=== PATIENT | male | born 1935 | race Caucasian/White ===

== ENCOUNTER 2016-11-03 06:09 | Day surgery (SDC) | payer OTHER ==
[~2016-11-03 06:09] MED LIST: ATOR20TA42; CIPR500T4 PO; ECOT81TA2
[2016-11-03 06:46] VITALS: BP 174/102; PULSE 71; RESP 20; TEMP 98.4; O2SAT 93
[2016-11-03] MEDS ORDERED: ASPI1TAB69 PO (06:53)
[2016-11-03] MEDS ORDERED: LIPI20TA PO (06:53)
[2016-11-03] MEDS ORDERED: SODIUM CHLORID 0.9% 500 ML INJ 500 ML IV SCH (07:00)
[2016-11-03] MEDS ORDERED: IOHEXOL 350 MG/ML 10 ML VIAL (for RAD DIAG) IV ONE (10:24)
[2016-11-03 12:40] VITALS: BP 171/99; PULSE 74; RESP 18; O2SAT 95
--- NOTE | 2016-11-03 12:41 | RADRPT ---
EXAM DATE/TIME: 11/03/2016 10:09 [facility] COMPARISON: No previous studies available for comparison. INDICATIONS : Enlarged abdominal aortic aneurysm. IV CONTRAST: 100 cc Omnipaque 350 (iohexol) IV RADIATION DOSE: 3.57 CTDIvol (mGy) MEDICAL HISTORY : Aneurysm, abdominal. SURGICAL HISTORY : None. ENCOUNTER: Initial ACUITY: 1 day PAIN SCALE: 0/10 LOCATION: Abdomen. TECHNIQUE: Volumetric scanning was performed using a multi-row detector CT scanner. The data was post processed with a variety of visualization algorithms including full volume maximum intensity projection, multi -planar sliding thin slab reformation, curved planar reformation, and surface rendering techniques. Using automated exposure control and adjustment of the mA and/or kV according to patient size, radiat ion dose was kept as low as reasonably achievable to obtain optimal diagnostic quality images. FINDINGS: Abdominal aorta: The distal thoracic aorta is aneurysmal measuring approximately 3.8 cm. The aorta remains aneurysmal across the diaphragmatic hiatus. It measures approximately 3.7 cm at this point. The celiac and SMA a re widely patent. There are single renal arteries bilaterally. The renal arteries are widely patent. The aorta is mildly aneurysmal at the level the renal arteries as well measuring approximately 3.4 cm in transverse diameter. The infrarenal aorta is quite aneurysmal with a maximum transverse dimension of 6.7 cm. The aneurysmal dilation extends down to but does not involve the iliac bifurcation. Pelvis: The common iliac arteries are dilated bilaterally. The right common iliac measures 1.7 cm in transver se diameter. The left common iliac measures approximately 1.2 cm in transverse diameter. The external iliac arteries are normal in caliber bilaterally. Both hypogastric arteries are patent. Right leg: The right common femoral, profunda femoral and superficial femoral are widely patent throughout their course. The popliteal is normal in caliber. There is two-vessel runoff into the foot via the posteri or tibial and peroneal. Left leg: The left common femoral and profunda femoral are widely patent. The superficial femoral is patent thr oughout its course. The popliteal is patent above and below the level of the knee. Distally, there is three-vessel runoff into the left foot. CT source data: The portions of lung bases visualized are clear. The solid organs of the abdomen are grossly intact. There is a 3.6 cm cyst arising from the right kidney and a 4.1 cm cyst arising from the left kidney. CONCLUSION: 1. Aneurysmal dilation of the distal thoracic aorta measuring approximately 3.8 cm. 2. The abdominal aorta is aneurysmal throughout its course. It measures 3.7 cm at the diaphragmatic h iatus, 3.4 cm at the level the renal arteries and distally measures 6.7 cm in its infrarenal segment. 3. Mild fusiform dilation of the common iliac arteries bilaterally. The right iliac measures 1.7 CM. The left iliac measures 1.2 CM. 4. Adequate in flow down to the pelvis bilaterally. 5. Right leg: Superficial femoral, profunda femoral popliteal are patent. There is advanced small ves nichelle disease below the level of the knee. There is two-vessel runoff into the right foot. The peroneal is diminutive in size. 6. Left leg: Superficial femoral, profunda femoral and popliteal are widely patent. All 3 trifurcatio n vessels are patent down into the left foot. Richard Boss MD on November 03, 2016 at 12:32 Board Certified Radiologist. This report was verified electronically.
== END 2016-11-03 12:45 | disposition home or self-care (01) ==
LOC: HRAD 06:09 → HRIP 06:18 → EDSTATUS 07:00 → HRAD 12:45
PROVIDERS: ATTEND Surgery Vascular Surgery
DX: I71.4 Abdominal aortic aneurysm, without rupture (principal); I73.9 Peripheral vascular disease, unspecified
CPT/HCPCS: 75635; 82565; 84520; 96365; 96366; J7040; Q9967

== ENCOUNTER 2016-12-15 16:10 | Inpatient (IN) | payer OTHER, MEDICARE ==
[~2016-12-15] VITALS: Ht 175.3 cm; Wt 96.1 kg
[~2016-12-15 16:10] MED LIST changes: +ASPI1TAB69 PO; -ATOR20TA42; -CIPR500T4 PO; -ECOT81TA2; +LIPI20TA PO
[2016-12-28] MEDS ORDERED: INSULIN HUMAN REGULAR 1,000 UNITS/10 ML VIAL SQ PRN (05:45)
[2016-12-28] MEDS ORDERED: METOPROLOL TARTRATE 25 MG TAB PO PRN (05:45)
[2016-12-28] MEDS ORDERED: POVIDONE IODINE 5% (ANTISEPSIS KIT) 4 APPLICATIONS EACH NARE PRN (05:45)
[2016-12-28] MEDS ORDERED: CHLORHEXIDINE GLUCONATE 2 % 1 PACK (2 CLOTHS) TOPICAL PRN (05:45)
[2016-12-28] MEDS ORDERED: LACTATED RINGER'S 1000 ML IV PRN (05:45)
[2016-12-28] MEDS ORDERED: SODIUM CHLORID 0.9% 500 ML IV PRN (05:45)
[2016-12-28 06:04] VITALS: BP 170/90; PULSE 75; RESP 18; TEMP 98.3; O2SAT 94
--- NOTE | 2016-12-28 07:27 | PD.VS.PN ---
Pre-operative Note Pre-operative diagnosis: Juxtarenal AAA Planned procedure: Retroperitoneal repair of AAA Interval History: Pt has been feeling well since clinic visit. No change in history. Labs: Hct 46 plt 343 cr 1.5 Blood: T&C 4U PRBC T&C 4U FFP Imaging: CTA reviewed - juxtarenal AAA Orders: NPO Ancef 2g IV OCTOR Post-operative destination: CVICU Operative site marked: Yes Consent: Informed consent has been obtained from Jose Fields Sr. I have explained the procedure in detail and discussed the risks, benefits, and potential complications. All questions have been answered to him and his son. Patient contact information: son is with him today Jose Russo MD Dec 28, 2016 07:27
[2016-12-28] MEDS ORDERED: BUPIVACAINE/EPINEPHRINE 0.5% PF 30 ML VIAL ONE (07:38)
[2016-12-28] MEDS ORDERED: HEPARIN SODIUM - IV 10,000 UNITS/10 ML VIAL ONE (07:38)
[2016-12-28] MEDS ORDERED: ceFAZolin 2 GM PREMIX 50 ML ONE (07:38)
[2016-12-28] MEDS ORDERED: GELFOAM SIZE 100 ONE (07:38)
[2016-12-28] MEDS ORDERED: THROMBIN (TOPICAL) 20,000 UNIT SPRAY KIT ONE (07:39)
[2016-12-28] MEDS ORDERED: THROMBIN (TOPICAL) 5,000 UNIT VIAL ONE (07:39)
[2016-12-28] MEDS ORDERED: HEPARIN SODIUM - SQ 10,000 UNITS/ML VIAL ONE (07:39)
[2016-12-28] MEDS ORDERED: PROTAMINE SULFATE 50 MG/5 ML VIAL ONE (07:39)
[2016-12-28] MEDS ORDERED: ePHEDrine/NS 25 MG/5 ML SYR IV ONE (07:58)
[2016-12-28] MEDS ORDERED: PROPOFOL 200 MG/20 ML AMP IV ONE (07:58)
[2016-12-28] MEDS ORDERED: NEOSTIGMINE 3 MG/3 ML SYR IV ONE ×2 (07:58→13:07)
[2016-12-28] MEDS ORDERED: PHENYLEPH/NS 1000 MCG/10 ML SYR IV ONE (07:59)
[2016-12-28] MEDS ORDERED: LACTATED RINGER'S 1000 ML INJ 1,000 ML IV ONE (08:00)
[2016-12-28] MEDS ORDERED: SODIUM BICARBONATE 8.4% INJ 50 MEQ/50 ML SYR IV ONE (08:00)
[2016-12-28] MEDS ORDERED: SODIUM CHLOR 0.9% 250 ML INJ 250 ML IV ONE (08:00)
[2016-12-28] MEDS ORDERED: SODIUM CHLORID 0.9% 500 ML INJ 500 ML IV ONE (08:00)
[2016-12-28] MEDS ORDERED: NORMOSOL R INJ 3,000 ML IV ONE (08:01)
[2016-12-28] MEDS ORDERED: MIDAZOLAM HCL 2 MG/2 ML VIAL ONE ×2 (08:37→13:33)
[2016-12-28] MEDS ORDERED: FAMOTIDINE 20 MG/2 ML VIAL ONE (08:37)
[2016-12-28] MEDS: D5-1/2 NS + KCL 20 MEQ INJ 1,000 ML IV SCH (12:32)
--- NOTE | 2016-12-28 12:32 | HHI.PR ---
cc: Kingsley Gamino MD Immediate Post Op Note Procedure Date: Dec 28, 2016 Pre Op Diagnosis: Juxtarenal AAA Post Op Diagnosis: Juxtarenal AAA Surgeon: Jose Russo Scroll Saw Operator(s): Jamar Bermudez Procedure: Retroperitoneal repair of juxtarenal AAA with 24mm Dacron (suprarenal X-clamp) Findings: successful repair + pedal signals at conclusion + L renal artery signal after proximal anastomosis Complications: none apparent Specimen(s) removed: none Estimated blood loss: 800 mL Anesthesia: General Drains: None Fluids: 3500mL x'oid; 2U FFP; 340 mL UOP IVF Patient to: Other (CVICU) Patient Condition: Fair Implant/Devices: SEE IMPLANT LOG (if applicable) Date/Time of Procedure: SEE SURGICAL CARE RECORD Jose Russo MD Dec 28, 2016 12:32
[2016-12-28] MEDS ORDERED: SUGAMMADEX SODIUM 200 MG/2 ML VIAL IV PUSH ONE ×2 (12:55)
[2016-12-28 13:00] VITALS: BP_SYST 154; BP_SYST 171; BP_DIAS 65; BP_DIAS 93; PULSE 84; RESP 15; TEMP 97.6; O2SAT 95; O2SAT 96
[2016-12-28] MEDS ORDERED: ONDANSETRON HCL 4 MG/2 ML VIAL IV PUSH ONE (13:07)
[2016-12-28] MEDS ORDERED: CLEVIDIPINE INJ 50 ML ONE (13:07)
[2016-12-28] MEDS ORDERED: MANNITOL 12.5 GM/50 ML VIAL IV ONE (13:08)
[2016-12-28] MEDS ORDERED: HEPARIN - 10,000 UNITS/ML IV ADDITIVE IV ONE (13:09)
[2016-12-28] MEDS ORDERED: NITROGLYCERIN 1000 MCG/5 ML VIAL IV ONE (13:10)
[2016-12-28] MEDS ORDERED: hydrALAZINE HCL 20 MG/ML VIAL ONE (13:10)
[2016-12-28] MEDS ORDERED: fentaNYL CITRATE 250 MCG/5 ML AMP ONE (13:33)
[2016-12-28] MEDS ORDERED: hydrALAZINE HCL 20 MG/ML VIAL IV PRN (13:45)
[2016-12-28] MEDS ORDERED: hydrALAZINE HCL 20 MG/ML VIAL IV ONE (13:45)
[2016-12-28 14:01] LABS: HEMATOCRIT 31.8 % (39.0-51.0); MEAN CELL VOLUME 90.9 FL (80.0-100.0); MEAN CORPUSCULAR HEMOGLOBIN 29.6 PG (27.0-34.0); MEAN CORPUSCULAR HGB CONC 32.6 % (32.0-36.0); PLATELET COUNT 169 TH/MM3 (150-450); REVIEW FLAG FINAL; WHITE BLOOD COUNT 12.4 TH/MM3 (4.0-11.0)
[2016-12-28] MEDS: HYDROmorphone HCL PF 1 MG/ML VIAL IV PRN ×2 (14:05→16:07)
[2016-12-28 14:09] LABS: PROTHROMBIN TIME - PATIENT 11.4 SEC (9.8-11.6)
[2016-12-28 14:24] LABS: POTASSIUM 4.4 MEQ/L (3.5-5.1)
--- NOTE | 2016-12-28 14:47 | RADRPT ---
EXAM DATE/TIME: 12/28/2016 14:23 [facility] COMPARISON: No previous studies available for comparison. INDICATIONS : Line placement. MEDICAL HISTORY : Aneurysm, abdominal. SURGICAL HISTORY : Abdominal aortic aneurysm repair. ENCOUNTER: Subsequent ACUITY: 2 days PAIN SCORE: 8/10 LOCATION: Bilateral chest FINDINGS: Left subclavian line is noted and the tip overlies the SVC. There is cardiomegaly and tortuous aorta noted. There is interstitial prominence seen in the left lung. A small left effusion is difficult to exclude. There is no pneumothorax. CONCLUSION: Left subclavian line placement as above. Danny Marie MD on December 28, 2016 at 14:45 Board Certified Radiologist. This report was verified electronically.
--- NOTE | 2016-12-28 15:17 | PD.VS.PN ---
Subjective POD #: 0 Procedure(s): Juxtarenal AAA repair Subjective/Hospital Course resting, doing well. no complaints Objective Neuro: MCCRARY, pain controlled Pulmonary: Chest clear on XRay Good sats on NC No distress Cardiac: reg rate FEN/GI: NPO; abd not distended; no nausea : + UOP - clear yellow ID Antibiotics(date/duration): none ID Cultures: none Heme: Hct 32, LA ok Vascular: palpable pulses RP incision ok Laboratory Laboratory Tests Test 12/28/16 12/28/16 12/28/16 12/28/16 05:55 08:25 10:00 13:40 Blood Type O POSITIVE O POSITIVE Antibody Screen NEGATIVE Crossmatch Leukocyte-Reduced Red Blood Cells Blood Bank Comment White Blood Count 12.4 Red Blood Count 3.50 Hemoglobin 10.4 Hematocrit 31.8 Mean Corpuscular Volume 90.9 Mean Corpuscular Hemoglobin 29.6 Mean Corpuscular Hemoglobin 32.6 Concent Red Cell Distribution Width 14.0 Platelet Count 169 Mean Platelet Volume 7.4 Prothrombin Time 11.4 Prothromb Time International 1.0 Ratio Sodium Level 142 Potassium Level 4.4 Chloride Level 106 Carbon Dioxide Level 26.0 Anion Gap 10 Blood Urea Nitrogen 30 Creatinine 1.41 Estimat Glomerular Filtration 48 Rate Random Glucose 133 Lactic Acid Level 1.2 Calcium Level 7.7 Imaging Last 48 hours Impressions Chest X-Ray 12/28/16 0000 Signed Impressions: Service Date/Time: Wednesday, December 28, 2016 14:23 - CONCLUSION: Left subclavian line placement as above. Danny Marie MD Assessment and Plan Plan looks good overall 1. NPO 2. May sit up in bed 3. Goal SBP 120-140 4. Follow UOP 5. Anticipate OOB TC tomorrow Jose Russo MD Dec 28, 2016 15:17
[2016-12-28 16:00] VITALS: BP 118/74; PULSE 78; RESP 16; TEMP 98; O2SAT 98
[2016-12-28] MEDS: METOPROLOL TARTRATE 5 MG/5 ML VIAL IV PUSH SCH ×2 (16:21→18:03)
[2016-12-28] MEDS: PANTOPRAZOLE SODIUM 40 MG VIAL IV PUSH SCH (16:21)
[2016-12-28 16:35] VITALS: PULSE 78
[2016-12-28 20:00] VITALS: BP 138/72; PULSE 80; RESP 16; TEMP 98.2; O2SAT 94
[2016-12-28 20:30] VITALS: O2SAT 95
--- NOTE | 2016-12-28 21:08 | PD.CONS ---
[facility] Service Critical Care Medicine Consult Requested By Dr. 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 He underwent the procedure without major intra-operative complication. EBL was reportedly 800mL. He tolerated a supramesenteric aortic cross clamp. post- uncrossclamping, he had adequate uop. He arrives to the CVICU extubated in stable condition. Review of Systems ROS Limitations: Clinical Condition ROS recently under anesthesia, still somnolent. Past Family Social History Allergies: Coded Allergies: Zetia (Verified Allergy, Mild, STRANGE FEELING IN ABDOMEN, 12/24/16) Past Medical History hyperlipidemia hypertension peripheral vascular disease Past Surgical History CEA eye surgery hernia repair Reported Medications atorvastatin Active Ordered Medications See MAR Family History reviewed and found to be noncontributory to his acute illness. Social History former smoker, quit 1 month ago. 7 glasses wine/week Physical Exam Vital Signs Vital Signs Date Time Temp Pulse Resp B/P Pulse Ox O2 Delivery O2 Flow Rate FiO2 12/28/16 16:35 78 12/28/16 16:00 98.0 78 16 118/74 98 12/28/16 14:35 16 12/28/16 13:00 96 Nasal Cannula 4.00 12/28/16 13:00 84 12/28/16 13:00 97.6 84 15 154/65 95 171/93 Manual Cuff/Auscultation 12/28/16 06:04 98.3 75 18 170/90 94 Physical Exam gen: elderly male, lying in bed, recently extubated, emerging from anesthesia heent: perrl. mucous membranes moist neck: no jvd. trachea midline chest: unlabored. equal chest rise. clear to auscultation cv: normal rate, regular rhythm. sbp in 130s on my exam. abd: incision with clean and dry dressing in place. appropriately tender to palpation. extr: bilateral distal LE pulses 2+ and equal. good cap refill. neuro: RASS -2, arousing from anesthesia. no gross focal deficits. Laboratory Laboratory Tests Test 12/28/16 12/28/16 12/28/16 12/28/16 05:55 08:25 10:00 13:40 Blood Type O POSITIVE O POSITIVE Antibody Screen NEGATIVE Crossmatch Leukocyte-Reduced Red Blood Cells Blood Bank Comment White Blood Count 12.4 Red Blood Count 3.50 Hemoglobin 10.4 Hematocrit 31.8 Mean Corpuscular Volume 90.9 Mean Corpuscular Hemoglobin 29.6 Mean Corpuscular Hemoglobin 32.6 Concent Red Cell Distribution Width 14.0 Platelet Count 169 Mean Platelet Volume 7.4 Prothrombin Time 11.4 Prothromb Time International 1.0 Ratio Sodium Level 142 Potassium Level 4.4 Chloride Level 106 Carbon Dioxide Level 26.0 Anion Gap 10 Blood Urea Nitrogen 30 Creatinine 1.41 Estimat Glomerular Filtration 48 Rate Random Glucose 133 Lactic Acid Level 1.2 Calcium Level 7.7 Result Diagram: 12/28/16 1340 12/28/16 1340 Imaging Last Impressions Chest X-Ray 12/28/16 0000 Signed Impressions: Service Date/Time: Wednesday, December 28, 2016 14:23 - CONCLUSION: Left subclavian line placement as above. Danny Marie MD Assessment and Plan Assessment and Plan Assessment: 81yM POD 0 s/p juxtarenal open retroperitoneal approach AAA repair with supramesenteric cross clamp. He is clinically on pathway. goal SBP after discussion with vascular surgery is 120 - 140 in the acute post-operative period. We will watch him carefully and keep tight control over his hemodynamics with frequent neurovascular checks. Plan by systems: Neuro: Acute post-operative pain -- dilaudid prn for pain -- frequent neurovascular checks Respiratory Postoperative atelectasis -- wean o2 by nc for goal spo2 > 90% -- aggressive pulm toilet CV: s/p juxtarenal AAA repair, retroperitoneal approach, supramesenteric crossclamp 12/28 hyperlipidemia hypertension -- continue statin -- ASA -- cardene for goal sbp 120 - 140 -- hydralazine and labetalol prn -- frequent neurovascular checks Renal: -- may likely have some mild YAMILEX secondary to suprarenal clamp. trend Cr and uop -- mercer FEN/GI: -- NPO. will likely have ileus post-op -- ICU electrolyte protocol -- daily BMP Heme/ID: Anemia secondary to acute blood loss -- does not meet transfusion triggers at this time. -- daily cbc -- periop abx per surgeon. Endocrine: Hyperglycemia of Critical Illness -- ssi, med, q6h Prophylaxis: -- scds, lovenox -- ppi Lines: -- left SC introducer sheath 12/28 -- radial art line 12/28 -- mercer Dispo: -- admit to the CVICU. Code Status Full Code Jhonatan Bautista MD Dec 28, 2016 21:08
[2016-12-28] MEDS ORDERED: POTASSIUM CHLOR 40 MEQ PREMIX 100 ML IV PRN ×2 (21:15)
[2016-12-28] MEDS ORDERED: MAGNESIUM SULFATE INJ 4 GM in SODIUM CHLORIDE 0.9% INJ 92 ML IV PRN (21:15)
[2016-12-28] MEDS ORDERED: SODIUM PHOSPHATE INJ 30 MMOL in SODIUM CHLOR 0.9% 250 ML INJ 240 ML IV PRN (21:15)
[2016-12-28] MEDS ORDERED: POTASSIUM PHOSPHATE INJ 30 MMOL in SODIUM CHLOR 0.9% 250 ML INJ 250 ML IV PRN (21:15)
[2016-12-28] MEDS ORDERED: POTASSIUM PHOSPHATE MONOBASIC 500 MG TAB PO PRN (21:15)
[2016-12-28] MEDS ORDERED: MAGNESIUM OXIDE 400 MG TAB PO PRN (21:15)
[2016-12-28] MEDS ORDERED: POTASSIUM PHOSPHATE MONOBASIC 500 MG TAB PO/TUBE PRN (21:15)
[2016-12-28] MEDS ORDERED: MAGNESIUM SULFATE INJ 2 GM in SODIUM CHLORIDE 0.9% INJ 96 ML IV PRN (21:15)
[2016-12-28] MEDS ORDERED: DEXTROSE 50% IN WATER 50 ML VIAL(D50) IV PUSH PRN (21:15)
[2016-12-28] MEDS ORDERED: POTASSIUM CHLOR 20 MEQ PREMIX 100 ML IV PRN ×2 (21:15)
[2016-12-28] MEDS: niCARdipine 25 MG/NS 250 ML Vial2Bag or IV room IV SCH ×6 (21:21→23:05)
[2016-12-28] MEDS ORDERED: GLUCAGON 1 MG/ML VIAL OTHER PRN (21:45)
[2016-12-28] MEDS: LABETALOL HCL 100 MG/20 ML VIAL IV PUSH PRN (22:09)
[2016-12-28] MEDS: hydrALAZINE HCL 20 MG/ML VIAL IV PUSH PRN (23:05)
[2016-12-29] VITALS (11 sets, daily range): BP systolic 120–145; BP diastolic 60–69; PULSE 68–78; RESP 15–18; TEMP 98.1–98.8; O2SAT 83–98
[2016-12-29] MEDS: hydrALAZINE HCL 20 MG/ML VIAL IV PUSH PRN ×2 (00:29→21:42)
[2016-12-29] MEDS: METOPROLOL TARTRATE 5 MG/5 ML VIAL IV PUSH SCH ×4 (00:51→17:35)
[2016-12-29] MEDS: INSULIN NovoLIN REGULAR SUPPLEMENTAL SCALE SQ SCH ×3 (00:51→12:00)
[2016-12-29] MEDS: niCARdipine 25 MG/NS 250 ML Vial2Bag or IV room IV SCH ×2 (02:50)
[2016-12-29] MEDS: LABETALOL HCL 100 MG/20 ML VIAL IV PUSH PRN (05:11)
[2016-12-29] MEDS: D5-1/2 NS + KCL 20 MEQ INJ 1,000 ML IV SCH ×2 (05:11→13:52)
[2016-12-29 05:13] LABS: HEMATOCRIT 32.4 % (39.0-51.0); MEAN CELL VOLUME 91.2 FL (80.0-100.0); MEAN CORPUSCULAR HEMOGLOBIN 30.9 PG (27.0-34.0); MEAN CORPUSCULAR HGB CONC 33.9 % (32.0-36.0); PLATELET COUNT 187 TH/MM3 (150-450); RED BLOOD COUNT 3.55 MIL/MM3 (4.50-5.90); RED CELL DISTRIBUTION WIDTH 14.1 % (11.6-17.2); REVIEW FLAG FINAL; WHITE BLOOD COUNT 8.5 TH/MM3 (4.0-11.0)
[2016-12-29 05:26] LABS: PROTHROMBIN TIME - PATIENT 11.2 SEC (9.8-11.6)
[2016-12-29 05:37] LABS: BICARBONATE 26.8 MEQ/L (21.0-32.0); POTASSIUM 3.9 MEQ/L (3.5-5.1)
[2016-12-29] MEDS: HYDROmorphone HCL PF 1 MG/ML VIAL IV PRN ×2 (05:45→17:34)
--- NOTE | 2016-12-29 05:54 | MP ---
cc: REINIER RUSSO MD DATE OF SURGERY 12/28/2016 PREOPERATIVE DIAGNOSIS Juxtarenal aortic aneurysm. POSTOPERATIVE DIAGNOSIS Juxtarenal aortic aneurysm. PROCEDURE Open retroperitoneal repair of a juxtarenal abdominal aortic aneurysm with suprarenal cross-clamp using a 24-mm Dacron tube graft. ATTENDING SURGEON Reinier Russo MD CO FOUNDER AND CTO SURGEON Dr. Jamar Bermudez [employer] FOUNDER AND CTO Elvie Miller ANESTHESIA General. INDICATIONS Mr. Fields is an 81-year-old gentleman with an abdominal aortic aneurysm. He was taken to the operating room for operative repair. DESCRIPTION OF PROCEDURE Informed consent was obtained from the patient. He was taken to the operating room and placed supine on the operating room table. An appropriate time-out was taken to identify the patient, the operative site and the procedure. Endotracheal anesthesia was induced and the patient was placed in the thoracoabdominal position with all pressure points carefully padded. He was prepped and draped. 2 grams of Ancef were administered. A retroperitoneal incision was made with a 10 blade, carried down through the subcutaneous tissue with electrocautery. We dissected down to the peritoneum which was swept medially. Retroperitoneal space was created and the Bookwalter retractor was set up. Dissection was then performed along the lateral aspect of the aorta. The renal vein was identified. The lumbar vein was tied with 2-0 silk suture. The marty of the diaphragm was taken down, exposing the perivisceral aorta and we dissected anteriorly and posteriorly enough to place a clamp. This was above the renal artery and the left renal artery was then encircled with vessel loop. We then dissected down towards the aortic bifurcation. Both common iliac arteries were dissected free. Throughout the entire dissection the ureter was kept clear and medially. The patient was systemically heparinized. Transplant profunda clamps were placed on the common iliac arteries and a Valery aortic clamp was placed on the suprarenal aorta and the pulse was then obliterated within the aorta. 25 grams of Mannitol was administered and the aortic sac was opened. The thrombus was removed. Lumbar stitch was used to repair the lumbar bleeding. A 24-mm graft was brought up on the field and, after fashioning proximal and distal filling rings, the proximal anastomosis was done with end-to-end fashion with running 3-0 Prolene suture. At the completion, it was flushed, noted to be hemostatic. Surgicel was placed around the anastomosis and there was a nice pulse in the left renal artery. The clamps were placed on the graft. The distal aspect of the terminal aorta was then fashioned and the distal anastomosis performed at the terminus of the aorta using running 3-0 Prolene suture. At the completion it was flushed and made hemostatic with several repair sutures. In conjunction and coordination with Anesthesia, the iliac clamps were removed. Once all the clamps were released, the blood pressure was stable. There were Doppler signals in the feet and the heparin was reversed with protamine. Two units of FFP were administered. The entire wound was irrigated. [place] Thrombin was applied. The retroperitoneum was noted to be hemostatic. A sponge count was correct and the retroperitoneum was closed with two layers of #1 looped PDS. The rib was reapproximated with #2 Vicryl and the skin was closed with 2-0 Polysorb and 4-0 Monocryl. Sponge, needle and instrument counts were correct at the end of the case. I was present and scrubbed and performed the entire procedure. Reinier Russo MD RJF/SSB /1:53 PM /5:22 AM
--- NOTE | 2016-12-29 07:17 | HHI.CCPN ---
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 He underwent the procedure without major intra-operative complication. EBL was reportedly 800mL. He tolerated a supramesenteric aortic cross clamp. post- uncrossclamping, he had adequate uop. He arrives to the CVICU extubated in stable condition. SUBJ 12/29: Remains on Cardene for blood pressure control, target systolic blood pressure less than 120. Remains nothing by mouth until cleared by vascular surgery Objective Vital Signs Date Time Temp Pulse Resp B/P Pulse Ox O2 Delivery O2 Flow Rate FiO2 12/29/16 04:00 98.1 75 18 135/68 98 12/29/16 04:00 Nasal Cannula 6.00 Intake and Output 12/28/16 12/28/16 12/29/16 08:00 16:00 00:00 Intake Total 662 ml Output Total 1035 ml Balance -373 ml Result Diagram: 12/29/16 0500 12/29/16 0500 Imaging Last Impressions Chest X-Ray 12/28/16 0000 Signed Impressions: Service Date/Time: Wednesday, December 28, 2016 14:23 - CONCLUSION: Left subclavian line placement as above. Danny Marie MD Objective Remarks gen: elderly male, lying in bed, not in any acute distress heent: perrl. mucous membranes moist neck: no jvd. trachea midline chest: unlabored. equal chest rise. clear to auscultation cv: normal rate, regular rhythm. sbp in 120-130s on Cardene infusion abd: incision with clean and dry dressing in place. appropriately tender to palpation. extr: bilateral distal LE pulses 2+ and equal. good cap refill. neuro: Alert awake oriented. no gross focal deficits. A/P Assessment and Plan Assessment: 81yM POD 0 s/p juxtarenal open retroperitoneal approach AAA repair with supramesenteric cross clamp. He is clinically on pathway. goal SBP after discussion with vascular surgery is 120 - 140 in the acute post-operative period. We will watch him carefully and keep tight control over his hemodynamics with frequent neurovascular checks. Plan by systems: Neuro: Acute post-operative pain -- Dilaudid prn for pain -- frequent neurovascular checks Respiratory Postoperative atelectasis -- wean o2 by nc for goal spo2 > 90% -- aggressive pulm toilet -- IS to bedside CV: s/p juxtarenal AAA repair, retroperitoneal approach, supramesenteric crossclamp 12/28 hyperlipidemia hypertension -- continue statin -- ASA -- cardene for goal sbp 120 - 140 -- hydralazine and labetalol prn -- frequent neurovascular checks -- Oral antihypertensives once by mouth intake is augmented by vascular surgery Renal: -- Likely have some mild YAMILEX secondary to suprarenal clamp. trend Cr and uop -- mercer FEN/GI: -- NPO. will likely have ileus post-op -- ICU electrolyte protocol -- daily BMP Heme/ID: Anemia secondary to acute blood loss -- does not meet transfusion triggers at this time. -- daily cbc -- periop abx per surgeon. Endocrine: Hyperglycemia of Critical Illness -- ssi, med, q6h Prophylaxis: -- scds, lovenox -- ppi Lines: -- left SC introducer sheath 12/28 -- radial art line 12/28 -- mercer Dispo: -- Continue CVICU. Jenny Carrillo MD Dec 29, 2016 07:17
--- NOTE | 2016-12-29 07:29 | PD.VS.PN ---
Subjective POD #: 1 Procedure(s): Juxtarenal AAA repair Subjective/Hospital Course Looks great, no nausea, vomiting pain controlled neuro intact does c/o being thirsty Objective Neuro: alert, oriented, MCCRARY with good strength Pulmonary: clear B Good sats Cardiac: reg rate FEN/GI: abd soft, appropriately tender around incision : 2.5L UOP Cr stable at 1.4 ID Antibiotics(date/duration): none ID Cultures: none Heme: Hct stable 32.4 plt 187 Vascular: 2+ pulses B LE Laboratory Laboratory Tests Test 12/28/16 12/28/16 12/28/16 12/29/16 08:25 10:00 13:40 05:00 Blood Type O POSITIVE Crossmatch Leukocyte-Reduced Red Blood Cells Blood Bank Comment White Blood Count 12.4 8.5 Red Blood Count 3.50 3.55 Hemoglobin 10.4 11.0 Hematocrit 31.8 32.4 Mean Corpuscular Volume 90.9 91.2 Mean Corpuscular Hemoglobin 29.6 30.9 Mean Corpuscular Hemoglobin 32.6 33.9 Concent Red Cell Distribution Width 14.0 14.1 Platelet Count 169 187 Mean Platelet Volume 7.4 7.2 Prothrombin Time 11.4 11.2 Prothromb Time International 1.0 1.0 Ratio Sodium Level 142 144 Potassium Level 4.4 3.9 Chloride Level 106 109 Carbon Dioxide Level 26.0 26.8 Anion Gap 10 8 Blood Urea Nitrogen 30 29 Creatinine 1.41 1.49 Estimat Glomerular Filtration 48 45 Rate Random Glucose 133 145 Lactic Acid Level 1.2 1.2 Calcium Level 7.7 7.7 Imaging Last 48 hours Impressions Chest X-Ray 12/28/16 0000 Signed Impressions: Service Date/Time: Wednesday, December 28, 2016 14:23 - CONCLUSION: Left subclavian line placement as above. Danny Marie MD Assessment and Plan Plan looks good overall 1. ok for water and if tolerates without nausea, will adv to clear liq midday 2. OOB TC with PT consult 3. Goal SBP 120-140 4. D/C Azul and HL IVF tomorrow (POD#2) 5. Recheck labs tmrw Jose Russo MD Dec 29, 2016 07:29
[2016-12-29] MEDS: HYDROmorphone HCL PF 1 MG/ML VIAL IV PUSH PRN ×2 (08:32→14:50)
[2016-12-29 08:44] LABS: MAGNESIUM 2.1 MG/DL (1.5-2.5)
[2016-12-29] MEDS: ENOXAPARIN SODIUM 30 MG/0.3 ML SYRINGE SQ SCH (13:51)
[2016-12-29] MEDS: PANTOPRAZOLE SODIUM 40 MG VIAL IV PUSH SCH (13:51)
[2016-12-30] VITALS (11 sets, daily range): BP systolic 98–162; BP diastolic 54–76; PULSE 67–96; RESP 18–23; TEMP 97.9–100.7; O2SAT 92–99
[2016-12-30] MEDS: METOPROLOL TARTRATE 5 MG/5 ML VIAL IV PUSH SCH ×2 (01:11→06:16)
[2016-12-30] MEDS: HYDROmorphone HCL PF 1 MG/ML VIAL IV PRN (04:40)
[2016-12-30 05:13] LABS: AUTOMATED NEUTROPHIL # 8.5 TH/MM3 (1.8-7.7); BASOPHIL % 0.2 % (0.0-2.0); EOSINOPHIL % 0.4 % (0.0-4.0); HEMATOCRIT 29.1 % (39.0-51.0); HEMO FLAGS DIFF FINAL; LYMPH % 8.1 % (9.0-44.0); LYMPHOCYTE # 0.8 TH/MM3 (1.0-4.8); MEAN CELL VOLUME 91.6 FL (80.0-100.0); MEAN CORPUSCULAR HEMOGLOBIN 31.3 PG (27.0-34.0); MEAN CORPUSCULAR HGB CONC 34.1 % (32.0-36.0); MONO % 8.7 % (0.0-8.0); NEUT % 82.6 % (16.0-70.0); PLATELET COUNT 192 TH/MM3 (150-450); RED BLOOD COUNT 3.18 MIL/MM3 (4.50-5.90); RED CELL DISTRIBUTION WIDTH 14.2 % (11.6-17.2); WHITE BLOOD COUNT 10.2 TH/MM3 (4.0-11.0)
[2016-12-30 05:35] LABS: ALT (GPT) 15 U/L (12-78); ANION GAP 6 MEQ/L (5-15); AST (GOT) 25 U/L (15-37); BICARBONATE 25.7 MEQ/L (21.0-32.0); BLOOD UREA NITROGEN 26 MG/DL (7-18); CHLORIDE 108 MEQ/L (98-107); GLOMERULAR FILTRATION RATE 44 ML/MIN (>89); SODIUM (NA) 140 MEQ/L (136-145)
[2016-12-30 05:36] LABS: ALKALINE PHOSPHATASE 77 U/L (45-117); TOTAL BILIRUBIN ADULT 0.4 MG/DL (0.2-1.0)
[2016-12-30] MEDS: INSULIN NovoLIN REGULAR SUPPLEMENTAL SCALE SQ SCH ×4 (06:00→18:00)
--- NOTE | 2016-12-30 06:06 | RADRPT ---
EXAM DATE/TIME: 12/30/2016 05:27 [facility] COMPARISON: CHEST SINGLE AP, December 28, 2016, 14:23. INDICATIONS : Shortness of breath, possible pulmonary disease. MEDICAL HISTORY : Aneurysm, abdominal. SURGICAL HISTORY : Abdominal aortic aneurysm repair. ENCOUNTER: Subsequent ACUITY: 4 - 6 days PAIN SCORE: 6/10 LOCATION: Bilateral chest FINDINGS: A single view of the chest demonstrates persistent left basilar density. Right lung clear. Diminished lung volumes. Left subclavian central line stable in position. Tortuous thoracic aorta. Osseous str uctures are intact. CONCLUSION: Persistent left basilar density. Casa Pickens MD on December 30, 2016 at 6:03 Board Certified Radiologist. This report was verified electronically.
[2016-12-30] MEDS: D5-1/2 NS + KCL 20 MEQ INJ 1,000 ML IV SCH (06:16)
--- NOTE | 2016-12-30 07:37 | HHI.CCPN ---
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 He underwent the procedure without major intra-operative complication. EBL was reportedly 800mL. He tolerated a supramesenteric aortic cross clamp. post- uncrossclamping, he had adequate uop. He arrives to the CVICU extubated in stable condition. SUBJ 12/29: Remains on Cardene for blood pressure control, target systolic blood pressure less than 120. Remains nothing by mouth until cleared by vascular surgery 12/30: Sitting up in stretcher chair. BP 120-140. Creat stable. UO adequate. Tolerating clear liquid diet Objective Vital Signs Date Time Temp Pulse Resp B/P Pulse Ox O2 Delivery O2 Flow Rate FiO2 12/30/16 04:00 98.4 77 20 137/69 95 12/30/16 04:00 Nasal Cannula 5.00 Intake and Output 12/29/16 12/29/16 12/30/16 08:00 16:00 00:00 Intake Total 1895 ml 2206 ml Output Total 1500 ml 725 ml Balance 395 ml 1481 ml Result Diagram: 12/30/16 0435 12/30/16 0435 Imaging Last Impressions Chest X-Ray 12/28/16 0000 Signed Impressions: Service Date/Time: Wednesday, December 28, 2016 14:23 - CONCLUSION: Left subclavian line placement as above. Danny Marie MD Objective Remarks gen: elderly male, lying in bed, not in any acute distress heent: perrl. mucous membranes moist neck: no jvd. trachea midline chest: unlabored. equal chest rise. clear to auscultation cv: normal rate, regular rhythm. sbp in 120-140s. Off Cardene infusion abd: incision with clean and dry dressing in place. appropriately tender to palpation. extr: bilateral distal LE pulses 2+ and equal. good cap refill. neuro: Alert awake oriented. no gross focal deficits. Urinary Catheter: Yes Assessment to: Continue A/P Assessment and Plan Assessment: 81yM s/p juxtarenal open retroperitoneal approach AAA repair with supramesenteric cross clamp. He is clinically on pathway. goal SBP after discussion with vascular surgery is 120 - 140 in the acute post-operative period. We will watch him carefully and keep tight control over his hemodynamics with frequent neurovascular checks. Plan by systems: Neuro: Acute post-operative pain -- Dilaudid prn for pain, start oxycodone PRN for pain -- frequent neurovascular checks Respiratory Postoperative atelectasis -- wean o2 by nc for goal spo2 > 90% -- aggressive pulm toilet -- IS to bedside CV: s/p juxtarenal AAA repair, retroperitoneal approach, supramesenteric crossclamp 12/28 hyperlipidemia hypertension -- continue statin -- Continue ASA -- Off Cardene. sbp at target 120 - 140 -- hydralazine and labetalol prn -- frequent neurovascular checks -- DC IV Lopressor. Start po Lopressor 25 mg po q8 and Norvasc 2.5 mg po daily Renal: -- YAMILEX secondary to suprarenal clamp. trend Cr and uop -- mercer. Change from D5 /12 NS to NS due to downtrending Na FEN/GI: -- Clear liquid diet, advance as tolerated. will likely have ileus post-op -- ICU electrolyte protocol -- daily BMP Heme/ID: Anemia secondary to acute blood loss -- does not meet transfusion triggers at this time. -- daily cbc -- periop abx per surgeon. Endocrine: Hyperglycemia of Critical Illness -- ssi, med, q6h Prophylaxis: -- scds, lovenox -- ppi Lines: -- left SC introducer sheath 12/28-DC -- radial art line 12/28-continue invasive BP monitoring -- mercer Dispo: -- OK to transfer from CV ICU from [facility] stand point. Defer to vascular surgery Jenny Carrillo MD Dec 30, 2016 07:37
[2016-12-30] MEDS ORDERED: PILL SPLITTER OTHER PRN (08:15)
[2016-12-30] MEDS: ASPIRIN 325 MG TAB PO SCH ×2 (08:16→09:00)
[2016-12-30] MEDS: METOPROLOL TARTRATE 25 MG TAB PO SCH ×3 (08:16→20:18)
[2016-12-30] MEDS: amLODIPine BESYLATE 5 MG TAB PO SCH (08:17)
[2016-12-30] MEDS: SODIUM CHLOR 0.9% 1000 ML INJ 1,000 ML IV SCH (08:18)
--- NOTE | 2016-12-30 09:17 | PD.VS.PN ---
Subjective Subjective/Hospital Course Minimal pain tolerated liquid diet without nausea. Objective Vitals/I&O Date Time Temp Pulse Resp B/P Pulse Ox O2 Delivery O2 Flow Rate FiO2 12/30/16 07:30 98 Nasal Cannula 4.00 12/30/16 07:00 67 12/30/16 07:00 97.9 67 20 151/76 99 12/30/16 07:00 99 Nasal Cannula 5.00 12/30/16 04:00 98.4 77 20 137/69 95 12/30/16 04:00 95 Nasal Cannula 5.00 12/30/16 04:00 86 12/30/16 00:00 86 12/30/16 00:00 96 Nasal Cannula 5.00 12/30/16 00:00 99.0 86 18 144/69 96 12/29/16 21:20 95 Nasal Cannula 5.00 12/29/16 20:00 98.8 78 16 145/60 83 12/29/16 20:00 83 Room Air 12/29/16 20:00 78 12/29/16 15:22 93 Room Air 12/29/16 15:20 98.2 70 15 132/69 95 12/29/16 15:20 20 12/29/16 15:00 73 12/29/16 12:00 93 Nasal Cannula 1.00 12/29/16 11:31 93 Nasal Cannula 2.00 12/29/16 11:29 98.4 70 15 132/69 95 12/29/16 11:00 68 12/30/16 12/30/16 12/30/16 07:00 15:00 23:00 Intake Total 1659 ml Output Total 735 ml Balance 924 ml Physical Exam left sided incision intact. Extremities warm. Laboratory Laboratory Tests Test 12/30/16 04:35 White Blood Count 10.2 Red Blood Count 3.18 Hemoglobin 9.9 Hematocrit 29.1 Mean Corpuscular Volume 91.6 Mean Corpuscular Hemoglobin 31.3 Mean Corpuscular Hemoglobin 34.1 Concent Red Cell Distribution Width 14.2 Platelet Count 192 Mean Platelet Volume 7.6 Neutrophils (%) (Auto) 82.6 Lymphocytes (%) (Auto) 8.1 Monocytes (%) (Auto) 8.7 Eosinophils (%) (Auto) 0.4 Basophils (%) (Auto) 0.2 Neutrophils # (Auto) 8.5 Lymphocytes # (Auto) 0.8 Monocytes # (Auto) 0.9 Eosinophils # (Auto) 0.0 Basophils # (Auto) 0.0 CBC Comment DIFF FINAL Differential Comment Sodium Level 140 Potassium Level 4.0 Chloride Level 108 Carbon Dioxide Level 25.7 Anion Gap 6 Blood Urea Nitrogen 26 Creatinine 1.54 Estimat Glomerular Filtration 44 Rate Random Glucose 122 Calcium Level 8.0 Total Bilirubin 0.4 Aspartate Amino Transf 25 (AST/SGOT) Alanine Aminotransferase 15 (ALT/SGPT) Alkaline Phosphatase 77 Total Protein 5.6 Albumin 2.4 Imaging Last 48 hours Impressions Chest X-Ray 12/30/16 0600 Signed Impressions: Service Date/Time: December 05:27 - CONCLUSION: Persistent left basilar density. Casa Pickens MD Assessment and Plan Plan Patient progressing nicely. LUIS Azul and HLIVFs Advance diet Transfer to [facility]. Jamar Bermudez DO, Jamar Viramontes DO Dec 30, 2016 09:17
[2016-12-30] MEDS: PANTOPRAZOLE SODIUM 40 MG VIAL IV PUSH SCH (13:00)
[2016-12-30] MEDS: ENOXAPARIN SODIUM 30 MG/0.3 ML SYRINGE SQ SCH (13:28)
[2016-12-30] MEDS: ATORVASTATIN 40 MG TAB PO SCH ×2 (20:17→20:25)
[2016-12-30] MEDS: oxyCODONE/ACETAMINOPHEN 7.5 MG/325 MG TAB PO PRN ×2 (20:17→20:25)
[2016-12-31] VITALS (25 sets, daily range): BP systolic 129–161; BP diastolic 69–80; PULSE 62–86; RESP 18–24; TEMP 97.7–99.1; O2SAT 92–97
[2016-12-31] MEDS: SODIUM CHLOR 0.9% 1000 ML INJ 1,000 ML IV SCH ×2 (03:30→22:12)
[2016-12-31] MEDS: METOPROLOL TARTRATE 25 MG TAB PO SCH ×3 (04:54→22:12)
[2016-12-31] MEDS: oxyCODONE/ACETAMINOPHEN 7.5 MG/325 MG TAB PO PRN (04:55)
[2016-12-31] MEDS: INSULIN NovoLIN REGULAR SUPPLEMENTAL SCALE SQ SCH ×4 (06:00→18:37)
[2016-12-31 06:21] LABS: AUTOMATED NEUTROPHIL # 8.2 TH/MM3 (1.8-7.7); BASOPHIL % 0.3 % (0.0-2.0); EOSINOPHIL # 0.1 TH/MM3 (0-0.4); EOSINOPHIL % 1.1 % (0.0-4.0); HEMATOCRIT 25.5 % (39.0-51.0); HEMO FLAGS DIFF FINAL; LYMPH % 7.8 % (9.0-44.0); LYMPHOCYTE # 0.8 TH/MM3 (1.0-4.8); MEAN CELL VOLUME 91.2 FL (80.0-100.0); MEAN CORPUSCULAR HEMOGLOBIN 31.8 PG (27.0-34.0); MEAN CORPUSCULAR HGB CONC 34.9 % (32.0-36.0); MONO % 9.1 % (0.0-8.0); NEUT % 81.7 % (16.0-70.0); PLATELET COUNT 196 TH/MM3 (150-450); RED BLOOD COUNT 2.79 MIL/MM3 (4.50-5.90); RED CELL DISTRIBUTION WIDTH 14.4 % (11.6-17.2)
[2016-12-31 06:55] LABS: ALKALINE PHOSPHATASE 69 U/L (45-117); ALT (GPT) 17 U/L (12-78); ANION GAP 8 MEQ/L (5-15); AST (GOT) 30 U/L (15-37); BICARBONATE 25.5 MEQ/L (21.0-32.0); BLOOD UREA NITROGEN 31 MG/DL (7-18); CHLORIDE 106 MEQ/L (98-107); GLOMERULAR FILTRATION RATE 40 ML/MIN (>89); POTASSIUM 3.8 MEQ/L (3.5-5.1); SODIUM (NA) 139 MEQ/L (136-145); TOTAL BILIRUBIN ADULT 0.5 MG/DL (0.2-1.0)
[2016-12-31] MEDS: ASPIRIN 325 MG TAB PO SCH (08:46)
[2016-12-31] MEDS: amLODIPine BESYLATE 5 MG TAB PO SCH (08:46)
[2016-12-31] MEDS: ENOXAPARIN SODIUM 30 MG/0.3 ML SYRINGE SQ SCH (12:47)
[2016-12-31] MEDS: PANTOPRAZOLE SODIUM 40 MG VIAL IV PUSH SCH (12:48)
--- NOTE | 2016-12-31 15:26 | PD.VS.PN ---
Subjective Subjective/Hospital Course Minimal pain tolerated PO and had a BM. Objective Vitals/I&O Date Time Temp Pulse Resp B/P Pulse Ox O2 Delivery O2 Flow Rate FiO2 12/31/16 14:00 70 12/31/16 13:00 74 12/31/16 12:06 77 12/31/16 11:15 93 Room Air 12/31/16 11:15 98.0 72 18 140/72 93 12/31/16 11:15 69 12/31/16 10:10 72 12/31/16 09:00 76 12/31/16 08:00 66 12/31/16 07:15 65 12/31/16 07:15 98.8 62 18 129/69 93 12/31/16 07:15 93 Room Air 12/31/16 06:00 66 12/31/16 05:00 82 12/31/16 04:00 76 12/31/16 03:00 93 Room Air 12/31/16 03:00 99.1 86 20 161/79 93 12/31/16 03:00 81 12/31/16 02:00 68 12/31/16 01:00 68 12/31/16 00:00 69 12/30/16 23:00 100.0 76 23 135/56 92 12/30/16 23:00 73 12/30/16 23:00 92 Room Air 12/30/16 22:00 71 12/30/16 21:00 84 12/30/16 20:00 96 12/30/16 19:00 92 Room Air 12/30/16 19:00 100.7 90 22 162/73 92 Arterial Line 12/30/16 19:00 79 12/30/16 15:30 79 12/30/16 15:30 93 Room Air 12/30/16 15:30 98.6 79 18 150/69 93 12/31/16 12/31/16 12/31/16 07:00 15:00 23:00 Intake Total 480 ml Output Total 600 ml Balance -120 ml Physical Exam Left sided incision intact. extremities warm. Laboratory Laboratory Tests Test 12/31/16 05:43 White Blood Count 10.0 Red Blood Count 2.79 Hemoglobin 8.9 Hematocrit 25.5 Mean Corpuscular Volume 91.2 Mean Corpuscular Hemoglobin 31.8 Mean Corpuscular Hemoglobin 34.9 Concent Red Cell Distribution Width 14.4 Platelet Count 196 Mean Platelet Volume 7.4 Neutrophils (%) (Auto) 81.7 Lymphocytes (%) (Auto) 7.8 Monocytes (%) (Auto) 9.1 Eosinophils (%) (Auto) 1.1 Basophils (%) (Auto) 0.3 Neutrophils # (Auto) 8.2 Lymphocytes # (Auto) 0.8 Monocytes # (Auto) 0.9 Eosinophils # (Auto) 0.1 Basophils # (Auto) 0.0 CBC Comment DIFF FINAL Differential Comment Sodium Level 139 Potassium Level 3.8 Chloride Level 106 Carbon Dioxide Level 25.5 Anion Gap 8 Blood Urea Nitrogen 31 Creatinine 1.67 Estimat Glomerular Filtration 40 Rate Random Glucose 89 Calcium Level 8.3 Total Bilirubin 0.5 Aspartate Amino Transf 30 (AST/SGOT) Alanine Aminotransferase 17 (ALT/SGPT) Alkaline Phosphatase 69 Total Protein 5.6 Albumin 2.3 Imaging Last 48 hours Impressions Chest X-Ray 12/30/16 0600 Signed Impressions: Service Date/Time: December 05:27 - CONCLUSION: Persistent left basilar density. Casa Pickens MD Assessment and Plan Plan Patient progressing nicely. Tolerating diet and having BM. Working on ambulation. Creatinine slightly increased. Will order am labs. Moving towards discharge. Jamar Bermudez DO, Jamar Viramontes DO Dec 31, 2016 15:26
[2016-12-31] MEDS: ATORVASTATIN 40 MG TAB PO SCH (22:12)
[2017-01-01] VITALS (24 sets, daily range): BP systolic 110–149; BP diastolic 59–79; PULSE 63–82; RESP 16–20; TEMP 98–99.2; O2SAT 91–95
[2017-01-01] MEDS: oxyCODONE/ACETAMINOPHEN 7.5 MG/325 MG TAB PO PRN ×4 (00:25→20:42)
[2017-01-01] MEDS: INSULIN NovoLIN REGULAR SUPPLEMENTAL SCALE SQ SCH ×5 (06:00→23:58)
[2017-01-01] MEDS: METOPROLOL TARTRATE 25 MG TAB PO SCH ×3 (06:19→20:42)
[2017-01-01 06:52] LABS: HEMATOCRIT 27.9 % (39.0-51.0); MEAN CELL VOLUME 91.2 FL (80.0-100.0); MEAN CORPUSCULAR HEMOGLOBIN 30.4 PG (27.0-34.0); MEAN CORPUSCULAR HGB CONC 33.3 % (32.0-36.0); PLATELET COUNT 250 TH/MM3 (150-450); RED BLOOD COUNT 3.06 MIL/MM3 (4.50-5.90); RED CELL DISTRIBUTION WIDTH 14.1 % (11.6-17.2); REVIEW FLAG FINAL; WHITE BLOOD COUNT 8.6 TH/MM3 (4.0-11.0)
[2017-01-01 07:21] LABS: BICARBONATE 25.3 MEQ/L (21.0-32.0); POTASSIUM 3.7 MEQ/L (3.5-5.1)
--- NOTE | 2017-01-01 09:20 | PD.VS.PN ---
Subjective POD #: 4 Procedure(s): Juxtarenal AAA repair Subjective/Hospital Course doing well, back and incisional pain Ambulating Jovanny diet feels like needs to have BM Objective Vitals/I&O Date Time Temp Pulse Resp B/P Pulse Ox O2 Delivery O2 Flow Rate FiO2 01/01/17 06:00 68 01/01/17 05:00 63 01/01/17 04:00 64 01/01/17 03:00 95 Room Air 01/01/17 03:00 64 01/01/17 03:00 98.1 65 20 130/70 95 01/01/17 02:00 63 01/01/17 01:00 67 01/01/17 00:00 68 12/31/16 23:00 92 Room Air 12/31/16 23:00 67 12/31/16 23:00 98.2 72 22 141/75 92 12/31/16 22:00 70 12/31/16 21:00 76 12/31/16 20:32 21 12/31/16 20:00 72 12/31/16 19:00 92 Room Air 12/31/16 19:00 98.6 78 24 156/80 92 12/31/16 19:00 72 12/31/16 18:15 71 12/31/16 17:06 66 12/31/16 16:00 70 12/31/16 15:56 97.7 70 18 152/77 97 12/31/16 15:56 97 Room Air 12/31/16 15:00 69 12/31/16 14:00 70 12/31/16 13:00 74 12/31/16 12:06 77 12/31/16 11:15 93 Room Air 12/31/16 11:15 98.0 72 18 140/72 93 12/31/16 11:15 69 12/31/16 10:10 72 01/01/17 01/01/17 01/01/17 07:00 15:00 23:00 Intake Total 570 ml Output Total 800 ml Balance -230 ml Exam: incision c/d/i No distress Pulses: feet perfused Laboratory Laboratory Tests Test 01/01/17 05:00 White Blood Count 8.6 Red Blood Count 3.06 Hemoglobin 9.3 Hematocrit 27.9 Mean Corpuscular Volume 91.2 Mean Corpuscular Hemoglobin 30.4 Mean Corpuscular Hemoglobin 33.3 Concent Red Cell Distribution Width 14.1 Platelet Count 250 Mean Platelet Volume 7.3 Sodium Level 141 Potassium Level 3.7 Chloride Level 107 Carbon Dioxide Level 25.3 Anion Gap 9 Blood Urea Nitrogen 33 Creatinine 1.61 Estimat Glomerular Filtration 41 Rate Random Glucose 83 Calcium Level 8.6 Assessment and Plan Plan OOB and ambulate ad lani bowel regimen labs ok Reg diet Discharge Planning Katherine/Jose Simons MD Jan 01, 2017 09:19
[2017-01-01] MEDS: DOCUSATE SODIUM 100 MG CAP PO SCH ×2 (10:03→20:42)
[2017-01-01] MEDS: amLODIPine BESYLATE 5 MG TAB PO SCH (10:04)
[2017-01-01] MEDS: ASPIRIN 325 MG TAB PO SCH (10:04)
[2017-01-01] MEDS: ENOXAPARIN SODIUM 30 MG/0.3 ML SYRINGE SQ SCH (12:56)
[2017-01-01] MEDS: PANTOPRAZOLE SODIUM 40 MG VIAL IV PUSH SCH (12:57)
[2017-01-01] MEDS: BISACODYL 10 MG SUPP RECTAL PRN (14:13)
[2017-01-01] MEDS: SODIUM CHLOR 0.9% 1000 ML INJ 1,000 ML IV SCH (19:30)
[2017-01-01] MEDS: ATORVASTATIN 40 MG TAB PO SCH (20:42)
[2017-01-02] VITALS (27 sets, daily range): BP systolic 148–155; BP diastolic 74–88; PULSE 61–75; RESP 16–18; TEMP 98.2–98.8; O2SAT 92–96
[2017-01-02] MEDS: oxyCODONE/ACETAMINOPHEN 7.5 MG/325 MG TAB PO PRN ×4 (04:26→22:41)
[2017-01-02] MEDS: METOPROLOL TARTRATE 25 MG TAB PO SCH ×3 (05:47→20:37)
[2017-01-02] MEDS: INSULIN NovoLIN REGULAR SUPPLEMENTAL SCALE SQ SCH ×3 (05:47→15:52)
[2017-01-02] MEDS: amLODIPine BESYLATE 5 MG TAB PO SCH (08:24)
[2017-01-02] MEDS: DOCUSATE SODIUM 100 MG CAP PO SCH ×2 (08:24→20:38)
[2017-01-02] MEDS: ASPIRIN 325 MG TAB PO SCH (08:24)
--- NOTE | 2017-01-02 10:55 | PD.VS.PN ---
Subjective POD #: 5 Procedure(s): Juxtarenal AAA repair Subjective/Hospital Course doing well, back and incisional pain still no BM despite suppository yesterday + flatus Ambulating and marco diet Objective Vitals/I&O Date Time Temp Pulse Resp B/P Pulse Ox O2 Delivery O2 Flow Rate FiO2 01/02/17 08:00 98.2 69 18 154/77 96 01/02/17 08:00 70 01/02/17 08:00 Room Air 01/02/17 06:36 75 01/02/17 05:12 69 01/02/17 04:36 98.2 73 154/74 94 01/02/17 03:44 Room Air 01/02/17 03:00 68 01/02/17 02:00 68 01/02/17 01:00 68 01/02/17 00:42 Room Air 01/02/17 00:41 98.8 61 148/80 94 01/02/17 00:00 64 01/01/17 23:00 65 01/01/17 22:00 64 01/01/17 21:00 70 01/01/17 20:00 66 01/01/17 19:00 68 01/01/17 19:00 Room Air 21 01/01/17 19:00 99.2 69 110/59 91 01/01/17 18:00 68 01/01/17 17:00 82 01/01/17 16:00 69 01/01/17 15:00 93 Room Air 01/01/17 15:00 98.0 70 16 145/74 93 01/01/17 14:00 71 01/01/17 13:00 68 01/01/17 12:00 70 01/01/17 11:30 95 Room Air 01/01/17 11:30 98.3 72 16 149/79 95 01/01/17 11:00 20 01/02/17 01/02/17 01/02/17 07:00 15:00 23:00 Intake Total 800 ml Output Total 4 ml Balance 796 ml Exam: incision ok abdomen soft, NT Assessment and Plan Plan OOB and ambulate ad lani KUB and if non-obstructive, will try enema Discharge Planning Jose Simons MD Jan 02, 2017 10:55
[2017-01-02] MEDS ORDERED: MINERAL OIL ENEMA 118 ML BTL RECTAL PRN (11:00)
[2017-01-02] MEDS: ENOXAPARIN SODIUM 30 MG/0.3 ML SYRINGE SQ SCH (11:13)
--- NOTE | 2017-01-02 11:42 | RADRPT ---
EXAM DATE/TIME: 01/02/2017 10:55 [place] COMPARISON: No previous studies available for comparison. INDICATIONS : Distention MEDICAL HISTORY : Aneurysm, abdominal. SURGICAL HISTORY : Abdominal aortic aneurysm repair. ENCOUNTER: Initial ACUITY: 4 - 6 days PAIN SCORE: 2/10 LOCATION: Abdomen FINDINGS: The bowel gas is nonspecific. There are no signs of obstruction or free air for technique. No defini te calcified stones are identified for technique. Moderate stool is present throughout the colon. CONCLUSION: Unremarkable study except for stool. Vonda Santoro MD on January 02, 2017 at 11:40 Board Certified Radiologist. This report was verified electronically.
[2017-01-02] MEDS: SODIUM CHLOR 0.9% 1000 ML INJ 1,000 ML IV SCH (12:18)
[2017-01-02] MEDS: PANTOPRAZOLE SODIUM 40 MG VIAL IV PUSH SCH (14:42)
[2017-01-02] MEDS: BISACODYL 10 MG SUPP RECTAL PRN (14:43)
[2017-01-02] MEDS: ATORVASTATIN 40 MG TAB PO SCH (20:37)
[2017-01-03] VITALS (16 sets, daily range): BP systolic 131–187; BP diastolic 76–95; PULSE 69–84; RESP 18; TEMP 98–98.3; O2SAT 93–97
[2017-01-03] MEDS: METOPROLOL TARTRATE 25 MG TAB PO SCH ×2 (05:55→15:04)
[2017-01-03] MEDS: INSULIN NovoLIN REGULAR SUPPLEMENTAL SCALE SQ SCH ×3 (05:55→11:25)
[2017-01-03] MEDS: amLODIPine BESYLATE 5 MG TAB PO SCH (08:20)
[2017-01-03] MEDS: DOCUSATE SODIUM 100 MG CAP PO SCH (08:20)
[2017-01-03] MEDS: ASPIRIN 325 MG TAB PO SCH (08:20)
[2017-01-03] MEDS: oxyCODONE/ACETAMINOPHEN 7.5 MG/325 MG TAB PO PRN (08:20)
[2017-01-03] MEDS ORDERED: MINERAL OIL ENEMA 118 ML BTL RECTAL ONE (09:15)
[2017-01-03] MEDS: SODIUM CHLOR 0.9% 1000 ML INJ 1,000 ML IV SCH (09:15)
--- NOTE | 2017-01-03 10:11 | PD.VS.DC ---
Discharge Summary Admission Date: Dec 28, 2016 at 05:17 Discharge Date: Jan 03, 2017 Admission Diagnosis: (1) AAA (abdominal aortic aneurysm) Discharge Diagnosis: (1) AAA (abdominal aortic aneurysm) Status: Acute Brief History from admission Juxtarenal AAA Hx of juxtarenal AAA Pt admitted for Retroperitoneal repair of juxtarenal AAA Procedure(s): Juxtarenal AAA repair Significant Findings GENERAL: A&OX3, NAD, GCS15 SKIN: Warm and dry. Incision to left side of abdomen intact with surgical glue no R/D/S NECK: Supple, No JVD CARDIOVASCULAR: +S1,S2 RRR RESPIRATORY: Breath sounds equal and clear bilaterally. No accessory muscle use. GASTROINTESTINAL: Abdomen soft, non-tender, Slightly distended. MUSCULOSKELETAL: No cyanosis, or edema. Laboratory Tests Test 01/01/17 05:00 Red Blood Count 3.06 MIL/MM3 (4.50-5.90) Hemoglobin 9.3 GM/DL (13.0-17.0) Hematocrit 27.9 % (39.0-51.0) Blood Urea Nitrogen 33 MG/DL (7-18) Creatinine 1.61 MG/DL (0.60-1.30) Estimat Glomerular Filtration 41 ML/MIN (>89) Rate Hospital Course: Hx of juxtarenal AAA Pt admitted for Retroperitoneal repair of juxtarenal AAA successful repair + pedal signals at conclusion Allergies Coded Allergies Type Severity Reaction Last Updated Verified Zetia Allergy Mild STRANGE FEELING IN ABDOMEN 12/24/16 Yes Recent Impressions Abdomen X-Ray 01/02/17 0000 Signed Impressions: Service Date/Time: Monday, January 02, 2017 10:55 - CONCLUSION: Unremarkable study except for stool. K. Hernandez Santoro MD //// 06:00 18:00 06:00 18:00 06:00 18:00 Intake Total 570 ml 800 ml 800 ml 960 ml 480 ml Output Total 800 ml 500 ml 4 ml 900 ml Balance -230 ml 300 ml 796 ml 60 ml 480 ml Intake Oral 570 ml 800 ml 800 ml 960 ml 480 ml Output Urine Total 800 ml 500 ml 4 ml 900 ml # Voids 2 4 # Bowel Movements 0 0 0 Laboratory Tests Test 01/01/17 05:00 White Blood Count 8.6 TH/MM3 Red Blood Count 3.06 MIL/MM3 Hemoglobin 9.3 GM/DL Hematocrit 27.9 % Mean Corpuscular Volume 91.2 FL Mean Corpuscular Hemoglobin 30.4 PG Mean Corpuscular Hemoglobin 33.3 % Concent Red Cell Distribution Width 14.1 % Platelet Count 250 TH/MM3 Mean Platelet Volume 7.3 FL Sodium Level 141 MEQ/L Potassium Level 3.7 MEQ/L Chloride Level 107 MEQ/L Carbon Dioxide Level 25.3 MEQ/L Anion Gap 9 MEQ/L Blood Urea Nitrogen 33 MG/DL Creatinine 1.61 MG/DL Estimat Glomerular Filtration 41 ML/MIN Rate Random Glucose 83 MG/DL Calcium Level 8.6 MG/DL Procedure Category Date Status Time (Hub Use Only)Inp Phy CONS 12/31/16 Transmitted Cons/Ref Basic Metabolic Panel LAB 01/01/17 Complete (Bmp) 15:26 Cbc No Diff, Includes LAB 01/01/17 Complete Plts 15:26 Docusate Sodium MED 01/01/17 In Process (Colace) 09:00 Bisacodyl Supp MED 01/01/17 In Process (Dulcolax Supp) 09:30 Vascular Access Team RAINER 01/01/17 In Process Consult 14:32 Vascular Poc IMGUS 01/01/17 Taken Ultrasound Abdomen, Kub Only RADDIAG 01/02/17 Resulted Mineral Oil Enema MED 01/02/17 In Process (Fleet Mineral Oil Jessa 11:00 Mineral Oil Enema MED 01/03/17 Complete (Fleet Mineral Oil Jessa 09:15 Attending Discharge DISCHARGE 01/03/17 Transmitted Order 09:38 Vital Signs Date Time Temp Pulse Resp B/P Pulse Ox O2 Delivery O2 Flow Rate FiO2 01/03/17 09:14 18 01/03/17 09:01 75 01/03/17 08:49 73 01/03/17 08:49 98.3 71 18 156/89 95 01/03/17 08:49 95 Room Air 01/03/17 06:00 77 01/03/17 05:00 77 01/03/17 04:00 98.0 74 18 187/95 95 01/03/17 04:00 84 01/03/17 03:41 95 Room Air 01/03/17 03:18 95 Room Air 01/03/17 03:00 84 01/03/17 02:00 71 01/03/17 01:00 71 01/03/17 00:00 98.2 73 18 134/76 93 01/03/17 00:00 72 01/02/17 23:22 95 Room Air 01/02/17 23:00 68 01/02/17 22:00 67 01/02/17 21:00 71 01/02/17 20:12 92 21 01/02/17 20:00 98.2 69 18 149/88 95 01/02/17 20:00 72 01/02/17 20:00 95 Room Air 01/02/17 19:00 69 01/02/17 18:00 72 01/02/17 17:00 66 01/02/17 16:00 Room Air 01/02/17 16:00 98.2 66 16 155/79 96 01/02/17 16:00 70 01/02/17 15:00 68 01/02/17 14:00 72 01/02/17 13:00 68 01/02/17 12:25 94 21 01/02/17 12:00 Room Air 01/02/17 12:00 66 01/02/17 12:00 98.4 67 16 154/84 93 01/02/17 11:00 72 01/02/17 10:00 70 01/02/17 09:00 64 01/02/17 08:00 98.2 69 18 154/77 96 01/02/17 08:00 70 01/02/17 08:00 Room Air 01/02/17 07:00 62 01/02/17 06:36 75 01/02/17 05:12 69 01/02/17 04:36 98.2 73 154/74 94 01/02/17 03:44 Room Air 01/02/17 03:00 68 01/02/17 02:00 68 01/02/17 01:00 68 01/02/17 00:42 Room Air 01/02/17 00:41 98.8 61 148/80 94 01/02/17 00:00 64 01/01/17 23:00 65 01/01/17 22:00 64 01/01/17 21:00 70 01/01/17 20:00 66 01/01/17 19:00 68 01/01/17 19:00 Room Air 21 01/01/17 19:00 99.2 69 110/59 91 01/01/17 18:00 68 01/01/17 17:00 82 01/01/17 16:00 69 01/01/17 15:00 93 Room Air 01/01/17 15:00 98.0 70 16 145/74 93 01/01/17 14:00 71 01/01/17 13:00 68 01/01/17 12:00 70 01/01/17 11:30 95 Room Air 01/01/17 11:30 98.3 72 16 149/79 95 01/01/17 10:00 64 01/01/17 09:00 98.3 66 16 135/60 95 01/01/17 09:00 66 01/01/17 09:00 95 Room Air 01/01/17 08:00 68 01/01/17 07:00 70 01/01/17 06:00 68 01/01/17 05:00 63 01/01/17 04:00 64 01/01/17 03:00 95 Room Air 01/01/17 03:00 64 01/01/17 03:00 98.1 65 20 130/70 95 01/01/17 02:00 63 01/01/17 01:00 67 01/01/17 00:00 68 12/31/16 23:00 92 Room Air 12/31/16 23:00 67 12/31/16 23:00 98.2 72 22 141/75 92 12/31/16 22:00 70 12/31/16 21:00 76 12/31/16 20:32 21 12/31/16 20:00 72 12/31/16 19:00 92 Room Air 12/31/16 19:00 98.6 78 24 156/80 92 12/31/16 19:00 72 12/31/16 18:15 71 12/31/16 17:06 66 12/31/16 16:00 70 12/31/16 15:56 97.7 70 18 152/77 97 12/31/16 15:56 97 Room Air 12/31/16 15:00 69 12/31/16 14:00 70 12/31/16 13:00 74 12/31/16 12:06 77 12/31/16 11:15 93 Room Air 12/31/16 11:15 98.0 72 18 140/72 93 12/31/16 11:15 69 12/31/16 10:10 72 Discharge Condition: Good Discharge Disposition: Disch w/ Home Health Serv Discharge Instructions: Pt will follow up in our OPC on 01/21/17 at 1500 Call the office to report any new concerns May shower Avoid baths keep incision clean and OPA Do not apply any ointments or creams to incision site Raquel CABRERA [facility] [phone] Any questions or concerns: Call [facility] V[facility] Surgery at [facility] [phone] Raquel Navarro Jan 03, 2017 10:11
--- NOTE | 2017-01-03 11:34 | HHI.FF ---
Face to Face Verification Diagnosis: (1) AAA (abdominal aortic aneurysm) Physical Therapy Order: Evaluate and Treat, Improve ambulation, Strength and gait training I have seen patient Jose FieldsSr on 01/03/17. My clinical findings support the need for the requested home health care services because: Mr Fields is post operative Juxtarenal AAA repair that has presented with post operative weakness. Ltd mobility - disease progression I certify that my clinical findings support that this patient is homebound because: Patient is ready for D/C and will benefit from PT at home to aid in his recovery Post-op weakness Raquel Navarro [facility] Jan 03, 2017 11:34
[2017-01-03] MEDS: ENOXAPARIN SODIUM 30 MG/0.3 ML SYRINGE SQ SCH (12:08)
[2017-01-03] MEDS: PANTOPRAZOLE SODIUM 40 MG VIAL IV PUSH SCH (12:08)
== END 2017-01-03 15:54 | disposition home health service (06) | DRG 269 ==
LOC: HSDI 12-28 05:17 → HCVR 12-28 12:55 → HCIN 12-30 11:15
PROVIDERS: ADMIT Surgery; ATTEND Surgery
PROC: 04C00ZZ Extirpation of Matter from Abdominal Aorta, Open Approach (ICD-10-PCS; 2016-12-28)
PROC: 04R00JZ Replacement of Abdominal Aorta with Synthetic Substitute, Open Approach (ICD-10-PCS; principal; 2016-12-28 08:45)
DX: I71.4 Abdominal aortic aneurysm, without rupture (principal); N17.9 Acute kidney failure, unspecified; J98.11 Atelectasis; D62 Acute posthemorrhagic anemia; I73.9 Peripheral vascular disease, unspecified; I10 Essential (primary) hypertension; E78.5 Hyperlipidemia, unspecified; R73.9 Hyperglycemia, unspecified; Z87.891 Personal history of nicotine dependence; H40.9 Unspecified glaucoma; Z79.82 Long term (current) use of aspirin
CPT/HCPCS: 36430; 71010; 74000; 76937; 80048; 80053; 82948; 83605; 83735; 85025; 85027; 85610; 86850; 86900; 86901; 86920; 86927; 94150; 94640; 94667; 94668; C1757; C1768; C9113; C9248; J0360; J0690; J1170; J1644; J1650; J2150; J2250; J2370; J2405; J2710; J2720; J3010; J3480; J7030; J7040; J7050; J7120; P9017

== ENCOUNTER → 2016-12-22 | Outpatient (CLI) | payer OTHER ==
--- NOTE | 2016-12-23 13:30 | EKG ---
Date Performed: 12/22/2016 Time Performed: 13:34:34 PTAGE: 81 years EKG: Sinus rhythm MARKED LEFT AXIS DEVIATION INCOMPLETE RIGHT BUNDLE BRANCH BLOCK NONSPECIFIC T-WAVE ABNORMALITY ABNOR MAL ECG PREVIOUS TRACING : 03/27/2007 10.07 Compared to prior tracing no significant change DOCTOR: Jagjit Varma Interpretating Date/Time 12/23/2016 13:28:48
== END ==
LOC: HCAV 13:19
PROVIDERS: ATTEND Surgery
DX: I71.4 Abdominal aortic aneurysm, without rupture (principal)
CPT/HCPCS: 93005

== ENCOUNTER 2017-03-20 20:31 | Inpatient (IN) | payer OTHER, MEDICARE ==
[~2017-03-20] VITALS: Ht 175.3 cm; Wt 88.1 kg
[2017-03-20] VITALS (12 sets, daily range): BP systolic 118–202; BP diastolic 69–115; PULSE 66–100; RESP 18–20; TEMP 98.7; O2SAT 69–97
[2017-03-20] MEDS ORDERED: ASPIRIN 81 MG CHEW TAB PO ONE (21:15)
[2017-03-20] MEDS ORDERED: SODIUM CHLORIDE 0.9% FLUSH 10 ML FLUSH IVF PRN (21:15)
[2017-03-20] MEDS: NITROGLYCERIN 0.4 MG SL 25 TABS/BTL SL SCH ×2 (21:34→21:37)
[2017-03-20 21:49] LABS: AUTOMATED NEUTROPHIL # 5.6 TH/MM3 (1.8-7.7); BASOPHIL # 0.1 TH/MM3 (0-0.2); BASOPHIL % 0.6 % (0.0-2.0); EOSINOPHIL # 0.5 TH/MM3 (0-0.4); EOSINOPHIL % 5.6 % (0.0-4.0); HEMATOCRIT 31.4 % (39.0-51.0); HEMO FLAGS DIFF FINAL; LYMPH % 17.4 % (9.0-44.0); LYMPHOCYTE # 1.5 TH/MM3 (1.0-4.8); MEAN CELL VOLUME 87.6 FL (80.0-100.0); MEAN CORPUSCULAR HEMOGLOBIN 29.5 PG (27.0-34.0); MEAN CORPUSCULAR HGB CONC 33.6 % (32.0-36.0); MONO % 8.8 % (0.0-8.0); NEUT % 67.6 % (16.0-70.0); PLATELET COUNT 367 TH/MM3 (150-450); RED BLOOD COUNT 3.59 MIL/MM3 (4.50-5.90); RED CELL DISTRIBUTION WIDTH 14.9 % (11.6-17.2); WHITE BLOOD COUNT 8.5 TH/MM3 (4.0-11.0)
--- NOTE | 2017-03-20 21:49 | PD ---
HPI Chief Complaint: General Weakness Time Seen by Provider: 21:15 Travel History International Travel<30 days: No Contact w/Intl Traveler<30days: No Traveled to known affect area: No History of Present Illness HPI 81-year-old male presents to the emergency department for complaint of myalgias and arthralgias and not feeling well 3 days. 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 Patient states he's had chronic left lower quadrant abdominal discomfort since surgery and during rehabilitation that has not changed. Patient states this is not any discomfort. Patient denies fever or chills. The patient has had no cough or shortness of breath. No pleuritic chest pain. Patient complains of an "ache" type sensation in the epigastrium. Patient denies any nausea or vomiting. Patient has had no referred neck jaw back or shoulder pain. Patient denies any lower history pain at rest with elevation or ambulation. Patient is not noticed any weakness to the lower extremities. Patient denies any known coronary vessel disease or cardiac disease. Patient is a nonsmoker. [facility] Past Medical History Narrative Medical Carotid endarterectomy AAA repair dyslipidemia craniotomy no tobacco use: Nursing notes reviewed AAA: Yes (DECEMBER 2016) Blood Disorders: No Cancer: No Cardiovascular Problems: Yes (abdominal aneurysm DECEMBER 2016) High Cholesterol: Yes Diabetes: No Diminished Hearing: No Endocrine: No Genitourinary: No Hepatitis: No Hiatal Hernia: No Immune Disorder: No Medical other: Yes (inguinal hernia) Musculoskeletal: No Neurologic: No Psychiatric: No Reproductive: No Respiratory: No Thyroid Disease: No Tetanus Vaccination: > 5 Years Influenza Vaccination: No Past Surgical History Abdominal Surgery: Yes (HERNIA) AICD: No Arteriovenous Shunt: No Cardiac Surgery: Yes (carotid endartarectomy unk which side) Ear Surgery: No Endocrine Surgery: No Eye Surgery: Yes (holes surgically placed into eyes to relieve pressure) Genitourinary Surgery: No Gynecologic Surgery: No Insulin Pump: No Joint Replacement: No Neurologic Surgery: Yes (CRANIAL SURGERY TWICE x 2 due to infection from injury ) Oral Surgery: Yes (dentures) Pacemaker: No Thoracic Surgery: No Other Surgery: Yes (cranial surgery x 2 due to infection from injury ) Social History Alcohol Use: Yes (SOCIALLY) Tobacco Use: No (QUIT JANUARY 2017) Substance Use: No Allergies-Medications (Allergen,Severity, Reaction): Coded Allergies: Zetia (Verified Allergy, Mild, STRANGE FEELING IN ABDOMEN, 12/24/16) Reported Meds & Prescriptions Reported Meds & Active Scripts Active Reported Lipitor (Atorvastatin Calcium) 20 Mg Tab 20 Mg PO DAILY Aspirin 81 Mg Tabdr 81 Mg PO DAILY Review of Systems Except as stated in HPI: all other systems reviewed are Neg General / Constitutional: No: Fever, Chills Eyes: No: Visual changes HENT: No: Headaches, Neck Pain Cardiovascular: No: Chest Pain or Discomfort, Diaphoresis, Claudication Respiratory: No: Shortness of Breath Gastrointestinal: Positive: Abdominal Pain (chronic LLQ "discomfort" s/p AAA repair), No: Nausea, Vomiting Musculoskeletal: Positive: Myalgias, Arthralgias, No: Weakness, Cramping, Edema, Pain Skin: No Rash Neurologic: Positive: Weakness, No: Dizziness, Syncope, Focal Abnormalities, Coordination Problem Psychiatric: No: Anxiety Hematologic/Lymphatic: No: Easy Bruising Physical Exam Narrative GENERAL: Well-developed well-nourished male in no acute distress no respiratory distress with triage hypertensive BP: 167/115 SKIN: Warm and dry. HEAD: Normocephalic. EYES: No scleral icterus. No injection or drainage. NECK: Supple, trachea midline. No JVD or lymphadenopathy. CARDIOVASCULAR: Regular rate and rhythm without murmurs, gallops, or rubs. RESPIRATORY: Breath sounds equal bilaterally. No accessory muscle use. GASTROINTESTINAL: Abdomen soft, nondistended. Well-healed left abdominal wall post operative site without induration erythema or tenderness also no drainage mild left lower quadrant tenderness to palpation nonpulsatile otherwise abdomen is soft nontender nondistended. MUSCULOSKELETAL: No cyanosis, or edema. Bilateral radial pulses 2+ to palpation ; left lower extremity posterior tibialis and dorsalis pedis pulses 2+ to palpation, right lower extremity posterior tibialis 2+ to palpation dorsalis pedis pulse is trace to palpation; bilateral posterior tibialis arterial and dorsalis pedis arterial pulses are present with Doppler. Bilateral lower extremities no pallor no coolness with brisk capillary refill bilaterally to all digits. BACK: Nontender without obvious deformity. No CVA tenderness. Data Data Last Documented VS Vital Signs Date Time Temp Pulse Resp B/P Pulse Ox O2 Delivery O2 Flow Rate FiO2 03/20/17 23:56 66 20 118/69 94 03/20/17 23:35 Nasal Cannula 2 03/20/17 20:38 98.7 Orders Electrocardiogram (03/20/17 21:15) Basic Metabolic Panel (Bmp) (03/20/17 21:15) Ckmb (Isoenzyme) Profile (03/20/17 21:15) Complete Blood Count With Diff (03/20/17 21:15) Magnesium (Mg) (03/20/17 21:15) Prothrombin Time / Inr (Pt) (03/20/17 21:15) Act Partial Throm Time (Ptt) (03/20/17 21:15) Troponin I (03/20/17 21:15) Chest, Single Ap (03/20/17 21:15) Ecg Monitoring (03/20/17 21:15) Bilateral Bp Monitoring (03/20/17 21:15) Iv Access Insert/Monitor (03/20/17 21:15) Oximetry (03/20/17 21:15) Oxygen Administration (03/20/17 21:15) Aspirin Chew (Aspirin Chew) (03/20/17 21:15) Sodium Chloride 0.9% Flush (Ns Flush) (03/20/17 21:15) Nitroglycerin Sl (Nitrostat Sl) (03/20/17 21:15) Cta Thor Abd Aorta W Iv C W3d (03/20/17 21:15) Nitroglycerin 2% Oint (Nitroglycerin 2% (03/20/17 22:00) Sodium Chlor 0.9% 1000 Ml Inj (Ns 1000 M (03/20/17 22:15) CKMB (03/20/17 21:25) CKMB% (03/20/17 21:25) Labetalol Inj (Trandate Inj) (03/20/17 22:30) Labetalol Inj (Trandate Inj) (03/20/17 22:30) Nitroprusside Inj (Nipride Inj) (03/20/17 22:30) Iodixanol 320 Inj (Rad Ct) (Visipaque 32 (03/20/17 23:21) Labs Laboratory Tests Test 03/20/17 21:25 White Blood Count 8.5 TH/MM3 Red Blood Count 3.59 MIL/MM3 Hemoglobin 10.6 GM/DL Hematocrit 31.4 % Mean Corpuscular Volume 87.6 FL Mean Corpuscular Hemoglobin 29.5 PG Mean Corpuscular Hemoglobin 33.6 % Concent Red Cell Distribution Width 14.9 % Platelet Count 367 TH/MM3 Mean Platelet Volume 7.4 FL Neutrophils (%) (Auto) 67.6 % Lymphocytes (%) (Auto) 17.4 % Monocytes (%) (Auto) 8.8 % Eosinophils (%) (Auto) 5.6 % Basophils (%) (Auto) 0.6 % Neutrophils # (Auto) 5.6 TH/MM3 Lymphocytes # (Auto) 1.5 TH/MM3 Monocytes # (Auto) 0.8 TH/MM3 Eosinophils # (Auto) 0.5 TH/MM3 Basophils # (Auto) 0.1 TH/MM3 CBC Comment DIFF FINAL Differential Comment Prothrombin Time 11.4 SEC Prothromb Time International 1.0 RATIO Ratio Activated Partial 28.9 SEC Thromboplast Time Sodium Level 142 MEQ/L Potassium Level 4.2 MEQ/L Chloride Level 104 MEQ/L Carbon Dioxide Level 28.5 MEQ/L Anion Gap 10 MEQ/L Blood Urea Nitrogen 43 MG/DL Creatinine 2.60 MG/DL Estimat Glomerular Filtration 24 ML/MIN Rate Random Glucose 102 MG/DL Calcium Level 9.3 MG/DL Magnesium Level 2.3 MG/DL Total Creatine Kinase 103 U/L Creatine Kinase MB 2.3 NG/ML Troponin I 0.29 NG/ML [facility] Medical Decision Making Medical Screen Exam Complete: Yes Emergency Medical Condition: Yes Medical Record Reviewed: Yes Interpretation(s) EKG normal sinus rhythm rate [address] elevation; T wave abnormality anterolaterally with possible ischemia Differential Diagnosis acs/ PA, aortic dissection, aneurysm leak Narrative Course Patient placed on monitor technician bilateral blood pressures obtained patient administered sublingual nitroglycerin for complaint of epigastric "ache" and aspirin 162 mg chewed. After SL NTG 0.4 mg x 1 ---BP: 156/89 ache 0/10 @ 22:26 pain free 0/10, BP noted again to be elevating --labetalol ordered along with infusion and the nipride infusion ordered to keep S BP <120 mmHg > 100 mmHg \\Troponin I elevated 0.29 with ischemic EKG changes noted anterolaterally Patient with marked renal insufficiency worsened since 12/2016; BUN/Cr 43/2.6 gfr 24; this is increased since 12/2016 33/1.61, gfr 41; patient is aware of compromised renal function and risk of renal failure as well as risk of dissection --agrees to proceed with imaging. Sepsis Criteria SIRS Criteria (2 or more): Heart rate over 90 Diagnosis Primary Impression: Chest pain Qualified Code: R07.2 - Precordial pain Additional Impressions: ACS (acute coronary syndrome) HTN (hypertension) Qualified Code: I10 - Essential hypertension Acute on chronic renal insufficiency Oralia Vigil MD Mar 20, 2017 21:48
--- NOTE | 2017-03-20 21:50 | RADRPT ---
EXAM DATE/TIME: 03/20/2017 21:31 [facility] COMPARISON: CHEST SINGLE AP, December 30, 2016, 5:27. INDICATIONS : Chest pain. MEDICAL HISTORY : Aneurysm, abdominal. SURGICAL HISTORY : Abdominal aortic aneurysm repair. ENCOUNTER: Initial ACUITY: 1 day PAIN SCORE: 2/10 LOCATION: Bilateral chest FINDINGS: The heart size is normal. There is some widening the superior mediastinum and aortic arch. This appea yessi is unchanged. There is diffuse increased interstitial markings seen throughout. There is furthe r increased density at the right base. CONCLUSION: 1. One in the superior mediastinum and aorta. This appearance was present previously. 2. Diffuse increased interstitial markings likely related to pulmonary edema. Is some further annular consolidation at the right base. Gerardo Rivas MD on March 20, 2017 at 21:46 Board Certified Radiologist. This report was verified electronically.
[2017-03-20 21:59] LABS: CHLORIDE 104 MEQ/L (98-107); POTASSIUM 4.2 MEQ/L (3.5-5.1); SODIUM (NA) 142 MEQ/L (136-145)
[2017-03-20] MEDS ORDERED: NITROGLYCERIN 2% OINT 1 GM PACKET TOPICAL ONE (22:00)
[2017-03-20 22:03] LABS: ANION GAP 10 MEQ/L (5-15); BICARBONATE 28.5 MEQ/L (21.0-32.0); BLOOD UREA NITROGEN 43 MG/DL (7-18); MAGNESIUM 2.3 MG/DL (1.5-2.5)
[2017-03-20 22:05] LABS: APTT (PATIENT) 28.9 SEC (24.3-30.1); PROTHROMBIN TIME - PATIENT 11.4 SEC (9.8-11.6)
[2017-03-20 22:06] LABS: GLOMERULAR FILTRATION RATE 24 ML/MIN (>89)
[2017-03-20 22:09] LABS: CREATINE KINASE 103 U/L (39-308)
[2017-03-20] MEDS ORDERED: SODIUM CHLOR 0.9% 1000 ML INJ 1,000 ML IV SCH (22:15)
[2017-03-20 22:22] LABS: CKMB 2.3 NG/ML (0.5-3.6)
[2017-03-20] MEDS ORDERED: NITROPRUSSIDE INJ 50 MG in DEXTROSE 5% IN WATER INJ 248 ML IV SCH ×2 (22:30)
[2017-03-20] MEDS ORDERED: LABETALOL INJ 500 MG in SODIUM CHLORIDE 0.9% INJ 150 ML IV SCH (22:30)
[2017-03-20] MEDS ORDERED: LABETALOL HCL 100 MG/20 ML VIAL IV PUSH ONE (22:30)
[2017-03-20] MEDS ORDERED: IODIXANOL 320 MG/ML 10 ML VIAL (for Rad CT) IV ONE (23:21)
--- NOTE | 2017-03-20 23:31 | RADRPT ---
EXAM DATE/TIME: 03/20/2017 22:27 [facility] COMPARISON: No previous studies available for comparison. INDICATIONS : Evaluate for aneurysm. Hypertension. Weakness. IV CONTRAST: 50 cc Visipaque (iodixanol) IV RADIATION DOSE: 21.21 CTDIvol (mGy) MEDICAL HISTORY : Aneurysm, abdominal. SURGICAL HISTORY : Renal aneurysm repair. ENCOUNTER: Initial ACUITY: 2 days PAIN SCALE: 3/10 LOCATION: Bilateral upper quadrant TECHNIQUE: Volumetric scanning was performed using a multi-row detector CT scanner. The data was post processed with a variety of visualization algorithms including full volume maximum intensity projection, multi -planar sliding thin slab reformation, curved planar reformation, and surface rendering techniques. Using automated exposure control and adjustment of the mA and/or kV according to patient size, radiat ion dose was kept as low as reasonably achievable to obtain optimal diagnostic quality images. DICOM format image data is available electronically for review and comparison. FINDINGS: LUNGS: There is no consolidation or pneumothorax. No concerning pulmonary nodule is visualized. Small bilat eral pleural effusions. Mild emphysema and bibasilar atelectasis. MEDIASTINUM: No abnormally enlarged lymph nodes by CT criteria. No axillary or hilar abnormalities are identified. ABDOMEN: The liver and spleen are free of focal defects. The gallbladder and pancreas demonstrate no abnormali ty. Slight nodularity left adrenal gland. The kidneys demonstrate no evidence of solid renal mass or hydronephrosis. Bilateral renal cysts. No free fluid or abdominal masses are identified. No para-aort ic adenopathy is seen. PELVIS: Small fluid collection in the left retroperitoneum adjacent to the iliac vasculature measuring 4.7 x 2.3 cm, likely seroma. No evidence of pelvic mass. No abnormally enlarged inguinal or retroperitoneal lymph nodes are present. The bladder is unremarkable. THORACIC AORTA: The thoracic aortic root is normal with normal branching of the great vessels. There is no evidence of aneurysm or dissection of the ascending aorta. Descending thoracic aorta measures 4.6 x 4.5 cm. Atherosclerotic changes throughout the aorta. ABDOMINAL AORTA: There is evidence of repair of previously identified abdominal aortic aneurysm. Aneurysmal sac measur es 4.7 x 4.4 cm. Renal arteries are patent. The proximal celiac and superior mesenteric arteries are patent and normal in diameter. There is slight posterior bulging with almost the appearance of a sacc ular aneurysm. Atherosclerotic changes throughout the abdominal aorta. PELVIC VESSELS: Common iliac artery on the right measures 2 cm and slightly aneurysmal. The internal iliac and ship engineer al iliac vessels are patent without aneurysm or stenosis. CONCLUSION: 1. Small bilateral pleural effusions and bibasilar atelectasis. 2. Evidence of previous abdominal aortic aneurysm repair with residual aneurysmal sac measuring 4.7 c m. 3. 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 4. Slight posterior bulging of the upper abdominal aorta in the region of the hiatus with almost the appearance of a small saccular aneurysm. 5. Small fluid collection adjacent to the iliac vasculature on the left likely seroma from previous s urgery. 6. Slight nodularity left adrenal gland, unchanged and likely benign. 7. Bilateral renal cysts. Casa Pickens MD on March 20, 2017 at 23:21 Board Certified Radiologist. This report was verified electronically.
[2017-03-21] VITALS (30 sets, daily range): BP systolic 98–148; BP diastolic 52–88; PULSE 62–82; RESP 15–20; TEMP 97.8–98.7; O2SAT 93–98
[2017-03-21] MEDS ORDERED: SODIUM CHLORIDE 0.9% FLUSH 10 ML FLUSH IVF PRN (00:15)
[2017-03-21] MEDS ORDERED: MAGNESIUM HYDROXIDE SUSP 30 ML CUP PO PRN (00:15)
[2017-03-21] MEDS ORDERED: ONDANSETRON HCL 4 MG/2 ML VIAL IVP PRN (00:15)
[2017-03-21] MEDS ORDERED: NITROGLYCERIN 2% OINT 1 GM PACKET TOPICAL PRN (00:15)
[2017-03-21] MEDS ORDERED: SODIUM CHLORIDE 0.9% FLUSH 10 ML FLUSH IV FLUSH PRN (00:15)
[2017-03-21] MEDS ORDERED: BISACODYL 10 MG SUPP RECTAL PRN (00:15)
[2017-03-21] MEDS ORDERED: MORPHINE SULFATE 4 MG/ML INJ IV PRN (00:15)
[2017-03-21] MEDS ORDERED: ACETAMINOPHEN 325 MG TAB PO PRN (00:15)
[2017-03-21] MEDS ORDERED: LACTULOSE SYRUP 20 GM/30 ML CUP PO PRN (00:15)
[2017-03-21] MEDS ORDERED: SENNOSIDES 8.6 MG TAB PO PRN (00:15)
[2017-03-21] MEDS ORDERED: ACETAMINOPHEN/HYDROcodone 325 MG/5 MG TAB PO PRN (00:15)
[2017-03-21] MEDS ORDERED: HEPARIN SODIUM - IV 10,000 UNITS/10 ML VIAL IV ONE (00:15)
[2017-03-21] MEDS: HEPARIN-D5W INJ 250 ML IV SCH ×2 (00:35→18:45)
[2017-03-21] MEDS ORDERED: HEPARIN SODIUM - IV 10,000 UNITS/10 ML VIAL IV PRN ×2 (06:15)
[2017-03-21 07:42] LABS: APTT (PATIENT) 41.8 SEC (24.3-30.1)
[2017-03-21] MEDS: SODIUM CHLOR 0.9% 1000 ML INJ 1,000 ML IV SCH ×3 (07:50→18:43)
[2017-03-21] MEDS: METOPROLOL TARTRATE 25 MG TAB PO SCH ×2 (08:58→21:19)
[2017-03-21] MEDS: ATORVASTATIN 20 MG TAB PO SCH (08:58)
[2017-03-21] MEDS: ASPIRIN EC 81 MG TABEC PO SCH (08:58)
[2017-03-21] MEDS: SODIUM CHLORIDE 0.9% FLUSH 10 ML FLUSH IV FLUSH SCH ×2 (08:59→21:20)
[2017-03-21] MEDS ORDERED: SODIUM CHLORIDE 0.9% FLUSH 10 ML FLUSH IV FLUSH SCH (09:00)
[2017-03-21] MEDS ORDERED: DOCUSATE SODIUM 50 MG/SENNA 8.6 MG TAB PO SCH (09:00)
[2017-03-21 11:24] LABS: AUTOMATED NEUTROPHIL # 4.6 TH/MM3 (1.8-7.7); BASOPHIL # 0.1 TH/MM3 (0-0.2); BASOPHIL % 0.8 % (0.0-2.0); EOSINOPHIL # 0.4 TH/MM3 (0-0.4); EOSINOPHIL % 5.8 % (0.0-4.0); HEMATOCRIT 28.3 % (39.0-51.0); HEMO FLAGS DIFF FINAL; LYMPHOCYTE # 1.3 TH/MM3 (1.0-4.8); MEAN CELL VOLUME 87.5 FL (80.0-100.0); MEAN CORPUSCULAR HEMOGLOBIN 28.2 PG (27.0-34.0); MEAN CORPUSCULAR HGB CONC 32.3 % (32.0-36.0); MONO % 8.5 % (0.0-8.0); NEUT % 65.9 % (16.0-70.0); PLATELET COUNT 286 TH/MM3 (150-450); RED BLOOD COUNT 3.23 MIL/MM3 (4.50-5.90)
[2017-03-21 11:46] LABS: ANION GAP 8 MEQ/L (5-15); AST (GOT) 23 U/L (15-37); BICARBONATE 27.5 MEQ/L (21.0-32.0); BLOOD UREA NITROGEN 44 MG/DL (7-18); CHLORIDE 105 MEQ/L (98-107); GLOMERULAR FILTRATION RATE 24 ML/MIN (>89); POTASSIUM 3.4 MEQ/L (3.5-5.1); SODIUM (NA) 140 MEQ/L (136-145)
[2017-03-21 11:51] LABS: ALKALINE PHOSPHATASE 88 U/L (45-117); ALT (GPT) 27 U/L (12-78); LDL CHOLESTEROL 70 MG/DL (0-99); TOTAL BILIRUBIN ADULT 0.4 MG/DL (0.2-1.0)
--- NOTE | 2017-03-21 12:40 | MB ---
cc: REYNA ROLLE DATE OF CONSULTATION: 03/21/2017 DATE OF : 1935 REASON FOR CONSULTATION Elevated troponins. HISTORY OF PRESENT ILLNESS 81-year-old male with past medical history significant for hyperlipidemia, hypertension, abdominal aortic aneurysm repair in December 2016 through an open peritoneal incision, who presented to the hospital with complaints of myalgias and arthralgias for the last three days. The patient reports vague complaints of abdominal pain, arthralgias and myalgias. He denies any fevers, chills, nausea, vomiting, diarrhea, chest pain, shortness of breath, pedal edema or PND. In the emergency department his blood pressure was significantly elevated with a diastolic blood pressure over 100. His cardiac troponins were cycled and found to be minimally elevated in the range of 0.2, and also he was found to have acute kidney injury with a creatinine of 2.6 significantly increased. His baseline creatinine is 1.4. Cardiology has been consulted to comment on the elevated troponins. REVIEW OF SYSTEMS The review of systems is negative except for what is mentioned in the HPI. PAST MEDICAL HISTORY 1. Hyperlipidemia. 2. Hypertension. 3. Status post abdominal aortic aneurysm repair. PAST SURGICAL HISTORY 1. Hernia repair. 2. Abdominal aortic aneurysm repair. 3. Carotid endarterectomy. SOCIAL HISTORY He denies illicit drug use and tobacco abuse. He does drinks alcohol socially. ALLERGIES ZETIA. MEDICATIONS Home medications: 1. Lipitor 20 mg p.o. daily. 2. Aspirin 81 mg p.o. daily. FAMILY HISTORY Noncontributory. PHYSICAL EXAMINATION VITAL SIGNS: Temperature 97.8, respiratory rate 20, heart rate 66, blood pressure 115/63. On admission blood pressure was 202/107. O2 sat is 94% on room air. GENERAL: He is awake, alert, oriented x3, in no acute distress. NECK: No JVD. No carotid bruits. HEART: Regular rate and rhythm. No murmurs, rubs or gallops. LUNGS: Clear to auscultation bilaterally. ABDOMEN: Positive bowel sounds. Soft, nontender, nondistended. EXTREMITIES: No cyanosis or edema. Pulses throughout. DATA Hemoglobin 9.1, hematocrit 28, platelet count 286. INR 1. Sodium 140, potassium 3.4, BUN 44, creatinine 2.5. Troponin 0.29, 0.25. Chest x-ray: Some pulmonary edema. EKG: Sinus rhythm with T-wave inversions in the anterolateral leads, LVH by voltage. ASSESSMENT 81-year-old male with the above history and findings admitted with vague symptoms of arthralgias and myalgias, found to have hypertensive emergency in end organ damage in kidneys and heart. He remains afebrile and hemodynamically stable. Blood pressure under better control with p.o. medications. He denies any cardiovascular complaints such as chest pain, shortness of breath, palpitations, syncope, leg edema, dyspnea on exertion. The mild troponin elevation is likely due to acute kidney injury and severe hypertension. At this point I will continue optimization of his blood pressure medications. He does have significant risk factors for coronary artery disease including age, hypertension, hyperlipidemia and abdominal aortic aneurysm and will need a cardiac evaluation at some point. RECOMMENDATIONS 1. Continue aggressive medical management for coronary artery disease. 2. Avoid nephrotoxic drugs including CARLOS inhibitors or ARBs. 3. 2-D echocardiogram. 4. Outpatient follow-up with cardiology Thank you for the opportunity to participate in the care of this patient. Further management to be determined. MD ANNETTE Lewis/BT /11:54 AM /12:30 PM MTDMelvin
[2017-03-21 14:01] LABS: APTT (PATIENT) 38.3 SEC (24.3-30.1)
--- NOTE | 2017-03-21 14:11 | HHI.HP ---
HPI Service [facility] Primary Care Physician Tavia Garcia M.D. Admission Diagnosis Chest pain/ACS; HTN; YAMILEX; h/o AAA repair Diagnoses: (1) Chest pain (2) ACS (acute coronary syndrome) (3) Acute on chronic renal insufficiency (4) HTN (hypertension) Chief Complaint: Myalgia, arthralgia, chest pain Travel History International Travel<30 Days: No Contact w/Intl Traveler <30 Da: No Traveled to Known Affected Are: No History of Present Illness 81 year-old male with a history of hyperlipidemia, recent AAA repair came to the ED yesterday for evaluation of 3 day history of myalgia, arthralgia , vague discomfort for chest pain and elevated BP with SBP greater than 200s. Patient was found to have elevated cardiac enzyme for which cardiology was consulted. He recently underwent on December 2016 open retroperitoneal repair of AAA. Patient has been complaining of nonproductive cough however denies any febrile episode. Abnormal labs includes BUN/creatinine 44/2.56 .During my exam , patient reported improvement of abdominal and chest discomfort. He denies any GI bleed Review of Systems Except as stated in HPI: all other systems reviewed are Neg Past Family Social History Past Medical History hyperlipidemia hypertension peripheral vascular disease Past Surgical History abdominal aortic aneurysm repair CEA eye surgery CRANIAL SURGERY TWICE x 2 due to infection from injury Reported Medications atorvastatin Allergies: Coded Allergies: Zetia (Verified Allergy, Mild, STRANGE FEELING IN ABDOMEN, 12/24/16) Family History reviewed and found to be noncontributory to his acute illness. Social History former smoker. 7 glasses wine/week Physical Exam Vital Signs Vital Signs Date Time Temp Pulse Resp B/P Pulse Ox O2 Delivery O2 Flow Rate FiO2 03/21/17 13:00 64 03/21/17 12:00 62 03/21/17 11:00 68 03/21/17 11:00 98.2 64 17 115/63 94 03/21/17 10:00 64 03/21/17 09:00 76 03/21/17 08:00 64 03/21/17 07:42 93 03/21/17 07:00 68 03/21/17 07:00 98.7 67 16 126/64 93 03/21/17 06:00 67 03/21/17 05:39 97.8 66 16 133/74 98 03/21/17 05:00 66 03/21/17 03:01 66 20 114/58 95 Nasal Cannula 2 03/21/17 02:24 64 20 112/53 94 Nasal Cannula 2 03/21/17 01:48 66 20 106/64 95 Nasal Cannula 2 03/21/17 00:48 82 20 115/67 94 03/21/17 00:18 65 20 98/52 94 03/21/17 00:03 66 20 119/68 03/20/17 23:56 66 20 118/69 94 03/20/17 23:35 67 20 122/70 94 Nasal Cannula 2 03/20/17 23:18 95 20 136/76 94 Nasal Cannula 2 03/20/17 23:06 70 20 153/88 96 Nasal Cannula 2 03/20/17 23:03 74 20 153/88 97 03/20/17 21:49 88 20 169/101 94 Room Air 2 03/20/17 21:45 88 20 94 Nasal Cannula 2 03/20/17 21:42 89 20 159/83 94 Nasal Cannula 2 148/85 03/20/17 21:39 90 20 159/93 94 Nasal Cannula 2 03/20/17 21:39 94 Nasal Cannula 2 03/20/17 21:34 90 20 176/101 97 03/20/17 21:11 94 20 194/114 95 Nasal Cannula 2 03/20/17 21:04 94 18 202/107 93 Room Air 03/20/17 20:38 98.7 100 20 167/115 95 Physical Exam GENERAL: This is a well-nourished, well-developed patient, in no apparent distress. SKIN: No rashes, ecchymoses or lesions. Cool and dry. HEAD: Atraumatic. Normocephalic. No temporal or scalp tenderness. EYES: Pupils equal round and reactive. Extraocular motions intact. No scleral icterus. No injection or drainage. ENT: Nose without bleeding, purulent drainage or septal hematoma. Throat without erythema, tonsillar hypertrophy or exudate. Uvula midline. Airway patent. NECK: Trachea midline. No JVD or lymphadenopathy. Supple, nontender, no meningeal signs. CARDIOVASCULAR: Regular rate and rhythm without murmurs, gallops, or rubs. RESPIRATORY: Clear to auscultation. Breath sounds equal bilaterally. No wheezes , rales, or rhonchi. GASTROINTESTINAL: Abdomen soft, non-tender, nondistended. No hepato-splenomegaly , or palpable masses. No guarding. MUSCULOSKELETAL: Extremities without clubbing, cyanosis, or edema. No joint tenderness, effusion, or edema noted. No calf tenderness. Negative Homans sign bilaterally. NEUROLOGICAL: Awake and alert. Cranial nerves II through XII intact. Motor and sensory grossly within normal limits. Five out of 5 muscle strength in all muscle groups. Normal speech. Laboratory Laboratory Tests Test 03/20/17 03/21/17 03/21/17 03/21/17 21:25 02:45 07:06 10:57 White Blood Count 8.5 7.0 Red Blood Count 3.59 3.23 Hemoglobin 10.6 9.1 Hematocrit 31.4 28.3 Mean Corpuscular Volume 87.6 87.5 Mean Corpuscular Hemoglobin 29.5 28.2 Mean Corpuscular Hemoglobin 33.6 32.3 Concent Red Cell Distribution Width 14.9 15.0 Platelet Count 367 286 Mean Platelet Volume 7.4 7.7 Neutrophils (%) (Auto) 67.6 65.9 Lymphocytes (%) (Auto) 17.4 19.0 Monocytes (%) (Auto) 8.8 8.5 Eosinophils (%) (Auto) 5.6 5.8 Basophils (%) (Auto) 0.6 0.8 Neutrophils # (Auto) 5.6 4.6 Lymphocytes # (Auto) 1.5 1.3 Monocytes # (Auto) 0.8 0.6 Eosinophils # (Auto) 0.5 0.4 Basophils # (Auto) 0.1 0.1 CBC Comment DIFF FINAL DIFF FINAL Differential Comment Prothrombin Time 11.4 Prothromb Time International 1.0 Ratio Activated Partial 28.9 41.8 Thromboplast Time Sodium Level 142 140 Potassium Level 4.2 3.4 Chloride Level 104 105 Carbon Dioxide Level 28.5 27.5 Anion Gap 10 8 Blood Urea Nitrogen 43 44 Creatinine 2.60 2.56 Estimat Glomerular Filtration 24 24 Rate Random Glucose 102 139 Calcium Level 9.3 8.5 Magnesium Level 2.3 Total Creatine Kinase 103 Creatine Kinase MB 2.3 Troponin I 0.29 0.25 0.17 Total Bilirubin 0.4 Aspartate Amino Transf 23 (AST/SGOT) Alanine Aminotransferase 27 (ALT/SGPT) Alkaline Phosphatase 88 Total Protein 6.0 Albumin 2.6 Triglycerides Level 97 Cholesterol Level 133 LDL Cholesterol 70 HDL Cholesterol 44.0 Cholesterol/HDL Ratio 3.02 Test 03/21/17 13:34 Activated Partial 38.3 Thromboplast Time Result Diagram: 03/21/17 1057 03/21/17 1057 Imaging Last Impressions Chest X-Ray 03/20/172114 Signed Impressions: Service Date/Time: Monday, March 20, 2017 21:31 - CONCLUSION: 1. One in the superior mediastinum and aorta. This appearance was present previously. 2. Diffuse increased interstitial markings likely related to pulmonary edema. Is some further annular consolidation at the right base. Gerardo Rivas MD Aorta CTA 03/20/172114 Signed Impressions: Service Date/Time: Monday, March 20, 2017 22:27 - CONCLUSION: 1. Small bilateral pleural effusions and bibasilar atelectasis. 2. Evidence of previous abdominal aortic aneurysm repair with residual aneurysmal sac measuring 4.7 cm. 3. 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 4. Slight posterior bulging of the upper abdominal aorta in the region of the hiatus with almost the appearance of a small saccular aneurysm. 5. Small fluid collection adjacent to the iliac vasculature on the left likely seroma from previous surgery. 6. Slight nodularity left adrenal gland, unchanged and likely benign. 7. Bilateral renal cysts. Casa Pickens MD Assessment and Plan Problem List: (1) Chest pain ICD Code: R07.9 Status: Acute (2) ACS (acute coronary syndrome) ICD Code: I24.9 Status: Acute (3) Acute on chronic renal insufficiency ICD Code: N28.9 Status: Acute (4) HTN (hypertension) ICD Code: I10 Status: Acute Assessment and Plan 81-year-old man with Atypical chest pain -Chest x-ray noted and reviewed by me with finding of One in the superior mediastinum and aorta. This appearance was present previously. Diffuse increased interstitial markings likely related to pulmonary edema. Is some further annular consolidation at the right base. -Aorta CTA noted and reviewed by me -ACS ruled out per protocol -Appreciate input from cardiology was consulted and continue with current medical management including heparin drip, aspirin, statin, Nitro paste -Plan for outpatient stress stress test -2-D echo pending Acute on chronic kidney disease stage III Continue with IV fluid hydration Avoid all nephrotoxic drugs and monitor BUN and creatinine Impaired fasting glucose No known history of diabetes type 2, hemoglobin A1c pending Hyperlipidemia Resume statin Hypertension Currently normotensive on Lopressor 25 mg twice a day Code Status Full code Discussed Condition With Patient, michelle Physician Certification 2 Midnight Certification Type: Admission for Inpatient Services Order for Inpatient Services The services are ordered in accordance with Medicare regulations or non- Medicare payer requirements, as applicable. In the case of services not specified as inpatient-only, they are appropriately provided as inpatient services in accordance with the 2-midnight benchmark. Estimated LOS (days): 2 days is the estimated time the patient will need to remain in the hospital, assuming treatment plan goals are met and no additional complications. Post-Hospital Plan: Not yet determined Problem Qualifiers (1) Chest pain: Qualified Code: R07.2 - Precordial pain (2) HTN (hypertension): Qualified Code: I10 - Essential hypertension Casa Doshi MD Mar 21, 2017 14:11
[2017-03-21] MEDS ORDERED: DOCUSATE SODIUM 50 MG/SENNA 8.6 MG TAB PO PRN (14:15)
--- NOTE | 2017-03-21 14:55 | EKG ---
Date Performed: 03/20/2017 Time Performed: 21:07:27 PTAGE: 81 years EKG: Sinus rhythm POSSIBLE LEFT ATRIAL ENLARGEMENT BORDERLINE LEFT AXIS DEVIATION ST DEVIATION AND MODERATE T-WAVE ABN ORMALITY, CONSIDER ANTEROLATERAL ISCHEMIA Since previous tracing, no significant change noted ABNORMA L ECG PREVIOUS TRACING : 12/22/2016 13.34 DOCTOR: Reji Mejia Interpretating Date/Time 03/21/2017 14:54:34
[2017-03-21 17:34] LABS: HEMOGLOBIN A1a 1.2 %; HEMOGLOBIN A1b 1.8 %; HEMOGLOBIN Ao 83.1 %; HEMOGLOBIN LA1C 2.6 %; HEMOGLOBIN P3 6.2 %
[2017-03-21 22:45] LABS: APTT (PATIENT) 33.7 SEC (24.3-30.1)
[2017-03-22] VITALS (22 sets, daily range): BP systolic 128–177; BP diastolic 70–110; PULSE 67–108; RESP 18–26; TEMP 97.4–98.6; O2SAT 92–95
[2017-03-22] MEDS: SODIUM CHLOR 0.9% 1000 ML INJ 1,000 ML IV SCH ×3 (02:46→17:12)
[2017-03-22 04:46] LABS: APTT (PATIENT) 69.7 SEC (24.3-30.1)
[2017-03-22] MEDS: ATORVASTATIN 20 MG TAB PO SCH (08:29)
[2017-03-22] MEDS: METOPROLOL TARTRATE 25 MG TAB PO SCH ×2 (08:29→20:47)
[2017-03-22] MEDS: ASPIRIN EC 81 MG TABEC PO SCH (08:29)
[2017-03-22] MEDS: SODIUM CHLORIDE 0.9% FLUSH 10 ML FLUSH IV FLUSH SCH ×2 (08:29→20:48)
[2017-03-22 13:42] LABS: APTT (PATIENT) 48.4 SEC (24.3-30.1)
--- NOTE | 2017-03-22 14:17 | HHI.PR ---
Subjective Remarks Follow-up chest pain/acute renal failure 03/22/17-patient seen and examined with, denies any chest pain however complains of abdominal pain but has no nausea or vomiting. Normal bowel movement. Objective Vitals Vital Signs Date Time Temp Pulse Resp B/P Pulse Ox O2 Delivery O2 Flow Rate FiO2 03/22/17 14:06 82 03/22/17 13:47 76 03/22/17 12:04 74 03/22/17 11:05 97.7 74 18 128/81 95 03/22/17 11:05 69 03/22/17 10:44 67 03/22/17 09:28 93 Nasal Cannula 3.00 03/22/17 09:16 72 03/22/17 08:00 97.8 83 18 157/97 92 03/22/17 08:00 71 03/22/17 06:00 82 03/22/17 05:00 82 03/22/17 04:00 82 03/22/17 04:00 98.4 78 20 135/70 95 03/22/17 00:00 84 03/21/17 23:16 98.6 70 20 148/88 93 03/21/17 23:00 72 03/21/17 22:00 78 03/21/17 21:00 74 03/21/17 20:00 98.4 75 20 133/78 96 03/21/17 20:00 77 03/21/17 19:00 68 03/21/17 18:00 64 03/21/17 17:44 95 21 03/21/17 17:00 68 03/21/17 16:00 68 03/21/17 15:05 98.2 66 15 112/60 95 03/21/17 15:00 65 I/O 03/21/17 03/21/17 03/21/17 03/22/17 03/22/17 03/22/17 07:00 15:00 23:00 07:00 15:00 23:00 Intake Total 300 ml 1220 ml 420 ml Output Total 280 ml Balance 300 ml 1220 ml 140 ml Intake Oral 720 ml 420 ml IV Total 300 ml 500 ml Output Urine Total 280 ml # Voids 3 # Bowel Movements 0 Result Diagram: 03/21/17 1057 03/22/17 6464 Imaging Last Impressions Chest X-Ray 03/20/172114 Signed Impressions: Service Date/Time: Monday, March 20, 2017 21:31 - CONCLUSION: 1. One in the superior mediastinum and aorta. This appearance was present previously. 2. Diffuse increased interstitial markings likely related to pulmonary edema. Is some further annular consolidation at the right base. Gerardo Rivas MD Aorta CTA 03/20/172114 Signed Impressions: Service Date/Time: Monday, March 20, 2017 22:27 - CONCLUSION: 1. Small bilateral pleural effusions and bibasilar atelectasis. 2. Evidence of previous abdominal aortic aneurysm repair with residual aneurysmal sac measuring 4.7 cm. 3. 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 4. Slight posterior bulging of the upper abdominal aorta in the region of the hiatus with almost the appearance of a small saccular aneurysm. 5. Small fluid collection adjacent to the iliac vasculature on the left likely seroma from previous surgery. 6. Slight nodularity left adrenal gland, unchanged and likely benign. 7. Bilateral renal cysts. Casa Pickens MD Objective Remarks GENERAL: NAD SKIN: Warm and dry. HEAD: Normocephalic. EYES: No scleral icterus. No injection or drainage. NECK: Supple, trachea midline. No JVD or lymphadenopathy. CARDIOVASCULAR: Regular rate and rhythm without murmurs, gallops, or rubs. RESPIRATORY: Breath sounds equal bilaterally. No accessory muscle use. GASTROINTESTINAL: Abdomen soft, non-tender, nondistended. MUSCULOSKELETAL: No cyanosis, or edema. BACK: Nontender without obvious deformity. No CVA tenderness. A/P Problem List: (1) Chest pain ICD Code: R07.9 Status: Acute (2) ACS (acute coronary syndrome) ICD Code: I24.9 Status: Acute (3) Acute on chronic renal insufficiency ICD Code: N28.9 Status: Acute (4) HTN (hypertension) ICD Code: I10 Status: Acute Assessment and Plan 81-year-old man with Atypical chest pain -Chest x-ray noted and reviewed by me with finding of One in the superior mediastinum and aorta. This appearance was present previously. Diffuse increased interstitial markings likely related to pulmonary edema. Is some further annular consolidation at the right base. -Aorta CTA noted -ACS ruled out per protocol -Appreciate input from cardiology was consulted and continue with current medical management including heparin drip, aspirin, statin, Nitro paste -Plan for outpatient stress stress test -2-D echo pending Acute on chronic kidney disease stage III Renal indices trending down Continue with IV fluid hydration Avoid all nephrotoxic drugs and monitor BUN and creatinine Impaired fasting glucose No known history of diabetes type 2, hemoglobin A1c pending Hyperlipidemia Continue statin Hypertension Currently normotensive on Lopressor 25 mg twice a day Problem Qualifiers (1) Chest pain: Qualified Code: R07.2 - Precordial pain (2) HTN (hypertension): Qualified Code: I10 - Essential hypertension Casa Doshi MD Mar 22, 2017 14:17
[2017-03-22] MEDS: HEPARIN-D5W INJ 250 ML IV SCH (15:13)
--- NOTE | 2017-03-22 15:41 | ECHRPT ---
Indication: CAD CONCLUSIONS Mildly dilated left ventricle. The left ventricular systolic function is severely reduced with an estimated ejection fraction in th e range of 25-30%. There is assymetric septal hypertrophy. There is diffuse global hypokinesis with distinct regional wall motion abnormalities. Mild mitral valve regurgitation. Trace aortic valve regurgitation. There is mild tricuspid valve regurgitation. BP: 133 / 74 HR: 66 Rhythm: MEASUREMENTS (Male / Female) Normal Values Technical Quality:Good 2D ECHO LV Diastolic Diameter PLAX 5.9 cm 4.2 - 5.9 / 3.9 - 5.3 cm LV Systolic Diameter PLAX 5.4 cm IVS Diastolic Thickness 1.5 cm 0.6 - 1.0 / 0.6 - 0.9 cm LVPW Diastolic Thickness 1.1 cm 0.6 - 1.0 / 0.6 - 0.9 cm LV Relative Wall Thickness 0.4 RV Internal Dim ED PLAX 2.5 cm M-MODE Aortic Root Diameter MM 3.2 cm LA Systolic Diameter MM 4.3 cm LA Ao Ratio MM 1.3 AV Cusp Separation MM 1.7 cm DOPPLER TR Peak Velocity 359.0 cm/s TR Peak Gradient 51.6 mmHg FINDINGS LEFT VENTRICLE Mildly dilated left ventricle. There is assymetric septal hypertrophy. The left ventricular systolic function is severely reduced with an estimated ejection fraction in th e range of 25-30%. There is diffuse global hypokinesis with distinct regional wall motion abnormalities. RIGHT VENTRICLE Normal right ventricular size and probably normal systolic function. LEFT ATRIUM The left atrial size is mildly dilated. RIGHT ATRIUM The right atrial size is normal. ATRIAL SEPTUM Normal atrial septal thickness without atrial level shunting by limited color doppler interrogation. AORTA The aortic root and proximal ascending aorta are normal in size on limited imaging. MITRAL VALVE Structurally normal mitral valve. Mild mitral valve regurgitation. No mitral valve stenosis. AORTIC VALVE Trileaflet aortic valve. Trace aortic valve regurgitation. Aortic valve sclerosis is present. TRICUSPID VALVE Structurally normal tricuspid valve. There is mild tricuspid valve regurgitation. There is estimated moderate pulmonary hypertension present (range 50-60 mmHg). PULMONARY VALVE The pulmonary valve is not well visualized. VESSELS The inferior vena cava is normal in size. PERICARDIUM No pericardial effusion. Michele Holder DO (Electronically Signed) Final Date:22 March 2017 15:41
[2017-03-22] MEDS: cloNIDine HCL 0.1 MG TAB PO PRN ×2 (18:06→23:19)
[2017-03-22] MEDS ORDERED: FUROSEMIDE 40 MG/4 ML VIAL IV PUSH ONE (20:30)
--- NOTE | 2017-03-22 22:06 | RADRPT ---
EXAM DATE/TIME: 03/22/2017 20:35 [facility] COMPARISON: CHEST SINGLE AP, March 20, 2017, 21:31. INDICATIONS : Short of breath. MEDICAL HISTORY : Aneurysm, abdominal. SURGICAL HISTORY : Abdominal aortic aneurysm repair. ENCOUNTER: Subsequent ACUITY: 2 days PAIN SCORE: 1/10 LOCATION: Bilateral chest FINDINGS: The heart size is within normal limits. There is widening of the aortic arch. There is diffuse mixed interstitial and alveolar consolidation. The alveolar consolidation is seen at the bases. The silhoue tte of the hemidiaphragms. There is blunting of the costophrenic angles. CONCLUSION: Suspected edema with possible small effusions. Gerardo Rivas MD on March 22, 2017 at 22:01 Board Certified Radiologist. This report was verified electronically.
[2017-03-22] MEDS: TEMAZEPAM 15 MG CAP PO PRN (23:19)
[2017-03-23] VITALS (32 sets, daily range): BP systolic 101–173; BP diastolic 56–110; PULSE 66–82; RESP 18–28; TEMP 87.5–98.6; O2SAT 93–99
[2017-03-23] MEDS: FUROSEMIDE 40 MG/4 ML VIAL IV PUSH ONE ×2 (02:27→02:30)
[2017-03-23] MEDS ORDERED: RESP: ALBUTEROL 2.5 MG/IPRATROPIUM 0.5 MG NEB (PRN) NEB (02:45)
[2017-03-23 06:49] LABS: APTT (PATIENT) 28.1 SEC (24.3-30.1)
--- NOTE | 2017-03-23 07:14 | HHI.PR ---
Addendum to Inpatient Note Addendum Reason: Additional Documentation Additional Information I was called last night at around 8:30 PM by the patient's nurse initially because patient was dyspneic. The nurse was requesting for breathing treatments. Chart reviewed. Patient with echocardiogram revealing EF of 25%. Was on medical management for non-ST elevation WA. Receiving IV fluids at 1 25 cc per hour. Per chart, patient has no history of COPD. Therefore at that time I have discontinued all the IV fluids. Give Lasix 40 mg IV 1 dose. Chest x-ray stat was obtained. On follow-up, patient's chest x-ray does reveal pulmonary edema with small pleural effusions. Nurse reported that patient is much better initially and was resting. However he only diuresed about 100-200 cc per nursing staff. Patient also have acute on chronic renal insufficiency. Patient's nurse in the meantime also has given patient clonidine 0.1 mg, with temazepam 15 mg. Bladder scan that was ordered revealed only 40 cc of urine per nursing staff. However within a few minutes of my follow-up, I then received a second phone call from nurse stating that patient is in acute respiratory distress. Apparently, patient was confused as he woke up from sleep and walks to the nursing station asking where he was and what he was doing. During this conversation and walk, patient became acutely dyspneic and they had to put him back to the bed. At that time, I had ordered for stat BiPAP. nurse also reported the patient was coughing up blood clots at that time. Patient is on heparin drip for non-ST elevation WA. Came to see patient at the bedside. Patient is awake, alert, oriented. However using respiratory accessory muscles. Tachycardic with heart rate around 110. Blood pressure was around 180/110. Abdomen is soft but distended and nontender. No calf asymmetry noted. Patient is not able to complete sentences when asked. Charge nurse at the bedside was trying to put Azul catheter. After Azul catheter was placed, only about 200 cc of urine resultant. Clear color. Impression: Acute respiratory distress/hypoxic respiratory failuresecondary to fluid overload. Acute on chronic kidney disease Hypertensive urgency Plan: Put patient on BiPAP. 12 over 5, FiO2 35%. Nebulizers when necessary. Patient reports to me that he has been smoking cigarettes for more than 40 years. He quit only about 2 or 3 weeks ago. Azul catheter. Input/output. Hold off on the second dose of Lasix 40 mg IV as patient has renal insufficiency and is not really responding to Lasix yet. We'll control blood pressure if it remains to be elevated despite this acute distress pain under control. Chest x-raypersonally reviewed. Pulmonary venous congestion consistent with acute pulmonary edema/fluid overload. On recheck, after about 30 minutes on BiPAP, patient is much more comfortable and able to complete sentences. He has not diuresed more than what it was previously. We'll still hold off on Lasix for now. Will closely monitor patient in [facility]. Critical care time 30 minutes Paulino Francois MD Mar 23, 2017 07:14
[2017-03-23 07:18] LABS: BICARBONATE 23.9 MEQ/L (21.0-32.0); POTASSIUM 3.9 MEQ/L (3.5-5.1)
[2017-03-23] MEDS: METOPROLOL TARTRATE 25 MG TAB PO SCH (09:18)
[2017-03-23] MEDS: ATORVASTATIN 20 MG TAB PO SCH (09:18)
[2017-03-23] MEDS: cloNIDine HCL 0.1 MG TAB PO PRN (09:18)
[2017-03-23] MEDS: ASPIRIN EC 81 MG TABEC PO SCH (09:18)
--- NOTE | 2017-03-23 11:55 | PD.CARD.PN ---
Subjective Subjective Remarks overnight events noted Uncontrolled HTN Flash Pulmonary Edema Objective Medications Current Medications Medications (Trade) Dose Ordered Sig/Thuy Route Start Time Stop Time Status Last Admin (NS Flush) 2 ml UNSCH PRN IV FLUSH 03/21/17 00:15 03/21/17 14:40 (NS Flush) 2 ml BID IV FLUSH 03/21/17 09:00 03/22/17 20:48 (Zofran Inj) 4 mg Q6H PRN IVP 03/21/17 00:15 (Tylenol) 650 mg Q6H PRN PO 03/21/17 00:15 ([place] 5-325 Mg) 1 tab Q4H PRN PO 03/21/17 00:15 (Morphine Inj) 2 mg Q3H PRN IV 03/21/17 00:15 (Dulcolax Supp) 10 mg DAILY PRN RECTAL 03/21/17 00:15 (Ecotrin Ec) 81 mg DAILY PO 03/21/17 09:00 03/23/17 09:18 (Lopressor) 25 mg Q12HR PO 03/21/17 09:00 03/23/17 09:18 (Lipitor) 20 mg DAILY PO 03/21/17 09:00 03/23/17 09:18 (Nitroglycerin 2% Oint) 0.5 inch Q6H PRN TOPICAL 03/21/17 00:15 (Jo Ann-Colace) 1 tab BID PRN PO 03/21/17 14:15 (Restoril) 15 mg HS PRN PO 03/22/17 21:00 03/22/17 23:19 (Catapres) 0.1 mg Q6H PRN PO 03/22/17 18:00 03/23/17 09:18 Vital Signs / I&O Vital Signs Date Time Temp Pulse Resp B/P Pulse Ox O2 Delivery O2 Flow Rate FiO2 03/23/17 09:10 97 Nasal Cannula 3.00 03/23/17 08:26 72 03/23/17 08:06 87.5 74 28 173/110 94 03/23/17 06:00 70 03/23/17 05:18 97 35 03/23/17 05:18 97 BiPAP 35 03/23/17 05:00 74 03/23/17 04:00 74 03/23/17 03:00 97.8 75 26 167/100 99 03/23/17 03:00 76 03/23/17 02:40 97 35 03/23/17 02:00 82 03/23/17 01:00 70 03/23/17 00:00 76 03/22/17 23:00 97.4 84 26 173/97 95 03/22/17 23:00 83 03/22/17 22:00 94 03/22/17 21:00 98 03/22/17 20:00 108 03/22/17 19:00 97 03/22/17 19:00 98.5 90 20 177/104 92 03/22/17 18:00 90 03/22/17 17:06 84 03/22/17 17:05 95 Nasal Cannula 3.00 03/22/17 16:42 88 03/22/17 15:00 98.6 82 18 175/110 95 03/22/17 15:00 86 03/22/17 14:06 82 03/22/17 13:47 76 03/22/17 12:04 74 I/O 03/22/17 03/22/17 03/22/17 03/23/17 03/23/17 03/23/17 07:00 15:00 23:00 07:00 15:00 23:00 Intake Total 420 ml 1730 ml 690 ml Output Total 280 ml 400 ml 410 ml 275 ml Balance 140 ml 1330 ml 280 ml -275 ml Intake Oral 420 ml 360 ml 480 ml IV Total 1370 ml 210 ml Output Urine Total 280 ml 400 ml 410 ml 275 ml Bladder Scan Volume Amount 45 ml # Bowel Movements 1 Laboratory Laboratory Tests Test 03/22/17 03/23/17 12:25 05:05 Activated Partial 48.4 SEC 28.1 SEC Thromboplast Time Sodium Level 140 MEQ/L Potassium Level 3.9 MEQ/L Chloride Level 106 MEQ/L Carbon Dioxide Level 23.9 MEQ/L Anion Gap 10 MEQ/L Blood Urea Nitrogen 39 MG/DL Creatinine 2.46 MG/DL Estimat Glomerular Filtration 25 ML/MIN Rate Random Glucose 99 MG/DL Calcium Level 8.3 MG/DL Imaging Last Impressions Chest X-Ray 03/22/17 0000 Signed Impressions: Service Date/Time: Wednesday, March 22, 2017 20:35 - CONCLUSION: Suspected edema with possible small effusions. Gerardo Rivas MD Aorta CTA 03/20/172114 Signed Impressions: Service Date/Time: Monday, March 20, 2017 22:27 - CONCLUSION: 1. Small bilateral pleural effusions and bibasilar atelectasis. 2. Evidence of previous abdominal aortic aneurysm repair with residual aneurysmal sac measuring 4.7 cm. 3. 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 4. Slight posterior bulging of the upper abdominal aorta in the region of the hiatus with almost the appearance of a small saccular aneurysm. 5. Small fluid collection adjacent to the iliac vasculature on the left likely seroma from previous surgery. 6. Slight nodularity left adrenal gland, unchanged and likely benign. 7. Bilateral renal cysts. Casa Pickens MD Assessment and Plan Problem List: (1) Acute systolic heart failure Assessment and Plan: 81 y/o M with cardiac risk factors HTN, HLD, AAA and Age. Overnight acute episode of systolic HF. EF severely reduced with estimated EF 30 %. YAMILEX still not at baseline. Unfortunately given YAMILEX he is not a candidate for LHC/PCI at this time. Recommendations: 1. Switch Lopressor to Coreg 6.25mg PO BID 2. Start isosorbide dinitrate/hydralazine 3. Aspirin 81mg PO daily 4. Plavix 75mg PO daily 5. Cont Statin 6. Avoid nephrotoxic drugs 7. Cont IV diuresis (2) AAA (abdominal aortic aneurysm) (3) Chest pain (4) HTN (hypertension) (5) ACS (acute coronary syndrome) (6) Acute on chronic renal insufficiency Problem Qualifiers (1) Chest pain: Qualified Code: R07.2 - Precordial pain (2) HTN (hypertension): Qualified Code: I10 - Essential hypertension Pavel Ritter MD Mar 23, 2017 11:55
--- NOTE | 2017-03-23 12:56 | HHI.PR ---
Subjective Remarks Follow-up chest pain/acute renal failure 03/22/17-patient seen and examined with, denies any chest pain however complains of abdominal pain but has no nausea or vomiting. Normal bowel movement. 03/23/17-patient seen and examined, overnight he went into acute respiratory failure and treated for flash pulmonary edema with Lasix. BP up. Currently reports significant improvement of shortness of breath Objective Vitals Vital Signs Date Time Temp Pulse Resp B/P Pulse Ox O2 Delivery O2 Flow Rate FiO2 03/23/17 09:10 97 Nasal Cannula 3.00 03/23/17 08:26 72 03/23/17 08:06 87.5 74 28 173/110 94 03/23/17 06:00 70 03/23/17 05:18 97 35 03/23/17 05:18 97 BiPAP 35 03/23/17 05:00 74 03/23/17 04:00 74 03/23/17 03:00 97.8 75 26 167/100 99 03/23/17 03:00 76 03/23/17 02:40 97 35 03/23/17 02:00 82 03/23/17 01:00 70 03/23/17 00:00 76 03/22/17 23:00 97.4 84 26 173/97 95 03/22/17 23:00 83 03/22/17 22:00 94 03/22/17 21:00 98 03/22/17 20:00 108 03/22/17 19:00 97 03/22/17 19:00 98.5 90 20 177/104 92 03/22/17 18:00 90 03/22/17 17:06 84 03/22/17 17:05 95 Nasal Cannula 3.00 03/22/17 16:42 88 03/22/17 15:00 98.6 82 18 175/110 95 03/22/17 15:00 86 03/22/17 14:06 82 03/22/17 13:47 76 I/O 03/22/17 03/22/17 03/22/17 03/23/17 03/23/17 03/23/17 07:00 15:00 23:00 07:00 15:00 23:00 Intake Total 420 ml 1730 ml 690 ml Output Total 280 ml 400 ml 410 ml 275 ml Balance 140 ml 1330 ml 280 ml -275 ml Intake Oral 420 ml 360 ml 480 ml IV Total 1370 ml 210 ml Output Urine Total 280 ml 400 ml 410 ml 275 ml Bladder Scan Volume Amount 45 ml # Bowel Movements 1 Result Diagram: 03/21/17 1057 03/23/17 0505 Imaging Last Impressions Chest X-Ray 03/22/17 0000 Signed Impressions: Service Date/Time: Wednesday, March 22, 2017 20:35 - CONCLUSION: Suspected edema with possible small effusions. Gerardo Rivas MD Aorta CTA 03/20/175 Signed Impressions: Service Date/Time: Monday, March 20, 2017 22:27 - CONCLUSION: 1. Small bilateral pleural effusions and bibasilar atelectasis. 2. Evidence of previous abdominal aortic aneurysm repair with residual aneurysmal sac measuring 4.7 cm. 3. 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 4. Slight posterior bulging of the upper abdominal aorta in the region of the hiatus with almost the appearance of a small saccular aneurysm. 5. Small fluid collection adjacent to the iliac vasculature on the left likely seroma from previous surgery. 6. Slight nodularity left adrenal gland, unchanged and likely benign. 7. Bilateral renal cysts. Casa Pickens MD Objective Remarks GENERAL: NAD SKIN: Warm and dry. HEAD: Normocephalic. EYES: No scleral icterus. No injection or drainage. NECK: Supple, trachea midline. No JVD or lymphadenopathy. CARDIOVASCULAR: Regular rate and rhythm without murmurs, gallops, or rubs. RESPIRATORY: Breath sounds equal bilaterally. No accessory muscle use. GASTROINTESTINAL: Abdomen soft, non-tender, nondistended. MUSCULOSKELETAL: No cyanosis, or edema. BACK: Nontender without obvious deformity. No CVA tenderness. A/P Problem List: (1) Chest pain ICD Code: R07.9 Status: Acute (2) ACS (acute coronary syndrome) ICD Code: I24.9 Status: Acute (3) Acute on chronic renal insufficiency ICD Code: N28.9 Status: Acute (4) HTN (hypertension) ICD Code: I10 Status: Acute (5) Flash pulmonary edema ICD Code: J81.0 Status: Acute (6) Benign labile hypertension ICD Code: I10 Status: Acute Assessment and Plan 81-year-old man with Flash Pulmonary edema Acute on chronic systolic CHF Resolved status post treatment with Lasix IV 1 Continue IV diuresis Currently on isosorbide dinitrate/hydralazine Atypical chest pain -Aorta CTA noted -Appreciate input from cardiology was consulted and continue with current medical management including aspirin, Plavix statin, Nitro -Patient is not currently a candidate for LHC/PCI due to worsening renal function -2-D echo with EF 25-30%, however CARLOS inhibitor is contraindicated secondary to acute on chronic renal failure Acute on chronic kidney disease stage III Renal indices trending down IV fluids discontinued secondary to flash pulmonary edema Avoid all nephrotoxic drugs and monitor BUN and creatinine Impaired fasting glucose No known history of diabetes type 2, hemoglobin A1c 6.1 Hyperlipidemia Continue statin Benign labile hypertension Switch Lopressor to Coreg 6.25mg PO BID Problem Qualifiers (1) Chest pain: Qualified Code: R07.2 - Precordial pain (2) HTN (hypertension): Qualified Code: I10 - Essential hypertension Casa Doshi MD Mar 23, 2017 12:56
[2017-03-23] MEDS: hydrALAZINE HCL 25 MG TAB PO SCH ×2 (13:56→21:27)
[2017-03-23] MEDS: ISOSORBIDE DINITRATE 20 MG TAB PO SCH ×2 (13:57→21:26)
[2017-03-23] MEDS: CARVEDILOL 6.25 MG TAB PO SCH ×2 (13:57→21:26)
[2017-03-23] MEDS: CLOPIDOGREL 75 MG TAB PO SCH (13:57)
[2017-03-23] MEDS: SODIUM CHLORIDE 0.9% FLUSH 10 ML FLUSH IV FLUSH SCH ×2 (21:00→21:32)
[2017-03-24] VITALS (19 sets, daily range): BP systolic 118–135; BP diastolic 70–82; PULSE 62–82; RESP 14–20; TEMP 97.8–98.5; O2SAT 92–96
[2017-03-24] MEDS: TEMAZEPAM 15 MG CAP PO PRN (00:30)
[2017-03-24] MEDS: ISOSORBIDE DINITRATE 20 MG TAB PO SCH (05:18)
[2017-03-24] MEDS: hydrALAZINE HCL 25 MG TAB PO SCH (05:18)
[2017-03-24 06:20] LABS: APTT (PATIENT) 30.3 SEC (24.3-30.1)
[2017-03-24] MEDS: CLOPIDOGREL 75 MG TAB PO SCH (08:55)
[2017-03-24] MEDS: ASPIRIN EC 81 MG TABEC PO SCH (08:55)
[2017-03-24] MEDS: CARVEDILOL 6.25 MG TAB PO SCH (08:55)
[2017-03-24] MEDS: SODIUM CHLORIDE 0.9% FLUSH 10 ML FLUSH IV FLUSH SCH (08:56)
[2017-03-24] MEDS: ATORVASTATIN 20 MG TAB PO SCH (08:56)
[2017-03-24] MEDS ORDERED: FUROSEMIDE 20 MG/2 ML VIAL IV PUSH SCH (09:00)
[2017-03-24] MEDS ORDERED: INFLUENZA VIRUS VACCINE (QUADRIVALENT) 0.5 ML SYR IM ONE (10:00)
[2017-03-24] MEDS ORDERED: PNEUMOCOCCAL POLYVALENT INJ 25 MCG/0.5 ML SYR IM ONE (10:00)
--- NOTE | 2017-03-24 14:05 | HHI.PR ---
Subjective Remarks Follow-up chest pain/acute renal failure 03/22/17-patient seen and examined with, denies any chest pain however complains of abdominal pain but has no nausea or vomiting. Normal bowel movement. 03/23/17-patient seen and examined, overnight he went into acute respiratory failure and treated for flash pulmonary edema with Lasix. BP up. Currently reports significant improvement of shortness of breath 03/24/17-patient seen and examined, reports significant improvement or shortness of breath and denies any chest pain. Objective Vitals Vital Signs Date Time Temp Pulse Resp B/P Pulse Ox O2 Delivery O2 Flow Rate FiO2 03/24/17 13:00 68 03/24/17 12:00 98.1 68 14 118/71 96 03/24/17 11:06 68 03/24/17 10:30 92 03/24/17 10:00 70 03/24/17 09:00 72 03/24/17 08:04 66 03/24/17 08:00 62 03/24/17 07:53 97.8 69 14 120/70 94 03/24/17 07:00 70 03/24/17 03:30 98.5 70 20 135/82 93 03/24/17 03:00 63 03/24/17 02:00 72 03/24/17 01:00 68 03/24/17 00:00 74 03/23/17 23:33 98.4 74 20 141/56 95 03/23/17 23:00 69 03/23/17 22:00 74 03/23/17 21:00 72 03/23/17 20:48 93 21 03/23/17 20:00 78 03/23/17 19:15 98.4 77 20 131/82 95 03/23/17 19:00 72 03/23/17 18:00 78 03/23/17 17:00 68 03/23/17 15:29 70 03/23/17 15:29 97.6 70 18 101/57 94 03/23/17 15:00 66 I/O 03/23/17 03/23/17 03/23/17 03/24/17 03/24/17 03/24/17 07:00 15:00 23:00 07:00 15:00 23:00 Intake Total 690 ml 930 ml 240 ml Output Total 410 ml 275 ml 525 ml 800 ml Balance 280 ml -275 ml 405 ml -560 ml Intake Oral 480 ml 930 ml 240 ml IV Total 210 ml 0 ml Output Urine Total 410 ml 275 ml 525 ml 800 ml # Bowel Movements 0 Result Diagram: 03/21/17 1057 03/23/17 0505 Imaging Last Impressions Chest X-Ray 03/22/17 0000 Signed Impressions: Service Date/Time: Wednesday, March 22, 2017 20:35 - CONCLUSION: Suspected edema with possible small effusions. Gerardo Rivas MD Aorta CTA 03/20/17 2115 Signed Impressions: Service Date/Time: Monday, March 20, 2017 22:27 - CONCLUSION: 1. Small bilateral pleural effusions and bibasilar atelectasis. 2. Evidence of previous abdominal aortic aneurysm repair with residual aneurysmal sac measuring 4.7 cm. 3. 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 4. Slight posterior bulging of the upper abdominal aorta in the region of the hiatus with almost the appearance of a small saccular aneurysm. 5. Small fluid collection adjacent to the iliac vasculature on the left likely seroma from previous surgery. 6. Slight nodularity left adrenal gland, unchanged and likely benign. 7. Bilateral renal cysts. Casa Pickens MD Objective Remarks GENERAL: NAD SKIN: Warm and dry. HEAD: Normocephalic. EYES: No scleral icterus. No injection or drainage. NECK: Supple, trachea midline. No JVD or lymphadenopathy. CARDIOVASCULAR: Regular rate and rhythm without murmurs, gallops, or rubs. RESPIRATORY: Breath sounds equal bilaterally. No accessory muscle use. GASTROINTESTINAL: Abdomen soft, non-tender, nondistended. MUSCULOSKELETAL: No cyanosis, or edema. BACK: Nontender without obvious deformity. No CVA tenderness. Procedures None A/P Problem List: (1) Chest pain ICD Code: R07.9 Status: Resolved (2) ACS (acute coronary syndrome) ICD Code: I24.9 Status: Acute (3) Acute on chronic renal insufficiency ICD Code: N28.9 Status: Acute (4) HTN (hypertension) ICD Code: I10 Status: Acute (5) Flash pulmonary edema ICD Code: J81.0 Status: Resolved (6) Benign labile hypertension ICD Code: I10 Status: Acute (7) Acute systolic heart failure ICD Code: I50.21 Status: Acute Assessment and Plan 81-year-old man with Flash Pulmonary edema Acute on chronic systolic CHF Resolved Continue IV diuresis however will switch to by mouth Lasix on discharge Currently on isosorbide dinitrate/hydralazine Atypical chest pain -Aorta CTA noted -Appreciate input from cardiology was consulted and continue with current medical management including aspirin, Plavix statin, Nitro -Patient is not currently a candidate for LHC/PCI due to worsening renal function -2-D echo with EF 25-30%, however CARLOS inhibitor is contraindicated secondary to acute on chronic renal failure Acute on chronic kidney disease stage III Renal indices trending up IV fluids discontinued secondary to flash pulmonary edema Avoid all nephrotoxic drugs and monitor BUN and creatinine Impaired fasting glucose No known history of diabetes type 2, hemoglobin A1c 6.1 Hyperlipidemia Continue statin Benign labile hypertension Coreg 6.25mg PO BID Problem Qualifiers (1) Chest pain: Qualified Code: R07.2 - Precordial pain (2) HTN (hypertension): Qualified Code: I10 - Essential hypertension Casa Doshi MD Mar 24, 2017 14:05
[2017-03-24] MEDS ORDERED: ISOS20TA2 PO (14:10)
[2017-03-24] MEDS ORDERED: FURO20TA PO (14:10)
[2017-03-24] MEDS ORDERED: PLAV75TA29 PO (14:10)
[2017-03-24] MEDS ORDERED: CARV6.25 PO (14:10)
[2017-03-24] MEDS ORDERED: POTA-243 PO (14:10)
--- NOTE | 2017-03-24 14:11 | HHI.DS ---
Discharge Summary Admission Date Mar 21, 2017 at 00:11 Discharge Date: Mar 24, 2017 Admitting Diagnosis Chest pain/ACS; HTN; YAMILEX; h/o AAA repair (1) Chest pain ICD Code: R07.9 (2) ACS (acute coronary syndrome) ICD Code: I24.9 (3) Acute on chronic renal insufficiency ICD Code: N28.9 (4) HTN (hypertension) ICD Code: I10 (5) Flash pulmonary edema ICD Code: J81.0 (6) Benign labile hypertension ICD Code: I10 (7) Acute systolic heart failure ICD Code: I50.21 Procedures None Brief History - From Admission 81 year-old male with a history of hyperlipidemia, recent AAA repair came to the ED yesterday for evaluation of 3 day history of myalgia, arthralgia , vague discomfort for chest pain and elevated BP with SBP greater than 200s. Patient was found to have elevated cardiac enzyme for which cardiology was consulted. He recently underwent on December 2016 open retroperitoneal repair of AAA. Patient has been complaining of nonproductive cough however denies any febrile episode. Abnormal labs includes BUN/creatinine 44/2.56 .During my exam , patient reported improvement of abdominal and chest discomfort. He denies any GI bleed CBC/BMP: 03/21/17 1057 03/23/17 0505 Significant Findings Laboratory Tests Test 03/21/17 03/22/17 03/22/17 03/23/17 21:30 03:44 12:25 05:05 Activated Partial 33.7 SEC 69.7 SEC 48.4 SEC Thromboplast Time (24.3-30.1) (24.3-30.1) (24.3-30.1) Blood Urea Nitrogen 40 MG/DL (-18) 39 MG/DL (-18) Creatinine 2.43 MG/DL 2.46 MG/DL (0.60-1.30) (0.60-1.30) Estimat Glomerular Filtration 26 ML/MIN (>89) 25 ML/MIN (>89) Rate Calcium Level 8.3 MG/DL (8.5-10.1) Test 03/24/17 06:02 Activated Partial 30.3 SEC Thromboplast Time (24.3-30.1) PE at Discharge GENERAL: NAD SKIN: Warm and dry. HEAD: Normocephalic. EYES: No scleral icterus. No injection or drainage. NECK: Supple, trachea midline. No JVD or lymphadenopathy. CARDIOVASCULAR: Regular rate and rhythm without murmurs, gallops, or rubs. RESPIRATORY: Breath sounds equal bilaterally. No accessory muscle use. GASTROINTESTINAL: Abdomen soft, non-tender, nondistended. MUSCULOSKELETAL: No cyanosis, or edema. BACK: Nontender without obvious deformity. No CVA tenderness. Hospital Course Flash Pulmonary edema Acute on chronic systolic CHF Resolved Continue IV diuresis however will switch to by mouth Lasix on discharge Currently on isosorbide dinitrate/hydralazine Atypical chest pain -Aorta CTA noted -Appreciate input from cardiology was consulted and continue with current medical management including aspirin, Plavix statin, Nitro -Patient is not currently a candidate for LHC/PCI due to worsening renal function -2-D echo with EF 25-30%, however CARLOS inhibitor is contraindicated secondary to acute on chronic renal failure Acute on chronic kidney disease stage III Renal indices trending up IV fluids discontinued secondary to flash pulmonary edema Avoid all nephrotoxic drugs and monitor BUN and creatinine Impaired fasting glucose No known history of diabetes type 2, hemoglobin A1c 6.1 Hyperlipidemia Continue statin Benign labile hypertension Coreg 6.25mg PO BID Pt Condition on Discharge: Stable Discharge Disposition: Discharge Home Discharge Time: > 30 minutes Discharge Instructions DIET: Follow Instructions for: Heart Healthy Diet Activities you can perform: Regular-No Restrictions Follow up Referrals: Cardiology PCP Follow-up - 1 Week New Medications: Carvedilol (Coreg) 6.25 Mg Tab 6.25 MG PO Q12HR Blood Pressure Management #60 Ref 3 TAB Clopidogrel (Plavix) 75 Mg Tab 75 MG PO DAILY Prevent Blood Clot #30 Ref 3 TAB Furosemide (Furosemide) 20 Mg Tab 20 MG PO DAILY Prevent Heart Failure #30 Ref 3 TAB Isosorbide Dinitrate (Isosorbide Dinitrate) 20 Mg Tab 20 MG PO Q8HR Prevent Heart Failure #90 Ref 3 TAB Potassium Chloride ER (Klor-Con 10) 10 Meq Tab 10 MEQ PO DAILY Electrolyte Replacement #30 Ref 3 TAB Continued Medications: Aspirin (Aspirin) 81 Mg Tabdr 81 MG PO DAILY TAB Atorvastatin (Lipitor) 20 Mg Tab 20 MG PO DAILY Cholesterol Management #30 Ref 0 TAB Casa Doshi MD Mar 24, 2017 14:11
[2017-03-25] MEDS ORDERED: FUROSEMIDE 20 MG TAB PO SCH (09:00)
[2017-03-25] MEDS ORDERED: POTASSIUM CHLORIDE 10 MEQ CONTROLLED RELEASE TAB PO SCH (09:00)
== END 2017-03-24 17:44 | disposition home or self-care (01) | DRG 280 ==
LOC: PHED 20:31 → PHEDA 03-21 00:11 → HCIN 03-21 03:21
PROVIDERS: ADMIT Hospitalist; ATTEND Hospitalist
PROC: 5A09457 Assistance with Respiratory Ventilation, 24-96 Consecutive Hours, Continuous Positive Airway Pressure (ICD-10-PCS; principal; 2017-03-21)
DX: R07.9 Chest pain, unspecified (principal); I50.23 Acute on chronic systolic (congestive) heart failure; I21.4 Non-ST elevation (NSTEMI) myocardial infarction; J96.01 Acute respiratory failure with hypoxia; N17.9 Acute kidney failure, unspecified; I13.0 Hypertensive heart and chronic kidney disease with heart failure and stage 1 through stage 4 chronic kidney disease, or unspecified chronic kidney disease; J98.11 Atelectasis; N18.3 Chronic kidney disease, stage 3 (moderate); I73.9 Peripheral vascular disease, unspecified; E78.5 Hyperlipidemia, unspecified; I16.0 Hypertensive urgency; N28.1 Cyst of kidney, acquired; Z79.82 Long term (current) use of aspirin; Z79.899 Other long term (current) drug therapy; Z86.79 Personal history of other diseases of the circulatory system; Z87.891 Personal history of nicotine dependence
CPT/HCPCS: 71010; 71275; 74174; 80048; 80053; 80061; 82550; 82552; 83036; 83735; 84484; 85025; 85610; 85730; 93005; 93306; 94002; 94664; 96365; 96375; J1644; J1940; J7030; Q9967

== ENCOUNTER 2017-06-27 12:16 | Inpatient (IN) | payer OTHER, MEDICARE ==
[~2017-06-27] VITALS: Ht 175.3 cm; Wt 83.9 kg
[2017-06-27] VITALS (8 sets, daily range): BP systolic 106–168; BP diastolic 58–88; PULSE 61–94; RESP 16–19; TEMP 97.7–98.5; O2SAT 97–99
[~2017-06-27 12:16] MED LIST changes: +CARV6.25 PO; +FURO20TA PO; +ISOS20TA2 PO; +PLAV75TA29 PO; +POTA-243 PO
[2017-06-27] MEDS ORDERED: AMLO10 PO (13:06)
[2017-06-27] MEDS ORDERED: ASPI81TA19 PO (13:06)
[2017-06-27] MEDS ORDERED: LISI10TA3 PO (13:06)
--- NOTE | 2017-06-27 13:12 | PD ---
HPI Chief Complaint: GI Complaint Time Seen by Provider: 12:51 Travel History International Travel<30 days: No Contact w/Intl Traveler<30days: No Traveled to known affect area: No History of Present Illness HPI Patient is an 82-year-old male with a history of chronic kidney disease, AAA repair, CHF presents emergency department for evaluation of diarrhea for the past month. Patient states that he was on antibiotics some time ago for presumed upper respiratory infection and has been having diarrhea on and off ever since. He states that intermittently he's been having some abdominal cramping. No chest pain or shortness of breath no palpitations no decreased urine output. 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 Dr. Russo had fixed the patient's AAA which was just infrarenal in December of this year. He is describing and diarrhea is runny, abdominal pain is cramping intermittent and mild. PFSH Past Medical History Hx Anticoagulant Therapy: Yes AAA: Yes (DECEMBER 2016) Blood Disorders: No Cancer: No Cardiovascular Problems: Yes (CHF, CHOL) High Cholesterol: Yes Congestive Heart Failure: Yes Cerebrovascular Accident: Yes (AAA) Diabetes: No Diminished Hearing: No Endocrine: No Genitourinary: No Hepatitis: No Hiatal Hernia: No Hypertension: Yes (THIS VISIT 202/107 IN [place] ED) Immune Disorder: No Medical other: Yes (inguinal hernia) Musculoskeletal: No Neurologic: No Psychiatric: No Reproductive: No Respiratory: No Thyroid Disease: No Tetanus Vaccination: > 5 Years Influenza Vaccination: No Past Surgical History Abdominal Surgery: Yes (HERNIA) AICD: No Arteriovenous Shunt: No Cardiac Surgery: Yes (carotid endartarectomy unk which side) Ear Surgery: No Endocrine Surgery: No Eye Surgery: Yes (holes surgically placed into eyes to relieve pressure) Genitourinary Surgery: No Gynecologic Surgery: No Insulin Pump: No Joint Replacement: No Neurologic Surgery: Yes (CRANIAL SURGERY TWICE x 2 due to infection from injury ) Oral Surgery: Yes (dentures) Pacemaker: No Thoracic Surgery: No Other Surgery: Yes (cranial surgery x 2 due to infection from injury ) Social History Alcohol Use: Yes (SOCIALLY) Tobacco Use: No (/2 PPD) Substance Use: No Allergies-Medications (Allergen,Severity, Reaction): Coded Allergies: ezetimibe (Unverified Allergy, Mild, STRANGE FEELING IN ABDOMEN, 06/27/17) Reported Meds & Prescriptions Reported Meds & Active Scripts Active Plavix (Clopidogrel Bisulfate) 75 Mg Tab 75 Mg PO DAILY Coreg (Carvedilol) 6.25 Mg Tab 6.25 Mg PO Q12HR Reported Lisinopril 10 Mg Tab 10 Mg PO DAILY Aspir-Low (Aspirin) 81 Mg Tabdr 1 Tab PO HS Norvasc (Amlodipine Besylate) 10 Mg Tab 10 Mg PO DAILY Lipitor (Atorvastatin Calcium) 20 Mg Tab 20 Mg PO DAILY Review of Systems Except as stated in HPI: all other systems reviewed are Neg Physical Exam Narrative GENERAL: Well-developed well-nourished, no obvious distress. SKIN: Focused skin assessment warm/dry. HEAD: Atraumatic. Normocephalic. EYES: Pupils equal and round. No scleral icterus. No injection or drainage. ENT: No nasal bleeding or discharge. Mucous membranes pink and moist. NECK: Trachea midline. No JVD. CARDIOVASCULAR: Regular rate and rhythm. No murmur appreciated. RESPIRATORY: No accessory muscle use. Clear to auscultation. Breath sounds equal bilaterally. GASTROINTESTINAL: Abdomen soft, non-tender, nondistended. Hepatic and splenic margins not palpable. Well-healed left-sided abdominal scar. MUSCULOSKELETAL: No obvious deformities. No clubbing. No cyanosis. No edema. NEUROLOGICAL: Awake and alert. No obvious cranial nerve deficits. Motor grossly within normal limits. Normal speech. PSYCHIATRIC: Appropriate mood and affect; insight and judgment normal. Data Data Last Documented VS Vital Signs Date Time Temp Pulse Resp B/P (MAP) Pulse Ox O2 Delivery O2 Flow Rate FiO2 06/27/17 15:16 99 21 06/27/17 13:07 16 06/27/17 12:28 97.7 71 106/58 (74) Orders Orders Complete Blood Count With Diff (06/27/17 13:05) Comprehensive Metabolic Panel (06/27/17 13:05) Lipase (06/27/17 13:05) Prothrombin Time / Inr (Pt) (06/27/17 13:05) Act Partial Throm Time (Ptt) (06/27/17 13:05) Urinalysis - C+S If Indicated (06/27/17 13:05) Iv Access Insert/Monitor (06/27/17 13:05) Ecg Monitoring (06/27/17 13:05) Oximetry (06/27/17 13:05) Sodium Chloride 0.9% Flush (Ns Flush) (06/27/17 13:15) C Diff Toxin Pcr (06/27/17 13:05) Sodium Chlorid 0.9% 500 Ml Inj (Ns 500 M (06/27/17 14:15) Electrocardiogram (06/27/17 ) Ct Abd/Pel W/O Iv Contrast (06/27/17 ) Albuterol Neb (Albuterol Neb) (06/27/17 15:00) Insulin Human Regular Inj (Novolin R Inj (06/27/17 15:00) Dextrose 50% In Jay (Vial) Inj (D50w (Vi (06/27/17 15:00) Dext 5%-Nacl 0.45%... W/Sodium Bicarbona (06/27/17 16:00) Admit Order (Ed Use Only) (06/27/17 ) Vancomycin For Oral Use Only (Vancomycin (06/27/17 15:45) Consult Nephrology (06/27/17 ) Us Kidney/Renal/Bladder (06/27/17 ) Labs Laboratory Tests Test 06/27/17 13:26 06/27/17 14:00 White Blood Count 7.5 TH/MM3 Red Blood Count 3.46 MIL/MM3 Hemoglobin 10.0 GM/DL Hematocrit 30.9 % Mean Corpuscular Volume 89.2 FL Mean Corpuscular Hemoglobin 29.0 PG Mean Corpuscular Hemoglobin Concent 32.5 % Red Cell Distribution Width 14.9 % Platelet Count 238 TH/MM3 Mean Platelet Volume 7.4 FL Neutrophils (%) (Auto) 69.2 % Lymphocytes (%) (Auto) 13.4 % Monocytes (%) (Auto) 9.0 % Eosinophils (%) (Auto) 7.4 % Basophils (%) (Auto) 1.0 % Neutrophils # (Auto) 5.1 TH/MM3 Lymphocytes # (Auto) 1.0 TH/MM3 Monocytes # (Auto) 0.7 TH/MM3 Eosinophils # (Auto) 0.6 TH/MM3 Basophils # (Auto) 0.1 TH/MM3 CBC Comment DIFF FINAL Differential Comment Prothrombin Time 11.0 SEC Prothromb Time International Ratio 1.0 RATIO Activated Partial Thromboplast Time 28.0 SEC Blood Urea Nitrogen 95 MG/DL Creatinine 6.70 MG/DL Random Glucose 88 MG/DL Total Protein 7.0 GM/DL Albumin 3.5 GM/DL Calcium Level 8.4 MG/DL Alkaline Phosphatase 108 U/L Aspartate Amino Transf (AST/SGOT) 16 U/L Alanine Aminotransferase (ALT/SGPT) 22 U/L Total Bilirubin 0.3 MG/DL Sodium Level 136 MEQ/L Potassium Level 6.3 MEQ/L Chloride Level 109 MEQ/L Carbon Dioxide Level 17.4 MEQ/L Anion Gap 10 MEQ/L Estimat Glomerular Filtration Rate 8 ML/MIN Lipase 391 U/L Urine Color YELLOW Urine Turbidity CLEAR Urine pH 5.5 Urine Specific [place] 1.014 Urine Protein 30 mg/dL Urine Glucose (UA) NEG mg/dL Urine Ketones NEG mg/dL Urine Occult Blood SMALL Urine Nitrite NEG Urine Bilirubin NEG Urine Leukocyte Esterase NEG Urine RBC 0-3 /hpf Urine Squamous Epithelial Cells 0-5 /hpf Microscopic Urinalysis Comment CULT NOT INDICATED MDM Medical Decision Making Medical Screen Exam Complete: Yes Emergency Medical Condition: Yes Interpretation(s) Patient's EKG shows sinus rhythm borderline left axis deviation, early R-wave transition. No PT waves or changes consistent with hyperkalemia. There are inverted T waves in V4 through V6 without ST segment elevation. This is an abnormal EKG but is inconsistent with hyperkalemia and inconsistent with acute STEMI. Differential Diagnosis C. difficile, dehydration, acute kidney injury, electrolyte abnormality. Narrative Course Patient roomed in emergency department, he was able to provide a very watery stool sample with foul smell to it. Suspicion of C. difficile is high. Suspicion of dehydration fairly high as well and given diarrhea consideration for hypokalemia. However the patient's labs show a significant acute kidney injury with creatinine up to 6 from 2. There is also hyperkalemia in excess of 6. No changes on EKG from hyperkalemia. Given his watery diarrhea Kayexalate was not given. The patient was given gingerly bolus of normal saline 500 cc. I have added an albuterol treatment as well as a half an amp of D50 and 5 units of IV insulin for hyperkalemia. Patient was discussed with Dr. Harrington who recommends D5 half-normal saline with 75 mEq of bicarbonate per liter given at 75-100 cc/h as tolerated by patient. He also requested the patient be transferred to the main hospital should dialysis be indicated he will need some IV access obtained and possible surgical consultation. The patient was given vancomycin by mouth for likely C. difficile infection. I have discussed all the above with him and he verbalized understanding and agreement with the treatment plan. Patient discussed with Dr. Cordon for admission and she is agreeable. For ongoing assessment have ordered a noncontrast CT scan of the abdomen as well as an ultrasound of his kidneys. Last 24 hours Impressions Abdomen/Pelvis CT 06/27/17 0000 Signed Impressions: Service Date/Time: Tuesday, June 27, 2017 16:05 - CONCLUSION: 1. Diverticulosis without diverticulitis. 2. Abdominal aortic aneurysm repair, residual diameter is 2.6 cm. 3. Fluid collection in the left retroperitoneum inferiorly is unchanged likely seroma. 4. Bilateral renal cysts. 5. 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 Casa Pickens MD At 1630 Dr. Harrington has evaluated patient at bedside and believes patient can stay in [facility] for now and then transferred if surgical consult for dialysis access needed in future. Critical Care Narrative Aggregate critical care time was 35 minutes. Time to perform other separately billable procedures was not included in the critical care time. My time did not include minutes spent treating any other patients simultaneously or on activities that did not directly contribute to the patient's treatment. The services I provided to this patient were to treat and/or prevent clinically significant deterioration that could result in: , disability, organ failure. I provided critical care services requiring my management, as noted below: Chart data review, documentation time, medication orders and management, vital sign assessments/reviewing monitor data, ordering and reviewing lab tests, ordering and interpreting/reviewing x-rays and diagnostic studies, care of the patient and discussion of the patient with the admitting physicians. Diagnosis Primary Impression: Hyperkalemia Additional Impressions: Diarrhea YAMILEX (acute kidney injury) Admitting Information Admitting Physician Requests: Admit Condition: Jose Monk MD Jun 27, 2017 13:12
[2017-06-27] MEDS ORDERED: SODIUM CHLORIDE 0.9% FLUSH 10 ML FLUSH IV FLUSH PRN ×2 (13:15→16:00)
[2017-06-27 13:36] LABS: AUTOMATED NEUTROPHIL # 5.1 TH/MM3 (1.8-7.7); BASOPHIL # 0.1 TH/MM3 (0-0.2); EOSINOPHIL # 0.6 TH/MM3 (0-0.4); EOSINOPHIL % 7.4 % (0.0-4.0); HEMATOCRIT 30.9 % (39.0-51.0); HEMO FLAGS DIFF FINAL; LYMPH % 13.4 % (9.0-44.0); MEAN CELL VOLUME 89.2 FL (80.0-100.0); MEAN CORPUSCULAR HGB CONC 32.5 % (32.0-36.0); NEUT % 69.2 % (16.0-70.0); PLATELET COUNT 238 TH/MM3 (150-450); RED BLOOD COUNT 3.46 MIL/MM3 (4.50-5.90); RED CELL DISTRIBUTION WIDTH 14.9 % (11.6-17.2); WHITE BLOOD COUNT 7.5 TH/MM3 (4.0-11.0)
[2017-06-27 13:45] LABS: CHLORIDE 109 MEQ/L (98-107); POTASSIUM 6.3 MEQ/L (3.5-5.1); SODIUM (NA) 136 MEQ/L (136-145)
[2017-06-27 13:49] LABS: ANION GAP 10 MEQ/L (5-15); BICARBONATE 17.4 MEQ/L (21.0-32.0); BLOOD UREA NITROGEN 95 MG/DL (7-18)
[2017-06-27 13:52] LABS: ALT (GPT) 22 U/L (12-78); AST (GOT) 16 U/L (15-37); GLOMERULAR FILTRATION RATE 8 ML/MIN (>89)
[2017-06-27 13:53] LABS: TOTAL BILIRUBIN ADULT 0.3 MG/DL (0.2-1.0)
[2017-06-27 13:54] LABS: ALKALINE PHOSPHATASE 108 U/L (45-117)
[2017-06-27] MEDS ORDERED: SODIUM CHLORID 0.9% 500 ML INJ 500 ML IV ONE (14:15)
[2017-06-27 14:34] LABS: BLOOD, URINE SMALL (NEG); GLUCOSE,URINE NEG (NEG); KETONE, URINE NEG (NEG); NITRITE,URINE NEG (NEG); PH, URINE 5.5 (5.0-8.5)
[2017-06-27 14:51] LABS: URINE COLOR YELLOW (YELLW/STRAW)
[2017-06-27 14:52] LABS: COMMENT (UR) CULT NOT INDICATED; CULTURE IF INDICATED CULT NOT INDICATED; RBC, URINE 0-3 /hpf (0-3); SQUAMOUS EPITHELIAL CELL URINE 0-5 /hpf (0-5)
[2017-06-27] MEDS ORDERED: INSULIN HUMAN REGULAR 1,000 UNITS/10 ML VIAL IV PUSH ONE (15:00)
[2017-06-27] MEDS ORDERED: DEXTROSE 50% IN WATER 50 ML VIAL(D50) IV PUSH ONE (15:00)
[2017-06-27] MEDS ORDERED: RESP: ALBUTEROL 2.5 MG/3 ML NEB (SCH) NEB ONE (15:00)
[2017-06-27] MEDS ORDERED: VANCOMYCIN 500 MG VIAL (FOR ORAL USE ONLY) PO SCH (15:45)
[2017-06-27] MEDS: SODIUM BICARBONATE 8.4% INJ 75 MEQ in DEXT 5%-NACL 0.45% 1000 ML INJ 1,000 ML IV SCH (16:26)
--- NOTE | 2017-06-27 16:41 | RADRPT ---
EXAM DATE/TIME: 06/27/2017 16:05 [facility] COMPARISON: No previous studies available for comparison. INDICATIONS : Diarrhea. ORAL CONTRAST: No oral contrast ingested. RADIATION DOSE: 15.38 CTDIvol (mGy) MEDICAL HISTORY : Aneurysm, abdominal. Congestive heart failure. SURGICAL HISTORY : Abdominal aortic aneurysm repair. Carotid endarectomy. Hernia repair. ENCOUNTER: Initial ACUITY: 4 - 6 days PAIN SCALE: 0/10 LOCATION: abdomen TECHNIQUE: Volumetric scanning of the abdomen and pelvis was performed. Using automated exposure control and ad justment of the mA and/or kV according to patient size, radiation dose was kept as low as reasonably achievable to obtain optimal diagnostic quality images. DICOM format image data is available electro nically for review and comparison. FINDINGS: LOWER LUNGS: The visualized lower lungs are clear. LIVER: Homogeneous density without lesion. There is no dilation of the biliary tree. No calcified gallston es. SPLEEN: Normal size without lesion. PANCREAS: Within normal limits. KIDNEYS: Normal in size and shape. There is no mass, stone, or hydronephrosis. Bilateral renal cysts. Minimal fluid in the lower left retroperitoneum, unchanged. ADRENAL GLANDS: Within normal limits. VASCULAR: Previous abdominal aortic aneurysm repair. Diameter is 3.6 cm. Saccular aneurysm in the region of the hiatus is again seen and unchanged. BOWEL/MESENTERY: Scattered diverticulosis. There is no free intraperitoneal air or fluid. ABDOMINAL WALL: Within normal limits. RETROPERITONEUM: There is no lymphadenopathy. BLADDER: No wall thickening or mass. REPRODUCTIVE: Within normal limits. INGUINAL: There is no lymphadenopathy or hernia. MUSCULOSKELETAL: Within normal limits for patient age. CONCLUSION: 1. Diverticulosis without diverticulitis. 2. Abdominal aortic aneurysm repair, residual diameter is 2.6 cm. 3. Fluid collection in the left retroperitoneum inferiorly is unchanged likely seroma. 4. Bilateral renal cysts. 5. 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 Casa Pickens MD on June 27, 2017 at 16:27 Board Certified Radiologist. This report was verified electronically.
[2017-06-27] MEDS ORDERED: DIATRIZOATE MEGLUM/DIATRIZOATE SOD 9 ML CUP ONE (16:43)
--- NOTE | 2017-06-27 16:56 | PD.CONS ---
[facility] Service Nephrology Consult Requested By Reason for Consult Acute on chronic kidney disease Primary Care Physician Tavia Garcia M.D. History of Present Illness Mr. Fields is an 82 year old male with history of stage IV CKD, his GFR was around 25 in March, is here with complaints of diarrhea. He has had profuse diarrhea for 3 days. His oral intake has been poor. He had one episode of vomiting. He is noted to be hyperkalemia elevated creatinine and BUN. He also appears to have metabolic acidosis. In December his creatinine was around 1.6 with GFR of 44. He had open AAA repair in December. In March he had left CEA. Review of Systems Constitutional: COMPLAINS OF: Fatigue, Weight loss, Change in appetite, DENIES : Fever, Weight gain Ears, nose, mouth, throat: DENIES: Hearing loss Respiratory: DENIES: Apneas, Cough, Snoring Cardiovascular: DENIES: Chest pain, Palpitations, Syncope, Lower Extremity Edema Gastrointestinal: COMPLAINS OF: Abdominal pain, Diarrhea, Nausea, Vomiting, DENIES: Black stools, Bloody stools Integumentary: DENIES: Abnormal pigmentation Neurologic: DENIES: Headache Past Family Social History Allergies: Coded Allergies: ezetimibe (Unverified Allergy, Mild, STRANGE FEELING IN ABDOMEN, 06/27/17) Past Medical History Hypertension Hyperlipidemia AAA Tobacco abuse. CKD Past Surgical History AAA repair Left CEA repair Reported Medications Plavix (Clopidogrel Bisulfate) 75 Mg Tab 75 Mg PO DAILY Coreg (Carvedilol) 6.25 Mg Tab 6.25 Mg PO Q12HR Reported Lisinopril 10 Mg Tab 10 Mg PO DAILY Aspir-Low (Aspirin) 81 Mg Tabdr 1 Tab PO HS Norvasc (Amlodipine Besylate) 10 Mg Tab 10 Mg PO DAILY Lipitor (Atorvastatin Calcium) 20 Mg Tab 20 Mg PO DAILY Active Ordered Medications Current Medications Medications (Trade) Dose Ordered Sig/Thuy Route Start Time Stop Time Status Last Admin Sodium Bicarbonate 75 meq/Dextrose/ Sodium Chloride 1,075 ml @ 100 mls/hr [id number] IV 06/27/17 16:00 06/27/17 16:26 (VANCOMYCIN for oral use only) 500 mg ONCE PO 06/27/17 15:45 (NS Flush) 2 ml UNSCH PRN IV FLUSH 06/27/17 16:00 (NS Flush) 2 ml BID IV FLUSH 06/27/17 21:00 Family History reviewed, non contributory Social History Lives with a roommate. Smokes 1/2PPD No ETOH Physical Exam Vital Signs Vital Signs Date Time Temp Pulse Resp B/P (MAP) Pulse Ox O2 Delivery O2 Flow Rate FiO2 06/27/17 15:16 99 21 06/27/17 13:31 98 06/27/17 13:07 16 06/27/17 12:28 97.7 71 16 106/58 (74) 98 Physical Exam GENERAL: awake, alert. SKIN: Warm and dry. HEAD: Normocephalic. EYES: No scleral icterus. No injection or drainage. NECK: Supple, trachea midline. No JVD or lymphadenopathy. CARDIOVASCULAR: Regular rate and rhythm without murmurs, gallops, or rubs. RESPIRATORY: Breath sounds equal bilaterally. No accessory muscle use. GASTROINTESTINAL: Abdomen soft, non-tender, nondistended. MUSCULOSKELETAL: No cyanosis, or edema. BACK: Nontender without obvious deformity. No CVA tenderness. Laboratory Laboratory Tests Test 06/27/17 13:26 06/27/17 14:00 White Blood Count 7.5 Red Blood Count 3.46 Hemoglobin 10.0 Hematocrit 30.9 Mean Corpuscular Volume 89.2 Mean Corpuscular Hemoglobin 29.0 Mean Corpuscular Hemoglobin Concent 32.5 Red Cell Distribution Width 14.9 Platelet Count 238 Mean Platelet Volume 7.4 Neutrophils (%) (Auto) 69.2 Lymphocytes (%) (Auto) 13.4 Monocytes (%) (Auto) 9.0 Eosinophils (%) (Auto) 7.4 Basophils (%) (Auto) 1.0 Neutrophils # (Auto) 5.1 Lymphocytes # (Auto) 1.0 Monocytes # (Auto) 0.7 Eosinophils # (Auto) 0.6 Basophils # (Auto) 0.1 CBC Comment DIFF FINAL Differential Comment Prothrombin Time 11.0 Prothromb Time International Ratio 1.0 Activated Partial Thromboplast Time 28.0 Blood Urea Nitrogen 95 Creatinine 6.70 Random Glucose 88 Total Protein 7.0 Albumin 3.5 Calcium Level 8.4 Alkaline Phosphatase 108 Aspartate Amino Transf (AST/SGOT) 16 Alanine Aminotransferase (ALT/SGPT) 22 Total Bilirubin 0.3 Sodium Level 136 Potassium Level 6.3 Chloride Level 109 Carbon Dioxide Level 17.4 Anion Gap 10 Estimat Glomerular Filtration Rate 8 Lipase 391 Urine Color YELLOW Urine Turbidity CLEAR Urine pH 5.5 Urine Specific [place] 1.014 Urine Protein 30 Urine Glucose (UA) NEG Urine Ketones NEG Urine Occult Blood SMALL Urine Nitrite NEG Urine Bilirubin NEG Urine Leukocyte Esterase NEG Urine RBC 0-3 Urine Squamous Epithelial Cells 0-5 Microscopic Urinalysis Comment CULT NOT INDICATED Result Diagram: 06/27/17 1326 06/27/17 1326 Assessment and Plan Problem List: (1) YAMILEX (acute kidney injury) ICD Codes: N17.9 - Acute kidney failure, unspecified Status: Acute Plan: patient has acute on CKD. 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 His renal function appears to have worsened after AAA repair in December. In March he had GFR around 25. May have had cholesterol embolization. YAMILEX this time could be secondary to intravascular volume depletion due to diarrhea. Continue IVF containing bicarbonate. Avoid nephrotoxic agents. If renal function does not improve, he will require dialysis. These issues were discussed with the patient. (2) Hyperkalemia ICD Codes: E87.5 - Hyperkalemia Plan: Due to renal failure, acidosis. Patient was also on Lisinopril. In addition, he was eating half a banana daily. Continue IVF containing dextrose and bicarbonate. Avoid potassium containing IVF. Monitor. He has been treated with insulin and dextrose. May need dialysis if no improvement. (3) Metabolic acidosis ICD Codes: E87.2 - Acidosis Plan: normal gap acidosis, likely due to diarrhea. Monitor. (4) Diarrhea ICD Codes: R19.7 - Diarrhea, unspecified Status: Acute Plan: Rule out C.diff. Patient was on Z pack recently. (5) HTN (hypertension) ICD Codes: I10 - Essential (primary) hypertension Status: Acute Plan: Suspend Lisinopril for the time being. Assessment and Plan Thanks for the consult. Bobby Harrington MD Jun 27, 2017 16:56
[2017-06-27 17:08] LABS: C. DIFF EPI 027 PRESUMPTIVE NEGATIVE (NEGATIVE)
--- NOTE | 2017-06-27 17:33 | RADRPT ---
EXAM DATE/TIME: 06/27/2017 16:41 [facility] COMPARISON: No previous studies available for comparison. INDICATIONS : Increased lab values. MEDICAL HISTORY : Stroke. Aneurysm, abdominal. Hypercholesterolemia. CHF. Hypertension. SURGICAL HISTORY : Inguinal hernia repair. Cranium surgery. ENCOUNTER: Initial ACUITY: 1 day PAIN SCORE: 0/10 LOCATION: Bilateral flank MEASUREMENTS: RIGHT KIDNEY: 9.8 x 5.0 x 4.7 cm LEFT KIDNEY: 10.5 x 4.7 x 5.6 cm FINDINGS: RIGHT KIDNEY: 2.8 cm and 1.3 cm renal cyst without hydronephrosis in a small echogenic kidney. LEFT KIDNEY: 3.9 cm and 1.5 cm renal cyst. Without hydronephrosis. Small echogenic kidney. BLADDER: Within normal limits given the degree of distension. CONCLUSION: Bilateral renal cysts or hydronephrosis. Small echogenic kidneys. Jaron Boss MD FACR on June 27, 2017 at 17:28 Board Certified Radiologist. This report was verified electronically.
--- NOTE | 2017-06-27 17:49 | HHI.HP ---
[facility] Tavia Garcia M.D. Admission Diagnosis Hyperkalemia, Acute kidney injury, Diarrhea. Diagnoses: Chief Complaint: diarrhea Travel History International Travel<30 Days: No Contact w/Intl Traveler <30 Da: No Traveled to Known Affected Are: No History of Present Illness Patient is an 82-year-old gentleman with a month of intermittent diarrhea. Stools have been admittedly formed and watery, over the last weekend still has been completely watery and the patient has felt fatigued and weak. He was instructed by his primary care doctor to come to the hospital. Patient did come in with watery diarrhea. C. difficile was done in the emergency room which was negative. Patient does not have leukocytosis or fever but isn't hypotensive and seems to have developed acute kidney injury on chronic kidney disease. Patient was on azithromycin recently and this was given for a respiratory infection. The symptoms seemingly have resolved. He was in the hospital in March for AAA repair and did develop flash pulmonary edema with new diagnosis of congestive heart failure and his EF was about 30%. Patient was started on lisinopril and continued his Coreg and blood pressure medications and saw a scratcher tender in follow-up. This time the patient is hypotensive, acidotic with acute on chronic kidney failure and hyperkalemia. Patient has been admitted to the critical care unit for signs and symptoms of metabolic acidosis from acute kidney injury and possible sepsis Review of Systems Constitutional: DENIES: Diaphoretic episodes, Fatigue, Fever, Weight gain, Weight loss, Chills, Dizziness, Change in appetite, Night Sweats Endocrine: DENIES: Heat/cold intolerance, Polydipsia, Polyuria, Polyphagia Eyes: DENIES: Blurred vision, Diplopia, Eye inflammation, Eye pain, Vision loss , Photosensitivity, Double Vision Ears, nose, mouth, throat: DENIES: Tinnitus, Hearing loss, Vertigo, Nasal discharge, Oral lesions, Throat pain, Hoarseness, Ear Pain, Running Nose, Epistaxis, Sinus Pain, Toothache, Odynophagia Cardiovascular: DENIES: Chest pain, Palpitations, Syncope, Dyspnea on Exertion , PND, Lower Extremity Edema, Orthopnea, Claudication Gastrointestinal: COMPLAINS OF: Diarrhea, DENIES: Abdominal pain, Black stools , Bloody stools, Constipation, Nausea, Vomiting, Difficulty Swallowing, Anorexia Genitourinary: DENIES: Sexual dysfunction, Urinary frequency, Urinary incontinence, Urgency, Hematuria, Dysuria, Nocturia, Penile Discharge, Testicular Pain, Testicular Swelling Musculoskeletal: DENIES: Joint pain, Muscle aches, Stiffness, Joint Swelling, Back pain, Neck pain Integumentary: DENIES: Abnormal pigmentation, Nail changes, Pruritus, Rash Hematologic/lymphatic: DENIES: Bruising, Lymphadenopathy Immunologic/allergic: DENIES: Eczema, Urticaria Neurologic: DENIES: Abnormal gait, Headache, Localized weakness, Paresthesias, Seizures, Speech Problems, Tremor, Poor Balance Psychiatric: DENIES: Anxiety, Confusion, Mood changes, Depression, Hallucinations, Agitation, Suicidal Ideation, Homicidal Ideation, Delusions Except as stated in HPI: all other systems reviewed are Neg Past Family Social History Past Medical History Congestive heart failure Abdominal aortic aneurysm status post repair Hyperlipidemia Hypertension Past Surgical History Carotid endarterectomy AAA repair Reported Medications Reviewed in the EMR, recently azithromycin Allergies: Coded Allergies: ezetimibe (Unverified Allergy, Mild, STRANGE FEELING IN ABDOMEN, 06/27/17) Active Ordered Medications Reviewed in the EMR Social History Smokes daily, history of alcohol dependence however is sober Physical Exam Vital Signs Vital Signs Date Time Temp Pulse Resp B/P (MAP) Pulse Ox O2 Delivery O2 Flow Rate FiO2 06/27/17 15:16 99 21 06/27/17 13:31 98 06/27/17 13:07 16 06/27/17 12:28 97.7 71 16 106/58 (74) 98 Physical Exam GENERAL: This is a well-nourished, well-developed patient, in no apparent distress. SKIN: No rashes, ecchymoses or lesions. Cool and dry. HEAD: Atraumatic. Normocephalic. No temporal or scalp tenderness. EYES: Pupils equal round and reactive. Extraocular motions intact. No scleral icterus. No injection or drainage. ENT: Nose without bleeding, purulent drainage or septal hematoma. Throat without erythema, tonsillar hypertrophy or exudate. Uvula midline. Airway patent. NECK: Trachea midline. No JVD or lymphadenopathy. Supple, nontender, no meningeal signs. CARDIOVASCULAR: Regular rate and rhythm without murmurs, gallops, or rubs. RESPIRATORY: Clear to auscultation. Breath sounds equal bilaterally. No wheezes , rales, or rhonchi. GASTROINTESTINAL: Abdomen soft, non-tender, nondistended. No hepato-splenomegaly , or palpable masses. No guarding. MUSCULOSKELETAL: Extremities without clubbing, cyanosis, or edema. No joint tenderness, effusion, or edema noted. No calf tenderness. Negative Homans sign bilaterally. NEUROLOGICAL: Awake and alert. Cranial nerves II through XII intact. Motor and sensory grossly within normal limits. Five out of 5 muscle strength in all muscle groups. Normal speech. Laboratory Laboratory Tests Test 06/27/17 13:26 06/27/17 14:00 White Blood Count 7.5 Red Blood Count 3.46 Hemoglobin 10.0 Hematocrit 30.9 Mean Corpuscular Volume 89.2 Mean Corpuscular Hemoglobin 29.0 Mean Corpuscular Hemoglobin Concent 32.5 Red Cell Distribution Width 14.9 Platelet Count 238 Mean Platelet Volume 7.4 Neutrophils (%) (Auto) 69.2 Lymphocytes (%) (Auto) 13.4 Monocytes (%) (Auto) 9.0 Eosinophils (%) (Auto) 7.4 Basophils (%) (Auto) 1.0 Neutrophils # (Auto) 5.1 Lymphocytes # (Auto) 1.0 Monocytes # (Auto) 0.7 Eosinophils # (Auto) 0.6 Basophils # (Auto) 0.1 CBC Comment DIFF FINAL Differential Comment Prothrombin Time 11.0 Prothromb Time International Ratio 1.0 Activated Partial Thromboplast Time 28.0 Blood Urea Nitrogen 95 Creatinine 6.70 Random Glucose 88 Total Protein 7.0 Albumin 3.5 Calcium Level 8.4 Alkaline Phosphatase 108 Aspartate Amino Transf (AST/SGOT) 16 Alanine Aminotransferase (ALT/SGPT) 22 Total Bilirubin 0.3 Sodium Level 136 Potassium Level 6.3 Chloride Level 109 Carbon Dioxide Level 17.4 Anion Gap 10 Estimat Glomerular Filtration Rate 8 Lipase 391 Urine Color YELLOW Urine Turbidity CLEAR Urine pH 5.5 Urine Specific [place] 1.014 Urine Protein 30 Urine Glucose (UA) NEG Urine Ketones NEG Urine Occult Blood SMALL Urine Nitrite NEG Urine Bilirubin NEG Urine Leukocyte Esterase NEG Urine RBC 0-3 Urine Squamous Epithelial Cells 0-5 Microscopic Urinalysis Comment CULT NOT INDICATED Stool C. difficile Toxin (PCR) NEGATIVE Stl C. difficile Toxin Epiderm 027 PRESUMPTIVE NEGATIVE Result Diagram: 06/27/17 1326 06/27/17 1326 Imaging Last Impressions Abdomen/Pelvis CT 06/27/17 0000 Signed Impressions: Service Date/Time: Tuesday, June 27, 2017 16:05 - CONCLUSION: 1. Diverticulosis without diverticulitis. 2. Abdominal aortic aneurysm repair, residual diameter is 2.6 cm. 3. Fluid collection in the left retroperitoneum inferiorly is unchanged likely seroma. 4. Bilateral renal cysts. 5. 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 MD Rick Stokes VTE Risk Assessment Caprinhany VTE Risk Assessment: Mod/High Risk (score >= 2) Caprini Risk Assessment Model Point Value = 1 Point Value = 2 Point Value = 3 Point Value = 5 Age 41-60 Minor surgery BMI > 25 kg/m2 Swollen legs Varicose veins or History of unexplained or recurrent spontaneous Oral contraceptives or hormone replacement Sepsis (< 1 month) Serious lung disease, including pneumonia (< 1 month) Abnormal pulmonary function Acute myocardial infarction Congestive heart failure (< 1 month) History of inflammatory bowel disease Medical patient at bed rest Age 61-74 Arthroscopic surgery Major open surgery (> 45 min) Laparoscopic surgery (> 45 min) Malignancy Confined to bed (> 72 hours) Immobilizing plaster cast Central venous access Age >= 75 History of VTE Family history of VTE Factor V Leiden Prothrombin [id number] Lupus anticoagulant Anticardiolipin antibodies Elevated serum homocysteine Heparin-induced thrombocytopenia Other congenital or acquired thrombophilia Stroke (< 1 month) Elective arthroplasty Hip, pelvis, or leg fracture Acute spinal cord injury (< 1 month) Prophylaxis Regimen Total Risk Factor Score Risk Level Prophylaxis Regimen 0-1 Low Early ambulation 2 Moderate Order ONE of the following: *Sequential Compression Device (SCD) *Heparin 5000 units SQ BID 3-4 Higher Order ONE of the following medications: *Heparin 5000 units SQ TID *Enoxaparin/Lovenox 40 mg SQ daily (WT < 150 kg, CrCl > 30 mL/min) *Enoxaparin/Lovenox 30 mg SQ daily (WT < 150 kg, CrCl > 10-29 mL/min) *Enoxaparin/Lovenox 30 mg SQ BID (WT < 150 kg, CrCl > 30 mL/min) AND/OR *Sequential Compression Device (SCD) 5 or more Highest Order ONE of the following medications: *Heparin 5000 units SQ TID (Preferred with Epidurals) *Enoxaparin/Lovenox 40 mg SQ daily (WT < 150 kg, CrCl > 30 mL/min) *Enoxaparin/Lovenox 30 mg SQ daily (WT < 150 kg, CrCl > 10-29 mL/min) *Enoxaparin/Lovenox 30 mg SQ BID (WT < 150 kg, CrCl > 30 mL/min) AND *Sequential Compression Device (SCD) Assessment and Plan Problem List: (1) CHF (congestive heart failure) ICD Code: I50.9 - Heart failure, unspecified Plan: Echocardiogram completed 03/2017 shows EF of 25-30% with global hypokinesis Patient on lisinopril and Coreg We'll hold lisinopril due to acute kidney injury We'll follow with IV hydration Was not a candidate for left heart catheter due to renal dysfunction (2) Metabolic acidosis ICD Code: E87.2 - Acidosis Plan: Likely secondary to sepsis, acute kidney injury and dehydration Continue with treatment of the above and follow labs Bicarbonate drip (3) HTN (hypertension) ICD Code: I10 - Essential (primary) hypertension Status: Acute Plan: Hypotensive, continue to hold blood pressure medications for now and follow on IV hydration (4) Diarrhea ICD Code: R19.7 - Diarrhea, unspecified Status: Acute Plan: C. difficile negative, ct bowels unremarkable DDx: post antibiotic, medication induced, other infections causes, work up in progress (5) YAMILEX (acute kidney injury) ICD Code: N17.9 - Acute kidney failure, unspecified Status: Acute Plan: ptn did not know he had renal disease prior to today Continue to avoid nephrotoxic injury with medications Continue to correct hypotension and acidosis Assessment and Plan requests I call his son, Jose I did and he is aware of his father's condition Code Status DNR Discussed Condition With Patient, ER MD Physician Certification 2 Midnight Certification Type: Admission for Inpatient Services Order for Inpatient Services The services are ordered in accordance with Medicare regulations or non- Medicare payer requirements, as applicable. In the case of services not specified as inpatient-only, they are appropriately provided as inpatient services in accordance with the 2-midnight benchmark. Estimated LOS (days): 4 4 days is the estimated time the patient will need to remain in the hospital, assuming treatment plan goals are met and no additional complications. Post-Hospital Plan: Rosario Ocampo MD Jun 27, 2017 17:49
[2017-06-27] MEDS: SODIUM CHLORIDE 0.9% FLUSH 10 ML FLUSH IV FLUSH SCH (21:00)
[2017-06-27] MEDS: HEPARIN SODIUM - SQ 10,000 UNITS/ML VIAL SQ SCH (21:22)
[2017-06-27 21:43] LABS: POTASSIUM 5.7 MEQ/L (3.5-5.1)
[2017-06-27 21:44] LABS: BICARBONATE 17.9 MEQ/L (21.0-32.0)
[2017-06-27] MEDS ORDERED: CHLORHEXIDINE GLUCONATE 2 % 1 PACK (2 CLOTHS)(extra cloths) TOPICAL PRN (22:45)
[2017-06-28] VITALS (22 sets, daily range): BP systolic 141–179; BP diastolic 58–90; PULSE 61–78; RESP 8–28; TEMP 97.9–98.4; O2SAT 93–98
[2017-06-28] MEDS: SODIUM BICARBONATE 8.4% INJ 75 MEQ in DEXT 5%-NACL 0.45% 1000 ML INJ 1,000 ML IV SCH ×2 (02:13→15:34)
[2017-06-28] MEDS: CHLORHEXIDINE GLUCONATE 2 % 1 PACK (2 CLOTHS)(taper/protocol) TOPICAL SCH (04:00)
--- NOTE | 2017-06-28 08:29 | HHI.NPPN ---
Subjective Complaints: Diarrhea Renal Failure: Chronic, Acute Interval History He is awake, no distress noted. RN reports blood pressure has been elevated throughout the night. Renal function is improving slowly. Urine output not recorded but he is making urine. (Roxi Romano) Review of Systems Gastrointestinal Gastrointestinal: Nausea & Vomiting, Diarrhea (Roxi Romano) Objective Data Data Vital Signs Date Time Temp Pulse Resp B/P (MAP) Pulse Ox O2 Delivery O2 Flow Rate FiO2 06/28/17 07:00 97.9 67 21 165/80 (108) 97 06/28/17 06:00 78 06/28/17 04:00 64 06/28/17 04:00 98.1 68 20 154/70 (98) 97 06/28/17 02:00 69 06/28/17 02:00 96 Nasal Cannula 2.00 06/28/17 02:00 64 18 159/59 (92) 96 06/28/17 00:00 72 06/28/17 00:00 98.0 76 20 146/58 (87) 98 06/27/17 23:00 68 16 168/83 (111) 97 06/27/17 22:00 64 06/27/17 21:00 18 152/64 (93) 98 06/27/17 20:30 94 06/27/17 20:30 98.1 67 19 135/88 (104) 98 06/27/17 18:24 98.5 61 16 123/65 (84) 98 Room Air 06/27/17 17:00 16 06/27/17 15:16 99 21 06/27/17 13:31 98 06/27/17 13:07 16 06/27/17 12:28 97.7 71 16 106/58 (74) 98 (Roxi Romano) -: 06/27/17 1326 06/27/17 2017 Microbiology 06/27/17 Aerobic Blood Culture, Received Pending 06/27/17 Anaerobic Blood Culture, Received Pending 06/27/17 Aerobic Blood Culture, Received Pending 06/27/17 Anaerobic Blood Culture, Received Pending 06/27/17 Stool Pus (RICHARD) - Final, Resulted NO WBC'S SEEN 06/27/17 Giardia Antigen (RICHARD), Resulted Pending 06/27/17 , Received Pending Imaging Last Impressions Renal Ultrasound 06/27/17 0000 Signed Impressions: Service Date/Time: Tuesday, June 27, 2017 16:41 - CONCLUSION: Bilateral renal cysts or hydronephrosis. Small echogenic kidneys. Jaron Boss MD FACR Abdomen/Pelvis CT 06/27/17 0000 Signed Impressions: Service Date/Time: Tuesday, June 27, 2017 16:05 - CONCLUSION: 1. Diverticulosis without diverticulitis. 2. Abdominal aortic aneurysm repair, residual diameter is 2.6 cm. 3. Fluid collection in the left retroperitoneum inferiorly is unchanged likely seroma. 4. Bilateral renal cysts. 5. 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 Casa Pickens MD Drip Comment bicarb in D51/2 NS (Roxi Romano B. TUMBLING AND ROLLING SUPERVISOR) Physical Exam General Appearance: Well Developed, Well Nourished, Comfortable (Roxi Romano B. TUMBLING AND ROLLING SUPERVISOR) Throat Throat Exam: Oral Mucosa Pyote & Moist (Roxi Romano B. TUMBLING AND ROLLING SUPERVISOR) Pulmonary Resp Exam: Clear Bilaterally, Breath Sounds Equal (Juan AntonioRoxi B. TUMBLING AND ROLLING SUPERVISOR) Cardiology CV Exam: Regular, Normal Sinus Rhythm, Good Perfusion (Roxi Romano B. TUMBLING AND ROLLING SUPERVISOR) Gastrointestinal/Abdomen GI Exam: Soft, Non-Tender, Bowel Sounds Present, Positive Bowel Movement (Roxi Romano B. TUMBLING AND ROLLING SUPERVISOR) Musculoskeletal MS Exam: Joints Intact, Normal Tone (Roxi Romano B. TUMBLING AND ROLLING SUPERVISOR) Integumentary Skin Exam: Clear, Warm, Dry, Intact (Roxi Romano B. TUMBLING AND ROLLING SUPERVISOR) Extremeties Extremities Exam: No Edema, Pedal Pulses Palpable (Juan AntonioRoxi B. TUMBLING AND ROLLING SUPERVISOR) Neurologic Neuro Exam: Alert, Awake, Oriented, Speech Clear, Moving All Extremities (Kieran Romanoon B. 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 Baseline GFR around 25. YAMILEX likely secondary to intravascular volume depletion from diarrhea. May have had cholesterol embolization. Complement levels have been ordered. Imaging negative for obstruction. Renal function is improving. Continue IVF containing bicarbonate. On F5 09/20 NS @ 100 ml/hr He is making urine but exact amount unknown, I have asked the nurse to begin charting I/O Avoid nephrotoxic agents. Repeat labs in AM. (2) Hyperkalemia ICD Codes: E87.5 - Hyperkalemia Plan: Due to renal failure and acidosis. Hold Lisinopril. Continue IVF containing dextrose and bicarbonate. Avoid potassium containing IVF. Start low K diet when diet is restarted Potassium has improved today. No indication for dialysis at this time. (3) Metabolic acidosis ICD Codes: E87.2 - Acidosis Plan: Non anion gap acidosis, likely due to diarrhea. Improving, Follow metabolic panel continue bicarb drip and monitor effect. (4) Diarrhea ICD Codes: R19.7 - Diarrhea, unspecified Status: Acute Plan: C diff negative stool studies have been ordered (5) HTN (hypertension) ICD Codes: I10 - Essential (primary) hypertension Status: Acute Plan: Restart Norvasc, hold lisinopril. (Roxi Romano) Plan Renal function has improved slightly. Hyperkalemia has improved. Decrease IVF. No immediate need for dialysis. (Bobby Harrington MD) Roxi Romano Jun 28, 2017 08:29 Bobby Harrington MD Jun 28, 2017 16:58
[2017-06-28 08:31] LABS: AUTOMATED NEUTROPHIL # 3.5 TH/MM3 (1.8-7.7); BASOPHIL # 0.1 TH/MM3 (0-0.2); BASOPHIL % 0.9 % (0.0-2.0); EOSINOPHIL # 0.5 TH/MM3 (0-0.4); EOSINOPHIL % 9.4 % (0.0-4.0); HEMATOCRIT 28.5 % (39.0-51.0); HEMO FLAGS DIFF FINAL; LYMPH % 16.7 % (9.0-44.0); MEAN CELL VOLUME 90.2 FL (80.0-100.0); MEAN CORPUSCULAR HGB CONC 34.4 % (32.0-36.0); MONO % 10.6 % (0.0-8.0); NEUT % 62.4 % (16.0-70.0); PLATELET COUNT 208 TH/MM3 (150-450); RED BLOOD COUNT 3.16 MIL/MM3 (4.50-5.90); RED CELL DISTRIBUTION WIDTH 15.2 % (11.6-17.2); WHITE BLOOD COUNT 5.7 TH/MM3 (4.0-11.0)
[2017-06-28 09:00] LABS: ALKALINE PHOSPHATASE 103 U/L (45-117); ALT (GPT) 17 U/L (12-78); ANION GAP 9 MEQ/L (5-15); AST (GOT) 14 U/L (15-37); BICARBONATE 20.2 MEQ/L (21.0-32.0); BLOOD UREA NITROGEN 88 MG/DL (7-18); CHLORIDE 110 MEQ/L (98-107); GLOMERULAR FILTRATION RATE 8 ML/MIN (>89); SODIUM (NA) 139 MEQ/L (136-145); TOTAL BILIRUBIN ADULT 0.2 MG/DL (0.2-1.0)
[2017-06-28] MEDS: SODIUM CHLORIDE 0.9% FLUSH 10 ML FLUSH IV FLUSH SCH ×2 (09:11→20:30)
[2017-06-28] MEDS: HEPARIN SODIUM - SQ 10,000 UNITS/ML VIAL SQ SCH ×2 (09:11→20:30)
--- NOTE | 2017-06-28 10:01 | EKG ---
Date Performed: 06/27/2017 Time Performed: 14:17:54 PTAGE: 82 years EKG: Sinus rhythm WITH FIRST DEGREE AV BLOCK BORDERLINE LEFT AXIS DEVIATION ST DEVIATION AND MODERATE T-WAVE ABNORMALI TY, CONSIDER ANTEROLATERAL ISCHEMIA ABNORMAL ECG PREVIOUS TRACING : 03/20/2017 21.07 Compared to prior tracing no significant change DOCTOR: Hernán Rodrigues Interpretating Date/Time 06/28/2017 09:58:55
[2017-06-28] MEDS: CARVEDILOL 6.25 MG TAB PO SCH ×2 (11:03→20:30)
--- NOTE | 2017-06-28 11:08 | HHI.PR ---
Subjective Remarks Patient seen and evaluated today in follow-up for acute kidney injury with chronic kidney disease. Potassium and renal function slightly improved. Patient not oliguric. Intake and output put to continue to be measured by nursing team. Diarrhea has improved also however patient not eating. Patient without chest discomfort and without shortness of breath. Care plan discussed with patient and with FORGING PRESS SETTER UP Objective Vitals Vital Signs Date Time Temp Pulse Resp B/P (MAP) Pulse Ox O2 Delivery O2 Flow Rate FiO2 06/28/17 09:00 72 18 178/87 (117) 98 06/28/17 08:00 98.4 72 22 174/90 (118) 97 06/28/17 07:50 96 21 06/28/17 07:00 97.9 67 21 165/80 (108) 97 06/28/17 06:00 78 06/28/17 04:00 64 06/28/17 04:00 98.1 68 20 154/70 (98) 97 06/28/17 02:00 69 06/28/17 02:00 96 Nasal Cannula 2.00 06/28/17 02:00 64 18 159/59 (92) 96 06/28/17 00:00 72 06/28/17 00:00 98.0 76 20 146/58 (87) 98 06/27/17 23:00 68 16 168/83 (111) 97 06/27/17 22:00 64 06/27/17 21:00 18 152/64 (93) 98 06/27/17 20:30 94 06/27/17 20:30 98.1 67 19 135/88 (104) 98 06/27/17 18:24 98.5 61 16 123/65 (84) 98 Room Air 06/27/17 17:00 16 06/27/17 15:16 99 21 06/27/17 13:31 98 06/27/17 13:07 16 06/27/17 12:28 97.7 71 16 106/58 (74) 98 I/O 06/27/17 06/27/17 06/27/17 06/28/17 06/28/17 06/28/17 07:00 15:00 23:00 07:00 15:00 23:00 Intake Total 500 ml 1000 ml Output Total 300 ml Balance 500 ml 1000 ml -300 ml Intake Oral 0 ml IV Total 500 ml 1000 ml Output Urine Total 300 ml # Voids 3 # Bowel Movements 2 0 Result Diagram: 06/28/1781906/28/17819 Imaging Last Impressions Renal Ultrasound 06/27/17 0000 Signed Impressions: Service Date/Time: Tuesday, June 27, 2017 16:41 - CONCLUSION: Bilateral renal cysts, Small echogenic kidneys. Jaron Boss MD FACR Abdomen/Pelvis CT 06/27/17 0000 Signed Impressions: Service Date/Time: Tuesday, June 27, 2017 16:05 - CONCLUSION: 1. Diverticulosis without diverticulitis. 2. Abdominal aortic aneurysm repair, residual diameter is 2.6 cm. 3. Fluid collection in the left retroperitoneum inferiorly is unchanged likely seroma. 4. Bilateral renal cysts. 5. 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 Casa Pickens MD Objective Remarks GENERAL: This is a well-nourished, well-developed patient, in no apparent distress. CARDIOVASCULAR: Regular rate and rhythm without murmurs, gallops, or rubs. RESPIRATORY: Clear to auscultation. Breath sounds equal bilaterally. No wheezes , rales, or rhonchi. GASTROINTESTINAL: Abdomen soft, non-tender, nondistended. Normal active bowel sounds MUSCULOSKELETAL: Extremities without clubbing, cyanosis, or edema. NEURO: Alert & Oriented x4 to person, place, time, situation. Moves all ext x4 A/P Problem List: (1) CHF (congestive heart failure) ICD Code: I50.9 - Heart failure, unspecified Plan: Echocardiogram completed 03/2017 shows EF of 25-30% with global hypokinesis Continue Coreg and gentle hydration We'll follow with IV hydration Was not a candidate for left heart catheter due to renal dysfunction. No lisinopril due to renal failure (2) Metabolic acidosis ICD Code: E87.2 - Acidosis Plan: Likely secondary to acute kidney injury and dehydration Continue with treatment of the above and follow labs Bicarbonate drip Improving (3) HTN (hypertension) ICD Code: I10 - Essential (primary) hypertension Status: Acute Plan: Blood pressures improved, resume Coreg, Norvasc started per renal (4) Diarrhea ICD Code: R19.7 - Diarrhea, unspecified Status: Acute Plan: likely non-infectious work up in progress Resolving, will follow with advancing his diet May need GI follow-up if no improvement (5) YAMILEX (acute kidney injury) ICD Code: N17.9 - Acute kidney failure, unspecified Status: Acute Plan: Continue current management to correct hypotension and acidosis Continue to avoid nephrotoxic injury with medications Assessment and Plan Advance diet to renal Continue telemetry Heparin DVT prophylaxis Rosario Cordon MD Jun 28, 2017 11:08
--- NOTE | 2017-06-28 13:22 | EKG ---
Date Performed: 06/28/2017 Time Performed: 10:37:30 PTAGE: 82 years EKG: Sinus rhythm BORDERLINE LEFT AXIS DEVIATION ST DEVIATION AND MODERATE T-WAVE ABNORMALITY, CONSIDER ANTEROLATERAL ISCHEMIA ABNORMAL ECG PREVIOUS TRACING : 06/27/2017 14.17 Compared to prior tracing no significant change DOCTOR: Hernán Rodrigues Interpretating Date/Time 06/28/2017 13:21:44
[2017-06-28] MEDS ORDERED: hydrALAZINE HCL 20 MG/ML VIAL IV PUSH PRN (14:30)
[2017-06-28] MEDS ORDERED: ACETAMINOPHEN 325 MG TAB PO PRN (18:30)
[2017-06-28] MEDS ORDERED: CALCIUM CARBONATE 500 MG CHEWABLE TAB CHEW PRN (18:30)
[2017-06-28] MEDS ORDERED: DOCUSATE SODIUM 100 MG CAP PO PRN (18:30)
[2017-06-28] MEDS ORDERED: MAGNESIUM HYDROXIDE SUSP 30 ML CUP PO PRN (18:30)
[2017-06-28] MEDS ORDERED: ONDANSETRON HCL 4 MG/2 ML VIAL IV PUSH PRN (18:30)
[2017-06-29] VITALS (21 sets, daily range): BP systolic 138–170; BP diastolic 57–89; PULSE 56–80; RESP 10–24; TEMP 98.2–98.6; O2SAT 94–100
[2017-06-29] MEDS: CHLORHEXIDINE GLUCONATE 2 % 1 PACK (2 CLOTHS)(taper/protocol) TOPICAL SCH (04:00)
[2017-06-29 04:50] LABS: AUTOMATED NEUTROPHIL # 3.9 TH/MM3 (1.8-7.7); BASOPHIL % 0.7 % (0.0-2.0); EOSINOPHIL # 0.6 TH/MM3 (0-0.4); EOSINOPHIL % 8.8 % (0.0-4.0); HEMATOCRIT 27.8 % (39.0-51.0); HEMO FLAGS DIFF FINAL; LYMPH % 22.7 % (9.0-44.0); LYMPHOCYTE # 1.5 TH/MM3 (1.0-4.8); MEAN CELL VOLUME 90.4 FL (80.0-100.0); MEAN CORPUSCULAR HEMOGLOBIN 30.3 PG (27.0-34.0); MEAN CORPUSCULAR HGB CONC 33.5 % (32.0-36.0); MONO % 9.6 % (0.0-8.0); NEUT % 58.2 % (16.0-70.0); PLATELET COUNT 213 TH/MM3 (150-450); RED BLOOD COUNT 3.08 MIL/MM3 (4.50-5.90); RED CELL DISTRIBUTION WIDTH 15.1 % (11.6-17.2); WHITE BLOOD COUNT 6.6 TH/MM3 (4.0-11.0)
[2017-06-29 04:57] LABS: POTASSIUM 4.7 MEQ/L (3.5-5.1)
[2017-06-29 05:02] LABS: BICARBONATE 21.1 MEQ/L (21.0-32.0)
[2017-06-29] MEDS: SODIUM BICARBONATE 8.4% INJ 75 MEQ in DEXT 5%-NACL 0.45% 1000 ML INJ 1,000 ML IV SCH (06:06)
--- NOTE | 2017-06-29 08:20 | HHI.NPPN ---
Subjective Complaints: Diarrhea Renal Failure: Chronic, Acute Interval History He looks better, is more alert. Renal function slow to improve. (Roxi Romano) Review of Systems Gastrointestinal Gastrointestinal: Nausea & Vomiting, Diarrhea (Roxi Romano) Objective Data Data Vital Signs Date Time Temp Pulse Resp B/P (MAP) Pulse Ox O2 Delivery O2 Flow Rate FiO2 06/29/17 04:00 56 10 147/69 (95) 94 06/29/17 04:00 98.6 06/29/17 03:00 62 19 150/76 (100) 98 06/29/17 02:00 60 10 148/66 (93) 95 06/29/17 01:00 58 15 138/57 (84) 96 06/29/17 00:00 98.4 06/29/17 00:00 62 21 147/67 (93) 95 06/28/17 22:38 62 06/28/17 22:00 66 17 143/71 (95) 96 06/28/17 21:00 66 12 156/66 (96) 97 06/28/17 20:00 98.4 06/28/17 20:00 72 22 144/69 (94) 97 06/28/17 19:00 66 18 147/75 (99) 98 06/28/17 18:00 71 06/28/17 18:00 71 28 147/75 (99) 97 06/28/17 17:00 98.0 64 18 150/60 (90) 97 06/28/17 16:00 64 06/28/17 16:00 64 18 142/60 (87) 97 06/28/17 15:00 61 17 141/64 (89) 96 06/28/17 14:00 63 06/28/17 14:00 68 8 147/73 (97) 93 06/28/17 13:00 98.4 64 18 160/65 (96) 98 06/28/17 12:00 72 06/28/17 12:00 72 16 160/65 (96) 94 06/28/17 11:00 68 20 177/79 (111) 97 06/28/17 10:00 64 06/28/17 10:00 179/83 (115) 06/28/17 09:00 72 18 178/87 (117) 98 (Roxi Romano) -: 06/29/17 0425 06/29/17 0425 Imaging Last Impressions Renal Ultrasound 06/27/17 0000 Signed Impressions: Service Date/Time: Tuesday, June 27, 2017 16:41 - CONCLUSION: Bilateral renal cysts or hydronephrosis. Small echogenic kidneys. Jaron Boss MD FACR Abdomen/Pelvis CT 06/27/17 0000 Signed Impressions: Service Date/Time: Tuesday, June 27, 2017 16:05 - CONCLUSION: 1. Diverticulosis without diverticulitis. 2. Abdominal aortic aneurysm repair, residual diameter is 2.6 cm. 3. Fluid collection in the left retroperitoneum inferiorly is unchanged likely seroma. 4. Bilateral renal cysts. 5. 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 Casa Pickens MD Drip Comment bicarb in D51/2 NS (Roxi Romano) Physical Exam General Appearance: Well Developed, Well Nourished, No Acute Distress, Comfortable (Roxi Romano) Throat Throat Exam: Oral Mucosa Goff & Moist (Roxi Romano) Pulmonary Resp Exam: Clear Bilaterally, Breath Sounds Equal (Roxi Romano) Cardiology CV Exam: Regular, Normal Sinus Rhythm, Good Perfusion (Roxi Romano) Gastrointestinal/Abdomen GI Exam: Soft, Non-Tender, Bowel Sounds Present, Positive Bowel Movement (Roxi Romano) Musculoskeletal MS Exam: Joints Intact, Normal Tone (Roxi Romano) Integumentary Skin Exam: Clear, Warm, Dry, Intact (Roxi Romano) Extremeties Extremities Exam: No Edema, Pedal Pulses Palpable (Roxi Romano) Neurologic Neuro Exam: Alert, Awake, Oriented, Speech Clear, Moving All Extremities (Roxi Romano) Psychiatric Psych Exam: Appropriate Responses (Roxi Romano) Assessment/Plan Discussed Condition With: Patient Assessment Summary: YAMILEX/Acute Renal Failure, Hypertension Electrolyte Assessment: Hyperkalemia, Metabolic Acidosis Problem List: (1) YAMILEX (acute kidney injury) ICD Codes: N17.9 - Acute kidney failure, unspecified Status: Acute Plan: 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 Baseline GFR around 25. YAMILEX likely secondary to intravascular volume depletion from diarrhea. Cholesterol embolization less likely as C3 is normal. . Renal function is improving slowly, he is non oliguric. May have suffered ATN. Continue IVF containing bicarbonate. Rate was reduced. Encouraged oral intake. Taper off IVF. Avoid nephrotoxic agents. I have asked the nurse to perform a post void bladder scan today to assess for retention. Repeat labs in AM. He does require dialysis at this time. Monitor for changes. (2) Hyperkalemia ICD Codes: E87.5 - Hyperkalemia Plan: Due to renal failure and acidosis. Hold Lisinopril. Continue IVF. On low K diet. (3) Metabolic acidosis ICD Codes: E87.2 - Acidosis Plan: Non anion gap acidosis, likely due to diarrhea. Improving, Follow metabolic panel Taper off bicarb drip today. (4) Diarrhea ICD Codes: R19.7 - Diarrhea, unspecified Status: Acute Plan: C diff negative stool studies have been ordered (5) HTN (hypertension) ICD Codes: I10 - Essential (primary) hypertension Status: Acute Plan: On coreg and Norvasc, hold lisinopril. 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 Baseline GFR around 25. YAMILEX likely secondary to intravascular volume depletion from diarrhea. Cholesterol embolization less likely as C3 is normal. . Renal function is improving slowly, he is non oliguric. May have suffered ATN. Continue IVF containing bicarbonate. Rate was reduced. Encouraged oral intake. Taper off IVF. Avoid nephrotoxic agents. I have asked the nurse to perform a post void bladder scan today to assess for retention. Repeat labs in AM. He does require dialysis at this time. Monitor for changes. (2) Hyperkalemia ICD Codes: E87.5 - Hyperkalemia Plan: Due to renal failure and acidosis. Hold Lisinopril. Continue IVF. On low K diet. (3) Metabolic acidosis ICD Codes: E87.2 - Acidosis Plan: Non anion gap acidosis, likely due to diarrhea. Improving, Follow metabolic panel Taper off bicarb drip today. (4) Diarrhea ICD Codes: R19.7 - Diarrhea, unspecified Status: Acute Plan: C diff negative stool studies have been ordered (5) HTN (hypertension) ICD Codes: I10 - Essential (primary) hypertension Status: Acute Plan: On coreg and Norvasc, hold lisinopril. Plan patient was seen and examined. Slow improvement in renal function. No immediate need for dialysis. (Bobby Harrington MD) Roxi Romano [facility] Jun 29, 2017 08:20 Bobby Harrington MD Jun 29, 2017 17:42
[2017-06-29] MEDS: SODIUM CHLORIDE 0.9% FLUSH 10 ML FLUSH IV FLUSH SCH ×2 (09:00→20:26)
[2017-06-29] MEDS: CARVEDILOL 6.25 MG TAB PO SCH ×2 (09:26→20:25)
[2017-06-29] MEDS: HEPARIN SODIUM - SQ 10,000 UNITS/ML VIAL SQ SCH ×2 (09:27→20:26)
[2017-06-29 17:40] LABS: FECAL FAT % FAT 10 % fat (< 20); FECES PHOSPHORUS 12 mg/dL (See Comment); OSMOTIC GAP -24 mOsm/kg (See Comment)
--- NOTE | 2017-06-29 18:03 | HHI.PR ---
Subjective Remarks Nursing denies any acute setbacks since last night, did perform bladder scan which showed about 90 mL's after the patient urinated spontaneously. Patient himself denies any new complaints. Denies any nausea vomiting or any difficulty urinating. Objective Vital Signs Date Time Temp Pulse Resp B/P (MAP) Pulse Ox O2 Delivery O2 Flow Rate FiO2 06/29/17 17:00 62 18 160/72 (101) 94 06/29/17 16:00 98.4 66 11 152/65 (94) 99 06/29/17 16:00 64 06/29/17 15:00 62 21 157/70 (99) 100 06/29/17 14:00 62 20 150/67 (94) 95 06/29/17 14:00 60 06/29/17 12:00 64 20 148/75 (99) 98 06/29/17 12:00 62 06/29/17 11:00 72 18 157/74 (101) 97 06/29/17 10:00 61 17 157/74 (101) 98 06/29/17 10:00 62 06/29/17 08:00 74 21 170/82 (111) 96 06/29/17 08:00 74 06/29/17 04:00 56 10 147/69 (95) 94 06/29/17 04:00 98.6 06/29/17 03:00 62 19 150/76 (100) 98 06/29/17 02:00 60 10 148/66 (93) 95 06/29/17 01:00 58 15 138/57 (84) 96 06/29/17 00:00 98.4 06/29/17 00:00 62 21 147/67 (93) 95 06/28/17 22:38 62 06/28/17 22:00 66 17 143/71 (95) 96 06/28/17 21:00 66 12 156/66 (96) 97 06/28/17 20:00 98.4 06/28/17 20:00 72 22 144/69 (94) 97 06/28/17 19:00 66 18 147/75 (99) 98 I/O 06/28/17 06/28/17 06/28/17 06/29/17 06/29/17 06/29/17 06:59 14:59 22:59 06:59 14:59 22:59 Intake Total 1000 ml 1696 ml 724 ml Output Total 300 ml 0 ml 600 ml 425 ml 250 ml Balance 1000 ml -300 ml 1696 ml 124 ml -425 ml -250 ml Intake Oral 0 ml 360 ml IV Total 1000 ml 1336 ml 724 ml Output Urine Total 300 ml 0 ml 600 ml 425 ml 250 ml # Voids 3 # Bowel Movements 2 0 0 1 0 Result Diagram: 06/29/1742406/29/17424 Objective Remarks NAD unlabored breathing, Abdomen is soft, nontender, nondistended A/P Assessment and Plan Problem List: (1) CHF (congestive heart failure) ICD Code: I50.9 - Heart failure, unspecified Plan: Echocardiogram completed 03/2017 shows EF of 25-30% with global hypokinesis Continue Coreg and gentle hydration We'll follow with IV hydration Was not a candidate for left heart catheter due to renal dysfunction. No lisinopril due to renal failure (2) Metabolic acidosis ICD Code: E87.2 - Acidosis Plan: Likely secondary to acute kidney injury and dehydration Continue with treatment of the above and follow labs Bicarbonate drip Improving (3) HTN (hypertension) ICD Code: I10 - Essential (primary) hypertension Status: Acute Plan: Blood pressures improved, resume Coreg, Norvasc started per renal (4) Diarrhea Resolved (5) YAMILEX (acute kidney injury) ICD Code: N17.9 - Acute kidney failure, unspecified Status: Acute Plan: Continue current management to correct hypotension and acidosis Continue to avoid nephrotoxic injury with medications Assessment and Plan Advance diet to renal Continue telemetry Barrington Lopes MD Jun 29, 2017 18:03
[2017-06-30] VITALS (19 sets, daily range): BP systolic 117–179; BP diastolic 55–93; PULSE 58–94; RESP 12–24; TEMP 97–98.1; O2SAT 96–97
[2017-06-30] MEDS: CHLORHEXIDINE GLUCONATE 2 % 1 PACK (2 CLOTHS)(taper/protocol) TOPICAL SCH (04:30)
[2017-06-30] MEDS: SODIUM BICARBONATE 8.4% INJ 75 MEQ in DEXT 5%-NACL 0.45% 1000 ML INJ 1,000 ML IV SCH (04:55)
--- NOTE | 2017-06-30 08:20 | HHI.NPPN ---
Subjective Complaints: Diarrhea Renal Failure: Chronic, Acute Interval History No further diarrhea. He feels better. Urine output is improving, creatinine slightly lower. (Roxi Romano) Review of Systems Gastrointestinal Gastrointestinal: Nausea & Vomiting (Roxi Romaon) Objective Data Data Vital Signs Date Time Temp Pulse Resp B/P (MAP) Pulse Ox O2 Delivery O2 Flow Rate FiO2 06/30/17 06:40 147/63 (91) 06/30/17 06:01 62 20 179/87 (117) 06/30/17 06:00 63 06/30/17 05:01 66 20 163/75 (104) 06/30/17 04:01 98.1 60 20 156/73 (100) 06/30/17 04:00 60 06/30/17 03:01 62 13 150/57 (88) 06/30/17 02:01 60 12 150/66 (94) 06/30/17 02:00 60 06/30/17 01:01 70 18 164/64 (97) 06/30/17 00:01 98.0 62 16 153/64 (93) 06/30/17 00:00 62 06/29/17 23:01 62 18 147/63 (91) 97 06/29/17 22:01 68 24 158/80 (106) 97 06/29/17 22:00 72 06/29/17 21:01 64 17 160/73 (102) 98 06/29/17 20:03 68 22 156/68 (97) 95 06/29/17 20:00 68 06/29/17 19:01 98.2 70 22 157/89 (111) 99 06/29/17 18:00 80 06/29/17 18:00 80 24 142/76 (98) 97 06/29/17 17:00 62 18 160/72 (101) 94 06/29/17 16:00 98.4 66 11 152/65 (94) 99 06/29/17 16:00 64 06/29/17 15:00 62 21 157/70 (99) 100 06/29/17 14:00 62 20 150/67 (94) 95 06/29/17 14:00 60 06/29/17 12:00 64 20 148/75 (99) 98 06/29/17 12:00 62 06/29/17 11:00 72 18 157/74 (101) 97 06/29/17 10:00 61 17 157/74 (101) 98 06/29/17 10:00 62 (Roxi Romano) -: 06/29/175 06/29/17424 Drip Comment bicarb in D51/2 NS (Roxi Romano) Physical Exam General Appearance: Well Developed, Well Nourished, No Acute Distress, Comfortable (Roxi Romano) Throat Throat Exam: Oral Mucosa Dish & Moist (Roxi Romano) Pulmonary Resp Exam: Clear Bilaterally, Breath Sounds Equal (Roxi Romano) Cardiology CV Exam: Regular, Normal Sinus Rhythm, Good Perfusion (Roxi Romano) Gastrointestinal/Abdomen GI Exam: Soft, Non-Tender, Bowel Sounds Present, Positive Bowel Movement (Roxi Romano) Musculoskeletal MS Exam: Joints Intact, Normal Tone (Roxi Romano) Integumentary Skin Exam: Clear, Warm, Dry, Intact (Roxi Romano) Extremeties Extremities Exam: No Edema, Pedal Pulses Palpable (Roxi Romano) Neurologic Neuro Exam: Alert, Awake, Oriented, Speech Clear, Moving All Extremities (Roxi Romano) Psychiatric Psych Exam: Appropriate Responses (Roxi Romano) Assessment/Plan Discussed Condition With: Patient Assessment Summary: YAMILEX/Acute Renal Failure, Hypertension Electrolyte Assessment: Hyperkalemia, Metabolic Acidosis Problem List: (1) YAMILEX (acute kidney injury) ICD Codes: N17.9 - Acute kidney failure, unspecified Status: Acute Plan: 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 Baseline GFR around 25. YAMILEX likely secondary to intravascular volume depletion from diarrhea. . Renal function slow to improve, although urine output is increasing. May have suffered ATN. Tolerating oral fluids. Stop IVF. Encouraged oral intake. Avoid nephrotoxic agents. Bladder scan with 100 ml post void. (2) Hyperkalemia ICD Codes: E87.5 - Hyperkalemia Plan: Due to renal failure and acidosis. Hold Lisinopril. Continue IVF. On low K diet. (3) Metabolic acidosis ICD Codes: E87.2 - Acidosis Plan: Non anion gap acidosis, likely due to diarrhea. Improving, Follow metabolic panel (4) Diarrhea ICD Codes: R19.7 - Diarrhea, unspecified Status: Acute Plan: C diff negative stool studies have been ordered (5) HTN (hypertension) ICD Codes: I10 - Essential (primary) hypertension Status: Acute Plan: On coreg and Norvasc, hold lisinopril. Was on diuretic at home for CHF, EF 25-30% from March; hold for now Plan He can be transferred out of ICU. (Roxi Romano) Plan renal function has improved gradually. May have suffered ATN. May need dialysis down the road. Outpatient followup. (Bobby Harrington MD) Roxi Romano Jun 30, 2017 08:20 Bobby Harrington MD Jun 30, 2017 16:31
[2017-06-30] MEDS: SODIUM CHLORIDE 0.9% FLUSH 10 ML FLUSH IV FLUSH SCH ×2 (09:00→20:34)
[2017-06-30] MEDS: CARVEDILOL 6.25 MG TAB PO SCH ×2 (09:00→20:34)
[2017-06-30] MEDS: HEPARIN SODIUM - SQ 10,000 UNITS/ML VIAL SQ SCH ×2 (09:00→20:34)
[2017-06-30 09:12] LABS: POTASSIUM 4.4 MEQ/L (3.5-5.1)
[2017-06-30] MEDS ORDERED: ONDANSETRON ODT 4 MG TAB PO ONE (15:30)
--- NOTE | 2017-06-30 16:52 | HHI.PR ---
Subjective Remarks Discussed case with nephrology, stable for discharge from their standpoint, to avoid Tank inhibitors and diuretics for now. Patient himself says he had an episode of vomiting this morning. He does not feel good about going home today. Patient is very concerned that he has not had a bowel movement for the past few days even though he came in with substantial diarrhea as his admission diagnosis. Denies abd pain. Objective Vital Signs Date Time Temp Pulse Resp B/P (MAP) Pulse Ox O2 Delivery O2 Flow Rate FiO2 06/30/17 16:00 97.1 66 16 122/71 (88) 96 06/30/17 12:00 97.6 64 16 117/74 (88) 97 06/30/17 10:00 58 17 123/55 (77) 06/30/17 10:00 69 06/30/17 09:14 72 24 150/77 (101) 06/30/17 08:00 67 06/30/17 08:00 98.0 67 20 144/68 (93) 97 06/30/17 07:00 68 21 06/30/17 06:40 147/63 (91) 06/30/17 06:01 62 20 179/87 (117) 06/30/17 06:00 63 06/30/17 05:01 66 20 163/75 (104) 06/30/17 04:01 98.1 60 20 156/73 (100) 06/30/17 04:00 60 06/30/17 03:01 62 13 150/57 (88) 06/30/17 02:01 60 12 150/66 (94) 06/30/17 02:00 60 06/30/17 01:01 70 18 164/64 (97) 06/30/17 00:01 98.0 62 16 153/64 (93) 06/30/17 00:00 62 06/29/17 23:01 62 18 147/63 (91) 97 06/29/17 22:01 68 24 158/80 (106) 97 06/29/17 22:00 72 06/29/17 21:01 64 17 160/73 (102) 98 06/29/17 20:03 68 22 156/68 (97) 95 06/29/17 20:00 68 06/29/17 19:01 98.2 70 22 157/89 (111) 99 06/29/17 18:00 80 06/29/17 18:00 80 24 142/76 (98) 97 06/29/17 17:00 62 18 160/72 (101) 94 I/O 06/29/17 06/29/17 06/29/17 06/30/17 06/30/17 06/30/17 07:00 15:00 23:00 07:00 15:00 23:00 Intake Total 724 ml 1435 ml 240 ml Output Total 600 ml 425 ml 250 ml 1100 ml 250 ml Balance 124 ml -425 ml -250 ml 335 ml -10 ml Intake Oral 360 ml 240 ml IV Total 724 ml 1075 ml Output Urine Total 600 ml 425 ml 250 ml 1100 ml 250 ml # Voids 2 # Bowel Movements 1 0 0 0 Result Diagram: 06/29/17 0425 06/30/17 0900 Objective Remarks NAD, sitting up in chair unlabored breathing, Abdomen is soft, nontender, nondistended A/P Assessment and Plan Nausea - suspect uremia as the cause since other GI symptoms (abdominal pain, diarrhea, fever) are no longer present. NO chest pain. Ordering zofran (1) CHF (congestive heart failure) ICD Code: I50.9 - Heart failure, unspecified Plan: Echocardiogram completed 03/2017 shows EF of 25-30% with global hypokinesis Continue Coreg Was not a candidate for left heart catheter due to renal dysfunction. No lisinopril due to renal failure (2) Metabolic acidosis ICD Code: E87.2 - Acidosis Plan: Likely secondary to CKD, stable (3) HTN (hypertension) ICD Code: I10 - Essential (primary) hypertension Coreg, Norvasc started per renal (5) YAMILEX (acute kidney injury) ICD Code: N17.9 - Acute kidney failure, unspecified Status: Acute Plan: Continue current management to correct hypotension and acidosis Continue to avoid nephrotoxic injury with medications Barrington Lopes MD Jun 30, 2017 16:52
[2017-06-30] MEDS ORDERED: ONDANSETRON ODT 4 MG TAB PO PRN (19:50)
[2017-07-01] VITALS: BP 131/75; PULSE 62; RESP 16; TEMP 97.7; O2SAT 94
[2017-07-01] MEDS: CHLORHEXIDINE GLUCONATE 2 % 1 PACK (2 CLOTHS)(taper/protocol) TOPICAL SCH (03:42)
[2017-07-01 04:00] VITALS: BP 153/74; PULSE 63; RESP 16; TEMP 97.2; O2SAT 96
[2017-07-01 09:00] VITALS: BP 155/76; PULSE 61; RESP 16; TEMP 97.6; O2SAT 98
[2017-07-01] MEDS: CARVEDILOL 6.25 MG TAB PO SCH (09:01)
[2017-07-01] MEDS: SODIUM CHLORIDE 0.9% FLUSH 10 ML FLUSH IV FLUSH SCH (09:02)
[2017-07-01] MEDS: HEPARIN SODIUM - SQ 10,000 UNITS/ML VIAL SQ SCH (09:02)
--- NOTE | 2017-07-01 09:26 | HHI.DCPOC ---
Discharge Care Plan Diagnosis: (1) Diarrhea (2) Metabolic acidosis (3) Acute on chronic renal insufficiency Goals to Promote Your Health * To prevent worsening of your condition and complications * To maintain your health at the optimal level Directions to Meet Your Goals Take your medications as prescribed Follow your dietary instruction Follow activity as directed Keep your appointments as scheduled Take your immunizations and boosters as scheduled If your symptoms worsen call your PCP, if no PCP go to Urgent Care Center or Emergency Room Smoking is Dangerous to Your Health. Avoid second hand smoke Call the 24-hour hour crisis hotline for domestic abuse at Barrington Lopes MD Jul 01, 2017 09:26
--- NOTE | 2017-07-01 09:31 | HHI.DS ---
Discharge Summary Admission Date Jun 27, 2017 at 15:38 Discharge Date: Jul 01, 2017 Admitting Diagnosis Hyperkalemia, Acute kidney injury, Diarrhea. (1) CHF (congestive heart failure) ICD Code: I50.9 - Heart failure, unspecified (2) Metabolic acidosis ICD Code: E87.2 - Acidosis (3) HTN (hypertension) ICD Code: I10 - Essential (primary) hypertension Status: Acute (4) Diarrhea ICD Code: R19.7 - Diarrhea, unspecified Status: Acute (5) YAMILEX (acute kidney injury) ICD Code: N17.9 - Acute kidney failure, unspecified Status: Acute Procedures none Brief History - From Admission Patient is an 82-year-old gentleman with a month of intermittent diarrhea. Stools have been admittedly formed and watery, over the last weekend still has been completely watery and the patient has felt fatigued and weak. He was instructed by his primary care doctor to come to the hospital. Patient did come in with watery diarrhea. C. difficile was done in the emergency room which was negative. Patient does not have leukocytosis or fever but isn't hypotensive and seems to have developed acute kidney injury on chronic kidney disease. Patient was on azithromycin recently and this was given for a respiratory infection. The symptoms seemingly have resolved. He was in the hospital in March for AAA repair and did develop flash pulmonary edema with new diagnosis of congestive heart failure and his EF was about 30%. Patient was started on lisinopril and continued his Coreg and blood pressure medications and saw a junior project manager in follow-up. This time the patient is hypotensive, acidotic with acute on chronic kidney failure and hyperkalemia. Patient has been admitted to the critical care unit for signs and symptoms of metabolic acidosis from acute kidney injury and possible sepsis CBC/BMP: 06/29/17 0425 06/30/17 0900 Significant Findings Laboratory Tests Test 06/29/17 04:25 06/30/17 09:00 Red Blood Count 3.08 MIL/MM3 (4.50-5.90) Hemoglobin 9.3 GM/DL (13.0-17.0) Hematocrit 27.8 % (39.0-51.0) Monocytes (%) (Auto) 9.6 % (0.0-8.0) Eosinophils (%) (Auto) 8.8 % (0.0-4.0) Eosinophils # (Auto) 0.6 TH/MM3 (0-0.4) Blood Urea Nitrogen 82 MG/DL (7-18) 76 MG/DL (7-18) Creatinine 6.20 MG/DL (0.60-1.30) 6.10 MG/DL (0.60-1.30) Albumin 3.2 GM/DL (3.4-5.0) Calcium Level 7.9 MG/DL (8.5-10.1) 8.1 MG/DL (8.5-10.1) Phosphorus Level 5.1 MG/DL (2.5-4.9) Estimat Glomerular Filtration Rate 9 ML/MIN (>89) 9 ML/MIN (>89) Imaging Last Impressions Renal Ultrasound 06/27/17 0000 Signed Impressions: Service Date/Time: Tuesday, June 27, 2017 16:41 - CONCLUSION: Bilateral renal cysts or hydronephrosis. Small echogenic kidneys. Jaron Boss MD FACR Abdomen/Pelvis CT 06/27/17 0000 Signed Impressions: Service Date/Time: Tuesday, June 27, 2017 16:05 - CONCLUSION: 1. Diverticulosis without diverticulitis. 2. Abdominal aortic aneurysm repair, residual diameter is 2.6 cm. 3. Fluid collection in the left retroperitoneum inferiorly is unchanged likely seroma. 4. Bilateral renal cysts. 5. 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 Casa Pickens MD PE at Discharge ambulating down [facility], unlabored breathing Hospital Course Patient was admitted and started on IV fluids. Nephrology was consult to follow the patient, adjusted antihypertensive medications by discontinuing CARLOS inhibitor's and diuretics. Patient's diarrhea had significantly improved without further intervention. C. difficile was negative and stool workup for additional organisms was negative, blood cultures were also negative.Patient was tolerating by mouth intake well, remained afebrile throughout his entire hospitalization. Was cleared for discharge from nephrology standpoint - his diuretics and carlos inhibitors were stopped per nephrology. Patient has met maximum benefit from hospitalization and was clinically stable for discharge. Patient was advised to take Imodium as needed and that if his diarrhea recurred he could go to his primary care doctor for further workup with a possible GI referral. Pt Condition on Discharge: Stable Discharge Disposition: Discharge Home Discharge Time: <= 30 minutes Discharge Instructions DIET: Follow Instructions for: Renal Failure Diet Activities you can perform: Weight Bearing as Jovanny Follow up Referrals: Nephrology - 3 Weeks PCP Follow-up - 10 Days New Orders: BASIC METABOLIC PROF - 2 Weeks Continued Medications: Amlodipine (Norvasc) 10 Mg Tab 10 MG PO DAILY for Blood Pressure Management, #30 TAB 0 Refills Atorvastatin (Lipitor) 20 Mg Tab 20 MG PO DAILY for Cholesterol Management, #30 TAB 0 Refills Carvedilol (Coreg) 6.25 Mg Tab 6.25 MG PO Q12HR for Blood Pressure Management, #60 TAB 3 Refills Clopidogrel (Plavix) 75 Mg Tab 75 MG PO DAILY for Prevent Blood Clot, #30 TAB 3 Refills Discontinued Medications: Aspirin DR (Aspir-Low) 81 Mg Tabdr 1 TAB PO HS Lisinopril (Lisinopril) 10 Mg Tab 10 MG PO DAILY for HS, #30 TAB 0 Refills Barrington Lopes MD Jul 01, 2017 09:31
[2017-07-01] MEDS ORDERED: MIRA3350 PO (09:32)
[2017-07-01] MEDS ORDERED: LOPE-1 PO (10:17)
--- NOTE | 2017-07-05 15:45 | PQ ---
Physician Query Response Document PATIENT: REINIER DALTON : 1935 ADMIT DATE: 06/27/2017 3:38 PM DISCH DATE: 07/01/2017 11:07 AM RESPONDING PROVIDER #: [email or web address] QUERY TEXT: CHF Acuity and Type Congestive Heart Failure is documented in the Medical Record. Please document the type and acuity (in cludes probable or suspected) Such as: Type: -- Systolic -- Diastolic -- Combined -- Other, please specify Acuity: -- Acute -- Chronic -- Acute on chronic -- Other, please specify Also please document the underlying cause of the CHF (includes probable or suspected) If you have any additional questions/comments and/or concerns, please do not hesitate to reach out to the CDI/Coding Hotline, Ext. [phone]. The patient's Clinical Indicators include: Progress Note 06/28/17 - Plan: Echocardiogram completed 03/2017 shows EF of 25-30% with global hypok inesis Continue Coreg and gentle hydration. We'll follow with IV hydration Was not a candidate for left heart catheter due to renal dysfunction. No lisinopril due to renal failure Progress Note 06/30/17 Dr. Harrington: Plan: On coreg and Norvasc, hold lisinopril. Was on diuretic at home for CHF, EF 25-30% from March; hold for now. Query created by: Juliet Mead on 07/04/2017 3:16 PM RESPONSE TEXT: Chronic systolic CHF from possible ischemic cardiomyopathy QUERY TEXT: Rule Out Sepsis Clarification Possible Sepsis is documented in the Medical Record. Please clarify whether: -- Patient has sepsis - Please document confirmed, suspected or probable causative organism - Please document confirmed, suspected or probable localized infection - Please clarify if sepsis is related to a device - Please clarify if sepsis was present on admission -- Sepsis was ruled out (include corresponding diagnosis for patient?s clinical picture and treatment ) -- Patient had sepsis which is resolved -- Other, please specify If you have any additional questions/comments and/or concerns, please do not hesitate to reach out to the CDI/Coding Hotline, Ext. [phone]. The patient's Clinical Indicators include: H H Discharge Summary: Patient has been admitted to the critical care unit for signs and symptoms of met abolic acidosis from acute kidney injury and possible sepsis One blood culture positive for Staph Epidermidis. C. diff testing negative. Query created by: Juliet Mead on 07/04/2017 3:10 PM RESPONSE TEXT: Sepsis was initially suspected given the pt's metabolic acidosis and refractory diarrhea, however sep sis was eventually ruled out since pt remained afebrile and blood cultures results did not demonstrat e any true infection. Electronically signed by: Barrington Lopes 07/05/2017 3:40 PM
== END 2017-07-01 11:07 | disposition home or self-care (01) | DRG 292 ==
LOC: PHED 12:16 → PHEDA 15:38 → PHICU 20:43 → PH3B 06-30 12:06
PROVIDERS: ADMIT Hospitalist; ATTEND Hospitalist
DX: I13.0 Hypertensive heart and chronic kidney disease with heart failure and stage 1 through stage 4 chronic kidney disease, or unspecified chronic kidney disease (principal); I50.22 Chronic systolic (congestive) heart failure; E87.2 Acidosis; E86.0 Dehydration; I95.9 Hypotension, unspecified; E87.5 Hyperkalemia; N17.9 Acute kidney failure, unspecified; N18.4 Chronic kidney disease, stage 4 (severe); E78.5 Hyperlipidemia, unspecified; R19.7 Diarrhea, unspecified; Z79.02 Long term (current) use of antithrombotics/antiplatelets; Z79.82 Long term (current) use of aspirin; F17.210 Nicotine dependence, cigarettes, uncomplicated; Z66 Do not resuscitate
CPT/HCPCS: 74176; 76775; 80048; 80053; 80069; 81001; 82438; 82550; 82710; 83605; 83690; 83735; 84302; 84443; 84999; 85025; 85610; 85730; 86160; 86403; 87040; 87077; 87186; 87205; 87329; 87493; 87506; 87641; 93005; 94664; J0360; J1644; J1815; J7040; J7613; Q9963

== ENCOUNTER 2017-07-25 15:05 | Inpatient (IN) | payer OTHER, MEDICARE ==
[~2017-07-25] VITALS: Ht 175.3 cm; Wt 80.1 kg
[2017-07-25] VITALS (9 sets, daily range): BP systolic 157–168; BP diastolic 75–87; PULSE 71–77; RESP 18–29; TEMP 97.8–97.9; O2SAT 85–99
[~2017-07-25 15:05] MED LIST changes: +AMLO10 PO; -ASPI1TAB69 PO; -FURO20TA PO; -ISOS20TA2 PO; +LOPE-1 PO; +MIRA3350 PO; -POTA-243 PO
[2017-07-25] MEDS ORDERED: SODIUM CHLORIDE 0.9% FLUSH 10 ML FLUSH IVF PRN (15:30)
[2017-07-25 15:37] LABS: BLOOD GAS BASE EXCESS -8.7 mmol/L (-2-2); BLOOD GAS CARBOXYHEMOGLOBIN 3.3 % (0-4); BLOOD GAS HCO3 17 mmol/L (22-26); BLOOD GAS METHEMOGLOBIN 0.7 % (0-2); BLOOD GAS O2 HGB SATURATION 92 % (90-100); BLOOD GAS OXYGEN CONTENT 12.1 Vol % (12.0-20.0); BLOOD GAS PCO2 40 mmHg (38-42); BLOOD GAS PO2 91 mmHG (61-120); BLOOD GAS TOTAL HGB 9.3 G/DL (12.0-16.0); TEMP CORR TO 98.6
[2017-07-25 15:38] LABS: CRITICAL VALUE YES; DRAW SITE RT RADIAL; FIO2 40 %; NUMBER OF ARTERIAL PUNCTURES 1; OXYGEN DEVICE BiPAP; STAT YES; ULNAR PULSE PRESENT; VENT SETTINGS IPAP10EPAP5
--- NOTE | 2017-07-25 15:39 | RADRPT ---
EXAM DATE/TIME: 07/25/2017 15:23 [place] COMPARISON: CHEST SINGLE AP, March 22, 2017, 20:35. INDICATIONS : Short of breath MEDICAL HISTORY : Aneurysm, abdominal. Congestive heart failure SURGICAL HISTORY : Abdominal aortic aneurysm repair. Carotid endarectomy. Hernia repair ENCOUNTER: Initial ACUITY: 1 day PAIN SCORE: 0/10 LOCATION: chest FINDINGS: There are increasing consolidative in the right base. Minimal blunting of the left base is evident. Mild interstitial edema is present. The heart is enlarged. CONCLUSION: Increasing consolidative changes right base. Moderate congestive failure. Jaron Boss MD FACR on July 25, 2017 at 15:36 Board Certified Radiologist. This report was verified electronically.
[2017-07-25 16:30] LABS: AUTOMATED NEUTROPHIL # 4.4 TH/MM3 (1.8-7.7); BASOPHIL % 0.7 % (0.0-2.0); EOSINOPHIL # 0.1 TH/MM3 (0-0.4); EOSINOPHIL % 2.3 % (0.0-4.0); HEMO FLAGS DIFF FINAL; LYMPH % 10.9 % (9.0-44.0); LYMPHOCYTE # 0.6 TH/MM3 (1.0-4.8); MEAN CELL VOLUME 91.9 FL (80.0-100.0); MEAN CORPUSCULAR HEMOGLOBIN 30.2 PG (27.0-34.0); MEAN CORPUSCULAR HGB CONC 32.9 % (32.0-36.0); MONO % 7.5 % (0.0-8.0); NEUT % 78.6 % (16.0-70.0); PLATELET COUNT 216 TH/MM3 (150-450); RED BLOOD COUNT 4.68 MIL/MM3 (4.50-5.90); RED CELL DISTRIBUTION WIDTH 16.5 % (11.6-17.2); WHITE BLOOD COUNT 5.6 TH/MM3 (4.0-11.0)
[2017-07-25 16:37] LABS: PROTHROMBIN TIME - PATIENT 11.2 SEC (9.8-11.6)
[2017-07-25] MEDS ORDERED: LISI10TA3 PO (16:37)
[2017-07-25 16:44] LABS: BICARBONATE 19.3 MEQ/L (21.0-32.0); MAGNESIUM 2.2 MG/DL (1.5-2.5); POTASSIUM 4.7 MEQ/L (3.5-5.1)
--- NOTE | 2017-07-25 16:49 | PD ---
HPI Chief Complaint: Respiratory Symptoms Time Seen by Provider: 15:18 Travel History International Travel<30 days: No Contact w/Intl Traveler<30days: No Traveled to known affect area: No History of Present Illness HPI 82-year-old male came to the emergency room brought from his home with history of shortness of breath that started this morning. Patient was having significant difficulty breathing and EMS was called. They arrived they noticed that patient was tripoding. They decided to put a CPAP and gave him 80 mg of Lasix IV. Patient told me that he has end-stage kidney disease and his kidney doctor is trying to get him ready to get a peritoneal dialysis set up. However patient is not started with any dialysis yet. He told me that the BiPAP was helping him once he was switched to BiPAP in the emergency department. HEENT saturation was 98% on pressures of 10 over 5. He was on 40% FiO2. Patient denies of any chest pain. He was recently in the hospital for diarrhea and acute renal failure. No history of fever or chills. [facility] Past Medical History Narrative Medical List of his past medical, surgical, social and family history is reviewed from the nursing note. Hx Anticoagulant Therapy: Yes AAA: Yes (DECEMBER 2016) Blood Disorders: No Cancer: No Cardiovascular Problems: Yes (CHF ) High Cholesterol: Yes Congestive Heart Failure: Yes Cerebrovascular Accident: Yes (AAA) Diabetes: No Diminished Hearing: No Endocrine: No Genitourinary: No Hepatitis: No Hiatal Hernia: No Hypertension: Yes (THIS VISIT 202 IN [facility]) Immune Disorder: No Medical other: Yes (inguinal hernia) Musculoskeletal: No Neurologic: No Psychiatric: No Reproductive: No Respiratory: No Thyroid Disease: No Past Surgical History Abdominal Surgery: Yes (HERNIA) AICD: No Arteriovenous Shunt: No Cardiac Surgery: Yes (carotid endartarectomy unk which side) Ear Surgery: No Endocrine Surgery: No Eye Surgery: Yes (holes surgically placed into eyes to relieve pressure) Genitourinary Surgery: No Gynecologic Surgery: No Insulin Pump: No Joint Replacement: No Neurologic Surgery: Yes (CRANIAL SURGERY TWICE x 2 due to infection from injury ) Oral Surgery: Yes (dentures) Pacemaker: No Thoracic Surgery: No Other Surgery: Yes (cranial surgery x 2 due to infection from injury ) Social History Alcohol Use: Yes (SOCIALLY) Tobacco Use: No (1/2 PPD) Substance Use: No Allergies-Medications (Allergen,Severity, Reaction): Coded Allergies: ezetimibe (Unverified Allergy, Mild, STRANGE FEELING IN ABDOMEN, 06/27/17) Comments List of his allergies reviewed from the nursing note. Reported Meds & Prescriptions Reported Meds & Active Scripts Active Imodium A-D (Loperamide HCl) 2 Mg Capsule 2 Mg PO Q6H PRN Miralax Powder (Polyethylene Glycol 3350 Powder) 17 Gm Powd 17 Gm PO DAILY Mix and dissolve one measuring cap-ful (17 grams) in water or juice. Plavix (Clopidogrel Bisulfate) 75 Mg Tab 75 Mg PO DAILY Coreg (Carvedilol) 6.25 Mg Tab 6.25 Mg PO Q12HR Reported Lisinopril 10 Mg Tab 10 Mg PO DAILY Norvasc (Amlodipine Besylate) 10 Mg Tab 10 Mg PO DAILY Lipitor (Atorvastatin Calcium) 20 Mg Tab 20 Mg PO DAILY Narrative Medication List of his home medications reviewed from the nursing note. Review of Systems Except as stated in HPI: all other systems reviewed are Neg Respiratory: Positive: Shortness of Breath Physical Exam Narrative GENERAL: Awake, alert, elderly, moderate distress SKIN: Focused skin assessment warm/dry. HEAD: Atraumatic. Normocephalic. EYES: Pupils equal and round. No scleral icterus. No injection or drainage. ENT: No nasal bleeding or discharge. Mucous membranes pink and moist. NECK: Trachea midline. No JVD. CARDIOVASCULAR: Regular rate and rhythm. No murmur appreciated. RESPIRATORY: Respiratory distress with bibasilar crackles GASTROINTESTINAL: Abdomen soft, non-tender, nondistended. Hepatic and splenic margins not palpable. MUSCULOSKELETAL: No obvious deformities. No clubbing. No cyanosis. No edema. NEUROLOGICAL: Awake and alert. No obvious cranial nerve deficits. Motor grossly within normal limits. Normal speech. PSYCHIATRIC: Appropriate mood and affect; insight and judgment normal. Data Data Last Documented VS Orders Orders Complete Blood Count With Diff (07/25/17 15:20) Basic Metabolic Panel (Bmp) (07/25/17 15:20) B-Type Natriuretic Peptide (07/25/17 15:20) Prothrombin Time / Inr (Pt) (07/25/17 15:20) Magnesium (Mg) (07/25/17 15:20) Troponin I (07/25/17 15:20) Arterial Blood Gas (Abg) (07/25/17 15:20) Urinalysis - C+S If Indicated (07/25/17 15:20) Iv Access Insert/Monitor (07/25/17:20) Electrocardiogram (07/25/17:20) Ecg Monitoring (07/25/17 15:20) Oximetry (07/25/17:20) Oxygen Administration (07/25/17:) Chest, Single Ap (07/25/17:) Sodium Chloride 0.9% Flush (Ns Flush) (07/25/17 15:30) Resp Bipap / Cpap Non Invas Vt (07/25/17:) Blood Culture (07/25/17 16:31) Lactic Acid (07/25/17:) Blood Flow Rate (07/25/17:) Dialysate Flow Rate (07/25/17:) Dialyzer (07/25/17:) Concentrate (07/25/17:) Acid Concentrate (07/25/17:) Length Of Dialysis (07/25/17:) Frequency Of Dialysis (07/25/17:) Dialysis Obtain (07/25/17:) Hepatitis Profile (07/25/17:) Needle Size (07/25/17:) Dialysis Schedule (07/25/17:) Resp Oxygen Arben C Titrat 1-4 L (07/25/17 ) Dialysis Weight (07/25/17:) ^ Obtain As Needed (07/25/17:) Sodium Chlor 0.9% 1000 Ml Inj (Ns 1000 M (07/25/17 17:) Heparin Inj (Heparin Inj) (07/25/17 17:15) Sodium Chlor 0.9% 1000 Ml Inj (Ns 1000 M (07/25/17 17:) Sodium Chlor 0.9% 1000 Ml Inj (Ns 1000 M (07/25/17 17:) Mannitol Inj (Mannitol Inj) (07/25/17 17:15) Albumin 25% Inj (Albumin 25% Inj) (07/25/17 17:15) Sodium Chloride 0.9% Flush (Ns Flush) (07/25/17 17:15) Heparin Inj (Heparin Inj) (07/25/17 17:15) Gentamicin (Dialysis) Inj (Gentamicin (D (07/25/17 17:15) Ondansetron Inj (Zofran Inj) (07/25/17 17:15) Acetaminophen (Tylenol) (07/25/17 17:15) Diphenhydramine (Benadryl) (07/25/17 17:15) Nitroglycerin Sl (Nitrostat Sl) (07/25/17 17:15) Clonidine (Catapres) (07/25/17 17:15) Gelatin 12 Mm/7 Mm Top (Gelfoam 12 Mm/7 (07/25/17 17:15) Admit Order (Ed Use Only) (07/25/17 17:02) Temp Dialysis Cath [facility] [place] (07/25/17 ) Labs Laboratory Tests Test 07/25/17 15:30 07/25/17 15:35 07/25/17 16:41 Blood Gas Puncture Site RT RADIAL Blood Gas Patient Temperature 98.6 Blood Gas HCO3 17 mmol/L Blood Gas Base Excess -8.7 mmol/L Blood Gas Oxygen Saturation 92 % Arterial Blood pH 7.25 Arterial Blood Partial Pressure CO2 40 mmHg Arterial Blood Partial Pressure O2 91 mmHG Arterial Blood Oxygen Content 12.1 Vol % Arterial Blood Carboxyhemoglobin 3.3 % Arterial Blood Methemoglobin 0.7 % Blood Gas Hemoglobin 9.3 G/DL Oxygen Delivery Device BiPAP Blood Gas Ventilator Setting [id number] Blood Gas Inspired Oxygen 40 % White Blood Count 5.6 TH/MM3 Red Blood Count 4.68 MIL/MM3 Hemoglobin 14.1 GM/DL Hematocrit 43.0 % Mean Corpuscular Volume 91.9 FL Mean Corpuscular Hemoglobin 30.2 PG Mean Corpuscular Hemoglobin Concent 32.9 % Red Cell Distribution Width 16.5 % Platelet Count 216 TH/MM3 Mean Platelet Volume 7.9 FL Neutrophils (%) (Auto) 78.6 % Lymphocytes (%) (Auto) 10.9 % Monocytes (%) (Auto) 7.5 % Eosinophils (%) (Auto) 2.3 % Basophils (%) (Auto) 0.7 % Neutrophils # (Auto) 4.4 TH/MM3 Lymphocytes # (Auto) 0.6 TH/MM3 Monocytes # (Auto) 0.4 TH/MM3 Eosinophils # (Auto) 0.1 TH/MM3 Basophils # (Auto) 0.0 TH/MM3 CBC Comment DIFF FINAL Differential Comment Prothrombin Time 11.2 SEC Prothromb Time International Ratio 1.0 RATIO Blood Urea Nitrogen 96 MG/DL Creatinine 9.29 MG/DL Random Glucose 122 MG/DL Calcium Level 8.0 MG/DL Magnesium Level 2.2 MG/DL Sodium Level 138 MEQ/L Potassium Level 4.7 MEQ/L Chloride Level 106 MEQ/L Carbon Dioxide Level 19.3 MEQ/L Anion Gap 13 MEQ/L Estimat Glomerular Filtration Rate 5 ML/MIN Troponin I 0.09 NG/ML B-Type Natriuretic Peptide 3960 PG/ML Lactic Acid Level 0.7 mmol/L MDM Medical Decision Making Medical Screen Exam Complete: Yes Emergency Medical Condition: Yes Medical Record Reviewed: Yes Interpretation(s) Twelve-lead EKG was reviewed by me. Normal sinus rhythm, left axis deviation, LVH, lateral T wave inversions. Heart rate of 71 bpm. Differential Diagnosis Congestive heart failure, pneumonia, pleural effusion Narrative Course 5:24 PM blood test results are back. Patient has metabolic acidosis along with congestive heart failure which are indications for emergent dialysis. Patient was continued on the BiPAP and I spoke with Dr. Harrington who came down to see the patient and wants the patient to be dialyzed as soon as possible. Patient does not have an access. I discussed with Dr. Cole who is on for interventional radiology and he is making arrangements to put a Vas-Cath in as soon as possible. I also discussed with the filler wiper Dr. Clark who will admit the patient to the ICU. Critical Care Narrative Aggregate critical care time was 60 minutes. Time to perform other separately billable procedures was not included in the critical care time. My time did not include minutes spent treating any other patients simultaneously or on activities that did not directly contribute to the patient's treatment. The services I provided to this patient were to treat and/or prevent clinically significant deterioration that could result in: Respiratory distress, pulmonary edema, end-stage renal disease, emergent hemodialysis I provided critical care services requiring my management, as noted below: Chart data review, documentation time, medication orders and management, vital sign assessments/reviewing monitor data, ordering and reviewing lab tests, ordering and interpreting/reviewing x-rays and diagnostic studies, care of the patient and discussion of the patient with the admitting physicians. Procedures EKG Prior to Arrival: No Physician Communication Physician Communication Dr. Harrington, Dr. Cole, Dr. Clark Diagnosis Primary Impression: Respiratory distress Additional Impressions: Pulmonary edema Qualified Codes: J81.0 - Acute pulmonary edema End stage renal disease Metabolic acidosis Admitting Information Admitting Physician Requests: Admit Helena Donovan MD Jul 25, 2017 16:49
[2017-07-25] MEDS ORDERED: SODIUM CHLOR 0.9% 1000 ML INJ 1,000 ML IV PRN (17:01)
[2017-07-25] MEDS ORDERED: SODIUM CHLOR 0.9% 1000 ML INJ 1,000 ML OTHER PRN (17:01)
--- NOTE | 2017-07-25 17:05 | PD.CONS ---
HPI Service Nephrology Consult Requested By Reason for Consult Shortness of breath, CKD needs dialysis Primary Care Physician Tavia Garcia M.D. History of Present Illness This is an 82 y/o male who came in for shortness of breath. We initially met this patient last month when he was admitted for hyperkalemia and renal failure. He had no diagnosis of CKD in the past. His creatinine only improved to 6.1 at discharge. We then saw him outpatient last week, his creatinine was 8, GFR of 6. The next day he saw Dr. Gamino and plans for PD catheter placement were made. During PD training today, he was short of breath, made it home and had to call 911 as he was in respiratory distress. In the ER he is on BiPap with metabolic acidosis, pH 7.2. We were consulted for renal management. He has a hx of AAA repair and HTN. No anemia or leukocytosis on labs , in addition his potassium is normal. He is to be [place] [facility] (Roxi Romano) Review of Systems Constitutional: COMPLAINS OF: Fatigue, Change in appetite, DENIES: Weight gain Respiratory: COMPLAINS OF: Shortness of breath, DENIES: Cough, Sputum production Cardiovascular: COMPLAINS OF: Dyspnea on Exertion, DENIES: Chest pain, Lower Extremity Edema Gastrointestinal: COMPLAINS OF: Nausea, DENIES: Vomiting (Roxi Romano) Past Family Social History Allergies: Coded Allergies: ezetimibe (Unverified Allergy, Mild, STRANGE FEELING IN ABDOMEN, 06/27/17) Past Medical History CKD 5, baseline creatinine around 6, GFR 6 Hypertension Hyperlipidemia AAA Tobacco abuse. Past Surgical History CEA AAA repair Reported Medications Imodium A-D (Loperamide HCl) 2 Mg Capsule 2 Mg PO Q6H PRN Miralax Powder (Polyethylene Glycol 3350 Powder) 17 Gm Powd 17 Gm PO DAILY Mix and dissolve one measuring cap-ful (17 grams) in water or juice. Plavix (Clopidogrel Bisulfate) 75 Mg Tab 75 Mg PO DAILY Coreg (Carvedilol) 6.25 Mg Tab 6.25 Mg PO Q12HR Norvasc (Amlodipine Besylate) 10 Mg Tab 10 Mg PO DAILY Lipitor (Atorvastatin Calcium) 20 Mg Tab 20 Mg PO DAILY Active Ordered Medications Current Medications Medications (Trade) Dose Ordered Sig/Thuy Route Start Time Stop Time Status Last Admin (NS Flush) 2 ml UNSCH PRN IVF 07/25/17 15:30 Family History No hx of renal disorders Social History Lives with roommate Smokes daily + ETOH full code (Roxi Romano) Physical Exam Vital Signs Vital Signs Date Time Temp Pulse Resp B/P (MAP) Pulse Ox O2 Delivery O2 Flow Rate FiO2 07/25/17 16:01 29 99 BiPAP 07/25/17 16:01 99 Room Air 07/25/17 15:56 68 29 99 BiPAP 07/25/17 15:25 97.8 73 29 157/87 (110) 98 Physical Exam Elderly male on Bipap, lungs with scattered rales and rhonchi throughout S1/S2, RRR. rate 70s Abdomen soft No extremity edema Pulses strong DP, PT Laboratory Laboratory Tests Test 07/25/17 15:30 07/25/17 15:35 Blood Gas Puncture Site RT RADIAL Blood Gas Patient Temperature 98.6 Blood Gas HCO3 17 Blood Gas Base Excess -8.7 Blood Gas Oxygen Saturation 92 Arterial Blood pH 7.25 Arterial Blood Partial Pressure CO2 40 Arterial Blood Partial Pressure O2 91 Arterial Blood Oxygen Content 12.1 Arterial Blood Carboxyhemoglobin 3.3 Arterial Blood Methemoglobin 0.7 Blood Gas Hemoglobin 9.3 Oxygen Delivery Device BiPAP Blood Gas Ventilator Setting [id number] Blood Gas Inspired Oxygen 40 White Blood Count 5.6 Red Blood Count 4.68 Hemoglobin 14.1 Hematocrit 43.0 Mean Corpuscular Volume 91.9 Mean Corpuscular Hemoglobin 30.2 Mean Corpuscular Hemoglobin Concent 32.9 Red Cell Distribution Width 16.5 Platelet Count 216 Mean Platelet Volume 7.9 Neutrophils (%) (Auto) 78.6 Lymphocytes (%) (Auto) 10.9 Monocytes (%) (Auto) 7.5 Eosinophils (%) (Auto) 2.3 Basophils (%) (Auto) 0.7 Neutrophils # (Auto) 4.4 Lymphocytes # (Auto) 0.6 Monocytes # (Auto) 0.4 Eosinophils # (Auto) 0.1 Basophils # (Auto) 0.0 CBC Comment DIFF FINAL Differential Comment Prothrombin Time 11.2 Prothromb Time International Ratio 1.0 Blood Urea Nitrogen 96 Creatinine 9.29 Random Glucose 122 Calcium Level 8.0 Magnesium Level 2.2 Sodium Level 138 Potassium Level 4.7 Chloride Level 106 Carbon Dioxide Level 19.3 Anion Gap 13 Estimat Glomerular Filtration Rate 5 Troponin I 0.09 (Roxi Romano) Result Diagram: 07/25/17 1535 07/25/17 1535 Imaging Last 72 hours Impressions Chest X-Ray 07/25/17 1520 Signed Impressions: Service Date/Time: Tuesday, July 25, 2017 15:23 - CONCLUSION: Increasing consolidative changes right base. Moderate congestive failure. Jaron Boss MD FACR (Roxi Romano) Assessment and Plan Problem List: (1) ESRD (end stage renal disease) ICD Codes: N18.6 - End stage renal disease Plan: He is symptomatic, GFR is 5. Needs renal replacement therapy Vascath to be placed in IR HD today and tomorrow, orders have been placed He still makes urine Avoid IVF, renally dose medications when appropriate Repeat labs in AM (2) Shortness of breath ICD Codes: R06.02 - Shortness of breath Plan: Due to fluid overload BiPap currently, ween as tolerated Needs fluid removal with dialysis Given Lasix in ER (3) Metabolic acidosis ICD Codes: E87.2 - Acidosis Plan: Due to renal failure Should improve with dialysis (4) Hypertension ICD Codes: I10 - Essential (primary) hypertension Plan: Monitor blood pressure Resume home medications, titrate as needed (Roxi Romano) Assessment and Plan patient was seen and examined in the ER on 07/25/17. Patient with ESRD, fluid overload, respiratory distress. Needs to start dialysis. Emergency dialysis arranged. (Bobby Harrington MD) Problem Qualifiers (1) Hypertension: Qualified Codes: I10 - Essential (primary) hypertension Roxi Romano Jul 25, 2017 17:05 Bobby Harrington MD Jul 26, 2017 09:49
[2017-07-25] MEDS ORDERED: MANNITOL 12.5 GM/50 ML VIAL IV PRN (17:15)
[2017-07-25] MEDS ORDERED: ACETAMINOPHEN 325 MG TAB PO PRN ×2 (17:15→17:30)
[2017-07-25] MEDS ORDERED: GELATIN 12 MM/7 MM FOAM TOP PRN (17:15)
[2017-07-25] MEDS ORDERED: NITROGLYCERIN 0.4 MG SL 25 TABS/BTL SL PRN (17:15)
[2017-07-25] MEDS ORDERED: ONDANSETRON HCL 4 MG/2 ML VIAL IV PUSH PRN ×2 (17:15→17:30)
[2017-07-25] MEDS ORDERED: SODIUM CHLORIDE 0.9% FLUSH 10 ML FLUSH IV FLUSH PRN ×3 (17:15→19:00)
[2017-07-25] MEDS ORDERED: ALBUMIN 25% INJ 100 ML IV PRN (17:15)
[2017-07-25] MEDS ORDERED: HEPARIN SODIUM - IV 10,000 UNITS/10 ML VIAL IV FLUSH PRN (17:15)
[2017-07-25] MEDS ORDERED: cloNIDine HCL 0.1 MG TAB PO PRN (17:15)
[2017-07-25] MEDS ORDERED: MISCELLANEOUS NURSING INFORMATION XX SCH (17:30)
[2017-07-25] MEDS ORDERED: RESP: ALBUTEROL 2.5 MG/3 ML NEB (PRN) INH (17:30)
[2017-07-25] MEDS ORDERED: CHLORHEXIDINE GLUCONATE 2 % 1 PACK (2 CLOTHS) TOP PRN (17:30)
[2017-07-25] MEDS ORDERED: MORPHINE SULFATE 4 MG/ML INJ IV PUSH PRN (17:30)
[2017-07-25] MEDS ORDERED: BISACODYL 10 MG SUPP RECTAL PRN (17:30)
[2017-07-25] MEDS ORDERED: MAGNESIUM HYDROXIDE SUSP 30 ML CUP PO PRN (17:30)
[2017-07-25] MEDS ORDERED: ACETAMINOPHEN/HYDROcodone 325 MG/5 MG TAB PO PRN (17:30)
[2017-07-25] MEDS ORDERED: LACTULOSE SYRUP 20 GM/30 ML CUP PO PRN (17:30)
[2017-07-25] MEDS ORDERED: SENNOSIDES 8.6 MG TAB PO PRN (17:30)
--- NOTE | 2017-07-25 17:34 | HHI.HP ---
[facility] Service Critical Care Medicine Primary Care Physician Tavia Garcia M.D. Admission Diagnosis respiratory distress, pleural effusion, pulmonary edema, ESRD Diagnosis: (1) Acute renal failure superimposed on stage 5 chronic kidney disease, not on chronic dialysis Diagnosis: Principal (2) Metabolic acidosis Diagnosis: Principal (3) Pulmonary edema Diagnosis: Principal (4) Respiratory distress Diagnosis: Principal (5) Hypertension Diagnosis: Principal (6) Chronic systolic heart failure Diagnosis: Principal Chief Complaint: Shortness of breath Travel History International Travel<30 Days: No Contact w/Intl Traveler <30 Da: No Traveled to Known Affected Are: No History of Present Illness This is a 82-year-old male. Date of admission 07/25/2017. Past medical history includes chronic kidney disease stage IV [address] Harrington, hypertension, dyslipidemia, recent thoracic aortic aneurysm repair juxtarenal December [address] Russo and chronic systolic heart failure ejection fraction 25%. Patient was admitted in June with a creatinine of 6. This is thought to be possibly ATN versus dehydration from diarrhea C. difficile negative. Patient was recently seen outpatient with possible set up of outpatient perineal dialysis. Today, patient started complaining of acute shortness of breath that started this morning. EMS was called and patient was using accessory muscles. They decided to put a CPAP and gave him 80 mg of furosemide IV. Saturation much improved on BiPAP and patient feeling much more comfort with. Was 98% on pressures of 10 over 5. He was on 40% FiO2. Patient denies of any chest pain. No history of fever or chills. Review of Systems Constitutional: COMPLAINS OF: Fatigue, Weight gain, DENIES: Fever, Weight loss Endocrine: DENIES: Polydipsia, Polyuria Eyes: DENIES: Blurred vision, Double Vision Ears, nose, mouth, throat: DENIES: Tinnitus, Ear Pain Respiratory: COMPLAINS OF: Sputum production, Shortness of breath, DENIES: Apneas, Cough, Hemoptysis Cardiovascular: COMPLAINS OF: Lower Extremity Edema, DENIES: Chest pain, Orthopnea, Claudication Gastrointestinal: DENIES: Abdominal pain Genitourinary: DENIES: Urinary incontinence, Urgency Musculoskeletal: COMPLAINS OF: Joint pain Integumentary: DENIES: Abnormal pigmentation Hematologic/lymphatic: DENIES: Bruising Immunologic/allergic: DENIES: Eczema Neurologic: DENIES: Abnormal gait Psychiatric: COMPLAINS OF: Anxiety, DENIES: Confusion, Depression Past Family Social History Allergies: Coded Allergies: ezetimibe (Unverified Allergy, Mild, STRANGE FEELING IN ABDOMEN, 06/27/17) Past Medical History Chronic systolic heart failure ejection fraction 25-30% 04/04 Moderate pulmonary hypertension PAD Chronic kidney disease stage V Hypertension Dyslipidemia Prior tobaccoism Past Surgical History Inguinal hernia repair Left carotid endarterectomy Open thoracic AAA repair 2017 Cranial surgery 2 for infection? Reported Medications Imodium A-D (Loperamide HCl) 2 Mg Capsule 2 Mg PO Q6H PRN Miralax Powder (Polyethylene Glycol 3350 Powder) 17 Gm Powd 17 Gm PO DAILY Mix and dissolve one measuring cap-ful (17 grams) in water or juice. Plavix (Clopidogrel Bisulfate) 75 Mg Tab 75 Mg PO DAILY Coreg (Carvedilol) 6.25 Mg Tab 6.25 Mg PO Q12HR Reported Lisinopril 10 Mg Tab 10 Mg PO DAILY Norvasc (Amlodipine Besylate) 10 Mg Tab 10 Mg PO DAILY Lipitor (Atorvastatin Calcium) 20 Mg Tab 20 Mg PO DAILY Active Ordered Medications Reviewed in EMR Family History Hypertension. No history of renal diseases. Social History Daily wine/social Alcohol documented prior him however the patient denies currently.. Former one half per day tobacco documented. No illicit drug use. Physical Exam Vital Signs Vital Signs Date Time Temp Pulse Resp B/P (MAP) Pulse Ox O2 Delivery O2 Flow Rate FiO2 07/25/17 16:01 29 99 BiPAP 07/25/17 16:01 99 Room Air 07/25/17 15:56 68 29 99 BiPAP 07/25/17 15:25 97.8 73 29 157/87 (110) 98 Physical Exam GENERAL: This is an 82 year old male, resting in bed in no acute distress on BiPAP SKIN: Toes bilaterally. Dorsalis pedis and posterior tibial is palpable bilaterally. HEAD: Strip cranial surgery 2. EYES: Pupils equal and round about 3 mm bilaterally and reactive. No scleral icterus. No injection or drainage. ENT: No nasal bleeding or discharge. Mucous membranes pink and moist. NECK: Trachea midline. No JVD. CARDIOVASCULAR: Regular rate and rhythm. S1, S2. No S4. Less than S3. RESPIRATORY: No accessory muscle use on my examination. Symmetrical excursion bilaterally. Few crackles appreciated in the bases. GASTROINTESTINAL: Abdomen soft, non-tender, nondistended. Hypoactive bowel sounds are appreciated MUSCULOSKELETAL: Extremities 1+ peripheral lower extremity below the knee edema. No obvious deformities. NEUROLOGICAL: Awake and alert. No obvious cranial nerve deficits. Motor grossly within normal limits. Five out of 5 muscle strength in the arms and legs. Normal speech. PSYCHIATRIC: Appropriate mood and affect; insight and judgment normal. Laboratory Laboratory Tests Test 07/25/17 15:30 07/25/17 15:35 Blood Gas Puncture Site RT RADIAL Blood Gas Patient Temperature 98.6 Blood Gas HCO3 17 Blood Gas Base Excess -8.7 Blood Gas Oxygen Saturation 92 Arterial Blood pH 7.25 Arterial Blood Partial Pressure CO2 40 Arterial Blood Partial Pressure O2 91 Arterial Blood Oxygen Content 12.1 Arterial Blood Carboxyhemoglobin 3.3 Arterial Blood Methemoglobin 0.7 Blood Gas Hemoglobin 9.3 Oxygen Delivery Device BiPAP Blood Gas Ventilator Setting [id number] Blood Gas Inspired Oxygen 40 White Blood Count 5.6 Red Blood Count 4.68 Hemoglobin 14.1 Hematocrit 43.0 Mean Corpuscular Volume 91.9 Mean Corpuscular Hemoglobin 30.2 Mean Corpuscular Hemoglobin Concent 32.9 Red Cell Distribution Width 16.5 Platelet Count 216 Mean Platelet Volume 7.9 Neutrophils (%) (Auto) 78.6 Lymphocytes (%) (Auto) 10.9 Monocytes (%) (Auto) 7.5 Eosinophils (%) (Auto) 2.3 Basophils (%) (Auto) 0.7 Neutrophils # (Auto) 4.4 Lymphocytes # (Auto) 0.6 Monocytes # (Auto) 0.4 Eosinophils # (Auto) 0.1 Basophils # (Auto) 0.0 CBC Comment DIFF FINAL Differential Comment Prothrombin Time 11.2 Prothromb Time International Ratio 1.0 Blood Urea Nitrogen 96 Creatinine 9.29 Random Glucose 122 Calcium Level 8.0 Magnesium Level 2.2 Sodium Level 138 Potassium Level 4.7 Chloride Level 106 Carbon Dioxide Level 19.3 Anion Gap 13 Estimat Glomerular Filtration Rate 5 Troponin I 0.09 B-Type Natriuretic Peptide 3960 Result Diagram: 07/25/17 1535 07/25/17 1535 Imaging Last Impressions Chest X-Ray 07/25/17 1520 Signed Impressions: Service Date/Time: Tuesday, July 25, 2017 15:23 - CONCLUSION: Increasing consolidative changes right base. Moderate congestive failure. Jaron Boss MD FACR Caprini VTE Risk Assessment Caprini VTE Risk Assessment: Mod/High Risk (score >= 2) Caprini Risk Assessment Model Point Value = 1 Point Value = 2 Point Value = 3 Point Value = 5 Age 41-60 Minor surgery BMI > 25 kg/m2 Swollen legs Varicose veins or History of unexplained or recurrent spontaneous Oral contraceptives or hormone replacement Sepsis (< 1 month) Serious lung disease, including pneumonia (< 1 month) Abnormal pulmonary function Acute myocardial infarction Congestive heart failure (< 1 month) History of inflammatory bowel disease Medical patient at bed rest Age 61-74 Arthroscopic surgery Major open surgery (> 45 min) Laparoscopic surgery (> 45 min) Malignancy Confined to bed (> 72 hours) Immobilizing plaster cast Central venous access Age >= 75 History of VTE Family history of VTE Factor V Leiden Prothrombin [id number] Lupus anticoagulant Anticardiolipin antibodies Elevated serum homocysteine Heparin-induced thrombocytopenia Other congenital or acquired thrombophilia Stroke (< 1 month) Elective arthroplasty Hip, pelvis, or leg fracture Acute spinal cord injury (< 1 month) Prophylaxis Regimen Total Risk Factor Score Risk Level Prophylaxis Regimen 0-1 Low Early ambulation 2 Moderate Order ONE of the following: *Sequential Compression Device (SCD) *Heparin 5000 units SQ BID 3-4 Higher Order ONE of the following medications: *Heparin 5000 units SQ TID *Enoxaparin/Lovenox 40 mg SQ daily (WT < 150 kg, CrCl > 30 mL/min) *Enoxaparin/Lovenox 30 mg SQ daily (WT < 150 kg, CrCl > 10-29 mL/min) *Enoxaparin/Lovenox 30 mg SQ BID (WT < 150 kg, CrCl > 30 mL/min) AND/OR *Sequential Compression Device (SCD) 5 or more Highest Order ONE of the following medications: *Heparin 5000 units SQ TID (Preferred with Epidurals) *Enoxaparin/Lovenox 40 mg SQ daily (WT < 150 kg, CrCl > 30 mL/min) *Enoxaparin/Lovenox 30 mg SQ daily (WT < 150 kg, CrCl > 10-29 mL/min) *Enoxaparin/Lovenox 30 mg SQ BID (WT < 150 kg, CrCl > 30 mL/min) AND *Sequential Compression Device (SCD) Assessment and Plan Assessment and Plan Neuro/Psych: EtOH use Acetaminophen for fever Hydrocodone/acetaminophen and morphine sulfate for pain CV: Chronic systolic heart failure Hypertension Dyslipidemia PAD History of open thoracic AAA repaired juxtarenal 01/03 History of left CEA Moderate pulmonary hypertension Resume carvedilol 6.25 mg twice a day, amlodipine 10 mg daily for hypertension. Hold lisinopril in light of acute kidney injury Currently on atorvastatin 20 mg daily for dyslipidemia. Continue. On clopidogrel 75 mg daily. Continue Echocardiogram revealed EF 25%. Diffuse global hypokinesis. Mild MR/TR. PAP 55-60 mmHg Resp: Acute hypoxic respiratory failure NIV 06/23 at 40%. Albuterol/ipratropium aerosols every 6 hours and albuterol aerosols every 2 hours. Dyspnea FiO2 as tolerated Follow chest x-ray in a.m. GI: Patient is currently nothing by mouth Pantoprazole for GI prophylaxis Docusate sodium/senna twice a day for bowel regimen. Add polyethylene glycol 17 g daily/home medication : Azul catheter if indicated for accurate I's and O's in a critically ill patient Endo: Sliding-scale insulin if indicated to maintain euglycemia Renal: Acute on chronic kidney disease stage V Dr. Harrington /nephrology consulted Originally planned for outpatient peritoneal dialysis. IR to place he was Emergently received hemodialysis. Avoid nephrotoxic drugs Heme: CBC within normal limits In a.m. repeat ID: Monitor for infection MSK: No acute issues PT evaluate and treat FEN: Replace electrolytes as clinically indicated Check phosphorus and magnesium Access - Utilize peripheral IV. Central line if indicated Prophylaxis - GI - pantoprazole - DVT - SCD/heparin subcutaneous Critical Care: The total critical care time was 35 minutes. Time to perform other separately billable procedures was not included in the critical care time. Code Status Full code Discussed Condition With Dr. Donovan/ED physician. Patient. Care plan discussed and all questions answered. Problem Qualifiers (1) Acute renal failure superimposed on stage 5 chronic kidney disease, not on chronic dialysis: Qualified Codes: N17.9 - Acute kidney failure, unspecified; N18.5 - Chronic kidney disease, stage 5 (2) Pulmonary edema: Qualified Codes: J81.0 - Acute pulmonary edema (3) Hypertension: Qualified Codes: I10 - Essential (primary) hypertension Asael Clark MD Jul 25, 2017 17:34
[2017-07-25] MEDS ORDERED: LABETALOL HCL 100 MG/20 ML VIAL IV PUSH PRN (17:45)
[2017-07-25 18:21] LABS: BACTERIA, URINE RARE /hpf; BLOOD, URINE SMALL (NEG); GLUCOSE,URINE NEG (NEG); KETONE, URINE NEG (NEG); MUCUS URINE FEW /lpf (OCC); NITRITE,URINE NEG (NEG); URINE COLOR LIGHT-YELLOW (YELLW/STRAW)
[2017-07-25 18:22] LABS: COMMENT (UR) CULT NOT INDICATED; CULTURE IF INDICATED CULT NOT INDICATED
--- NOTE | 2017-07-25 18:46 | PD.RAD ---
Post Procedure Progress Note Pre Procedure Diagnosis: (1) Acute renal failure superimposed on stage 5 chronic kidney disease, not on chronic dialysis (2) CHF (congestive heart failure) Post Procedure Diagnosis: (1) CHF (congestive heart failure) (2) Acute renal failure superimposed on stage 5 chronic kidney disease, not on chronic dialysis Procedure Date: Jul 25, 2017 Supervising Radiologist: Zak Cole Proceduralist/Assist: Renuka Quintanilla, RT(R)(CV), Hernandez Hewitt RT(R) Anesthesia: Local Plan of Activity Patient to Unit: Other (Dialysis) Patient Condition: Fair See PACS Report for procedural detail/treatment Central Venous Access Device Procedure 1 Right Internal Jugular Hemodialysis Catheter Non-Tunneled Placement single lumen Gabonese: 14 PICC Line Length (cm): 15 Zak Cole MD Jul 25, 2017 18:46
[2017-07-25] MEDS ORDERED: HEPARIN SODIUM - IV 2,000 UNITS/2 ML VIAL IV FLUSH PRN (19:00)
[2017-07-25] MEDS: RESP: ALBUTEROL 2.5 MG/IPRATROPIUM 0.5 MG NEB (SCH) INH (20:16)
[2017-07-25] MEDS ORDERED: CARVEDILOL 6.25 MG TAB PO SCH (21:00)
[2017-07-25] MEDS: GENTAMICIN SULFATE (DIALYSIS USE ONLY) 20 MG/2 ML VIAL OTHER PRN (21:54)
[2017-07-26] VITALS (15 sets, daily range): BP systolic 138–186; BP diastolic 67–89; PULSE 56–84; RESP 18–29; TEMP 97–98.5; O2SAT 91–97
[2017-07-26] MEDS: CHLORHEXIDINE GLUCONATE 2 % 1 PACK (2 CLOTHS) TOP SCH (04:00)
[2017-07-26] MEDS: RESP: ALBUTEROL 2.5 MG/IPRATROPIUM 0.5 MG NEB (SCH) INH ×3 (04:15→20:45)
[2017-07-26 04:47] LABS: APTT (PATIENT) 25.7 SEC (24.3-30.1); PROTHROMBIN TIME - PATIENT 11.5 SEC (9.8-11.6)
[2017-07-26 04:59] LABS: ALKALINE PHOSPHATASE 87 U/L (45-117); ALT (GPT) 22 U/L (12-78); ANION GAP 13 MEQ/L (5-15); AST (GOT) 24 U/L (15-37); BICARBONATE 22.8 MEQ/L (21.0-32.0); BLOOD UREA NITROGEN 66 MG/DL (7-18); CHLORIDE 102 MEQ/L (98-107); GLOMERULAR FILTRATION RATE 8 ML/MIN (>89); POTASSIUM 3.4 MEQ/L (3.5-5.1); SODIUM (NA) 138 MEQ/L (136-145); TOTAL BILIRUBIN ADULT 0.5 MG/DL (0.2-1.0)
[2017-07-26] MEDS: POLYETHYLENE GLYCOL 17 GM PKG PO SCH ×2 (09:00→11:38)
[2017-07-26] MEDS: DOCUSATE SODIUM 50 MG/SENNA 8.6 MG TAB PO SCH ×3 (09:00→21:35)
--- NOTE | 2017-07-26 09:16 | RADRPT ---
EXAM DATE/TIME: 07/25/2017 18:42 [place] COMPARISON: No previous studies available for comparison. INDICATIONS : Patient with history of chronic renal failure.Needs a vas cath before surgery for PD cath. MEDICAL HISTORY : CDK 2. HTN 3. AAA 4. Hyperlipidemia 5. former smoker SURGICAL HISTORY : 1. Hernis repair 3. Carotid endarectomy 4. cranial surgery x2 due to infection ENCOUNTER: Initial ACUITY: 1 day PAIN SCORE: 0/10 FLUORO TIME: 0.3 minutes IMAGE SERIES: 1 ACCESS: Right internal jugular vein DEVICE(S): 1.) 14 Irish dual lumen 15 cm Schon catheter PROCEDURE : 1. Ultrasound guided venipuncture. 2. Fluoroscopic guidance. 3. Central line placement. The risks, benefits and alternatives to the procedure were explained and verbal and written consent w as obtained. The site was prepped in sterile fashion. Full sterile technique was used, including ca p, mask, sterile gloves and gown and a large sterile sheet. Hand hygiene and 2% chlorhexidine prep w as utilized per protocol for cutaneous antisepsis with appropriate dry time for site. Sterile gel an d sterile probe cover were utilized for ultrasound guidance. The skin and subcutaneous tissues were infiltrated with local anesthetic solution. A suitable site a berkley the vein was selected with ultrasound and fluoroscopic guidance. A small incision was made. Th e vein was accessed under direct ultrasound visualization using the micropuncture technique. The zachary ropuncture set was exchanged for a 0.035 wire. The tract was dilated. The catheter was advanced int o position under direct fluoroscopic visualization. The catheter was fixed in place with suture and a sterile dressing was applied. The patient tolerated the procedure well and there were no complications. CONCLUSION: Uncomplicated line placement as above. Zak Cole MD on July 26, 2017 at 9:14 Board Certified Radiologist. This report was verified electronically.
--- NOTE | 2017-07-26 09:49 | HHI.NPPN ---
Subjective Renal Failure: Chronic, Acute, Stage V Interval History He developed cramping with hemodialysis last evening. Seen during dialysis today. His breathing has improved, reporting hunger. (Roxi Romano) Review of Systems General Constitutional: Fatigue (Roxi Romano) Respiratory Lungs: SOB (Roxi Romano) Gastrointestinal Gastrointestinal: Nausea & Vomiting (Roxi Romano) Objective Data Data Vital Signs Date Time Temp Pulse Resp B/P (MAP) Pulse Ox O2 Delivery O2 Flow Rate FiO2 07/26/17 06:00 84 07/26/17 04:16 93 35 07/26/17 04:00 77 07/26/17 04:00 97.8 56 18 186/75 (112) 94 07/26/17 02:00 74 07/26/17 00:00 97.8 74 20 177/89 (118) 95 07/26/17 00:00 74 07/25/17 23:51 92 40 07/25/17 21:40 95 Nasal Cannula 3.00 07/25/17 21:40 95 3.00 07/25/17 21:00 93 35 07/25/17 21:00 77 07/25/17 20:49 07/25/17 20:47 97.9 75 20 161/75 (103) 85 07/25/17 19:30 18 96 BiPAP 40 07/25/17 19:25 71 18 168/79 (108) 96 BiPAP 40 07/25/17 19:25 98 35 07/25/17 18:30 99 80 07/25/17 16:01 29 99 BiPAP 07/25/17 16:01 99 Room Air 07/25/17 15:56 68 29 99 BiPAP 07/25/17 15:25 97.8 73 29 157/87 (110) 98 07/25/17 15:15 97 40 (Roxi Romano) -: 07/25/17 1535 07/26/17 0414 Microbiology 07/25/17 Aerobic Blood Culture, Received Pending 07/25/17 Anaerobic Blood Culture, Received Pending 07/25/17 Aerobic Blood Culture, Received Pending 07/25/17 Anaerobic Blood Culture, Received Pending Imaging Last 72 hours Impressions Chest X-Ray 07/25/17 1520 Signed Impressions: Service Date/Time: Tuesday, July 25, 2017 15:23 - CONCLUSION: Increasing consolidative changes right base. Moderate congestive failure. Jaron Boss MD FACR Catheter Placement X-Ray 07/25/17 0000 Signed Impressions: Service Date/Time: Tuesday, July 25, 2017 18:42 - CONCLUSION: Uncomplicated line placement as above. Zak Cole MD Tubes & Lines: Vas-Cath (Juan Antonio,Roxi B. [employer]) Physical Exam General Appearance: Well Developed, Well Nourished, Comfortable (Juan Antonio,Roxi B. [employer]) Eyes Eye Exam: Pupils Equal (Juan Antonio,Roxi B. [employer]) Throat Throat Exam: Oral Mucosa [place] & Moist (Juan Antonio,Roxi B. [employer]) Pulmonary Resp Exam: No Distress, Crackles, Decreased Bases (Juan Antonio,Roxi B. [employer]) Cardiology CV Exam: Regular, Normal Sinus Rhythm, Good Perfusion (Juan Antonio,Roxi B. [employer]) Gastrointestinal/Abdomen GI Exam: Soft, Non-Tender, Bowel Sounds Present (Juan Antonio,Roxi B. [employer]) Musculoskeletal MS Exam: Joints Intact, Normal Tone (Juan Antonio,Roxi B. [employer]) Integumentary Skin Exam: Clear, Warm, Dry, Intact (Juan Antonio,Roxi B. [employer]) Extremeties Extremities Exam: No Edema, Pedal Pulses Palpable (Juan Antonio,Roxi B. [employer]) Neurologic Neuro Exam: Alert, Awake, Oriented, Speech Clear, Moving All Extremities (Juan Antonio,Roxi B. [employer]) Psychiatric Psych Exam: Appropriate Responses (Juan Antonio,Roxi B. [employer]) Assessment/Plan Discussed Condition With: Patient Assessment Summary: Hypertension, End Stage Renal Disease Electrolyte Assessment: Hypokalemia Problem List: (1) ESRD (end stage renal disease) ICD Codes: N18.6 - End stage renal disease Plan: Admitted with uremic symptoms including respiratory distress, nausea/ vomiting, anemia. Vascath placed, HD initiated yesterday (1L UF) Seen during dialysis today on a 4K, 350 BFR, goal 2L Continue HD TTS until transition to PD is complete Consult Dr. Gamino for catheter placement this admission Mild hypokalemia, should improve with dialysis Avoid IVF, renally dose medications when appropriate Start renal diet He still makes urine Repeat labs in AM (2) Shortness of breath ICD Codes: R06.02 - Shortness of breath Plan: Improved with dialysis Off BiPap (3) Metabolic acidosis ICD Codes: E87.2 - Acidosis Plan: Due to renal failure Improved with dialysis (4) Hypertension ICD Codes: I10 - Essential (primary) hypertension Plan: Monitor blood pressure He is on norvasc and coreg (Roxi Romano) Plan patient was seen and examined. Agree with above assessment and plan. Continue dialysis support. He has reached ESRD. Etiology is either renovascular disease or cholesterol embolization. (Bobby Harrington MD) Problem Qualifiers (1) Hypertension: Qualified Codes: I10 - Essential (primary) hypertension Roxi Romano Jul 26, 2017 09:49 Bobby Harrington MD Jul 26, 2017 09:55
[2017-07-26] MEDS: HEPARIN SODIUM - IV 10,000 UNITS/10 ML VIAL PRN (11:00)
[2017-07-26] MEDS: GENTAMICIN SULFATE (DIALYSIS USE ONLY) 20 MG/2 ML VIAL OTHER PRN (11:00)
[2017-07-26] MEDS: SODIUM CHLOR 0.9% 1000 ML INJ 1,000 ML OTHER PRN (11:00)
--- NOTE | 2017-07-26 11:32 | HHI.CCPN ---
Subjective Remarks/Hospital Course This is a 82-year-old male. Date of admission 07/25/2017. Past medical history includes chronic kidney disease stage IV [address] Harrington, hypertension, dyslipidemia, recent thoracic aortic aneurysm repair juxtarenal December [address] Russo and chronic systolic heart failure ejection fraction 25%. Patient was admitted in June with a creatinine of 6. This is thought to be possibly ATN versus dehydration from diarrhea C. difficile negative. Patient was recently seen outpatient with possible set up of outpatient perineal dialysis. Today, patient started complaining of acute shortness of breath that started this morning. EMS was called and patient was using accessory muscles. They decided to put a CPAP and gave him 80 mg of furosemide IV. Saturation much improved on BiPAP and patient feeling much more comfort with. Was 98% on pressures of 10 over 5. He was on 40% FiO2. Patient denies of any chest pain. No history of fever or chills. Subjective 07/26: Off BiPAP currently on 4 L nasal cannula. Currently undergoing hemodialysis. Denies shortness of breath. Much more comfortable. Requesting diet. Objective Vital Signs Date Time Temp Pulse Resp B/P (MAP) Pulse Ox O2 Delivery O2 Flow Rate FiO2 07/26/17 09:30 95 Nasal Cannula 5.00 07/26/17 08:00 97.6 74 29 180/86 (117) 07/26/17 04:16 35 Intake and Output 07/26/17 07/26/17 07/27/17 08:00 16:00 00:00 Intake Total 100 ml Output Total 200 ml Balance -100 ml Result Diagram: 07/25/17 1535 07/26/17 0414 Other Results Microbiology Date/Time Source Procedure Growth Status 07/25/17 16:41 Blood Peripheral Aerobic Blood Culture - Preliminary NO GROWTH IN 1 DAY Resulted 07/25/17 16:41 Blood Peripheral Anaerobic Blood Culture - Preliminary NO GROWTH IN 1 DAY Resulted Imaging Last Impressions Chest X-Ray 07/25/17 1520 Signed Impressions: Service Date/Time: Tuesday, July 25, 2017 15:23 - CONCLUSION: Increasing consolidative changes right base. Moderate congestive failure. Jaron Boss MD FACR Catheter Placement X-Ray 07/25/17 0000 Signed Impressions: Service Date/Time: Tuesday, July 25, 2017 18:42 - CONCLUSION: Uncomplicated line placement as above. Zak Cole MD Objective Remarks GENERAL: This is an 82 year old male, resting in bed in no acute distress on nasal cannula SKIN: Toes bilaterally. Dorsalis pedis and posterior tibial is palpable bilaterally. HEAD: Strip cranial surgery 2. EYES: Pupils equal and round about 3 mm bilaterally and reactive. No scleral icterus. No injection or drainage. ENT: No nasal bleeding or discharge. Mucous membranes pink and moist. NECK: Trachea midline. No JVD. CARDIOVASCULAR: Regular rate and rhythm. S1, S2. No S4. Less than S3. RESPIRATORY: No accessory muscle use on my examination. Symmetrical excursion bilaterally. Essentially clear in the bases today GASTROINTESTINAL: Abdomen soft, non-tender, nondistended. Hypoactive bowel sounds are appreciated MUSCULOSKELETAL: Extremities trace peripheral lower extremity below the knee edema. No obvious deformities. NEUROLOGICAL: Awake and alert. No obvious cranial nerve deficits. Motor grossly within normal limits. Five out of 5 muscle strength in the arms and legs. Normal speech. PSYCHIATRIC: Appropriate mood and affect; insight and judgment normal. A/P Assessment and Plan Neuro/Psych: EtOH use Acetaminophen for fever Hydrocodone/acetaminophen and morphine sulfate for pain CV: Chronic systolic heart failure Hypertension Dyslipidemia PAD History of open thoracic AAA repaired juxtarenal 01/03 History of left CEA Moderate pulmonary hypertension Resume carvedilol 6.25 mg twice a day, amlodipine 10 mg daily for hypertension. Hold lisinopril in light of acute kidney injury Currently on atorvastatin 20 mg daily for dyslipidemia. Continue. On clopidogrel 75 mg daily. Continue Echocardiogram 04/04 revealed EF 25%. Diffuse global hypokinesis. Mild MR/TR. PAP 55-60 mmHg Will increase carvedilol to 12.5 twice a day light of elevated blood pressures. Resp: Acute hypoxic respiratory failure NIV 06/23 at 40%. Albuterol/ipratropium aerosols every 6 hours and albuterol aerosols every 2 hours. Dyspnea FiO2 as tolerated Follow chest x-ray in a.m. GI: Patient is currently nothing by mouth. Advance to renal diet. Pantoprazole for GI prophylaxis Docusate sodium/senna twice a day for bowel regimen. Add polyethylene glycol 17 g daily/home medication : Azul catheter if indicated for accurate I's and O's in a critically ill patient Endo: Sliding-scale insulin if indicated to maintain euglycemia Renal: Acute on chronic kidney disease stage V Dr. Harrington /nephrology consulted Originally planned for outpatient peritoneal dialysis. IR placed right IJ hemodialysis catheter 07/25. Avoid nephrotoxic drugs Heme: CBC within normal limits In a.m. repeat ID: Monitor for infection blood cultures on 07/25 no growth today. MSK: No acute issues PT evaluate and treat FEN: Replace electrolytes as clinically indicated Check phosphorus and magnesium Access - Utilize peripheral IV. Central line if indicated Prophylaxis - GI - pantoprazole - DVT - SCD/heparin subcutaneous Level II follow up. Patient is stable from a critical care medicine standpoint. Assign care to hospitalist in a.m. 07/27. Asael Clark MD Jul 26, 2017 11:32
[2017-07-26] MEDS: HEPARIN SODIUM - SQ 10,000 UNITS/ML VIAL SQ SCH ×2 (11:36→17:48)
[2017-07-26] MEDS: SODIUM CHLORIDE 0.9% FLUSH 10 ML FLUSH IV FLUSH SCH (11:36)
[2017-07-26] MEDS: PANTOPRAZOLE SOD 40 MG DELAYED RELEASE TAB PO SCH (11:37)
[2017-07-26] MEDS: CLOPIDOGREL 75 MG TAB PO SCH (11:37)
[2017-07-26] MEDS: ATORVASTATIN 20 MG TAB PO SCH (11:38)
--- NOTE | 2017-07-26 19:01 | EKG ---
Date Performed: 07/25/2017 Time Performed: 15:26:02 PTAGE: 82 years EKG: Sinus rhythm POSSIBLE LEFT ATRIAL ENLARGEMENT ST DEVIATION AND MODERATE T-WAVE ABNORMALITY, CONSIDER LATERAL ISCH EMIA ABNORMAL ECG Compared to prior tracing no significant change PREVIOUS TRACING : 07/04/2017 10.37.30 DOCTOR: Gabby Seogvia Interpretating Date/Time 07/26/2017 18:59:54
[2017-07-26] MEDS: CARVEDILOL 12.5 MG TAB PO SCH (21:35)
[2017-07-27] VITALS (15 sets, daily range): BP systolic 121–170; BP diastolic 63–82; PULSE 60–84; RESP 20–34; TEMP 97.7–98.9; O2SAT 90–98
[2017-07-27] MEDS: RESP: ALBUTEROL 2.5 MG/IPRATROPIUM 0.5 MG NEB (SCH) INH ×4 (03:59→19:53)
[2017-07-27] MEDS: CHLORHEXIDINE GLUCONATE 2 % 1 PACK (2 CLOTHS) TOP SCH (04:00)
[2017-07-27 05:44] LABS: HEMATOCRIT 22.9 % (39.0-51.0); MEAN CELL VOLUME 91.3 FL (80.0-100.0); PLATELET COUNT 238 TH/MM3 (150-450); REVIEW FLAG FINAL; WHITE BLOOD COUNT 7.6 TH/MM3 (4.0-11.0)
[2017-07-27 06:12] LABS: BICARBONATE 28.1 MEQ/L (21.0-32.0); POTASSIUM 3.6 MEQ/L (3.5-5.1)
[2017-07-27] MEDS: HEPARIN SODIUM - SQ 10,000 UNITS/ML VIAL SQ SCH ×2 (06:50→18:00)
[2017-07-27] MEDS: SODIUM CHLORIDE 0.9% FLUSH 10 ML FLUSH IV FLUSH SCH ×3 (06:51→21:09)
[2017-07-27] MEDS: POLYETHYLENE GLYCOL 17 GM PKG PO SCH (09:00)
[2017-07-27] MEDS: DOCUSATE SODIUM 50 MG/SENNA 8.6 MG TAB PO SCH ×2 (09:44→21:08)
[2017-07-27] MEDS: PANTOPRAZOLE SOD 40 MG DELAYED RELEASE TAB PO SCH (09:44)
[2017-07-27] MEDS: CARVEDILOL 12.5 MG TAB PO SCH ×2 (09:44→21:08)
[2017-07-27] MEDS: CLOPIDOGREL 75 MG TAB PO SCH (09:44)
[2017-07-27] MEDS: ATORVASTATIN 20 MG TAB PO SCH (09:45)
--- NOTE | 2017-07-27 10:07 | HHI.PR ---
Subjective Remarks Follow-up end-stage renal disease requiring hemodialysis/acute respiratory failure 07/27/17-patient seen and examined, reports significant improvement of shortness of breath Objective Vitals Vital Signs Date Time Temp Pulse Resp B/P (MAP) Pulse Ox O2 Delivery O2 Flow Rate FiO2 07/27/17 08:00 68 07/27/17 08:00 98.3 68 29 170/81 (110) 95 07/27/17 07:46 98 Nasal Cannula 4.00 07/27/17 06:00 72 07/27/17 04:00 98.0 72 20 163/82 (109) 93 07/27/17 04:00 72 07/27/17 03:59 95 Nasal Cannula 5.00 07/27/17 02:00 84 07/27/17 00:00 84 07/27/17 00:00 98.9 24 121/82 (95) 96 07/26/17 22:00 75 07/26/17 20:45 96 Nasal Cannula 5.00 07/26/17 20:00 98.5 70 20 146/70 (95) 95 07/26/17 20:00 70 07/26/17 18:00 68 07/26/17 16:00 98.0 64 20 138/67 (90) 97 07/26/17 16:00 64 07/26/17 14:00 73 07/26/17 12:00 97.0 79 26 179/83 (115) 95 07/26/17 12:00 79 I/O 07/26/17 07/26/17 07/26/17 07/27/17 07/27/17 07/27/17 07:00 15:00 23:00 07:00 15:00 23:00 Intake Total 100 ml 500 ml 250 ml 350 ml 250 ml Output Total 200 ml 1400 ml 200 ml 150 ml 150 ml Balance -100 ml -900 ml 50 ml 200 ml 100 ml Intake Oral 100 ml 500 ml 250 ml 350 ml 250 ml Output Urine Total 200 ml 400 ml 200 ml 150 ml 150 ml Hemodialysis 1000 ml Result Diagram: 07/27/17 0426 07/27/17 0426 Imaging Last Impressions Chest X-Ray 07/25/17 1520 Signed Impressions: Service Date/Time: Tuesday, July 25, 2017 15:23 - CONCLUSION: Increasing consolidative changes right base. Moderate congestive failure. Jaron Boss MD FACR Catheter Placement X-Ray 07/25/17 0000 Signed Impressions: Service Date/Time: Tuesday, July 25, 2017 18:42 - CONCLUSION: Uncomplicated line placement as above. Zak Cole MD Objective Remarks GENERAL: NAD SKIN: Warm and dry. HEAD: Normocephalic. EYES: No scleral icterus. No injection or drainage. NECK: Supple, trachea midline. No JVD or lymphadenopathy. CARDIOVASCULAR: Regular rate and rhythm without murmurs, gallops, or rubs. RESPIRATORY: Breath sounds equal bilaterally. No accessory muscle use. GASTROINTESTINAL: Abdomen soft, non-tender, nondistended. MUSCULOSKELETAL: No cyanosis, or edema. BACK: Nontender without obvious deformity. No CVA tenderness. A/P Problem List: (1) Acute renal failure superimposed on stage 5 chronic kidney disease, not on chronic dialysis ICD Code: N17.9 - Acute kidney failure, unspecified; N18.5 - Chronic kidney disease, stage 5 (2) Metabolic acidosis ICD Code: E87.2 - Acidosis (3) Pulmonary edema ICD Code: J81.1 - Chronic pulmonary edema Status: Acute (4) Respiratory distress ICD Code: R06.03 - Acute respiratory distress Status: Acute (5) Hypertension ICD Code: I10 - Essential (primary) hypertension (6) Chronic systolic heart failure ICD Code: I50.22 - Chronic systolic (congestive) heart failure Assessment and Plan 82-year-old man with End-stage renal disease-now requiring hemodialysis Appreciate input from nephrology Hemodialysis per nephrology Plan for PD catheter placement 07/29/17 by vascular surgery Chronic systolic heart failure Hypertension Dyslipidemia PAD 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 Hold lisinopril in light of acute kidney injury Currently on atorvastatin 20 mg daily for dyslipidemia. Continue. Continue clopidogrel 75 mg daily. Echocardiogram 04/04 revealed EF 25%. Acute hypoxic respiratory failure Resolved Continue DuoNeb every 6 hours and albuterol aerosols every 2 hours. Repeat H&H this a.m. Prophylaxis - GI - pantoprazole - DVT - SCD/heparin subcutaneous Transfer to [facility] Problem Qualifiers (1) Acute renal failure superimposed on stage 5 chronic kidney disease, not on chronic dialysis: Qualified Codes: N17.9 - Acute kidney failure, unspecified; N18.5 - Chronic kidney disease, stage 5 (2) Pulmonary edema: Qualified Codes: J81.0 - Acute pulmonary edema (3) Hypertension: Qualified Codes: I10 - Essential (primary) hypertension Casa Doshi MD Jul 27, 2017 10:07
--- NOTE | 2017-07-27 10:24 | HHI.NPPN ---
Subjective Renal Failure: Chronic, Acute, Stage V Interval History Sitting up in a chair. Feels well. Labs showing anemia, repeat CBC has been ordered. (Roxi Romano) Review of Systems General Constitutional: Fatigue (Roxi Romano) Respiratory Lungs: SOB (Roxi Romano) Gastrointestinal Gastrointestinal: Nausea & Vomiting (Roxi Romano) Objective Data Data 07/27/17 07/28/17 19:00 07:00 Intake Total 250 ml Output Total 150 ml Balance 100 ml Intake Oral 250 ml Output Urine Total 150 ml Vital Signs Date Time Temp Pulse Resp B/P (MAP) Pulse Ox O2 Delivery O2 Flow Rate FiO2 07/27/17 08:00 68 07/27/17 08:00 98.3 68 29 170/81 (110) 95 07/27/17 07:46 98 Nasal Cannula 4.00 07/27/17 06:00 72 07/27/17 04:00 98.0 72 20 163/82 (109) 93 07/27/17 04:00 72 07/27/17 03:59 95 Nasal Cannula 5.00 07/27/17 02:00 84 07/27/17 00:00 84 07/27/17 00:00 98.9 24 121/82 (95) 96 07/26/17 22:00 75 07/26/17 20:45 96 Nasal Cannula 5.00 07/26/17 20:00 98.5 70 20 146/70 (95) 95 07/26/17 20:00 70 07/26/17 18:00 68 07/26/17 16:00 98.0 64 20 138/67 (90) 97 07/26/17 16:00 64 07/26/17 14:00 73 07/26/17 12:00 97.0 79 26 179/83 (115) 95 07/26/17 12:00 79 (Roxi Romano) -: 07/27/1742507/27/17425 Imaging Last 72 hours Impressions Chest X-Ray 07/25/17 1520 Signed Impressions: Service Date/Time: Tuesday, July 25, 2017 15:23 - CONCLUSION: Increasing consolidative changes right base. Moderate congestive failure. Jaron Boss MD FACR Catheter Placement X-Ray 07/25/17 0000 Signed Impressions: Service Date/Time: Tuesday, July 25, 2017 18:42 - CONCLUSION: Uncomplicated line placement as above. Zak Cole MD Tubes & Lines: Vas-Cath (Juan Antonio,Roxi B. CERTIFIED PROFESSIONAL ERGONOMIST) Physical Exam General Appearance: Well Developed, Well Nourished, No Acute Distress, Comfortable (Juan Antonio,Roxi B. CERTIFIED PROFESSIONAL ERGONOMIST) Eyes Eye Exam: Pupils Equal (Juan Antonio,Roxi B. CERTIFIED PROFESSIONAL ERGONOMIST) Throat Throat Exam: Oral Mucosa [place] & Moist (Juan Antonio,Roxi B. CERTIFIED PROFESSIONAL ERGONOMIST) Pulmonary Resp Exam: No Distress, Crackles, Decreased Bases (Juan Antonio,Roxi B. CERTIFIED PROFESSIONAL ERGONOMIST) Cardiology CV Exam: Regular, Normal Sinus Rhythm, Good Perfusion (Juan AntonioRoxi B. CERTIFIED PROFESSIONAL ERGONOMIST) Gastrointestinal/Abdomen GI Exam: Soft, Non-Tender, Bowel Sounds Present (Juan Antonio,Roxi B. CERTIFIED PROFESSIONAL ERGONOMIST) Musculoskeletal MS Exam: Joints Intact, Normal Tone (Juan Antonio,Roxi B. CERTIFIED PROFESSIONAL ERGONOMIST) Integumentary Skin Exam: Clear, Warm, Dry, Intact (Juan Antonio,Roxi B. CERTIFIED PROFESSIONAL ERGONOMIST) Extremeties Extremities Exam: No Edema, Pedal Pulses Palpable (Juan Antonio,Roxi B. CERTIFIED PROFESSIONAL ERGONOMIST) Neurologic Neuro Exam: Alert, Awake, Oriented, Speech Clear, Moving All Extremities (Juan Antonio,Roxi B. CERTIFIED PROFESSIONAL ERGONOMIST) Psychiatric Psych Exam: Appropriate Responses (Juan AntonioRoxi B. CERTIFIED PROFESSIONAL ERGONOMIST) Assessment/Plan Discussed Condition With: Patient Assessment Summary: Hypertension, End Stage Renal Disease Electrolyte Assessment: Hypokalemia Problem List: (1) ESRD (end stage renal disease) ICD Codes: N18.6 - End stage renal disease Plan: He has reached ESRD. Admitted with uremic symptoms including respiratory distress, nausea/vomiting, anemia. Started on hemodialysis 07/25 and 07/26, 1L UF with both treatments, had minor cramping Now on TTS HD while converting to PD Dr Gamino to place PD catheter tentatively on Tuesday Vascath in place Avoid IVF, renally dose medications when appropriate No dietary protein restriction He still makes urine Repeat labs in AM (2) Shortness of breath ICD Codes: R06.02 - Shortness of breath Plan: Improved with dialysis Off BiPap (3) Metabolic acidosis ICD Codes: E87.2 - Acidosis Plan: Due to renal failure Improved with dialysis (4) Hypertension ICD Codes: I10 - Essential (primary) hypertension Plan: Monitor blood pressure He is on norvasc and coreg Plan He has no hx of anemia, recheck CBC. (Roxi Romano) Plan patient was seen and examined. Hypoxia has improved. Dialysis TTS. Hemoglobin has dropped acutely: repeat Hemoglobin is still low. Etiology? internal bleeding such as retroperitoneal bleed? Hemolysis? monitor. Start Epogen. Obtain iron studies. (Bobby Harrington MD) Problem Qualifiers (1) Hypertension: Qualified Codes: I10 - Essential (primary) hypertension Roxi Romano Jul 27, 2017 10:23 Bobby Harrington MD Jul 27, 2017 20:36
[2017-07-27 12:53] LABS: AUTOMATED NEUTROPHIL # 4.8 TH/MM3 (1.8-7.7); BASOPHIL % 0.7 % (0.0-2.0); EOSINOPHIL # 0.3 TH/MM3 (0-0.4); EOSINOPHIL % 4.6 % (0.0-4.0); HEMATOCRIT 23.5 % (39.0-51.0); HEMO FLAGS DIFF FINAL; LYMPH % 11.1 % (9.0-44.0); LYMPHOCYTE # 0.7 TH/MM3 (1.0-4.8); MEAN CELL VOLUME 93.1 FL (80.0-100.0); MEAN CORPUSCULAR HEMOGLOBIN 31.6 PG (27.0-34.0); MONO % 9.4 % (0.0-8.0); NEUT % 74.2 % (16.0-70.0); PLATELET COUNT 231 TH/MM3 (150-450); RED BLOOD COUNT 2.53 MIL/MM3 (4.50-5.90); RED CELL DISTRIBUTION WIDTH 16.3 % (11.6-17.2); WHITE BLOOD COUNT 6.5 TH/MM3 (4.0-11.0)
[2017-07-28] VITALS (19 sets, daily range): BP systolic 155–204; BP diastolic 68–107; PULSE 62–97; RESP 17–31; TEMP 97.8–98.9; O2SAT 87–100
[2017-07-28] MEDS: RESP: ALBUTEROL 2.5 MG/IPRATROPIUM 0.5 MG NEB (SCH) INH ×4 (02:57→20:53)
[2017-07-28] MEDS: CHLORHEXIDINE GLUCONATE 2 % 1 PACK (2 CLOTHS) TOP SCH (04:00)
[2017-07-28] MEDS: HEPARIN SODIUM - SQ 10,000 UNITS/ML VIAL SQ SCH ×2 (05:48→17:42)
[2017-07-28 06:10] LABS: AUTOMATED NEUTROPHIL # 5.7 TH/MM3 (1.8-7.7); BASOPHIL # 0.1 TH/MM3 (0-0.2); EOSINOPHIL # 0.4 TH/MM3 (0-0.4); EOSINOPHIL % 5.4 % (0.0-4.0); HEMATOCRIT 21.9 % (39.0-51.0); HEMO FLAGS DIFF FINAL; LYMPHOCYTE # 1.1 TH/MM3 (1.0-4.8); MEAN CELL VOLUME 90.8 FL (80.0-100.0); MEAN CORPUSCULAR HEMOGLOBIN 31.5 PG (27.0-34.0); MEAN CORPUSCULAR HGB CONC 34.6 % (32.0-36.0); MONO % 10.4 % (0.0-8.0); NEUT % 70.2 % (16.0-70.0); PLATELET COUNT 229 TH/MM3 (150-450); RED BLOOD COUNT 2.41 MIL/MM3 (4.50-5.90); RED CELL DISTRIBUTION WIDTH 15.9 % (11.6-17.2); WHITE BLOOD COUNT 8.2 TH/MM3 (4.0-11.0)
[2017-07-28 06:26] LABS: ANION GAP 9 MEQ/L (5-15); BICARBONATE 25.8 MEQ/L (21.0-32.0); BLOOD UREA NITROGEN 48 MG/DL (7-18); CHLORIDE 101 MEQ/L (98-107); GLOMERULAR FILTRATION RATE 9 ML/MIN (>89); POTASSIUM 3.6 MEQ/L (3.5-5.1); SODIUM (NA) 136 MEQ/L (136-145)
[2017-07-28 06:31] LABS: FERRITIN 286 NG/ML (26-388); TRANSFERRIN IRON PROFILE 161 MG/DL (200-360)
[2017-07-28] MEDS: POLYETHYLENE GLYCOL 17 GM PKG PO SCH (09:00)
--- NOTE | 2017-07-28 09:26 | HHI.PR ---
Subjective Remarks Follow-up end-stage renal disease requiring hemodialysis/acute respiratory failure 07/27/17-patient seen and examined, reports significant improvement of shortness of breath 07/28/17-patient seen and examined, stable and no acute event overnight. H&H 7.6/21.9 however patient denies any bleeding. BP labile. Plan for hemodialysis today Objective Vitals Vital Signs Date Time Temp Pulse Resp B/P (MAP) Pulse Ox O2 Delivery O2 Flow Rate FiO2 07/28/17 08:41 96 Nasal Cannula 3.00 07/28/17 06:00 68 07/28/17 04:00 62 07/28/17 04:00 98.0 62 26 155/68 (97) 91 07/28/17 02:00 65 07/28/17 00:00 97.9 64 18 160/72 (101) 87 07/28/17 00:00 64 07/27/17 22:00 77 07/27/17 20:00 97.7 70 34 153/71 (98) 97 07/27/17 20:00 70 07/27/17 19:52 95 Nasal Cannula 3.00 07/27/17 19:00 95 Nasal Cannula 3.00 Humidified 07/27/17 18:00 67 07/27/17 16:00 98.0 64 23 140/72 (94) 90 07/27/17 16:00 64 07/27/17 15:00 95 Nasal Cannula 3.00 Humidified 07/27/17 14:00 63 07/27/17 12:00 60 07/27/17 12:00 98.3 60 25 143/63 (89) 95 07/27/17 10:00 71 I/O 07/27/17 07/27/17 07/27/17 07/28/17 07/28/17 07/28/17 07:00 15:00 23:00 07:00 15:00 23:00 Intake Total 350 ml 250 ml 250 ml 250 ml Output Total 150 ml 150 ml 150 ml Balance 200 ml 100 ml 250 ml 100 ml Intake Oral 350 ml 250 ml 250 ml 250 ml Output Urine Total 150 ml 150 ml 150 ml # Bowel Movements 0 1 Result Diagram: 07/28/17 0441 07/28/17 0441 Imaging Last Impressions Chest X-Ray 07/25/17 1520 Signed Impressions: Service Date/Time: Tuesday, July 25, 2017 15:23 - CONCLUSION: Increasing consolidative changes right base. Moderate congestive failure. Jaron Boss MD FACR Catheter Placement X-Ray 07/25/17 0000 Signed Impressions: Service Date/Time: Tuesday, July 25, 2017 18:42 - CONCLUSION: Uncomplicated line placement as above. Zak Cole MD Objective Remarks GENERAL: NAD SKIN: Warm and dry. HEAD: Normocephalic. EYES: No scleral icterus. No injection or drainage. NECK: Supple, trachea midline. No JVD or lymphadenopathy. CARDIOVASCULAR: Regular rate and rhythm without murmurs, gallops, or rubs. RESPIRATORY: Breath sounds equal bilaterally. No accessory muscle use. GASTROINTESTINAL: Abdomen soft, non-tender, nondistended. MUSCULOSKELETAL: No cyanosis, or edema. BACK: Nontender without obvious deformity. No CVA tenderness. A/P Problem List: (1) Acute renal failure superimposed on stage 5 chronic kidney disease, not on chronic dialysis ICD Code: N17.9 - Acute kidney failure, unspecified; N18.5 - Chronic kidney disease, stage 5 (2) Metabolic acidosis ICD Code: E87.2 - Acidosis (3) Pulmonary edema ICD Code: J81.1 - Chronic pulmonary edema Status: Acute (4) Respiratory distress ICD Code: R06.03 - Acute respiratory distress Status: Acute (5) Hypertension ICD Code: I10 - Essential (primary) hypertension (6) Chronic systolic heart failure ICD Code: I50.22 - Chronic systolic (congestive) heart failure Assessment and Plan 82-year-old man with End-stage renal disease-now requiring hemodialysis Appreciate input from nephrology Hemodialysis per nephrology Plan for PD catheter placement 07/29/17 by vascular surgery Plan for hemodialysis today 07/28/17 Chronic systolic heart failure Hypertension Dyslipidemia PAD 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 However secondary to labile BP, will increase Coreg to 25 mg by mouth twice a day today 07/28/17. Hold lisinopril in light of acute kidney injury Currently on atorvastatin 20 mg daily for dyslipidemia. Continue clopidogrel 75 mg daily. Echocardiogram 04/04 revealed EF 25%. Acute hypoxic respiratory failure Resolved Continue DuoNeb every 6 hours and albuterol aerosols every 2 hours. Anemia of chronic kidney disease Transfuse 1 unit packed red blood cell today 07/28/17 during dialysis Monitor H&H Prophylaxis - GI - pantoprazole - DVT - SCD/heparin subcutaneous Transfer to [facility] Problem Qualifiers (1) Acute renal failure superimposed on stage 5 chronic kidney disease, not on chronic dialysis: Qualified Codes: N17.9 - Acute kidney failure, unspecified; N18.5 - Chronic kidney disease, stage 5 (2) Pulmonary edema: Qualified Codes: J81.0 - Acute pulmonary edema (3) Hypertension: Qualified Codes: I10 - Essential (primary) hypertension Casa Doshi MD Jul 28, 2017 09:26
[2017-07-28] MEDS ORDERED: SODIUM CHLOR 0.9% 250 ML INJ 250 ML IV ONE (09:30)
[2017-07-28] MEDS: ATORVASTATIN 20 MG TAB PO SCH (09:44)
[2017-07-28] MEDS: CLOPIDOGREL 75 MG TAB PO SCH (09:44)
[2017-07-28] MEDS: PANTOPRAZOLE SOD 40 MG DELAYED RELEASE TAB PO SCH (09:45)
[2017-07-28] MEDS: SODIUM CHLORIDE 0.9% FLUSH 10 ML FLUSH IV FLUSH SCH ×2 (09:46→21:40)
[2017-07-28 10:25] LABS: REVIEW FLAG FINAL
--- NOTE | 2017-07-28 10:54 | HHI.NPPN ---
Subjective Renal Failure: Chronic, Acute, Stage V Interval History He is sitting up in a chair. He has developed significant anemia without overt signs of bleeding. In addition his BC are positive. (Roxi Romano) Review of Systems General Constitutional: Fatigue (Roxi Romano) Respiratory Lungs: SOB (Roxi Romano) Gastrointestinal Gastrointestinal: Nausea & Vomiting (Roxi Romano) Objective Data Data Vital Signs Date Time Temp Pulse Resp B/P (MAP) Pulse Ox O2 Delivery O2 Flow Rate FiO2 07/28/17 08:41 96 Nasal Cannula 3.00 07/28/17 06:00 68 07/28/17 04:00 62 07/28/17 04:00 98.0 62 26 155/68 (97) 91 07/28/17 02:00 65 07/28/17 00:00 97.9 64 18 160/72 (101) 87 07/28/17 00:00 64 07/27/17 22:00 77 07/27/17 20:00 97.7 70 34 153/71 (98) 97 07/27/17 20:00 70 07/27/17 19:52 95 Nasal Cannula 3.00 07/27/17 19:00 95 Nasal Cannula 3.00 Humidified 07/27/17 18:00 67 07/27/17 16:00 98.0 64 23 140/72 (94) 90 07/27/17 16:00 64 07/27/17 15:00 95 Nasal Cannula 3.00 Humidified 07/27/17 14:00 63 07/27/17 12:00 60 07/27/17 12:00 98.3 60 25 143/63 (89) 95 (Roxi Romano) -: 07/28/17 0441 07/28/17 0441 Imaging Last 72 hours Impressions Chest X-Ray 07/25/17 1520 Signed Impressions: Service Date/Time: Tuesday, July 25, 2017 15:23 - CONCLUSION: Increasing consolidative changes right base. Moderate congestive failure. Jaron Boss MD FACR Tubes & Lines: Vas-Cath (Roxi Romano) Physical Exam General Appearance: Well Developed, Well Nourished, No Acute Distress, Comfortable (Roxi RomanoP) Eyes Eye Exam: Pupils Equal (Roxi Romano [employer]OUNDSKEEPING MAINTENANCE) Throat Throat Exam: Oral Mucosa [place] & Moist (Roxi Romano [employer]DSKEEPING MAINTENANCE) Pulmonary Resp Exam: No Distress, Crackles, Decreased Bases (Roxi Romano GROUNDSKEEPING MAINTENANCE) Cardiology CV Exam: Regular, Normal Sinus Rhythm, Good Perfusion (Roxi Romano GROUNDSKEEPING MAINTENANCE) Gastrointestinal/Abdomen GI Exam: Soft, Non-Tender, Bowel Sounds Present (Roxi Romano GROUNDSKEEPING MAINTENANCE) Musculoskeletal MS Exam: Joints Intact, Normal Tone (Roxi Romano GROUNDSKEEPING MAINTENANCE) Integumentary Skin Exam: Clear, Warm, Dry, Intact (Roxi Romano GROUNDSKEEPING MAINTENANCE) Extremeties Extremities Exam: No Edema, Pedal Pulses Palpable (Roxi Romano GROUNDSKEEPING MAINTENANCE) Neurologic Neuro Exam: Alert, Awake, Oriented, Speech Clear, Moving All Extremities (Roxi RomanoP) Psychiatric Psych Exam: Appropriate Responses (Roxi Romano) Assessment/Plan Discussed Condition With: Patient Assessment Summary: Anemia of CKD, Hypertension, End Stage Renal Disease Problem List: (1) ESRD (end stage renal disease) ICD Codes: N18.6 - End stage renal disease Plan: He has reached ESRD. Admitted with uremic symptoms including respiratory distress, nausea/vomiting, anemia. Started on hemodialysis 07/25 and 07/26 Now on TTS HD, due today Plans for PD catheter placement will most likely be postponed due to positive blood cultures Vascath in place Avoid IVF, renally dose medications when appropriate No dietary protein restriction He still makes urine Repeat labs in AM Check PTH, 25 Hydroxy levels (2) Anemia ICD Codes: D64.9 - Anemia, unspecified Plan: Epogen started Has iron deficiency but avoid venofer in lightly of sepsis, oral iron started CT abd/pelvis ordered (3) Sepsis ICD Codes: A41.9 - Sepsis, unspecified organism Plan: Give vancomycin with HD today ID has been consulted He is afebrile without leukocytosis (4) Metabolic acidosis ICD Codes: E87.2 - Acidosis Plan: Due to renal failure Improved with dialysis (5) Hypertension ICD Codes: I10 - Essential (primary) hypertension Plan: Monitor blood pressure He is on norvasc and coreg (6) Shortness of breath ICD Codes: R06.02 - Shortness of breath Plan: Improved with dialysis Off BiPap Plan (Roxi Romano) Plan patient was seen and examined. Patient has developed anemia, has iron deficiency , because of bacteremia, will defer iv iron. Continue Epogen. A dose of Vancomycin is given. ID consulted. Appears to have right lower lobe consolidation. PD catheter placement canceled for now. (Bobby Harrington MD) Problem Qualifiers (1) Hypertension: Qualified Codes: I10 - Essential (primary) hypertension Roxi Romano Jul 28, 2017 10:54 Bobby Harrington MD Jul 28, 2017 18:04
[2017-07-28] MEDS ORDERED: VANCOMYCIN INJ 1,500 MG in SODIUM CHLORID 0.9% 500 ML INJ 500 ML IV ONE ×2 (11:00→19:30)
--- NOTE | 2017-07-28 12:09 | MB ---
cc: MIKE TERRY MD DATE OF CONSULTATION 07/28/[address] Harrington REASON Unexplained bacteremia, Enterococcus. HISTORY OF PRESENT ILLNESS This is an 83-year white male who was admitted to the hospital with shortness of breath. The patient has end-stage kidney disease and plans were to get him started on peritoneal dialysis. He was evaluated in the emergency department and has normal temperature and normal white blood cell count and he had pulmonary edema. In the interim evaluation included blood cultures. Two sets of blood cultures were drawn. One set has Staph coagulase negative and Strep viridans group in both aerobic and anaerobic bottles. Another set of two has group D Enterococcus in the anaerobic bottles and the aerobic bottle has no growth. Subsequent white blood cell count has been normal. The patient has no fever or chills. He is currently seen sitting up in a chair and he is in no acute distress. He tells me that he feels well. He had two dialysis treatments via a catheter placed in the right internal jugular vein. The patient has received two dialysis treatments so far. The patient tells that he feels much better than before he was dialyzed 2 days ago. PAST MEDICAL HISTORY 1. End-stage renal disease. 2. Hypertension. 3. Dyslipidemia. 4. History of AAA repair in 2017. 5. Left carotid endarterectomy. 6. Inguinal hernia repair. 7. Cranial surgery. ALLERGIES EZETIMIBE. MEDICATIONS 1. One dose of vancomycin was given . 2. Ferrous sulfate. 3. Protonix. 4. Norvasc. 5. Lipitor. 6. Plavix. 7. MiraLax. 8. Albuterol. 9. Subcutaneous heparin. 10. Vancomycin has been ordered to be given today. SOCIAL HISTORY The patient smokes half-a-pack of cigarettes a day. Occasional alcohol. No illicit drugs. The patient is originally from [place], [place]. FAMILY HISTORY Noncontributory. REVIEW OF SYSTEMS GENERAL: Denies fever or chills. Positive for generalized weakness. HEAD, EARS, NOSE AND THROAT: Positive for nasal congestion and nasal drainage. NECK: Denies pain or swelling. CARDIOVASCULAR: Denies palpitation or chest pain. RESPIRATORY: Positive for shortness of breath. GASTROINTESTINAL: No nausea, vomiting, abdominal pain or diarrhea. GENITOURINARY: Urinary hesitancy. Denies dysuria. MUSCULOSKELETAL: Significant for occasional muscle cramps in the legs. HEMATOPOIETIC: Denies easy bruising or bleeding. ENDOCRINE: Denies polyuria, polydipsia. INTEGUMENTARY: Denies skin rash or itching. HEMATOPOETIC: Denies easy bruising or bleeding. NEUROLOGIC: Denies problems with coordination. PSYCHIATRIC: Denies depression. PHYSICAL EXAMINATION GENERAL: This is a pleasant well-developed man in no acute distress. He is awake and alert and oriented. VITAL SIGNS: Temperature 98 degrees. HEENT: Head is atraumatic. Extraocular movements grossly intact, pupils reactive to light. No icterus. Oropharynx moist. Mucosa without lesions. NECK: Supple. No adenopathy. LUNGS: Clear breath sounds. HEART: Regular S1 and S2. No murmurs, rubs or gallops. ABDOMEN: Bowel sounds present, soft, nontender. RECTAL: Not performed. EXTREMITIES: No clubbing, no cyanosis or edema. No calf tenderness. SKIN: Warm and moist. No rash. NEURO: No gross focal findings. LABORATORY DATA WBC 8.2, platelets 229, 70% neutrophils, hemoglobin 7.6. Creatinine 6.0, BUN 48, sodium 136. Liver function tests normal. Chest x-ray showed increase in consolidative changes at the right base on July 25. IMPRESSION 1. Bacteremia. The patient has several different organisms on the blood cultures. Clinically he does not appear septic. 2. End-stage renal disease. The patient has begun hemodialysis. 3. The patient appears clinically stable and there is no clear etiology for the bacteremia. Given the very bacteria from the blood culture, it is possible that it could be contamination. However, the patient has had AAA bypass surgery and therefore further investigation should be made with repeating the blood cultures. If the repeat blood culture is positive, then would need to seek for a source. If the repeat blood culture is negative, it very well could be the current blood culture is contamination. PLAN 1. I will order the repeat blood culture to be done with dialysis today. 2. A dose of vancomycin has been ordered already and I would like to have blood cultures drawn before this dose is given. Thank you this consultation. The patient's progress will be monitored and further recommendations will be given upon followup. Mike Terry MD FD/ROBLES /11:37 AM /11:57 AM
[2017-07-28] MEDS: FERROUS SULFATE 325 MG (65 MG ELEMENTAL IRON) TAB PO SCH (14:06)
--- NOTE | 2017-07-28 14:20 | RADRPT ---
EXAM DATE/TIME: 07/28/2017 13:16 [facility] COMPARISON: CT ABDOMEN & PELVIS W/O CONTRAST, June 27, 2017, 16:05. INDICATIONS : Diffuse abdomen pain, renal failure. ORAL CONTRAST: No oral contrast ingested. RADIATION DOSE: 7.57 CTDIvol (mGy) MEDICAL HISTORY : Hypertension. Congestive heart failure. SURGICAL HISTORY : Abdominal aortic aneurysm repair. ENCOUNTER: Initial ACUITY: 1 day PAIN SCALE: 1/10 LOCATION: Bilateral upper quadrant TECHNIQUE: Volumetric scanning of the abdomen and pelvis was performed. Using automated exposure control and ad justment of the mA and/or kV according to patient size, radiation dose was kept as low as reasonably achievable to obtain optimal diagnostic quality images. DICOM format image data is available electro nically for review and comparison. FINDINGS: Bilateral pleural effusions have developed since the prior study. There is moderate fluid accumulatio n on the right and small amount of fluid on the left. Consolidating airspace disease is identified wi thin the right lower lobe. Right lower lobe is partially consolidated. The liver, spleen pancreas and adrenal glands are stable. Postsurgical changes following abdominal aortic aneurysm repair are stable. Bilateral renal cysts are stable. There is no evidence of hydronephrosis. Left-sided fluid collection in the pelvis along the retroperitoneal border adjacent to the distal aor ta is stable in size. Again this is most consistent with a postsurgical seroma. The intestinal gas pattern is stable without significant ileus free air or mass effect. CONCLUSION: 1. Interval development of bilateral pleural effusions and significant consolidation in the right low er lobe. 2. Stable postsurgical changes following abdominal aortic aneurysm repair. 3. Stable small left-sided pelvic fluid collection characteristic of a postsurgical seroma. 4. Stable bilateral renal cysts. 5. Otherwise stable evaluation of the abdomen and pelvis. Adonis Bee MD on July 28, 2017 at 14:11 Board Certified Radiologist. This report was verified electronically.
[2017-07-28] MEDS: SODIUM CHLOR 0.9% 1000 ML INJ 1,000 ML OTHER PRN (19:54)
[2017-07-28] MEDS: GENTAMICIN SULFATE (DIALYSIS USE ONLY) 20 MG/2 ML VIAL OTHER PRN (19:55)
[2017-07-28] MEDS: EPOETIN ALFA 10,000 UNITS/ML VIAL IV PUSH PRN (19:55)
[2017-07-28] MEDS: HEPARIN SODIUM - IV 10,000 UNITS/10 ML VIAL PRN (19:56)
[2017-07-28] MEDS ORDERED: diphenhydrAMINE HCL 50 MG/ML VIAL ONE (20:42)
[2017-07-28] MEDS: diphenhydrAMINE HCL 25 MG CAP PO PRN (21:12)
[2017-07-28] MEDS: CARVEDILOL 12.5 MG TAB PO SCH (21:40)
[2017-07-28 21:44] LABS: BLOOD GAS BASE EXCESS 3.8 mmol/L (-2-2); BLOOD GAS CARBOXYHEMOGLOBIN 0.9 % (0-4); BLOOD GAS HCO3 30 mmol/L (22-26); BLOOD GAS METHEMOGLOBIN 1.1 % (0-2); BLOOD GAS O2 HGB SATURATION 97 % (90-100); BLOOD GAS OXYGEN CONTENT 13.6 Vol % (12.0-20.0); BLOOD GAS PCO2 66 mmHg (38-42); BLOOD GAS PO2 156 mmHg (61-120); BLOOD GAS TOTAL HGB 9.8 G/DL (12.0-16.0); TEMP CORR TO 98.6
[2017-07-28] MEDS ORDERED: FUROSEMIDE 20 MG/2 ML VIAL IV PUSH ONE (21:45)
[2017-07-28 21:46] LABS: CRITICAL VALUE YES; DRAW SITE LT RADIAL; FIO2 100 %; LITER FLOW 15 L/M; NUMBER OF ARTERIAL PUNCTURES 1; STAT YES; ULNAR PULSE PRESENT
--- NOTE | 2017-07-28 21:52 | RADRPT ---
EXAM DATE/TIME: 07/28/2017 21:14 [place] COMPARISON: CHEST SINGLE AP, July 25, 2017, 15:23. INDICATIONS : Respiratory disease, shortness of breath MEDICAL HISTORY : Hypertension. Congestive heart failure. Aneurysm, abdominal SURGICAL HISTORY : Abdominal aortic aneurysm repair, Carotid endarectomy. Hernia repair ENCOUNTER: Subsequent ACUITY: 4 - 6 days PAIN SCORE: 0/10 LOCATION: chest FINDINGS: A single portable frontal view of the chest shows a persistent and unchanged consolidation involving the right lower lobe. Tiny right effusion also unchanged. Left lung is clear. Heart is normal in size . Aorta is calcified and tortuous. Dialysis catheter overlies the right chest. No pneumothorax. CONCLUSION: 1. Unchanged right lower lobe consolidation with small right effusion. 2. Interval placement of a dialysis catheter which is in good position. No pneumothorax. Pierre Michel Jr., MD on July 28, 2017 at 21:49 Board Certified Radiologist. This report was verified electronically.
[2017-07-29] VITALS (15 sets, daily range): BP systolic 128–168; BP diastolic 60–80; PULSE 56–68; RESP 14–28; TEMP 98–98.9; O2SAT 91–98
[2017-07-29] MEDS: CHLORHEXIDINE GLUCONATE 2 % 1 PACK (2 CLOTHS) TOP SCH (04:00)
[2017-07-29] MEDS: RESP: ALBUTEROL 2.5 MG/IPRATROPIUM 0.5 MG NEB (SCH) INH ×4 (04:14→21:05)
[2017-07-29 06:44] LABS: BASOPHIL # 0.1 TH/MM3 (0-0.2); BASOPHIL % 0.7 % (0.0-2.0); EOSINOPHIL # 0.3 TH/MM3 (0-0.4); EOSINOPHIL % 4.2 % (0.0-4.0); HEMATOCRIT 23.9 % (39.0-51.0); HEMO FLAGS DIFF FINAL; LYMPH % 15.8 % (9.0-44.0); LYMPHOCYTE # 1.1 TH/MM3 (1.0-4.8); MEAN CELL VOLUME 89.9 FL (80.0-100.0); MEAN CORPUSCULAR HEMOGLOBIN 30.4 PG (27.0-34.0); MEAN CORPUSCULAR HGB CONC 33.9 % (32.0-36.0); MONO % 8.8 % (0.0-8.0); NEUT % 70.5 % (16.0-70.0); PLATELET COUNT 223 TH/MM3 (150-450); RED BLOOD COUNT 2.66 MIL/MM3 (4.50-5.90); WHITE BLOOD COUNT 7.1 TH/MM3 (4.0-11.0)
[2017-07-29 07:38] LABS: BICARBONATE 30.3 MEQ/L (21.0-32.0); POTASSIUM 3.7 MEQ/L (3.5-5.1)
--- NOTE | 2017-07-29 08:49 | HHI.PR ---
Subjective Remarks Follow-up end-stage renal disease requiring hemodialysis/acute respiratory failure 07/27/17-patient seen and examined, reports significant improvement of shortness of breath 07/28/17-patient seen and examined, stable and no acute event overnight. H&H 7.6/21.9 however patient denies any bleeding. BP labile. Plan for hemodialysis today 07/29/17-patient seen and examined. Patient is currently hemodialysis machine. Afebrile. Repeat blood culture negative to date. Objective Vitals Vital Signs Date Time Temp Pulse Resp B/P (MAP) Pulse Ox O2 Delivery O2 Flow Rate FiO2 07/29/17 08:18 96 Nasal Cannula 5.00 07/29/17 06:00 57 07/29/17 04:14 97 50 07/29/17 04:00 98.0 58 14 151/68 (95) 98 07/29/17 04:00 58 07/29/17 02:00 64 07/29/17 00:00 64 07/29/17 00:00 98.0 64 19 91 07/28/17 23:03 100 50 07/28/17 22:41 93 Nasal Cannula 4.00 07/28/17 22:00 97.8 79 31 97 07/28/17 22:00 79 07/28/17 21:32 97 50 07/28/17 21:00 97 17 204/107 (139) 91 07/28/17 20:53 94 Nasal Cannula 15.00 100 07/28/17 16:00 98.6 71 22 173/83 (113) 95 07/28/17 15:00 67 19 164/81 (108) 07/28/17 14:01 67 23 165/78 (107) 07/28/17 13:00 64 24 95 07/28/17 12:00 98.8 76 28 07/28/17 11:00 64 22 07/28/17 09:00 73 26 164/75 (104) 96 I/O 07/28/17 07/28/17 07/28/17 07/29/17 07/29/17 07/29/17 07:00 15:00 23:00 07:00 15:00 23:00 Intake Total 250 ml 1615 ml Output Total 150 ml 800 ml 200 ml Balance 100 ml 815 ml -200 ml Intake Oral 250 ml 900 ml Packed Cells 700 ml Blood Product IV Normal Saline Flush 15 ml Output Urine Total 150 ml 200 ml Hemodialysis 800 ml # Voids 2 # Bowel Movements 1 1 Result Diagram: 07/29/1754707/29/17547 Objective Remarks GENERAL: NAD and terminal supervisor 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 HEAD: Normocephalic. EYES: No scleral icterus. No injection or drainage. NECK: Supple, trachea midline. No JVD or lymphadenopathy. CARDIOVASCULAR: Regular rate and rhythm without murmurs, gallops, or rubs. RESPIRATORY: Breath sounds equal bilaterally. No accessory muscle use. GASTROINTESTINAL: Abdomen soft, non-tender, nondistended. MUSCULOSKELETAL: No cyanosis, or edema. BACK: Nontender without obvious deformity. No CVA tenderness. A/P Problem List: (1) Acute renal failure superimposed on stage 5 chronic kidney disease, not on chronic dialysis ICD Code: N17.9 - Acute kidney failure, unspecified; N18.5 - Chronic kidney disease, stage 5 (2) Metabolic acidosis ICD Code: E87.2 - Acidosis (3) Pulmonary edema ICD Code: J81.1 - Chronic pulmonary edema Status: Acute (4) Respiratory distress ICD Code: R06.03 - Acute respiratory distress Status: Acute (5) Hypertension ICD Code: I10 - Essential (primary) hypertension (6) Chronic systolic heart failure ICD Code: I50.22 - Chronic systolic (congestive) heart failure (7) Bacteremia ICD Code: R78.81 - Bacteremia Assessment and Plan 82-year-old man with Bacteremia Appreciate input from infectious disease specialist Likely contaminant, however waiting for repeat blood culture report Hold off antibiotic; however patient did receive vancomycin 1 yesterday 06/05 End-stage renal disease-now requiring hemodialysis Appreciate input from nephrology Hemodialysis per nephrology Plan for PD catheter placement as been postponed secondary to positive blood culture Plan for hemodialysis today 07/29/17 Chronic systolic heart failure Hypertension Dyslipidemia PAD 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 Hold lisinopril in light of acute kidney injury Currently on atorvastatin 20 mg daily for dyslipidemia. Continue clopidogrel 75 mg daily. Echocardiogram 04/04 revealed EF 25%. Acute hypoxic respiratory failure Resolved Continue DuoNeb every 6 hours and albuterol aerosols every 2 hours. Anemia of chronic kidney disease Transfused 1 unit packed red blood cell Monitor H&H Prophylaxis - GI - pantoprazole - DVT - SCD/heparin subcutaneous Problem Qualifiers (1) Acute renal failure superimposed on stage 5 chronic kidney disease, not on chronic dialysis: Qualified Codes: N17.9 - Acute kidney failure, unspecified; N18.5 - Chronic kidney disease, stage 5 (2) Pulmonary edema: Qualified Codes: J81.0 - Acute pulmonary edema (3) Hypertension: Qualified Codes: I10 - Essential (primary) hypertension Casa Doshi MD Jul 29, 2017 08:49
[2017-07-29] MEDS: PANTOPRAZOLE SOD 40 MG DELAYED RELEASE TAB PO SCH (09:39)
[2017-07-29] MEDS: CARVEDILOL 12.5 MG TAB PO SCH ×2 (09:39→20:45)
[2017-07-29] MEDS: ATORVASTATIN 20 MG TAB PO SCH (09:39)
[2017-07-29] MEDS: POLYETHYLENE GLYCOL 17 GM PKG PO SCH (09:39)
[2017-07-29] MEDS: FERROUS SULFATE 325 MG (65 MG ELEMENTAL IRON) TAB PO SCH (09:39)
[2017-07-29] MEDS: CLOPIDOGREL 75 MG TAB PO SCH (09:39)
[2017-07-29] MEDS: SODIUM CHLORIDE 0.9% FLUSH 10 ML FLUSH IV FLUSH SCH ×2 (09:40→20:45)
[2017-07-29] MEDS: GENTAMICIN SULFATE (DIALYSIS USE ONLY) 20 MG/2 ML VIAL OTHER PRN (10:04)
[2017-07-29] MEDS: HEPARIN SODIUM - IV 10,000 UNITS/10 ML VIAL PRN (10:04)
[2017-07-29] MEDS: EPOETIN ALFA 10,000 UNITS/ML VIAL IV PUSH PRN (10:40)
--- NOTE | 2017-07-29 12:31 | HHI.NPPN ---
Subjective Renal Failure: Chronic, Acute, Stage V Interval History Two hours into dialysis yesterday he became very short of breath. Treatment suspended and he was [place] [facility] [place] He was dialyzed again in full today, tolerated well. ID has evaluated the patient. He is afebrile. (Roxi Romano) Review of Systems General Constitutional: Fatigue (Roxi Romano) Respiratory Lungs: SOB (Roxi Romano) Gastrointestinal Gastrointestinal: Nausea & Vomiting (Roxi Romano) Objective Data Data 07/29/17 07/30/17 19:00 07:00 Output Total 1200 ml Balance -1200 ml Output Urine Total 200 ml Hemodialysis 1000 ml Vital Signs Date Time Temp Pulse Resp B/P (MAP) Pulse Ox O2 Delivery O2 Flow Rate FiO2 07/29/17 10:00 61 07/29/17 08:18 96 Nasal Cannula 5.00 07/29/17 08:00 98.4 68 25 168/80 (109) 96 07/29/17 08:00 68 07/29/17 07:00 Nasal Cannula 4.00 Humidified 07/29/17 06:00 57 07/29/17 04:14 97 50 07/29/17 04:00 98.0 58 14 151/68 (95) 98 07/29/17 04:00 58 07/29/17 02:00 64 07/29/17 00:00 64 07/29/17 00:00 98.0 64 19 91 07/28/17 23:03 100 50 07/28/17 22:41 93 Nasal Cannula 4.00 07/28/17 22:00 97.8 79 31 97 07/28/17 22:00 79 07/28/17 21:32 97 50 07/28/17 21:00 97 17 204/107 (139) 91 07/28/17 20:53 94 Nasal Cannula 15.00 100 07/28/17 16:00 98.6 71 22 173/83 (113) 95 07/28/17 15:00 67 19 164/81 (108) 07/28/17 14:01 67 23 165/78 (107) 07/28/17 13:00 64 24 95 (Roxi Romano) -: 07/29/17 0548 07/29/17 0548 Microbiology 07/28/17 Aerobic Blood Culture - Preliminary, Resulted NO GROWTH IN 1 DAY 07/28/17 Anaerobic Blood Culture - Preliminary, Resulted NO GROWTH IN 1 DAY 07/28/17 Aerobic Blood Culture - Preliminary, Resulted NO GROWTH IN 1 DAY 07/28/17 Anaerobic Blood Culture - Preliminary, Resulted NO GROWTH IN 1 DAY Imaging Last 72 hours Impressions Chest X-Ray 07/28/17 0000 Signed Impressions: Service Date/Time: July 21:14 - CONCLUSION: 1. Unchanged right lower lobe consolidation with small right effusion. 2. Interval placement of a dialysis catheter which is in good position. No pneumothorax. Pierre Michel Jr., MD Abdomen/Pelvis CT 07/28/17 0000 Signed Impressions: Service Date/Time: July 13:16 - CONCLUSION: 1. Interval development of bilateral pleural effusions and significant consolidation in the right lower lobe. 2. Stable postsurgical changes following abdominal aortic aneurysm repair. 3. Stable small left-sided pelvic fluid collection characteristic of a postsurgical seroma. 4. Stable bilateral renal cysts. 5. Otherwise stable evaluation of the abdomen and pelvis. Adonis Bee MD Tubes & Lines: Vas-Cath (Roxi Romano BOnelia MEJÍAP) Physical Exam General Appearance: Well Developed, Well Nourished, No Acute Distress, Comfortable (Roxi Romano B. PROCESS MANAGER) Eyes Eye Exam: Pupils Equal (Roxi Romano B. PROCESS MANAGER) Throat Throat Exam: Oral Mucosa Coleta & Moist (Roxi Romano B. PROCESS MANAGER) Pulmonary Resp Exam: Clear Bilaterally, Breath Sounds Equal, No Distress, Decreased Bases (Roxi Romano B. PROCESS MANAGER) Cardiology CV Exam: Regular, Normal Sinus Rhythm, Good Perfusion (Roxi Romano B. PROCESS MANAGER) Gastrointestinal/Abdomen GI Exam: Soft, Non-Tender, Bowel Sounds Present (Roxi Romano B. PROCESS MANAGER) Musculoskeletal MS Exam: Joints Intact, Normal Tone (Roxi Romano B. PROCESS MANAGER) Integumentary Skin Exam: Clear, Warm, Dry, Intact (Roxi Romano B. PROCESS MANAGER) Extremeties Extremities Exam: No Edema, Pedal Pulses Palpable (Roxi Romano B. PROCESS MANAGER) Neurologic Neuro Exam: Alert, Awake, Oriented, Speech Clear, Moving All Extremities (Roxi Romano) Psychiatric Psych Exam: Appropriate Responses (Roxi Romano) Assessment/Plan Discussed Condition With: Patient Assessment Summary: Anemia of CKD, Hypertension, End Stage Renal Disease Problem List: (1) ESRD (end stage renal disease) ICD Codes: N18.6 - End stage renal disease Plan: He has reached ESRD. Admitted with uremic symptoms including respiratory distress, nausea/vomiting, anemia. Started on hemodialysis 07/25 and 07/26 Dialyzed yesterday for 2 hrs, 800 ml UF HD today, tolerated well, 1L UF We will continue HD MWF Plans for PD catheter placement has been postponed due to positive blood cultures Vascath in place Avoid IVF, renally dose medications when appropriate No dietary protein restriction He still makes urine (2) Anemia ICD Codes: D64.9 - Anemia, unspecified Plan: Continue Epogen with dialysis Has iron deficiency but avoid venofer in lightly of sepsis, oral iron started No bleeding identified (3) Sepsis ICD Codes: A41.9 - Sepsis, unspecified organism Plan: Give vancomycin yesterday ID has evaluated, cultures may have been contaminated Repeat cultures drawn, negative to date, follow results He is afebrile without leukocytosis Imaging shows lower lobe consolidation (4) Metabolic acidosis ICD Codes: E87.2 - Acidosis Plan: Due to renal failure Improved with dialysis (5) Hypertension ICD Codes: I10 - Essential (primary) hypertension Plan: Monitor blood pressure He is on norvasc and coreg (6) Shortness of breath ICD Codes: R06.02 - Shortness of breath Plan: Improved with dialysis Off BiPap (7) Vitamin D deficiency ICD Codes: E55.9 - Vitamin D deficiency, unspecified Plan: With secondary hyperparathyroidism Oral vitamin D3 started, calcitriol also started (Roxi Romano) Problem List: (1) ESRD (end stage renal disease) ICD Codes: N18.6 - End stage renal disease Plan: He has reached ESRD. Admitted with uremic symptoms including respiratory distress, nausea/vomiting, anemia. Started on hemodialysis 07/25 and 07/26 Dialyzed yesterday for 2 hrs, 800 ml UF HD today, tolerated well, 1L UF We will continue HD MWF Plans for PD catheter placement has been postponed due to positive blood cultures Vascath in place Avoid IVF, renally dose medications when appropriate No dietary protein restriction He still makes urine (2) Anemia ICD Codes: D64.9 - Anemia, unspecified Plan: Continue Epogen with dialysis Has iron deficiency but avoid venofer in lightly of sepsis, oral iron started No bleeding identified (3) Sepsis ICD Codes: A41.9 - Sepsis, unspecified organism Plan: Give vancomycin yesterday ID has evaluated, cultures may have been contaminated Repeat cultures drawn, negative to date, follow results He is afebrile without leukocytosis Imaging shows lower lobe consolidation (4) Metabolic acidosis ICD Codes: E87.2 - Acidosis Plan: Due to renal failure Improved with dialysis (5) Hypertension ICD Codes: I10 - Essential (primary) hypertension Plan: Monitor blood pressure He is on norvasc and coreg (6) Shortness of breath ICD Codes: R06.02 - Shortness of breath Plan: Improved with dialysis Off BiPap (7) Vitamin D deficiency ICD Codes: E55.9 - Vitamin D deficiency, unspecified Plan: With secondary hyperparathyroidism Oral vitamin D3 started, calcitriol also started Plan patient was seen and examined. May have right sided pneumonia. Given Vancomycin. ID to manage antibiotic. (Bobby Harrington MD) Problem Qualifiers (1) Hypertension: Qualified Codes: I10 - Essential (primary) hypertension Roxi Romano Jul 29, 2017 12:31 Bobby Harrington MD Jul 29, 2017 12:55
[2017-07-29] MEDS ORDERED: CALCITRIOL 0.25 MCG CAP PO SCH (12:45)
[2017-07-29] MEDS: CHOLECALCIFEROL (VIT D3) 1000 UNIT TAB PO SCH (12:47)
--- NOTE | 2017-07-29 16:29 | HHI.IDPN ---
Note Infectious Disease Note Patient had dialysis today. Feels okay. No fever, chills, SOB or cough. Blood culture repeat pending. Seen for bacteremia. PAST MEDICAL HISTORY 1. End-stage renal disease. 2. Hypertension. 3. Dyslipidemia. 4. History of AAA repair in 2017. 5. Left carotid endarterectomy. 6. Inguinal hernia repair. 7. Cranial surgery. ALLERGIES EZETIMIBE. MEDICATIONS Dose of vancomycin was given on 07/28. SOCIAL HISTORY The patient smokes half-a-pack of cigarettes a day. Occasional alcohol. No illicit drugs. The patient is originally from [place], [place]. OBJECTIVE: Vital Signs Date Time Temp Pulse Resp B/P (MAP) Pulse Ox O2 Delivery O2 Flow Rate FiO2 07/29/17 14:00 63 07/29/17 12:00 98.9 63 22 159/77 (104) 95 07/29/17 12:00 63 07/29/17 10:00 61 07/29/17 08:18 96 Nasal Cannula 5.00 07/29/17 08:00 98.4 68 25 168/80 (109) 96 07/29/17 08:00 68 07/29/17 07:00 Nasal Cannula 4.00 Humidified 07/29/17 06:00 57 07/29/17 04:14 97 50 07/29/17 04:00 98.0 58 14 151/68 (95) 98 07/29/17 04:00 58 07/29/17 02:00 64 07/29/17 00:00 64 07/29/17 00:00 98.0 64 19 91 07/28/17 23:03 100 50 07/28/17 22:41 93 Nasal Cannula 4.00 07/28/17 22:00 97.8 79 31 97 07/28/17 22:00 79 07/28/17 21:32 97 50 07/28/17 21:00 97 17 204/107 (139) 91 07/28/17 20:53 94 Nasal Cannula 15.00 100 Laboratory Tests Test 07/28/17 21:18 07/29/17 05:48 Blood Gas Puncture Site LT RADIAL Blood Gas Patient Temperature 98.6 Blood Gas HCO3 30 mmol/L Blood Gas Base Excess 3.8 mmol/L Blood Gas Oxygen Saturation 97 % Arterial Blood pH 7.28 Arterial Blood Partial Pressure CO2 66 mmHg Arterial Blood Partial Pressure O2 156 mmHg Arterial Blood Oxygen Content 13.6 Vol % Arterial Blood Carboxyhemoglobin 0.9 % Arterial Blood Methemoglobin 1.1 % Blood Gas Hemoglobin 9.8 G/DL Oxygen Delivery Device Non-Rebreathing Mask Blood Gas Liter Flow 15 L/M Blood Gas Inspired Oxygen 100 % White Blood Count 7.1 TH/MM3 Red Blood Count 2.66 MIL/MM3 Hemoglobin 8.1 GM/DL Hematocrit 23.9 % Mean Corpuscular Volume 89.9 FL Mean Corpuscular Hemoglobin 30.4 PG Mean Corpuscular Hemoglobin Concent 33.9 % Red Cell Distribution Width 17.0 % Platelet Count 223 TH/MM3 Mean Platelet Volume 7.9 FL Neutrophils (%) (Auto) 70.5 % Lymphocytes (%) (Auto) 15.8 % Monocytes (%) (Auto) 8.8 % Eosinophils (%) (Auto) 4.2 % Basophils (%) (Auto) 0.7 % Neutrophils # (Auto) 5.0 TH/MM3 Lymphocytes # (Auto) 1.1 TH/MM3 Monocytes # (Auto) 0.6 TH/MM3 Eosinophils # (Auto) 0.3 TH/MM3 Basophils # (Auto) 0.1 TH/MM3 CBC Comment DIFF FINAL Differential Comment Blood Urea Nitrogen 33 MG/DL Creatinine 4.86 MG/DL Random Glucose 85 MG/DL Calcium Level 8.1 MG/DL Phosphorus Level 4.4 MG/DL Sodium Level 139 MEQ/L Potassium Level 3.7 MEQ/L Chloride Level 100 MEQ/L Carbon Dioxide Level 30.3 MEQ/L Anion Gap 9 MEQ/L Estimat Glomerular Filtration Rate 12 ML/MIN 25-Hydroxy Vitamin D Total 21.1 ng/ML Parathyroid Hormone (Intact) 345.2 PG/ML IMAGING: Chest X-Ray 07/28/17 0000 Signed Impressions: Service Date/Time: July 21:14 - CONCLUSION: 1. Unchanged right lower lobe consolidation with small right effusion. 2. Interval placement of a dialysis catheter which is in good position. No pneumothorax. Pierre Michel Jr., MD Abdomen/Pelvis CT 07/28/17 0000 Signed Impressions: Service Date/Time: July 13:16 - CONCLUSION: 1. Interval development of bilateral pleural effusions and significant consolidation in the right lower lobe. 2. Stable postsurgical changes following abdominal aortic aneurysm repair. 3. Stable small left-sided pelvic fluid collection characteristic of a postsurgical seroma. 4. Stable bilateral renal cysts. 5. Otherwise stable evaluation of the abdomen and pelvis. Adonis Bee MD Catheter Placement X-Ray 07/25/17 0000 Signed Impressions: Service Date/Time: Tuesday, July 25, 2017 18:42 - CONCLUSION: Uncomplicated line placement as above. Zak Cole MD PHYSICAL EXAMINATION GENERAL: No acute distress. He is awake and alert and oriented. HEENT: Head is atraumatic. Extraocular movements grossly intact, pupils reactive to light. No icterus. Oropharynx moist. Mucosa without lesions. NECK: Supple. No adenopathy. LUNGS: Clear breath sounds. HEART: Regular S1 and S2. No murmurs, rubs or gallops. ABDOMEN: Bowel sounds present, soft, nontender. EXTREMITIES: No clubbing, no cyanosis or edema. SKIN: Warm and moist. No rash. NEURO: No gross focal findings. IMPRESSION 1. Bacteremia. The patient has several different organisms on the blood cultures. Clinically he does not appear septic. 2. End-stage renal disease. The patient has begun hemodialysis. 3. Appears clinically stable and there is no clear etiology for the bacteremia. Given the varied bacteria from the blood culture, it is possible that it could be contamination. However, the patient has had AAA bypass surgery in December. If the repeat blood culture is positive for same bacteria then would need to seek for a source. If the repeat blood culture is negative, it very well could be the current blood culture is contamination. PLAN Follow the repeat blood cultures. Further decisions depending on the blood cultures. Please call if blood cultures from 07/28 is positive. Tito Watson MD Jul 29, 2017 16:29
[2017-07-29] MEDS: HEPARIN SODIUM - SQ 10,000 UNITS/ML VIAL SQ SCH (17:34)
[2017-07-30] VITALS (14 sets, daily range): BP systolic 128–156; BP diastolic 62–79; PULSE 54–68; RESP 14–25; TEMP 97.7–98.4; O2SAT 91–98
[2017-07-30] MEDS: HEPARIN SODIUM - SQ 10,000 UNITS/ML VIAL SQ SCH ×2 (04:48→18:00)
[2017-07-30] MEDS: CHLORHEXIDINE GLUCONATE 2 % 1 PACK (2 CLOTHS) TOP SCH (04:48)
[2017-07-30] MEDS: CLOPIDOGREL 75 MG TAB PO SCH (08:50)
[2017-07-30] MEDS: PANTOPRAZOLE SOD 40 MG DELAYED RELEASE TAB PO SCH (08:50)
[2017-07-30] MEDS: FERROUS SULFATE 325 MG (65 MG ELEMENTAL IRON) TAB PO SCH (08:50)
[2017-07-30] MEDS: POLYETHYLENE GLYCOL 17 GM PKG PO SCH (08:51)
[2017-07-30] MEDS: CARVEDILOL 12.5 MG TAB PO SCH ×2 (08:51→20:57)
[2017-07-30] MEDS: ATORVASTATIN 20 MG TAB PO SCH (08:51)
[2017-07-30] MEDS: CHOLECALCIFEROL (VIT D3) 1000 UNIT TAB PO SCH (08:51)
[2017-07-30] MEDS: SODIUM CHLORIDE 0.9% FLUSH 10 ML FLUSH IV FLUSH SCH ×2 (08:52→20:57)
--- NOTE | 2017-07-30 12:03 | HHI.PR ---
Subjective Remarks Follow-up end-stage renal disease requiring hemodialysis/acute respiratory failure 07/27/17-patient seen and examined, reports significant improvement of shortness of breath 07/28/17-patient seen and examined, stable and no acute event overnight. H&H 7.6/21.9 however patient denies any bleeding. BP labile. Plan for hemodialysis today 07/29/17-patient seen and examined. Patient is currently hemodialysis machine. Afebrile. Repeat blood culture negative to date. 07/30/17-patient seen and examined, currently no shortness of breath. However yesterday during dialysis patient became short of breath which prompted staff to hold onto dialysis. Patient was able to complete dialysis later on. Objective Vitals Vital Signs Date Time Temp Pulse Resp B/P (MAP) Pulse Ox O2 Delivery O2 Flow Rate FiO2 07/30/17 08:09 91 Nasal Cannula 3.00 07/30/17 08:00 58 07/30/17 08:00 98.4 66 24 128/62 (84) 98 07/30/17 06:00 58 07/30/17 04:00 98.0 57 25 156/79 (104) 93 07/30/17 04:00 57 07/30/17 02:00 59 07/30/17 00:00 54 07/30/17 00:00 97.7 54 19 149/72 (97) 94 07/29/17 22:00 56 07/29/17 20:00 58 07/29/17 20:00 98.4 58 28 128/60 (82) 98 07/29/17 19:30 94 Nasal Cannula 3.00 07/29/17 19:00 96 Nasal Cannula 2.00 07/29/17 18:00 56 07/29/17 16:00 58 07/29/17 16:00 98.4 58 16 147/70 (95) 95 07/29/17 14:00 63 I/O 07/29/17 07/29/17 07/29/17 07/30/17 07/30/17 07/30/17 07:00 15:00 23:00 07:00 15:00 23:00 Output Total 1200 ml 250 ml 500 ml Balance -1200 ml -250 ml -500 ml Output Urine Total 200 ml 250 ml 500 ml Hemodialysis 1000 ml # Bowel Movements 1 0 Result Diagram: 1154707/[id number] Objective Remarks GENERAL: NAD and supervisor instrument mechanics 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 HEAD: Normocephalic. EYES: No scleral icterus. No injection or drainage. NECK: Supple, trachea midline. No JVD or lymphadenopathy. CARDIOVASCULAR: Regular rate and rhythm without murmurs, gallops, or rubs. RESPIRATORY: Breath sounds equal bilaterally. No accessory muscle use. GASTROINTESTINAL: Abdomen soft, non-tender, nondistended. MUSCULOSKELETAL: No cyanosis, or edema. BACK: Nontender without obvious deformity. No CVA tenderness. A/P Problem List: (1) Acute renal failure superimposed on stage 5 chronic kidney disease, not on chronic dialysis ICD Code: N17.9 - Acute kidney failure, unspecified; N18.5 - Chronic kidney disease, stage 5 (2) Metabolic acidosis ICD Code: E87.2 - Acidosis (3) Pulmonary edema ICD Code: J81.1 - Chronic pulmonary edema Status: Acute (4) Respiratory distress ICD Code: R06.03 - Acute respiratory distress Status: Acute (5) Hypertension ICD Code: I10 - Essential (primary) hypertension (6) Chronic systolic heart failure ICD Code: I50.22 - Chronic systolic (congestive) heart failure (7) Bacteremia ICD Code: R78.81 - Bacteremia Assessment and Plan 82-year-old man with Bacteremia Appreciate input from infectious disease specialist Likely contaminant, however waiting for repeat blood culture report which has been negative to date Hold off antibiotic; End-stage renal disease-now requiring hemodialysis Appreciate input from nephrology Hemodialysis per nephrology Plan for PD catheter placement by vascular surgery has been postponed secondary to positive blood culture Chronic systolic heart failure Hypertension Dyslipidemia PAD 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 Hold lisinopril in light of acute kidney injury Currently on atorvastatin 20 mg daily for dyslipidemia. Continue clopidogrel 75 mg daily. Echocardiogram 04/04 revealed EF 25%. Acute hypoxic respiratory failure Resolved Continue DuoNeb every 6 hours and albuterol aerosols every 2 hours. Anemia of chronic kidney disease Transfused 1 unit packed red blood cell Monitor H&H Prophylaxis - GI - pantoprazole - DVT - SCD/heparin subcutaneous Problem Qualifiers (1) Acute renal failure superimposed on stage 5 chronic kidney disease, not on chronic dialysis: Qualified Codes: N17.9 - Acute kidney failure, unspecified; N18.5 - Chronic kidney disease, stage 5 (2) Pulmonary edema: Qualified Codes: J81.0 - Acute pulmonary edema (3) Hypertension: Qualified Codes: I10 - Essential (primary) hypertension Casa Doshi MD Jul 30, 2017 12:03
--- NOTE | 2017-07-30 15:38 | HHI.NPPN ---
Subjective Renal Failure: Chronic, Acute, Stage V Review of Systems General Constitutional: Fatigue Respiratory Lungs: SOB Gastrointestinal Gastrointestinal: Nausea & Vomiting Objective Data Data Vital Signs Date Time Temp Pulse Resp B/P (MAP) Pulse Ox O2 Delivery O2 Flow Rate FiO2 07/30/17 14:00 58 07/30/17 12:00 98.4 68 24 138/68 (91) 98 07/30/17 12:00 58 07/30/17 10:00 58 07/30/17 08:09 91 Nasal Cannula 3.00 07/30/17 08:00 58 07/30/17 08:00 98.4 66 24 128/62 (84) 98 07/30/17 06:00 58 07/30/17 04:00 98.0 57 25 156/79 (104) 93 07/30/17 04:00 57 07/30/17 02:00 59 07/30/17 00:00 54 07/30/17 00:00 97.7 54 19 149/72 (97) 94 07/29/17 22:00 56 07/29/17 20:00 58 07/29/17 20:00 98.4 58 28 128/60 (82) 98 07/29/17 19:30 94 Nasal Cannula 3.00 07/29/17 19:00 96 Nasal Cannula 2.00 07/29/17 18:00 56 07/29/17 16:00 58 07/29/17 16:00 98.4 58 16 147/70 (95) 95 -: 07/29/17 0548 07/29/17 0548 Tubes & Lines: Vas-Cath Physical Exam General Appearance: Well Developed, Well Nourished, No Acute Distress, Comfortable Eyes Eye Exam: Pupils Equal Throat Throat Exam: Oral Mucosa [place] & Moist Pulmonary Resp Exam: Clear Bilaterally, Breath Sounds Equal, No Distress, Decreased Bases Cardiology CV Exam: Regular, Normal Sinus Rhythm, Good Perfusion Gastrointestinal/Abdomen GI Exam: Soft, Non-Tender, Bowel Sounds Present Musculoskeletal MS Exam: Joints Intact, Normal Tone Integumentary Skin Exam: Clear, Warm, Dry, Intact Extremeties Extremities Exam: No Edema, Pedal Pulses Palpable Neurologic Neuro Exam: Alert, Awake, Oriented, Speech Clear, Moving All Extremities Psychiatric Psych Exam: Appropriate Responses Assessment/Plan Discussed Condition With: Patient Assessment Summary: Anemia of CKD, Hypertension, End Stage Renal Disease Problem List: (1) ESRD (end stage renal disease) ICD Codes: N18.6 - End stage renal disease Plan: He has reached ESRD. Admitted with uremic symptoms including respiratory distress, nausea/vomiting, anemia. Started on hemodialysis 07/25 and 07/26 Dialyzed Tuesday We will continue HD MWF Plans for PD catheter placement has been postponed due to positive blood cultures Vascath in place ESRD HD on MWF Dr. Harrington to follow (2) Anemia ICD Codes: D64.9 - Anemia, unspecified Plan: Continue Epogen with dialysis Has iron deficiency but avoid venofer in lightly of sepsis, oral iron started No bleeding identified (3) Sepsis ICD Codes: A41.9 - Sepsis, unspecified organism Plan: Give vancomycin yesterday ID has evaluated, cultures may have been contaminated Repeat cultures drawn, negative to date, follow results He is afebrile without leukocytosis Imaging shows lower lobe consolidation (4) Metabolic acidosis ICD Codes: E87.2 - Acidosis Plan: Due to renal failure Improved with dialysis (5) Hypertension ICD Codes: I10 - Essential (primary) hypertension Plan: Monitor blood pressure He is on norvasc and coreg (6) Shortness of breath ICD Codes: R06.02 - Shortness of breath Plan: Improved with dialysis Off BiPap (7) Vitamin D deficiency ICD Codes: E55.9 - Vitamin D deficiency, unspecified Plan: With secondary hyperparathyroidism Oral vitamin D3 started, calcitriol also started Problem Qualifiers (1) Hypertension: Qualified Codes: I10 - Essential (primary) hypertension Claribel Lyn MD Jul 30, 2017 15:38
[2017-07-30] MEDS: diphenhydrAMINE HCL 25 MG CAP PO PRN (23:24)
[2017-07-31] VITALS (14 sets, daily range): BP systolic 141–162; BP diastolic 62–76; PULSE 56–61; RESP 21–27; TEMP 98–98.6; O2SAT 92–99
[2017-07-31] MEDS: CHLORHEXIDINE GLUCONATE 2 % 1 PACK (2 CLOTHS) TOP SCH (04:00)
[2017-07-31] MEDS: HEPARIN SODIUM - SQ 10,000 UNITS/ML VIAL SQ SCH ×2 (04:28→18:00)
[2017-07-31] MEDS: FERROUS SULFATE 325 MG (65 MG ELEMENTAL IRON) TAB PO SCH (08:06)
[2017-07-31] MEDS: ATORVASTATIN 20 MG TAB PO SCH (08:06)
[2017-07-31] MEDS: PANTOPRAZOLE SOD 40 MG DELAYED RELEASE TAB PO SCH (08:06)
[2017-07-31] MEDS: POLYETHYLENE GLYCOL 17 GM PKG PO SCH (08:07)
[2017-07-31] MEDS: CLOPIDOGREL 75 MG TAB PO SCH (08:07)
[2017-07-31] MEDS: SODIUM CHLORIDE 0.9% FLUSH 10 ML FLUSH IV FLUSH SCH ×2 (08:10→21:23)
[2017-07-31] MEDS: CARVEDILOL 12.5 MG TAB PO SCH ×2 (08:10→21:23)
[2017-07-31] MEDS: CHOLECALCIFEROL (VIT D3) 1000 UNIT TAB PO SCH (08:11)
--- NOTE | 2017-07-31 09:04 | HHI.PR ---
Subjective Remarks Follow-up end-stage renal disease requiring hemodialysis/acute respiratory failure 07/27/17-patient seen and examined, reports significant improvement of shortness of breath 07/28/17-patient seen and examined, stable and no acute event overnight. H&H 7.6/21.9 however patient denies any bleeding. BP labile. Plan for hemodialysis today 07/29/17-patient seen and examined. Patient is currently hemodialysis machine. Afebrile. Repeat blood culture negative to date. 07/30/17-patient seen and examined, currently no shortness of breath. However yesterday during dialysis patient became short of breath which prompted staff to hold onto dialysis. Patient was able to complete dialysis later on. 07/31/17-patient seen and examined. BP control. Blood culture negative to date 3 days. No chest pain or shortness of breath. Objective Vitals Vital Signs Date Time Temp Pulse Resp B/P (MAP) Pulse Ox O2 Delivery O2 Flow Rate FiO2 07/31/17 08:56 96 Nasal Cannula 3.00 07/31/17 08:00 98.6 59 22 152/68 (96) 97 07/31/17 08:00 60 07/31/17 06:00 61 07/31/17 04:00 61 07/31/17 04:00 98.0 61 27 141/62 (88) 95 07/31/17 02:00 57 07/31/17 00:00 98.1 59 21 143/72 (95) 92 07/31/17 00:00 59 07/30/17 22:00 59 07/30/17 20:00 60 07/30/17 20:00 98.1 60 14 146/67 (93) 97 07/30/17 19:58 96 Nasal Cannula 3.00 07/30/17 19:00 97 Nasal Cannula 2.00 07/30/17 18:00 58 07/30/17 16:00 58 07/30/17 16:00 98.3 58 24 147/71 (96) 98 07/30/17 14:00 58 07/30/17 12:00 98.4 68 24 138/68 (91) 98 07/30/17 12:00 58 07/30/17 10:00 58 I/O 07/30/17 07/30/17 07/30/17 07/31/17 07/31/1707/31/17 07:00 15:00 23:00 07:00 15:00 23:00 Intake Total 380 ml 0 ml Output Total 500 ml 452 ml 350 ml Balance -500 ml -72 ml -350 ml Intake Oral 380 ml IV Total 0 ml Output Urine Total 500 ml 450 ml 350 ml Stool Total 2 ml # Voids 1 # Bowel Movements 0 0 Result Diagram: 07/29/1748 07/29/17547 Objective Remarks GENERAL: 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 HEAD: Normocephalic. EYES: No scleral icterus. No injection or drainage. NECK: Supple, trachea midline. No JVD or lymphadenopathy. CARDIOVASCULAR: Regular rate and rhythm without murmurs, gallops, or rubs. RESPIRATORY: Breath sounds equal bilaterally. No accessory muscle use. GASTROINTESTINAL: Abdomen soft, non-tender, nondistended. MUSCULOSKELETAL: No cyanosis, or edema. BACK: Nontender without obvious deformity. No CVA tenderness. A/P Problem List: (1) Acute renal failure superimposed on stage 5 chronic kidney disease, not on chronic dialysis ICD Code: N17.9 - Acute kidney failure, unspecified; N18.5 - Chronic kidney disease, stage 5 (2) Metabolic acidosis ICD Code: E87.2 - Acidosis (3) Pulmonary edema ICD Code: J81.1 - Chronic pulmonary edema Status: Acute (4) Respiratory distress ICD Code: R06.03 - Acute respiratory distress Status: Acute (5) Hypertension ICD Code: I10 - Essential (primary) hypertension (6) Chronic systolic heart failure ICD Code: I50.22 - Chronic systolic (congestive) heart failure (7) Bacteremia ICD Code: R78.81 - Bacteremia Assessment and Plan 82-year-old man with Bacteremia Appreciate input from infectious disease specialist Likely contaminant, however waiting for repeat blood culture report Repeat blood culture negative to date 3 days End-stage renal disease-now requiring hemodialysis Appreciate input from nephrology Hemodialysis per nephrology Plan for PD catheter placement as been postponed secondary to positive blood culture Chronic systolic heart failure Hypertension Dyslipidemia PAD 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 Hold lisinopril in light of acute kidney injury Currently on atorvastatin 20 mg daily for dyslipidemia. Continue clopidogrel 75 mg daily. Echocardiogram 7/17 revealed EF 25%. Acute hypoxic respiratory failure Resolved Continue DuoNeb every 6 hours and albuterol aerosols every 2 hours. Anemia of chronic kidney disease Transfused 1 unit packed red blood cell Monitor H&H Prophylaxis - GI - pantoprazole - DVT - SCD/heparin subcutaneous Problem Qualifiers (1) Acute renal failure superimposed on stage 5 chronic kidney disease, not on chronic dialysis: Qualified Codes: N17.9 - Acute kidney failure, unspecified; N18.5 - Chronic kidney disease, stage 5 (2) Pulmonary edema: Qualified Codes: J81.0 - Acute pulmonary edema (3) Hypertension: Qualified Codes: I10 - Essential (primary) hypertension Casa Doshi MD Jul 31, 2017 09:04
--- NOTE | 2017-07-31 14:09 | HHI.NPPN ---
Subjective Renal Failure: Chronic, Acute, Stage V Review of Systems General Constitutional: Fatigue Respiratory Lungs: SOB Gastrointestinal Gastrointestinal: Nausea & Vomiting Objective Data Data Vital Signs Date Time Temp Pulse Resp B/P (MAP) Pulse Ox O2 Delivery O2 Flow Rate FiO2 07/31/17 12:00 98.0 56 22 147/68 (94) 97 07/31/17 12:00 60 07/31/17 10:00 60 07/31/17 08:56 96 Nasal Cannula 3.00 07/31/17 08:00 98.6 59 22 152/68 (96) 97 07/31/17 08:00 60 07/31/17 06:00 61 07/31/17 04:00 61 07/31/17 04:00 98.0 61 27 141/62 (88) 95 07/31/17 02:00 57 07/31/17 00:00 98.1 59 21 143/72 (95) 92 07/31/17 00:00 59 07/30/17 22:00 59 07/30/17 20:00 60 07/30/17 20:00 98.1 60 14 146/67 (93) 97 07/30/17 19:58 96 Nasal Cannula 3.00 07/30/17 19:00 97 Nasal Cannula 2.00 07/30/17 18:00 58 07/30/17 16:00 58 07/30/17 16:00 98.3 58 24 147/71 (96) 98 -: 07/29/17 0548 07/29/17 0548 Tubes & Lines: Vas-Cath Physical Exam General Appearance: Well Developed, Well Nourished, No Acute Distress, Comfortable Eyes Eye Exam: Pupils Equal Throat Throat Exam: Oral Mucosa [place] & Moist Pulmonary Resp Exam: Clear Bilaterally, Breath Sounds Equal, No Distress, Decreased Bases Cardiology CV Exam: Regular, Normal Sinus Rhythm, Good Perfusion Gastrointestinal/Abdomen GI Exam: Soft, Non-Tender, Bowel Sounds Present Musculoskeletal MS Exam: Joints Intact, Normal Tone Integumentary Skin Exam: Clear, Warm, Dry, Intact Extremeties Extremities Exam: No Edema, Pedal Pulses Palpable Neurologic Neuro Exam: Alert, Awake, Oriented, Speech Clear, Moving All Extremities Psychiatric Psych Exam: Appropriate Responses Assessment/Plan Discussed Condition With: Patient Assessment Summary: Anemia of CKD, Hypertension, End Stage Renal Disease Problem List: (1) ESRD (end stage renal disease) ICD Codes: N18.6 - End stage renal disease Plan: He has reached ESRD. Admitted with uremic symptoms including respiratory distress, nausea/vomiting, anemia. Started on hemodialysis 07/25 and 07/26 Dialyzed Tuesday We will continue HD MWF Plans for PD catheter placement has been postponed due to positive blood cultures Vascath in place ESRD HD on MWF Dr. Harrington to follow (2) Anemia ICD Codes: D64.9 - Anemia, unspecified Plan: Continue Epogen with dialysis Has iron deficiency but avoid venofer in lightly of sepsis, oral iron started No bleeding identified (3) Sepsis ICD Codes: A41.9 - Sepsis, unspecified organism Plan: Give vancomycin yesterday ID has evaluated, cultures may have been contaminated Repeat cultures drawn, negative to date, follow results He is afebrile without leukocytosis Imaging shows lower lobe consolidation (4) Metabolic acidosis ICD Codes: E87.2 - Acidosis Plan: Due to renal failure Improved with dialysis (5) Hypertension ICD Codes: I10 - Essential (primary) hypertension Plan: Monitor blood pressure He is on norvasc and coreg (6) Shortness of breath ICD Codes: R06.02 - Shortness of breath Plan: Improved with dialysis Off BiPap (7) Vitamin D deficiency ICD Codes: E55.9 - Vitamin D deficiency, unspecified Plan: With secondary hyperparathyroidism Oral vitamin D3 started, calcitriol also started Problem Qualifiers (1) Hypertension: Qualified Codes: I10 - Essential (primary) hypertension Claribel Lyn MD Jul 31, 2017 14:09
[2017-08-01] VITALS (20 sets, daily range): BP systolic 130–165; BP diastolic 63–76; PULSE 55–68; RESP 19–29; TEMP 98.1–98.3; O2SAT 86–98
[2017-08-01] MEDS: CHLORHEXIDINE GLUCONATE 2 % 1 PACK (2 CLOTHS) TOP SCH (04:00)
[2017-08-01 05:56] LABS: AUTOMATED NEUTROPHIL # 5.5 TH/MM3 (1.8-7.7); BASOPHIL # 0.1 TH/MM3 (0-0.2); BASOPHIL % 0.9 % (0.0-2.0); EOSINOPHIL # 0.5 TH/MM3 (0-0.4); EOSINOPHIL % 6.1 % (0.0-4.0); HEMATOCRIT 25.5 % (39.0-51.0); HEMO FLAGS DIFF FINAL; LYMPH % 12.8 % (9.0-44.0); MEAN CELL VOLUME 91.8 FL (80.0-100.0); MEAN CORPUSCULAR HEMOGLOBIN 31.3 PG (27.0-34.0); MEAN CORPUSCULAR HGB CONC 34.1 % (32.0-36.0); NEUT % 69.2 % (16.0-70.0); PLATELET COUNT 201 TH/MM3 (150-450); RED BLOOD COUNT 2.78 MIL/MM3 (4.50-5.90); RED CELL DISTRIBUTION WIDTH 17.2 % (11.6-17.2); WHITE BLOOD COUNT 7.9 TH/MM3 (4.0-11.0)
[2017-08-01 06:25] LABS: BICARBONATE 30.2 MEQ/L (21.0-32.0); POTASSIUM 4.2 MEQ/L (3.5-5.1)
[2017-08-01] MEDS: HEPARIN SODIUM - SQ 10,000 UNITS/ML VIAL SQ SCH ×2 (06:30→18:19)
[2017-08-01] MEDS: CARVEDILOL 12.5 MG TAB PO SCH ×2 (08:49→19:58)
[2017-08-01] MEDS: PANTOPRAZOLE SOD 40 MG DELAYED RELEASE TAB PO SCH (08:49)
[2017-08-01] MEDS: CLOPIDOGREL 75 MG TAB PO SCH (08:49)
[2017-08-01] MEDS: ATORVASTATIN 20 MG TAB PO SCH (08:49)
[2017-08-01] MEDS: CHOLECALCIFEROL (VIT D3) 1000 UNIT TAB PO SCH (08:50)
[2017-08-01] MEDS: FERROUS SULFATE 325 MG (65 MG ELEMENTAL IRON) TAB PO SCH (08:50)
[2017-08-01] MEDS: POLYETHYLENE GLYCOL 17 GM PKG PO SCH (08:50)
[2017-08-01] MEDS: SODIUM CHLORIDE 0.9% FLUSH 10 ML FLUSH IV FLUSH SCH ×2 (08:50→19:58)
--- NOTE | 2017-08-01 09:29 | HHI.PR ---
Subjective Remarks Follow-up end-stage renal disease requiring hemodialysis/acute respiratory failure 07/27/17-patient seen and examined, reports significant improvement of shortness of breath 07/28/17-patient seen and examined, stable and no acute event overnight. H&H 7.6/21.9 however patient denies any bleeding. BP labile. Plan for hemodialysis today 07/29/17-patient seen and examined. Patient is currently hemodialysis machine. Afebrile. Repeat blood culture negative to date. 07/30/17-patient seen and examined, currently no shortness of breath. However yesterday during dialysis patient became short of breath which prompted staff to hold onto dialysis. Patient was able to complete dialysis later on. 07/31/17-patient seen and examined. BP control. Blood culture negative to date 3 days. No chest pain or shortness of breath. 08/01/17-patient seen and examined, reports some episode shortness of breath overnight otherwise stable today. States, he would like to have dialysis in his room Objective Vitals Vital Signs Date Time Temp Pulse Resp B/P (MAP) Pulse Ox O2 Delivery O2 Flow Rate FiO2 08/01/17 07:35 98 Nasal Cannula 3.00 08/01/17 06:00 56 08/01/17 04:00 98.2 57 25 149/70 (96) 98 08/01/17 04:00 57 08/01/17 02:00 61 08/01/17 00:00 60 08/01/17 00:00 98.3 60 20 162/72 (102) 95 07/31/17 22:00 61 07/31/17 20:16 99 Nasal Cannula 3.00 07/31/17 20:00 98.1 61 23 162/76 (104) 98 07/31/17 20:00 97 Nasal Cannula 2.00 07/31/17 20:00 61 07/31/17 18:00 60 07/31/17 16:00 98.3 60 22 147/68 (94) 97 07/31/17 16:00 60 07/31/17 14:00 60 07/31/17 12:00 98.0 56 22 147/68 (94) 97 07/31/17 12:00 60 07/31/17 10:00 60 I/O 07/31/17 07/31/17 07/31/17 08/01/1708/01/17 11/13/17 07:00 15:00 23:00 07:00 15:00 23:00 Intake Total 0 ml 320 ml 300 ml Output Total 350 ml 900 ml 525 ml Balance -350 ml -580 ml -225 ml Intake Oral 320 ml 300 ml IV Total 0 ml Output Urine Total 350 ml 900 ml 525 ml # Voids 1 3 # Bowel Movements 0 0 Result Diagram: 08/01/1743708/01/17437 Objective Remarks GENERAL: 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 HEAD: Normocephalic. EYES: No scleral icterus. No injection or drainage. NECK: Supple, trachea midline. No JVD or lymphadenopathy. CARDIOVASCULAR: Regular rate and rhythm without murmurs, gallops, or rubs. RESPIRATORY: Breath sounds equal bilaterally. No accessory muscle use. GASTROINTESTINAL: Abdomen soft, non-tender, nondistended. MUSCULOSKELETAL: No cyanosis, or edema. BACK: Nontender without obvious deformity. No CVA tenderness. A/P Problem List: (1) Acute renal failure superimposed on stage 5 chronic kidney disease, not on chronic dialysis ICD Code: N17.9 - Acute kidney failure, unspecified; N18.5 - Chronic kidney disease, stage 5 (2) Metabolic acidosis ICD Code: E87.2 - Acidosis (3) Pulmonary edema ICD Code: J81.1 - Chronic pulmonary edema Status: Acute (4) Respiratory distress ICD Code: R06.03 - Acute respiratory distress Status: Acute (5) Hypertension ICD Code: I10 - Essential (primary) hypertension (6) Chronic systolic heart failure ICD Code: I50.22 - Chronic systolic (congestive) heart failure (7) Bacteremia ICD Code: R78.81 - Bacteremia Assessment and Plan 82-year-old man with Bacteremia Appreciate input from infectious disease specialist Likely contaminant, however waiting for repeat blood culture report Repeat blood culture negative to date 4 days End-stage renal disease-now requiring hemodialysis Appreciate input from nephrology Hemodialysis per nephrology Plan for PD catheter placement as been postponed secondary to positive blood culture Chronic systolic heart failure Hypertension Dyslipidemia PAD 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 Hold lisinopril in light of acute kidney injury Currently on atorvastatin 20 mg daily for dyslipidemia. Continue clopidogrel 75 mg daily. Echocardiogram 04/04 revealed EF 25%. Acute hypoxic respiratory failure Resolved Continue DuoNeb when necessary Anemia of chronic kidney disease Transfused 1 unit packed red blood cell Monitor H&H Prophylaxis - GI - pantoprazole - DVT - SCD/heparin subcutaneous Problem Qualifiers (1) Acute renal failure superimposed on stage 5 chronic kidney disease, not on chronic dialysis: Qualified Codes: N17.9 - Acute kidney failure, unspecified; N18.5 - Chronic kidney disease, stage 5 (2) Pulmonary edema: Qualified Codes: J81.0 - Acute pulmonary edema (3) Hypertension: Qualified Codes: I10 - Essential (primary) hypertension Casa Doshi MD Aug 01, 2017 09:29
--- NOTE | 2017-08-01 11:36 | HHI.IDPN ---
Note Infectious Disease Note Patient feels okay. Denies fever, chills, SOB. Occasional cough with phlem. Blood culture repeat has no growth. Seen for bacteremia. PAST MEDICAL HISTORY 1. End-stage renal disease. 2. Hypertension. 3. Dyslipidemia. 4. History of AAA repair in 2017. 5. Left carotid endarterectomy. 6. Inguinal hernia repair. 7. Cranial surgery. ALLERGIES EZETIMIBE. MEDICATIONS Dose of vancomycin was given on 07/28. SOCIAL HISTORY The patient smokes half-a-pack of cigarettes a day. Occasional alcohol. No illicit drugs. The patient is originally from [place], [place]. OBJECTIVE: Vital Signs Date Time Temp Pulse Resp B/P (MAP) Pulse Ox O2 Delivery O2 Flow Rate FiO2 08/01/17 10:00 57 08/01/17 09:00 65 08/01/17 08:00 98.1 56 19 165/76 (105) 96 08/01/17 08:00 56 08/01/17 07:35 98 Nasal Cannula 3.00 08/01/17 07:00 99 Nasal Cannula 3.00 08/01/17 07:00 58 08/01/17 06:00 56 08/01/17 04:00 98.2 57 25 149/70 (96) 98 08/01/17 04:00 57 08/01/17 02:00 61 08/01/17 00:00 60 08/01/17 00:00 98.3 60 20 162/72 (102) 95 07/31/17 22:00 61 07/31/17 20:16 99 Nasal Cannula 3.00 07/31/17 20:00 98.1 61 23 162/76 (104) 98 07/31/17 20:00 97 Nasal Cannula 2.00 07/31/17 20:00 61 07/31/17 18:00 60 07/31/17 16:00 98.3 60 22 147/68 (94) 97 07/31/17 16:00 60 07/31/17 14:00 60 07/31/17 12:00 98.0 56 22 147/68 (94) 97 07/31/17 12:00 60 Laboratory Tests Test 08/01/17 04:38 White Blood Count 7.9 TH/MM3 Red Blood Count 2.78 MIL/MM3 Hemoglobin 8.7 GM/DL Hematocrit 25.5 % Mean Corpuscular Volume 91.8 FL Mean Corpuscular Hemoglobin 31.3 PG Mean Corpuscular Hemoglobin Concent 34.1 % Red Cell Distribution Width 17.2 % Platelet Count 201 TH/MM3 Mean Platelet Volume 8.6 FL Neutrophils (%) (Auto) 69.2 % Lymphocytes (%) (Auto) 12.8 % Monocytes (%) (Auto) 11.0 % Eosinophils (%) (Auto) 6.1 % Basophils (%) (Auto) 0.9 % Neutrophils # (Auto) 5.5 TH/MM3 Lymphocytes # (Auto) 1.0 TH/MM3 Monocytes # (Auto) 0.9 TH/MM3 Eosinophils # (Auto) 0.5 TH/MM3 Basophils # (Auto) 0.1 TH/MM3 CBC Comment DIFF FINAL Differential Comment Laboratory Tests Test 08/01/17 04:38 Blood Urea Nitrogen 40 MG/DL Creatinine 5.86 MG/DL Random Glucose 90 MG/DL Calcium Level 8.4 MG/DL Sodium Level 137 MEQ/L Potassium Level 4.2 MEQ/L Chloride Level 97 MEQ/L Carbon Dioxide Level 30.2 MEQ/L Anion Gap 10 MEQ/L Estimat Glomerular Filtration Rate 9 ML/MIN IMAGING: Chest X-Ray 07/28/17 0000 Signed Impressions: Service Date/Time: July 21:14 - CONCLUSION: 1. Unchanged right lower lobe consolidation with small right effusion. 2. Interval placement of a dialysis catheter which is in good position. No pneumothorax. Pierre Michel Jr., MD Abdomen/Pelvis CT 07/28/17 0000 Signed Impressions: Service Date/Time: July 13:16 - CONCLUSION: 1. Interval development of bilateral pleural effusions and significant consolidation in the right lower lobe. 2. Stable postsurgical changes following abdominal aortic aneurysm repair. 3. Stable small left-sided pelvic fluid collection characteristic of a postsurgical seroma. 4. Stable bilateral renal cysts. 5. Otherwise stable evaluation of the abdomen and pelvis. Adonis Bee MD Catheter Placement X-Ray 07/25/17 0000 Signed Impressions: Service Date/Time: Tuesday, July 25, 2017 18:42 - CONCLUSION: Uncomplicated line placement as above. Zak Cole MD PHYSICAL EXAMINATION GENERAL: No acute distress. Alert and oriented. HEENT: No icterus. Oropharynx moist. Mucosa without lesions. NECK: Supple. No adenopathy. LUNGS: Breath sounds clear. HEART: Regular S1 and S2. No murmurs, rubs or gallops. ABDOMEN: Bowel sounds present, soft, nontender. EXTREMITIES: No clubbing, no cyanosis or edema. SKIN: Warm and moist. No rash. NEURO: Non focal. IMPRESSION 1. Bacteremia. The patient has several different organisms on the blood cultures. Repeat blood culture is negative. Clinically he does not appear septic. I think the positive blood culture is contaminant. 2. End-stage renal disease. On hemodialysis. RECOMMENDATIONS: Okay to proceed with Placement of peritoneal dialysis catheter. Discussed with Dr. Harrington. Tito Watson MD Aug 01, 2017 11:36
--- NOTE | 2017-08-01 11:41 | HHI.NPPN ---
Subjective Renal Failure: Chronic, Acute, Stage V Interval History Sitting up, he looks well. Has no complaints. Repeat BC are negative to date. (Roxi Romano) Review of Systems General Constitutional: Fatigue (Roxi Romano) Respiratory Lungs: SOB (Roxi Romano) Gastrointestinal Gastrointestinal: Nausea & Vomiting (Roxi Romano) Objective Data Data Vital Signs Date Time Temp Pulse Resp B/P (MAP) Pulse Ox O2 Delivery O2 Flow Rate FiO2 08/01/17 10:00 57 08/01/17 09:00 65 08/01/17 08:00 98.1 56 19 165/76 (105) 96 08/01/17 08:00 56 08/01/17 07:35 98 Nasal Cannula 3.00 08/01/17 07:00 99 Nasal Cannula 3.00 08/01/17 07:00 58 08/01/17 06:00 56 08/01/17 04:00 98.2 57 25 149/70 (96) 98 08/01/17 04:00 57 08/01/17 02:00 61 08/01/17 00:00 60 08/01/17 00:00 98.3 60 20 162/72 (102) 95 07/31/17 22:00 61 07/31/17 20:16 99 Nasal Cannula 3.00 07/31/17 20:00 98.1 61 23 162/76 (104) 98 07/31/17 20:00 97 Nasal Cannula 2.00 07/31/17 20:00 61 07/31/17 18:00 60 07/31/17 16:00 98.3 60 22 147/68 (94) 97 07/31/17 16:00 60 07/31/17 14:00 60 07/31/17 12:00 98.0 56 22 147/68 (94) 97 07/31/17 12:00 60 (Roxi Romano) -: 08/01/17 0438 08/01/17 0438 Imaging Last Impressions Chest X-Ray 07/28/17 0000 Signed Impressions: Service Date/Time: July 21:14 - CONCLUSION: 1. Unchanged right lower lobe consolidation with small right effusion. 2. Interval placement of a dialysis catheter which is in good position. No pneumothorax. Pierre Michel Jr., MD Abdomen/Pelvis CT 07/28/17 0000 Signed Impressions: Service Date/Time: July 13:16 - CONCLUSION: 1. Interval development of bilateral pleural effusions and significant consolidation in the right lower lobe. 2. Stable postsurgical changes following abdominal aortic aneurysm repair. 3. Stable small left-sided pelvic fluid collection characteristic of a postsurgical seroma. 4. Stable bilateral renal cysts. 5. Otherwise stable evaluation of the abdomen and pelvis. Adonis Bee MD Catheter Placement X-Ray 07/25/17 0000 Signed Impressions: Service Date/Time: Tuesday, July 25, 2017 18:42 - CONCLUSION: Uncomplicated line placement as above. Zak Cole MD Tubes & Lines: Vas-Cath (Kieran Romanoon B. AUTO DAMAGE APPRAISER) Physical Exam General Appearance: Well Developed, Well Nourished, No Acute Distress, Comfortable (Juan AntonioRoxi B. AUTO DAMAGE APPRAISER) Eyes Eye Exam: Pupils Equal (Juan AntonioRoxi B. AUTO DAMAGE APPRAISER) Throat Throat Exam: Oral Mucosa [place] & Moist (Juan AntonioRoxi B. AUTO DAMAGE APPRAISER) Pulmonary Resp Exam: Clear Bilaterally, Breath Sounds Equal, No Distress, Decreased Bases (Juan AntonioRoxi B. AUTO DAMAGE APPRAISER) Cardiology CV Exam: Regular, Normal Sinus Rhythm, Good Perfusion (Juan Antonio,Roxi B. AUTO DAMAGE APPRAISER) Gastrointestinal/Abdomen GI Exam: Soft, Non-Tender, Bowel Sounds Present (Juan AntonioRoxi B. AUTO DAMAGE APPRAISER) Musculoskeletal MS Exam: Joints Intact, Normal Tone (Juan AntonioRoxi B. AUTO DAMAGE APPRAISER) Integumentary Skin Exam: Clear, Warm, Dry, Intact (Juan Antonio,Roxi B. AUTO DAMAGE APPRAISER) Extremeties Extremities Exam: No Edema, Pedal Pulses Palpable (Juan AntonioRoxi B. AUTO DAMAGE APPRAISER) Neurologic Neuro Exam: Alert, Awake, Oriented, Speech Clear, Moving All Extremities (Juan AntonioRoxi B. AUTO DAMAGE APPRAISER) Psychiatric Psych Exam: Appropriate Responses (Juan AntonioRoxi B. AUTO DAMAGE APPRAISER) Assessment/Plan Discussed Condition With: Patient Assessment Summary: Anemia of CKD, Hypertension, End Stage Renal Disease Problem List: (1) ESRD (end stage renal disease) ICD Codes: N18.6 - End stage renal disease Plan: He has reached ESRD. Admitted with uremic symptoms, Started on hemodialysis 07/25 and 07/26 Due today for HD Will contact Dr. Gamion to inquire about PD catheter placement now that cultures are negative In the meantime, avoid IVF Repeat labs intermittently (2) Anemia ICD Codes: D64.9 - Anemia, unspecified Plan: Continue Epogen with dialysis Has iron deficiency but avoid venofer in lightly of sepsis, oral iron started No bleeding identified (3) Sepsis ICD Codes: A41.9 - Sepsis, unspecified organism Plan: ID has evaluated, cultures may have been contaminated Repeat cultures drawn, negative to date He is afebrile without leukocytosis (4) Metabolic acidosis ICD Codes: E87.2 - Acidosis Plan: Due to renal failure Improved with dialysis (5) Hypertension ICD Codes: I10 - Essential (primary) hypertension Plan: Monitor blood pressure He is on norvasc and coreg (6) Shortness of breath ICD Codes: R06.02 - Shortness of breath Plan: Improved with dialysis Off BiPap (7) Vitamin D deficiency ICD Codes: E55.9 - Vitamin D deficiency, unspecified Plan: With secondary hyperparathyroidism Oral vitamin D3 started, calcitriol also started (Roxi Romano) Plan patient was seen and examined. Agree with above assessment and plan. Discussed with ID, he is cleared for PD catheter. Will inform Dr. Gamino. (Bobby Harrington MD) Problem Qualifiers (1) Hypertension: Qualified Codes: I10 - Essential (primary) hypertension Roxi Romano Aug 01, 2017 11:41 Bobby Harrington MD Aug 02, 2017 11:23
[2017-08-02] VITALS (20 sets, daily range): BP systolic 127–155; BP diastolic 62–80; PULSE 57–72; RESP 18–31; TEMP 97.4–98.6; O2SAT 88–100
[2017-08-02] MEDS: CHLORHEXIDINE GLUCONATE 2 % 1 PACK (2 CLOTHS) TOP SCH (04:00)
[2017-08-02] MEDS: HEPARIN SODIUM - SQ 10,000 UNITS/ML VIAL SQ SCH ×2 (06:32→18:00)
[2017-08-02] MEDS: CHOLECALCIFEROL (VIT D3) 1000 UNIT TAB PO SCH (08:30)
[2017-08-02] MEDS: POLYETHYLENE GLYCOL 17 GM PKG PO SCH (08:30)
[2017-08-02] MEDS: CLOPIDOGREL 75 MG TAB PO SCH (08:30)
[2017-08-02] MEDS: PANTOPRAZOLE SOD 40 MG DELAYED RELEASE TAB PO SCH (08:30)
[2017-08-02] MEDS: SODIUM CHLORIDE 0.9% FLUSH 10 ML FLUSH IV FLUSH SCH ×2 (08:30→22:10)
[2017-08-02] MEDS: FERROUS SULFATE 325 MG (65 MG ELEMENTAL IRON) TAB PO SCH (08:30)
[2017-08-02] MEDS: ATORVASTATIN 20 MG TAB PO SCH (08:30)
[2017-08-02] MEDS: CARVEDILOL 12.5 MG TAB PO SCH ×2 (08:30→22:09)
[2017-08-02 09:00] LABS: AUTOMATED NEUTROPHIL # 5.3 TH/MM3 (1.8-7.7); BASOPHIL # 0.1 TH/MM3 (0-0.2); BASOPHIL % 1.1 % (0.0-2.0); EOSINOPHIL # 0.5 TH/MM3 (0-0.4); EOSINOPHIL % 6.6 % (0.0-4.0); HEMO FLAGS DIFF FINAL; LYMPH % 11.7 % (9.0-44.0); LYMPHOCYTE # 0.9 TH/MM3 (1.0-4.8); MEAN CELL VOLUME 91.4 FL (80.0-100.0); MEAN CORPUSCULAR HEMOGLOBIN 30.9 PG (27.0-34.0); MEAN CORPUSCULAR HGB CONC 33.7 % (32.0-36.0); MONO % 12.8 % (0.0-8.0); NEUT % 67.8 % (16.0-70.0); PLATELET COUNT 222 TH/MM3 (150-450); RED BLOOD COUNT 2.85 MIL/MM3 (4.50-5.90); WHITE BLOOD COUNT 7.9 TH/MM3 (4.0-11.0)
[2017-08-02 09:25] LABS: BICARBONATE 30.2 MEQ/L (21.0-32.0); POTASSIUM 3.8 MEQ/L (3.5-5.1)
--- NOTE | 2017-08-02 10:32 | HHI.NPPN ---
Subjective Renal Failure: Chronic, Acute, Stage V Interval History He is sitting up in a chair. Looks well, no new concerns. Negative blood cultures, afebrile. Dialyzed yesterday. (Roxi Romano) Review of Systems General Constitutional: Fatigue (Roxi Romano) Respiratory Lungs: SOB (Roxi Romano) Gastrointestinal Gastrointestinal: Nausea & Vomiting (Roxi Romano) Objective Data Data Vital Signs Date Time Temp Pulse Resp B/P (MAP) Pulse Ox O2 Delivery O2 Flow Rate FiO2 08/02/17 09:00 64 08/02/17 08:12 96 Nasal Cannula 2.00 08/02/17 08:00 61 08/02/17 08:00 98.1 61 21 155/72 (99) 100 08/02/17 07:00 100 Nasal Cannula 3.00 08/02/17 07:00 72 08/02/17 06:00 61 08/02/17 04:00 98.5 62 21 152/72 (98) 94 08/02/17 04:00 62 08/02/17 02:00 68 08/02/17 00:00 62 08/02/17 00:00 98.6 62 31 152/71 (98) 88 08/01/17 22:00 62 08/01/17 20:00 68 08/01/17 20:00 98.3 68 29 130/71 (90) 86 08/01/17 19:02 96 Nasal Cannula 3.00 08/01/17 19:00 100 Nasal Cannula 3.00 08/01/17 18:00 67 08/01/17 17:00 56 08/01/17 16:00 98.1 59 22 135/63 (87) 97 08/01/17 16:00 59 08/01/17 15:00 58 08/01/17 14:00 59 08/01/17 13:00 57 08/01/17 12:00 98.1 55 19 139/65 (89) 92 08/01/17 12:00 55 08/01/17 11:00 59 (Roxi Romano) -: 08/02/17 0830 08/02/17 0830 Tubes & Lines: Vas-Cath (Roxi Romano) Physical Exam General Appearance: Well Developed, Well Nourished, No Acute Distress, Comfortable (Roxi Romano SERVICE ARCHITECT) Eyes Eye Exam: Pupils Equal (Roxi Romano SERVICE ARCHITECT) Throat Throat Exam: Oral Mucosa [place] & Moist (Roxi Romano SERVICE ARCHITECT) Pulmonary Resp Exam: Clear Bilaterally, Breath Sounds Equal, No Distress, Decreased Bases (Roxi Romano SERVICE ARCHITECT) Cardiology CV Exam: Regular, Normal Sinus Rhythm, Good Perfusion (Roxi Romano SERVICE ARCHITECT) Gastrointestinal/Abdomen GI Exam: Soft, Non-Tender, Bowel Sounds Present (Roxi Romano SERVICE ARCHITECT) Musculoskeletal MS Exam: Joints Intact, Normal Tone (Roxi Romano SERVICE ARCHITECT) Integumentary Skin Exam: Clear, Warm, Dry, Intact (Roxi Romano SERVICE ARCHITECT) Extremeties Extremities Exam: No Edema, Pedal Pulses Palpable (Roxi Romano SERVICE ARCHITECT) Neurologic Neuro Exam: Alert, Awake, Oriented, Speech Clear, Moving All Extremities (Roxi Romano SERVICE ARCHITECT) Psychiatric Psych Exam: Appropriate Responses (Roxi Romano) Assessment/Plan Discussed Condition With: Patient Assessment Summary: Anemia of CKD, Hypertension, End Stage Renal Disease Problem List: (1) ESRD (end stage renal disease) ICD Codes: N18.6 - End stage renal disease Plan: He has reached ESRD. Admitted with uremic symptoms, Started on hemodialysis 07/25 and 07/26 Had 1 liter UF yesterday Pending PD catheter placement, ID has approved In the meantime, avoid IVF Repeat labs intermittently High protein diet encouraged (2) Anemia ICD Codes: D64.9 - Anemia, unspecified Plan: Continue Epogen with dialysis Has iron deficiency, start venofer No bleeding identified (3) Sepsis ICD Codes: A41.9 - Sepsis, unspecified organism Plan: ID has evaluated, cultures likely contaminated Repeat cultures are negative to date He is afebrile without leukocytosis (4) Metabolic acidosis ICD Codes: E87.2 - Acidosis Plan: Due to renal failure Improved with dialysis (5) Hypertension ICD Codes: I10 - Essential (primary) hypertension Plan: Monitor blood pressure He is on norvasc and coreg (6) Shortness of breath ICD Codes: R06.02 - Shortness of breath Plan: Improved with dialysis Off BiPap (7) Vitamin D deficiency ICD Codes: E55.9 - Vitamin D deficiency, unspecified Plan: With secondary hyperparathyroidism Oral vitamin D3 started, calcitriol also started (Roxi Romano) Plan patient was seen and examined. PD catheter placement on . Dialysis MWF. Possible discharge on Tuesday for outpatient urgent start PD. (Bobby Harrington MD) Problem Qualifiers (1) Hypertension: Qualified Codes: I10 - Essential (primary) hypertension Roxi Romano Aug 02, 2017 10:32 Bobby Harrington MD Aug 03, 2017 10:23
--- NOTE | 2017-08-02 11:29 | HHI.PR ---
Subjective Remarks Follow-up end-stage renal disease requiring hemodialysis/acute respiratory failure 07/27/17-patient seen and examined, reports significant improvement of shortness of breath 07/28/17-patient seen and examined, stable and no acute event overnight. H&H 7.6/21.9 however patient denies any bleeding. BP labile. Plan for hemodialysis today 07/29/17-patient seen and examined. Patient is currently hemodialysis machine. Afebrile. Repeat blood culture negative to date. 07/30/17-patient seen and examined, currently no shortness of breath. However yesterday during dialysis patient became short of breath which prompted staff to hold onto dialysis. Patient was able to complete dialysis later on. 07/31/17-patient seen and examined. BP control. Blood culture negative to date 3 days. No chest pain or shortness of breath. 08/01/17-patient seen and examined, reports some episode shortness of breath overnight otherwise stable today. States, he would like to have dialysis in his room 08/02/17-patient seen and examined, repeat culture have been negative 5 days and patient denies any febrile episode. No acute event overnight. He had HD yesterday Objective Vitals Vital Signs Date Time Temp Pulse Resp B/P (MAP) Pulse Ox O2 Delivery O2 Flow Rate FiO2 08/02/17 09:00 64 08/02/17 08:12 96 Nasal Cannula 2.00 08/02/17 08:00 61 08/02/17 08:00 98.1 61 21 155/72 (99) 100 08/02/17 07:00 100 Nasal Cannula 3.00 08/02/17 07:00 72 08/02/17 06:00 61 08/02/17 04:00 98.5 62 21 152/72 (98) 94 08/02/17 04:00 62 08/02/17 02:00 68 08/02/17 00:00 62 08/02/17 00:00 98.6 62 31 152/71 (98) 88 08/01/17 22:00 62 08/01/17 20:00 68 08/01/17 20:00 98.3 68 29 130/71 (90) 86 08/01/17 19:02 96 Nasal Cannula 3.00 08/01/17 19:00 100 Nasal Cannula 3.00 08/01/17 18:00 67 08/01/17 17:00 56 08/01/17 16:00 98.1 59 22 135/63 (87) 97 08/01/17 16:00 59 08/01/17 15:00 58 08/01/17 14:00 59 08/01/17 13:00 57 08/01/17 12:00 98.1 55 19 139/65 (89) 92 08/01/17 12:00 55 I/O 08/01/17 08/01/17 08/01/17 08/02/17 08/02/17 08/02/17 07:00 15:00 23:00 07:00 15:00 23:00 Intake Total 300 ml 700 ml Output Total 525 ml 1250 ml Balance -225 ml -550 ml Intake Oral 300 ml 700 ml Output Urine Total 525 ml 250 ml Hemodialysis 1000 ml # Voids 3 4 # Bowel Movements 0 1 Result Diagram: 08/02/17 0830 08/02/17 0830 Objective Remarks GENERAL: 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 HEAD: Normocephalic. EYES: No scleral icterus. No injection or drainage. NECK: Supple, trachea midline. No JVD or lymphadenopathy. CARDIOVASCULAR: Regular rate and rhythm without murmurs, gallops, or rubs. RESPIRATORY: Breath sounds equal bilaterally. No accessory muscle use. GASTROINTESTINAL: Abdomen soft, non-tender, nondistended. MUSCULOSKELETAL: No cyanosis, or edema. BACK: Nontender without obvious deformity. No CVA tenderness. A/P Problem List: (1) Acute renal failure superimposed on stage 5 chronic kidney disease, not on chronic dialysis ICD Code: N17.9 - Acute kidney failure, unspecified; N18.5 - Chronic kidney disease, stage 5 (2) Metabolic acidosis ICD Code: E87.2 - Acidosis (3) Pulmonary edema ICD Code: J81.1 - Chronic pulmonary edema Status: Acute (4) Respiratory distress ICD Code: R06.03 - Acute respiratory distress Status: Acute (5) Hypertension ICD Code: I10 - Essential (primary) hypertension (6) Chronic systolic heart failure ICD Code: I50.22 - Chronic systolic (congestive) heart failure (7) Bacteremia ICD Code: R78.81 - Bacteremia Assessment and Plan 82-year-old man with Bacteremia Appreciate input from infectious disease specialist Likely contaminant, however waiting for repeat blood culture report Repeat blood culture negative to date 5 days , patient now can proceed with PD catheter placement as clear by infectious disease specialist End-stage renal disease-now requiring hemodialysis Appreciate input from nephrology Hemodialysis per nephrology Patient has been cleared by infectious disease specialist to proceed with PD catheter placement Chronic systolic heart failure Hypertension Dyslipidemia PAD 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 Hold lisinopril in light of acute kidney injury Currently on atorvastatin 20 mg daily for dyslipidemia. Continue clopidogrel 75 mg daily. Echocardiogram 04/04 revealed EF 25%. Acute hypoxic respiratory failure Resolved Continue DuoNeb when necessary Anemia of chronic kidney disease Transfused 1 unit packed red blood cell Monitor H&H Prophylaxis - GI - pantoprazole - DVT - SCD/heparin subcutaneous Problem Qualifiers (1) Acute renal failure superimposed on stage 5 chronic kidney disease, not on chronic dialysis: Qualified Codes: N17.9 - Acute kidney failure, unspecified; N18.5 - Chronic kidney disease, stage 5 (2) Pulmonary edema: Qualified Codes: J81.0 - Acute pulmonary edema (3) Hypertension: Qualified Codes: I10 - Essential (primary) hypertension Casa Doshi MD Aug 02, 2017 11:29
[2017-08-02] MEDS: IRON SUCROSE INJ 100 MG in SODIUM CHLORIDE 0.9% INJ 100 ML IV SCH (12:27)
[2017-08-03] VITALS (13 sets, daily range): BP systolic 154–171; BP diastolic 71–81; PULSE 62–73; RESP 15–21; TEMP 97.9–99.1; O2SAT 92–98
[2017-08-03] MEDS: CHLORHEXIDINE GLUCONATE 2 % 1 PACK (2 CLOTHS) TOP SCH ×2 (03:47→19:28)
[2017-08-03] MEDS: HEPARIN SODIUM - SQ 10,000 UNITS/ML VIAL SQ SCH (06:41)
[2017-08-03] MEDS: CLOPIDOGREL 75 MG TAB PO SCH (08:16)
[2017-08-03] MEDS: SODIUM CHLORIDE 0.9% FLUSH 10 ML FLUSH IV FLUSH SCH ×2 (08:17→19:28)
[2017-08-03] MEDS: CHOLECALCIFEROL (VIT D3) 1000 UNIT TAB PO SCH (08:17)
[2017-08-03] MEDS: POLYETHYLENE GLYCOL 17 GM PKG PO SCH (08:17)
[2017-08-03] MEDS: PANTOPRAZOLE SOD 40 MG DELAYED RELEASE TAB PO SCH (08:17)
[2017-08-03] MEDS: ATORVASTATIN 20 MG TAB PO SCH (08:17)
--- NOTE | 2017-08-03 10:01 | HHI.NPPN ---
Subjective Renal Failure: Chronic, Acute, Stage V Interval History Seen during dialysis. PD catheter placement scheduled for AM. His abdomen has been marked for surgery. To be transferred out of [facility] today. (Roxi Romano) Review of Systems General Constitutional: Fatigue (Roxi Romano) Respiratory Lungs: SOB (Roxi Romano) Gastrointestinal Gastrointestinal: Nausea & Vomiting (Roxi Romano) Objective Data Data Vital Signs Date Time Temp Pulse Resp B/P (MAP) Pulse Ox O2 Delivery O2 Flow Rate FiO2 08/03/17 08:00 72 08/03/17 08:00 98.7 72 18 171/80 (110) 94 08/03/17 07:00 94 Nasal Cannula 4.00 08/03/17 06:00 64 08/03/17 04:00 99.0 66 18 154/76 (102) 92 08/03/17 04:00 66 08/03/17 02:00 66 08/03/17 00:00 62 08/03/17 00:00 99.1 62 18 154/74 (100) 97 08/02/17 22:00 68 08/02/17 20:38 95 Nasal Cannula 4.00 08/02/17 20:00 100 Nasal Cannula 3.00 08/02/17 20:00 64 08/02/17 20:00 97.4 64 18 127/62 (83) 94 08/02/17 18:00 63 08/02/17 17:00 68 08/02/17 16:00 98.1 62 23 142/80 (100) 94 08/02/17 16:00 61 08/02/17 15:00 65 08/02/17 14:00 66 08/02/17 13:00 62 08/02/17 12:00 68 08/02/17 12:00 98.0 68 26 151/68 (95) 95 08/02/17 11:00 66 08/02/17 10:00 57 (Roxi Romano) -: 08/02/17 0830 08/02/17 0830 Tubes & Lines: Vas-Cath (Roxi Romano) Physical Exam General Appearance: Well Developed, Well Nourished, No Acute Distress, Comfortable (Roxi RomanoP) Eyes Eye Exam: Pupils Equal (Roxi Rmoano TEMPER MILL OPERATOR) Throat Throat Exam: Oral Mucosa [place] & Moist (Roxi Romano TEMPER MILL OPERATOR) Pulmonary Resp Exam: Clear Bilaterally, Breath Sounds Equal, No Distress, Decreased Bases (Roxi Romano TEMPER MILL OPERATOR) Cardiology CV Exam: Regular, Normal Sinus Rhythm, Good Perfusion (Roxi Romano TEMPER MILL OPERATOR) Gastrointestinal/Abdomen GI Exam: Soft, Non-Tender, Bowel Sounds Present (Roxi Romano TEMPER MILL OPERATOR) Musculoskeletal MS Exam: Joints Intact, Normal Tone (Roxi Romano TEMPER MILL OPERATOR) Integumentary Skin Exam: Clear, Warm, Dry, Intact (Roxi Romano TEMPER MILL OPERATOR) Extremeties Extremities Exam: No Edema, Pedal Pulses Palpable (Roxi Romano TEMPER MILL OPERATOR) Neurologic Neuro Exam: Alert, Awake, Oriented, Speech Clear, Moving All Extremities (Roxi RomanoP) Psychiatric Psych Exam: Appropriate Responses (Roxi Romano) Assessment/Plan Discussed Condition With: Patient Assessment Summary: Anemia of CKD, Hypertension, End Stage Renal Disease Problem List: (1) ESRD (end stage renal disease) ICD Codes: N18.6 - End stage renal disease Plan: He has reached ESRD. Admitted with uremic symptoms, Started on hemodialysis 07/25 and 07/26 Seen during dialsis today on a 2K, 350 BFR, goal 1.5L Pending PD catheter placement in AM, ID has approved, made him NPO after midnight tonight In the meantime, avoid IVF Repeat labs intermittently High protein diet encouraged The plan is for HD on Tuesday, discharge later in the day, he will begin training for urgent start PD on [id number] next week. (2) Anemia ICD Codes: D64.9 - Anemia, unspecified Plan: Continue Epogen with dialysis Has iron deficiency, start venofer No bleeding identified (3) Sepsis ICD Codes: A41.9 - Sepsis, unspecified organism Plan: ID has evaluated, cultures likely contaminated Repeat cultures are negative to date He is afebrile without leukocytosis (4) Metabolic acidosis ICD Codes: E87.2 - Acidosis Plan: Due to renal failure Improved with dialysis (5) Hypertension ICD Codes: I10 - Essential (primary) hypertension Plan: Monitor blood pressure He is on norvasc and coreg (6) Shortness of breath ICD Codes: R06.02 - Shortness of breath Plan: Improved with dialysis Off BiPap (7) Vitamin D deficiency ICD Codes: E55.9 - Vitamin D deficiency, unspecified Plan: With secondary hyperparathyroidism Oral vitamin D3 started, calcitriol also started (Roxi Romano) Plan patient was seen and examined. Agree with above assessment and plan. (Bobby Harrington MD) Problem Qualifiers (1) Hypertension: Qualified Codes: I10 - Essential (primary) hypertension Roxi Romano Aug 03, 2017 10:01 Bobby Harrington MD Aug 03, 2017 21:04
--- NOTE | 2017-08-03 10:49 | HHI.PR ---
Subjective Remarks Medical patient seen in follow-up for renal disease requiring dialysis as well as for respiratory distress which is resolved. Care plan discussed with [facility] and patient. Patient is comfortable without any complaints. Care plan also discussed with nephrology team who recommended placement of peritoneal dialysis catheter in a.m. Objective Vitals Vital Signs Date Time Temp Pulse Resp B/P (MAP) Pulse Ox O2 Delivery O2 Flow Rate FiO2 08/03/17 10:00 66 08/03/17 08:00 72 08/03/17 08:00 98.7 72 18 171/80 (110) 94 08/03/17 07:00 94 Nasal Cannula 4.00 08/03/17 07:00 98 Nasal Cannula 4.00 08/03/17 06:00 64 08/03/17 04:00 99.0 66 18 154/76 (102) 92 08/03/17 04:00 66 08/03/17 02:00 66 08/03/17 00:00 62 08/03/17 00:00 99.1 62 18 154/74 (100) 97 08/02/17 22:00 68 08/02/17 20:38 95 Nasal Cannula 4.00 08/02/17 20:00 100 Nasal Cannula 3.00 08/02/17 20:00 64 08/02/17 20:00 97.4 64 18 127/62 (83) 94 08/02/17 18:00 63 08/02/17 17:00 68 08/02/17 16:00 98.1 62 23 142/80 (100) 94 08/02/17 16:00 61 08/02/17 15:00 65 08/02/17 14:00 66 08/02/17 13:00 62 08/02/17 12:00 68 08/02/17 12:00 98.0 68 26 151/68 (95) 95 08/02/17 11:00 66 I/O 08/02/17 08/02/17 08/02/17 08/03/17 08/03/17 08/03/17 07:00 15:00 23:00 07:00 15:00 23:00 Intake Total 350 ml 480 ml Output Total 600 ml Balance -250 ml 480 ml Intake Oral 350 ml 480 ml Output Urine Total 600 ml # Voids 4 1 3 # Bowel Movements 1 Result Diagram: 08/02/1730 11/14/17 0830 Imaging Last Impressions Chest X-Ray 07/28/17 0000 Signed Impressions: Service Date/Time: July 21:14 - CONCLUSION: 1. Unchanged right lower lobe consolidation with small right effusion. 2. Interval placement of a dialysis catheter which is in good position. No pneumothorax. Pierre Michel Jr., MD Abdomen/Pelvis CT 07/28/17 0000 Signed Impressions: Service Date/Time: July 13:16 - CONCLUSION: 1. Interval development of bilateral pleural effusions and significant consolidation in the right lower lobe. 2. Stable postsurgical changes following abdominal aortic aneurysm repair. 3. Stable small left-sided pelvic fluid collection characteristic of a postsurgical seroma. 4. Stable bilateral renal cysts. 5. Otherwise stable evaluation of the abdomen and pelvis. Adonis Bee MD Catheter Placement X-Ray 07/25/17 0000 Signed Impressions: Service Date/Time: Tuesday, July 25, 2017 18:42 - CONCLUSION: Uncomplicated line placement as above. Zak Cole MD Objective Remarks GENERAL: This is a well-nourished, well-developed patient, in no apparent distress. Currently in hemodialysis CARDIOVASCULAR: Regular rate and rhythm without murmurs, gallops, or rubs. RESPIRATORY: Clear to auscultation. Breath sounds equal bilaterally. No wheezes , rales, or rhonchi. GASTROINTESTINAL: Abdomen soft, non-tender, nondistended. Normal active bowel sounds MUSCULOSKELETAL: Extremities without clubbing, cyanosis, or edema. NEURO: Alert & Oriented x4 to person, place, time, situation. Moves all ext x4 A/P Problem List: (1) Acute renal failure superimposed on stage 5 chronic kidney disease, not on chronic dialysis ICD Code: N17.9 - Acute kidney failure, unspecified; N18.5 - Chronic kidney disease, stage 5 Plan: Continue with plans for peritoneal catheter placement Patient will require home health and education (2) Respiratory distress ICD Code: R06.03 - Acute respiratory distress Status: Acute Plan: Resolved, combination of congestive heart failure with an EF of 25% Continue oxygen as needed (3) Bacteremia ICD Code: R78.81 - Bacteremia Plan: Transient likely contaminant Culture negative to date (4) CHF (congestive heart failure) ICD Code: I50.9 - Heart failure, unspecified Plan: Status post acute exacerbation and currently resolved pulmonary edema Continue with Coreg, amlodipine Lisinopril has been held Continue Plavix Echocardiogram 03/2017 shows an EF of 25% Continue Plavix Discharge Planning Likely discharge 2-3 days with home health care Problem Qualifiers (1) Acute renal failure superimposed on stage 5 chronic kidney disease, not on chronic dialysis: Qualified Codes: N17.9 - Acute kidney failure, unspecified; N18.5 - Chronic kidney disease, stage 5 Rosario Cordon MD Aug 03, 2017 10:49
--- NOTE | 2017-08-03 11:15 | HHI.FF ---
Face to Face Verification Diagnosis: (1) ESRD (end stage renal disease) Home Health Nursing Order: Medical education Signs/symptoms of disease process I have seen patient Jose Fonseca Sr Donnie on 08/03/17. My clinical findings support the need for the requested home health care services because: Patient has SOB I certify that my clinical findings support that this patient is homebound because: Poor cardiac reserve Rosario Cordon MD Aug 03, 2017 11:15
[2017-08-03] MEDS: HEPARIN SODIUM - IV 10,000 UNITS/10 ML VIAL PRN (11:54)
[2017-08-03] MEDS: SODIUM CHLOR 0.9% 1000 ML INJ 1,000 ML OTHER PRN (11:55)
[2017-08-03] MEDS: GENTAMICIN SULFATE (DIALYSIS USE ONLY) 20 MG/2 ML VIAL OTHER PRN (11:55)
[2017-08-03] MEDS: IRON SUCROSE INJ 100 MG in SODIUM CHLORIDE 0.9% INJ 100 ML IV SCH (13:03)
[2017-08-03] MEDS: CARVEDILOL 12.5 MG TAB PO SCH ×2 (13:16→21:00)
[2017-08-04] VITALS (8 sets, daily range): BP systolic 144–157; BP diastolic 70–79; PULSE 59–75; RESP 15–17; TEMP 98.2–99.2; O2SAT 89–96
[2017-08-04] MEDS: PANTOPRAZOLE SOD 40 MG DELAYED RELEASE TAB PO SCH (07:54)
[2017-08-04] MEDS: CHOLECALCIFEROL (VIT D3) 1000 UNIT TAB PO SCH (07:54)
[2017-08-04] MEDS: ATORVASTATIN 20 MG TAB PO SCH (07:54)
[2017-08-04] MEDS: POLYETHYLENE GLYCOL 17 GM PKG PO SCH (07:55)
[2017-08-04] MEDS: CARVEDILOL 12.5 MG TAB PO SCH ×2 (07:55→20:54)
--- NOTE | 2017-08-04 10:36 | HHI.PR ---
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 Objective Vitals Vital Signs Date Time Temp Pulse Resp B/P (MAP) Pulse Ox O2 Delivery O2 Flow Rate FiO2 08/04/17 08:00 98.2 75 15 154/74 (100) 92 08/04/17 08:00 59 08/04/17 07:00 92 Room Air 08/04/17 04:00 98.3 75 15 155/73 (100) 96 08/04/17 04:00 75 08/04/17 03:42 95 08/04/17 00:00 98.3 70 16 144/71 (95) 95 08/04/17 00:00 70 08/03/17 23:31 94 08/03/17 20:00 92 08/03/17 20:00 65 08/03/17 20:00 98.2 65 15 161/73 (102) 95 08/03/17 19:00 Room Air 08/03/17 18:00 73 08/03/17 16:00 98.7 67 18 160/71 (100) 95 08/03/17 16:00 68 08/03/17 14:00 70 08/03/17 12:00 68 08/03/17 12:00 97.9 68 21 155/81 (105) 97 I/O 08/03/17 08/03/17 08/03/17 08/04/17 08/04/17 08/04/17 07:00 15:00 23:00 07:00 15:00 23:00 Intake Total 480 ml 580 ml Output Total 1500 ml Balance 480 ml -1500 ml 580 ml Intake Oral 480 ml 480 ml IV Total 100 ml Hemodialysis 1500 ml # Voids 3 4 5 Result Diagram: 08/02/1782908/02/17829 Objective Remarks GENERAL: This is a well-nourished, well-developed patient, in no apparent distress. Currently in hemodialysis CARDIOVASCULAR: Regular rate and rhythm without murmurs, gallops, or rubs. RESPIRATORY: Clear to auscultation. Breath sounds equal bilaterally. No wheezes , rales, or rhonchi. GASTROINTESTINAL: Abdomen soft, non-tender, nondistended. Normal active bowel sounds MUSCULOSKELETAL: Extremities without clubbing, cyanosis, or edema. NEURO: Alert & Oriented x4 to person, place, time, situation. Moves all ext x4 A/P Problem List: (1) Acute renal failure superimposed on stage 5 chronic kidney disease, not on chronic dialysis ICD Code: N17.9 - Acute kidney failure, unspecified; N18.5 - Chronic kidney disease, stage 5 Plan: Continue with plans for peritoneal catheter placement Patient will require home health and education (2) Respiratory distress ICD Code: R06.03 - Acute respiratory distress Status: Acute Plan: Resolved, combination of congestive heart failure with an EF of 25% Continue oxygen as needed (3) Bacteremia ICD Code: R78.81 - Bacteremia Plan: Transient likely contaminant Culture negative to date (4) CHF (congestive heart failure) ICD Code: I50.9 - Heart failure, unspecified Plan: Status post acute exacerbation and currently resolved pulmonary edema Continue with Coreg, amlodipine Lisinopril has been held Continue Plavix post procedures Echocardiogram 03/2017 shows an EF of 25% Discharge Planning Likely discharge 2-3 days with home health care, pending pd catheter placement Problem Qualifiers (1) Acute renal failure superimposed on stage 5 chronic kidney disease, not on chronic dialysis: Qualified Codes: N17.9 - Acute kidney failure, unspecified; N18.5 - Chronic kidney disease, stage 5 Rosario Cordon MD Aug 04, 2017 10:36
[2017-08-04] MEDS: SODIUM CHLORIDE 0.9% FLUSH 10 ML FLUSH IV FLUSH SCH ×2 (12:04→20:11)
[2017-08-04] MEDS: IRON SUCROSE INJ 100 MG in SODIUM CHLORIDE 0.9% INJ 100 ML IV SCH (12:04)
[2017-08-04] MEDS: CHLORHEXIDINE GLUCONATE 2 % 1 PACK (2 CLOTHS) TOP SCH (19:17)
--- NOTE | 2017-08-04 20:29 | HHI.NPPN ---
Subjective Renal Failure: Chronic, Acute, Stage V Interval History patient was seen and examined. PD catheter placement tomorrow. Discussed with Dr. Gamino. Review of Systems General Constitutional: Fatigue Respiratory Lungs: SOB Gastrointestinal Gastrointestinal: Nausea & Vomiting Objective Data Data 08/04/17 08/05/17 19:00 07:00 Intake Total 720 ml Balance 720 ml Intake Oral 720 ml # Voids 4 Vital Signs Date Time Temp Pulse Resp B/P (MAP) Pulse Ox O2 Delivery O2 Flow Rate FiO2 08/04/17 20:00 Room Air 08/04/17 20:00 98.3 66 144/77 (99) 94 08/04/17 20:00 66 08/04/17 16:00 72 08/04/17 16:00 99.2 72 17 157/79 (105) 94 08/04/17 12:00 98.2 68 15 149/70 (96) 89 08/04/17 12:00 68 08/04/17 08:00 98.2 75 15 154/74 (100) 92 08/04/17 08:00 59 08/04/17 07:00 92 Room Air 08/04/17 04:00 98.3 75 15 155/73 (100) 96 08/04/17 04:00 75 08/04/17 03:42 95 08/04/17 00:00 98.3 70 16 144/71 (95) 95 08/04/17 00:00 70 08/03/17 23:31 94 -: 08/02/17 0830 08/02/17 0830 Tubes & Lines: Vas-Cath Physical Exam General Appearance: Well Developed, Well Nourished, No Acute Distress, Comfortable Eyes Eye Exam: Pupils Equal Throat Throat Exam: Oral Mucosa [place] & Moist Pulmonary Resp Exam: Clear Bilaterally, Breath Sounds Equal, No Distress, Decreased Bases Cardiology CV Exam: Regular, Normal Sinus Rhythm, Good Perfusion Gastrointestinal/Abdomen GI Exam: Soft, Non-Tender, Bowel Sounds Present Musculoskeletal MS Exam: Joints Intact, Normal Tone Integumentary Skin Exam: Clear, Warm, Dry, Intact Extremeties Extremities Exam: No Edema, Pedal Pulses Palpable Neurologic Neuro Exam: Alert, Awake, Oriented, Speech Clear, Moving All Extremities Psychiatric Psych Exam: Appropriate Responses Assessment/Plan Discussed Condition With: Patient Assessment Summary: Anemia of CKD, Hypertension, End Stage Renal Disease Problem List: (1) ESRD (end stage renal disease) ICD Codes: N18.6 - End stage renal disease Plan: He has reached ESRD. Admitted with uremic symptoms, Dialysis initiated on 07/25. Dialysis tomorrow. PD catheter placement tomorrow. Remove hemodialysis catheter after HD tomorrow, before discharge. Urgent start PD from Tuesday. (2) Anemia ICD Codes: D64.9 - Anemia, unspecified Plan: Continue Epogen with dialysis Has iron deficiency, start venofer No bleeding identified (3) Sepsis ICD Codes: A41.9 - Sepsis, unspecified organism Plan: ID has evaluated, cultures likely contaminated Repeat cultures are negative to date He is afebrile without leukocytosis (4) Metabolic acidosis ICD Codes: E87.2 - Acidosis Plan: Due to renal failure Improved with dialysis (5) Hypertension ICD Codes: I10 - Essential (primary) hypertension Plan: Monitor blood pressure He is on norvasc and coreg (6) Shortness of breath ICD Codes: R06.02 - Shortness of breath Plan: Improved with dialysis Off BiPap (7) Vitamin D deficiency ICD Codes: E55.9 - Vitamin D deficiency, unspecified Plan: With secondary hyperparathyroidism Oral vitamin D3 started, calcitriol also started Problem Qualifiers (1) Hypertension: Qualified Codes: I10 - Essential (primary) hypertension Bobby Harrington MD Aug 04, 2017 20:29
[2017-08-05] VITALS: BP 166/77; PULSE 69; RESP 15; TEMP 98.3; O2SAT 95
[2017-08-05 04:00] VITALS: BP 151/70; PULSE 66; RESP 15; TEMP 98.3; O2SAT 95
[2017-08-05 06:32] LABS: AUTOMATED NEUTROPHIL # 5.9 TH/MM3 (1.8-7.7); BASOPHIL # 0.1 TH/MM3 (0-0.2); EOSINOPHIL # 0.5 TH/MM3 (0-0.4); EOSINOPHIL % 5.3 % (0.0-4.0); HEMATOCRIT 25.3 % (39.0-51.0); HEMO FLAGS DIFF FINAL; LYMPH % 11.8 % (9.0-44.0); MEAN CELL VOLUME 92.5 FL (80.0-100.0); MEAN CORPUSCULAR HEMOGLOBIN 31.8 PG (27.0-34.0); MEAN CORPUSCULAR HGB CONC 34.3 % (32.0-36.0); MONO % 15.2 % (0.0-8.0); NEUT % 66.7 % (16.0-70.0); PLATELET COUNT 198 TH/MM3 (150-450); RED BLOOD COUNT 2.74 MIL/MM3 (4.50-5.90); RED CELL DISTRIBUTION WIDTH 17.3 % (11.6-17.2); WHITE BLOOD COUNT 8.8 TH/MM3 (4.0-11.0)
[2017-08-05 07:00] LABS: BICARBONATE 30.8 MEQ/L (21.0-32.0); POTASSIUM 3.7 MEQ/L (3.5-5.1)
[2017-08-05] MEDS: CHOLECALCIFEROL (VIT D3) 1000 UNIT TAB PO SCH (07:22)
[2017-08-05] MEDS: SODIUM CHLORIDE 0.9% FLUSH 10 ML FLUSH IV FLUSH SCH ×2 (07:23→20:44)
[2017-08-05] MEDS: CARVEDILOL 12.5 MG TAB PO SCH ×2 (07:23→20:40)
[2017-08-05] MEDS: PANTOPRAZOLE SOD 40 MG DELAYED RELEASE TAB PO SCH (07:23)
[2017-08-05] MEDS: ATORVASTATIN 20 MG TAB PO SCH (07:23)
[2017-08-05] MEDS: POLYETHYLENE GLYCOL 17 GM PKG PO SCH (07:27)
[2017-08-05 08:00] VITALS: BP 151/76; PULSE 68; RESP 15; TEMP 98.5; O2SAT 92
[2017-08-05 09:18] VITALS: O2SAT 92
--- NOTE | 2017-08-05 10:00 | HHI.NPPN ---
Subjective Renal Failure: Chronic, Acute, Stage V Interval History He is resting. To have PD catheter placed today. Also due for dialysis. (Roxi Romano) Review of Systems General Constitutional: Fatigue (Roxi Romano) Respiratory Lungs: SOB (Roxi Romano) Gastrointestinal Gastrointestinal: Nausea & Vomiting (Roxi Romano) Objective Data Data Vital Signs Date Time Temp Pulse Resp B/P (MAP) Pulse Ox O2 Delivery O2 Flow Rate FiO2 08/05/17 09:18 92 21 08/05/17 08:00 98.5 68 15 151/76 (101) 92 08/05/17 08:00 68 08/05/17 07:00 92 Room Air 08/05/17 04:00 66 08/05/17 04:00 98.3 66 15 151/70 (97) 95 08/05/17 00:00 69 08/05/17 00:00 98.3 69 15 166/77 (106) 95 08/04/17 20:36 93 21 08/04/17 20:00 Room Air 08/04/17 20:00 98.3 66 144/77 (99) 94 08/04/17 20:00 66 08/04/17 16:00 72 08/04/17 16:00 99.2 72 17 157/79 (105) 94 08/04/17 12:00 98.2 68 15 149/70 (96) 89 08/04/17 12:00 68 (Roxi Romano) -: 08/05/17 0457 08/05/17 0457 Tubes & Lines: Vas-Cath (Roxi Romano) Physical Exam General Appearance: Well Developed, Well Nourished, No Acute Distress, Comfortable (Roxi Romano) Eyes Eye Exam: Pupils Equal (Roxi Romano) Throat Throat Exam: Oral Mucosa [place] & Moist (Roxi Romano) Pulmonary Resp Exam: Clear Bilaterally, Breath Sounds Equal, No Distress, Decreased Bases (Roxi Romano) Cardiology CV Exam: Regular, Normal Sinus Rhythm, Good Perfusion (Roxi Romano) Gastrointestinal/Abdomen GI Exam: Soft, Non-Tender, Bowel Sounds Present (Roxi Romano) Musculoskeletal MS Exam: Joints Intact, Normal Tone (Roxi Romano) Integumentary Skin Exam: Clear, Warm, Dry, Intact (Roxi Romano) Extremeties Extremities Exam: No Edema, Pedal Pulses Palpable (Roxi Romano) Neurologic Neuro Exam: Alert, Awake, Oriented, Speech Clear, Moving All Extremities (Roxi Romano) Psychiatric Psych Exam: Appropriate Responses (Roxi Romano) Assessment/Plan Discussed Condition With: Patient Assessment Summary: Anemia of CKD, Hypertension, End Stage Renal Disease Problem List: (1) ESRD (end stage renal disease) ICD Codes: N18.6 - End stage renal disease Plan: He has reached ESRD. Admitted with uremic symptoms, Dialysis initiated on 07/25. ON MWF HD while transitioning to PD PD catheter placement today HD later today then can remove VasCath, HD nurses aware Can be discharged late today or tomorrow Will start urgent start PD on Tuesday, he is aware Avoid IVF (2) Anemia ICD Codes: D64.9 - Anemia, unspecified Plan: Continue Epogen with dialysis Has iron deficiency, start venofer No bleeding identified (3) Sepsis ICD Codes: A41.9 - Sepsis, unspecified organism Plan: ID has evaluated, cultures likely contaminated Repeat cultures are negative to date He is afebrile without leukocytosis (4) Metabolic acidosis ICD Codes: E87.2 - Acidosis Plan: Due to renal failure Improved with dialysis (5) Hypertension ICD Codes: I10 - Essential (primary) hypertension Plan: Monitor blood pressure He is on norvasc and coreg (6) Shortness of breath ICD Codes: R06.02 - Shortness of breath Plan: Improved with dialysis Off BiPap (7) Vitamin D deficiency ICD Codes: E55.9 - Vitamin D deficiency, unspecified Plan: With secondary hyperparathyroidism On vitamin D3 and calcitriol (Roxi Romano) Plan patient was seen and examined during dialysis. UF goal is 2 liters. He is doing well. Outpatient "urgent start" PD is set up from Tuesday. He can be discharged from renal standpoint. (Bobby Harrington MD) Problem Qualifiers (1) Hypertension: Qualified Codes: I10 - Essential (primary) hypertension Roxi Romano Aug 05, 2017 10:00 Bobby Harrington MD Aug 05, 2017 14:49
[2017-08-05] MEDS ORDERED: BUPIVACAINE/EPINEPHRINE 0.5% 50 ML VIAL ONE (11:24)
[2017-08-05] MEDS ORDERED: BUPIVACAINE/EPINEPHRINE 0.25% 50 ML VIAL ONE (11:38)
[2017-08-05 13:10] VITALS: O2SAT 99
[2017-08-05] MEDS ORDERED: FUROSEMIDE 20 MG/2 ML VIAL ONE (13:16)
[2017-08-05] MEDS ORDERED: DO NOT ADM ANY ANTICOAGULANT DRUGS PRN (13:45)
[2017-08-05] MEDS ORDERED: FUROSEMIDE 40 MG/4 ML VIAL IV ONE (13:45)
--- NOTE | 2017-08-05 14:25 | HHI.PR ---
Subjective Remarks Patient seen and evaluated postoperatively PACU regional dialysis catheter placement. No new events overnight Objective Vitals Vital Signs Date Time Temp Pulse Resp B/P (MAP) Pulse Ox O2 Delivery O2 Flow Rate FiO2 08/05/17 13:10 99 40 08/05/17 10:35 94 Nasal Cannula 3 08/05/17 10:35 84 Room Air 08/05/17 09:18 92 21 08/05/17 08:00 98.5 68 15 151/76 (101) 92 08/05/17 08:00 68 08/05/17 07:00 92 Room Air 08/05/17 04:00 66 08/05/17 04:00 98.3 66 15 151/70 (97) 95 08/05/17 00:00 69 08/05/17 00:00 98.3 69 15 166/77 (106) 95 08/04/17 20:36 93 21 08/04/17 20:00 Room Air 08/04/17 20:00 98.3 66 144/77 (99) 94 08/04/17 20:00 66 08/04/17 16:00 72 08/04/17 16:00 99.2 72 17 157/79 (105) 94 I/O 08/04/17 08/04/17 08/04/17 08/05/17 08/05/17 08/05/17 07:00 15:00 23:00 07:00 15:00 23:00 Intake Total 720 ml 450 ml Output Total 2 ml Balance 720 ml 448 ml Intake Oral 720 ml IV Total 450 ml Estimated Blood Loss 2 ml # Voids 5 4 3 Result Diagram: 08/05/17 0457 08/05/17 0457 Objective Remarks GENERAL: This is a well-nourished, well-developed patient, in no apparent distress. In PACU status post PD Dialysis catheter CARDIOVASCULAR: Regular rate and rhythm without murmurs, gallops, or rubs. RESPIRATORY: Clear to auscultation. Breath sounds equal bilaterally. No wheezes , rales, or rhonchi. GASTROINTESTINAL: Abdomen soft, non-tender, nondistended. Normal active bowel sounds MUSCULOSKELETAL: Extremities without clubbing, cyanosis, or edema. NEURO: Alert & Oriented x4 to person, place, time, situation. Moves all ext x4 A/P Problem List: (1) Respiratory distress ICD Code: R06.03 - Acute respiratory distress Status: Acute Plan: Resolved, combination of congestive heart failure with an EF of 25% Continue oxygen as needed (2) CHF (congestive heart failure) ICD Code: I50.9 - Heart failure, unspecified Plan: Status post acute exacerbation and currently resolved pulmonary edema Continue with Coreg, amlodipine Lisinopril has been held Continue Plavix Echocardiogram 03/2017 shows an EF of 25% (3) ESRD (end stage renal disease) ICD Code: N18.6 - End stage renal disease Plan: Continue with peritoneal dialysis management Discharge Planning Likely discharge in a.m. with home health care, pending pd catheter placement Rosario Cordon MD Aug 05, 2017 14:25
[2017-08-05] MEDS: SODIUM CHLOR 0.9% 1000 ML INJ 1,000 ML OTHER PRN (17:40)
[2017-08-05] MEDS: EPOETIN ALFA 10,000 UNITS/ML VIAL IV PUSH PRN (17:40)
[2017-08-05 20:00] VITALS: BP 159/74; PULSE 64; RESP 17; TEMP 96.4; O2SAT 97
[2017-08-06] VITALS: BP 124/57; PULSE 61; RESP 16; TEMP 97.9; O2SAT 92
[2017-08-06 04:14] VITALS: O2SAT 94
[2017-08-06 07:41] VITALS: BP 162/74; PULSE 63; RESP 16; TEMP 98.4; O2SAT 92
[2017-08-06] MEDS: POLYETHYLENE GLYCOL 17 GM PKG PO SCH (09:34)
[2017-08-06] MEDS: CARVEDILOL 12.5 MG TAB PO SCH (09:34)
[2017-08-06] MEDS: PANTOPRAZOLE SOD 40 MG DELAYED RELEASE TAB PO SCH (09:34)
[2017-08-06] MEDS: SODIUM CHLORIDE 0.9% FLUSH 10 ML FLUSH IV FLUSH SCH (09:35)
[2017-08-06] MEDS: ATORVASTATIN 20 MG TAB PO SCH (09:35)
[2017-08-06] MEDS: CHOLECALCIFEROL (VIT D3) 1000 UNIT TAB PO SCH (09:46)
[2017-08-06] MEDS: CLOPIDOGREL 75 MG TAB PO SCH (09:46)
[2017-08-06] MEDS ORDERED: CALC.25 PO (10:18)
[2017-08-06] MEDS ORDERED: CHOL1000 PO (10:18)
[2017-08-06] MEDS ORDERED: CARV12.5 PO (10:18)
--- NOTE | 2017-08-06 10:20 | HHI.DCPOC ---
Discharge Care Plan Diagnosis: (1) Vitamin D deficiency (2) End stage renal disease Goals to Promote Your Health * To prevent worsening of your condition and complications * To maintain your health at the optimal level Directions to Meet Your Goals Take your medications as prescribed Follow your dietary instruction Follow activity as directed Keep your appointments as scheduled Take your immunizations and boosters as scheduled If your symptoms worsen call your PCP, if no PCP go to Urgent Care Center or Emergency Room Smoking is Dangerous to Your Health. Avoid second hand smoke Call the 24-hour hour crisis hotline for domestic abuse at Rosario Cordon MD Aug 06, 2017 10:20
--- NOTE | 2017-08-06 10:27 | HHI.DS ---
Discharge Summary Admission Date Jul 25, 2017 at 17:04 Discharge Date: Aug 06, 2017 Admitting Diagnosis respiratory distress, pleural effusion, pulmonary edema, ESRD (1) Respiratory distress ICD Code: R06.03 - Acute respiratory distress Status: Acute (2) CHF (congestive heart failure) ICD Code: I50.9 - Heart failure, unspecified (3) ESRD (end stage renal disease) ICD Code: N18.6 - End stage renal disease Procedures PD catheter placement Brief History - From Admission This is a 82-year-old male. Date of admission 07/25/2017. Past medical history includes chronic kidney disease stage IV [address] Harrington, hypertension, dyslipidemia, recent thoracic aortic aneurysm repair juxtarenal December [address] Russo and chronic systolic heart failure ejection fraction 25%. Patient was admitted in June with a creatinine of 6. This is thought to be possibly ATN versus dehydration from diarrhea C. difficile negative. Patient was recently seen outpatient with possible set up of outpatient perineal dialysis. Today, patient started complaining of acute shortness of breath that started this morning. EMS was called and patient was using accessory muscles. They decided to put a CPAP and gave him 80 mg of furosemide IV. Saturation much improved on BiPAP and patient feeling much more comfort with. Was 98% on pressures of 10 over 5. He was on 40% FiO2. Patient denies of any chest pain. No history of fever or chills. CBC/BMP: 08/05/17 0457 08/05/17 0457 Significant Findings Laboratory Tests Test 08/05/17 04:57 Red Blood Count 2.74 MIL/MM3 (4.50-5.90) Hemoglobin 8.7 GM/DL (13.0-17.0) Hematocrit 25.3 % (39.0-51.0) Red Cell Distribution Width 17.3 % (11.6-17.2) Monocytes (%) (Auto) 15.2 % (0.0-8.0) Eosinophils (%) (Auto) 5.3 % (0.0-4.0) Monocytes # (Auto) 1.3 TH/MM3 (0-0.9) Eosinophils # (Auto) 0.5 TH/MM3 (0-0.4) Blood Urea Nitrogen 34 MG/DL (7-18) Creatinine 5.57 MG/DL (0.60-1.30) Calcium Level 8.3 MG/DL (8.5-10.1) Estimat Glomerular Filtration Rate 10 ML/MIN (>89) Imaging Last Impressions Chest X-Ray 07/28/17 0000 Signed Impressions: Service Date/Time: July 21:14 - CONCLUSION: 1. Unchanged right lower lobe consolidation with small right effusion. 2. Interval placement of a dialysis catheter which is in good position. No pneumothorax. Pierre Michel Jr., MD Abdomen/Pelvis CT 07/28/17 0000 Signed Impressions: Service Date/Time: July 13:16 - CONCLUSION: 1. Interval development of bilateral pleural effusions and significant consolidation in the right lower lobe. 2. Stable postsurgical changes following abdominal aortic aneurysm repair. 3. Stable small left-sided pelvic fluid collection characteristic of a postsurgical seroma. 4. Stable bilateral renal cysts. 5. Otherwise stable evaluation of the abdomen and pelvis. Adonis Bee MD Catheter Placement X-Ray 07/25/17 0000 Signed Impressions: Service Date/Time: Tuesday, July 25, 2017 18:42 - CONCLUSION: Uncomplicated line placement as above. Zak Cole MD PE at Discharge GENERAL: This is a well-nourished, well-developed patient, in no apparent distress. In PACU status post PD Dialysis catheter CARDIOVASCULAR: Regular rate and rhythm without murmurs, gallops, or rubs. RESPIRATORY: Clear to auscultation. Breath sounds equal bilaterally. No wheezes , rales, or rhonchi. GASTROINTESTINAL: Abdomen soft, non-tender, nondistended. Normal active bowel sounds MUSCULOSKELETAL: Extremities without clubbing, cyanosis, or edema. NEURO: Alert & Oriented x4 to person, place, time, situation. Moves all ext x4 Pt update on day of discharge Patient doing well. No events overnight. Discharge plans discussed with patient Hospital Course patient is a pleasant 82-year-old gentleman with known renal failure who has advanced end-stage renal disease and was admitted to the hospital with increasing shortness of breath and bacteremia. The patient had no signs of sepsis and repeat cultures were negative. Patient did have her hemodialysis while inpatient and peritoneal dialysis was initiated and arranged as an outpatient Pt Condition on Discharge: Good Discharge Disposition: Discharge Home Discharge Time: <= 30 minutes Discharge Instructions DIET: Follow Instructions for: Renal Failure Diet Activities you can perform: Regular-No Restrictions Follow up Referrals: Nephrology - 08/08/17 with yamila New Medications: Calcitriol (Rocaltrol) 0.25 Mcg Cap 0.25 MCG PO UNSCH for renal, #90 CAP 2 Refills Carvedilol (Coreg) 12.5 Mg Tab 25 MG PO Q12HR for bp, #62 TAB Cholecalciferol (Gnp Vitamin D3 Extra Stre) 1,000 Unit Tab 2000 UNITS PO DAILY for vitamin, #31 TAB Continued Medications: Amlodipine (Norvasc) 10 Mg Tab 10 MG PO DAILY for Blood Pressure Management, #30 TAB 0 Refills Atorvastatin (Lipitor) 20 Mg Tab 20 MG PO DAILY for Cholesterol Management, #30 TAB 0 Refills Clopidogrel (Plavix) 75 Mg Tab 75 MG PO DAILY for Prevent Blood Clot, #30 TAB 3 Refills Polyethylene Glycol 3350 Powder (Miralax Powder) 17 Gm Powd 17 GM PO DAILY for Constipation, #1 CAN 0 Refills Mix and dissolve one measuring cap-ful (17 grams) in water or juice. Discontinued Medications: Carvedilol (Coreg) 6.25 Mg Tab 6.25 MG PO Q12HR for Blood Pressure Management, #60 TAB 3 Refills Lisinopril (Lisinopril) 10 Mg Tab 10 MG PO DAILY, #30 TAB 0 Refills Loperamide (Imodium A-D) 2 Mg Capsule 2 MG PO Q6H PRN for DIARRHEA, #30 CAP 0 Refills Rosario Cordon MD Aug 06, 2017 10:27
--- NOTE | 2017-08-08 10:08 | MP ---
cc: MATILDE GAMINO DATE OF SURGERY 08/05/17 PREOPERATIVE DIAGNOSIS Chronic kidney disease - needs peritoneal dialysis access. POSTOPERATIVE DIAGNOSIS Chronic kidney disease - needs peritoneal dialysis access. PROCEDURE Laparoscopic-assisted peritoneal dialysis catheter placement. SURGEON Madie Gamino MD STEAM BOX OPERATOR ROBERT Gagnon ANESTHESIA General endotracheal/local DESCRIPTION OF PROCEDURE With the patient in the supine position general endotracheal anesthesia was induced, the abdomen prepped with Betadine and draped in a sterile fashion. One gram of Ancef was administered intravenously. Following a protocol time-out, the skin and subcutaneous tissue around the proposed incisional areas was preemptively infiltrated with 0.5% Marcaine with epinephrine. A transverse 2 cm incision was performed along the left medial infracostal region. The incision was deepened through the anterior rectus sheath. The posterior rectus sheath and peritoneum were incised and a 5 mm Surgiport bluntly advanced into the peritoneal space. The abdomen was insufflated with carbon dioxide. Laparoscopic visualization of the intraperitoneal space revealed no obvious pathological findings. A separate 2 cm incision was performed immediately distal and lateral to the umbilicus, extended to the anterior rectus sheath. An 18 gauge needle was then guided caudally and obliquely between the anterior and posterior rectus sheaths and, under laparoscopic visualization, was punctured through the posterior rectus sheath and peritoneum and directed toward the mid pelvis. A J-wire was advanced to the pelvic cul-de-sac. The needle was exchanged for a catheter insertion sheath. A coiled peritoneal dialysis catheter was delivered through the tear-away sheath and the catheter positioned within the mid pelvis. The internal catheter cuff was placed subjacent to the rectus sheathotomy which was secured around the cuff with interrupted 0-PDS. The subcutaneous portion of the catheter was tunneled and exited through a separate stab incision superolaterally. The abdomen was desufflated. The left subcostal rectus incision was secured with interrupted 0-PDS. Both skin incisions secured with continuous subcuticular 5-0 Monocryl, reinforced with Steri-Strips and covered with sterile gauze. Instrument, needle and sponge count correct x2. No operative complications. The patient returned to the recovery room in stable condition having tolerated procedure well. MD MIKO Cabello/ /3:24 PM /10:10 AM
== END 2017-08-06 12:55 | disposition home health service (06) | DRG 673 ==
LOC: NEPC 15:05 → NEDA 17:04 → HIMN 20:45 → N06B 08-05 15:33 → N06A 08-05 18:49
PROVIDERS: ADMIT Hospitalist; ATTEND Hospitalist
PROC: 5A09357 Assistance with Respiratory Ventilation, Less than 24 Consecutive Hours, Continuous Positive Airway Pressure (ICD-10-PCS; 2017-07-25)
PROC: 05HM33Z Insertion of Infusion Device into Right Internal Jugular Vein, Percutaneous Approach (ICD-10-PCS; 2017-07-25)
PROC: 5A1D70Z Performance of Urinary Filtration, Intermittent, Less than 6 Hours Per Day (ICD-10-PCS; 2017-07-25)
PROC: 30233N1 Transfusion of Nonautologous Red Blood Cells into Peripheral Vein, Percutaneous Approach (ICD-10-PCS; 2017-07-28)
PROC: 0WHG43Z Insertion of Infusion Device into Peritoneal Cavity, Percutaneous Endoscopic Approach (ICD-10-PCS; principal; 2017-08-05)
DX: N17.9 Acute kidney failure, unspecified (principal); J96.01 Acute respiratory failure with hypoxia; I50.23 Acute on chronic systolic (congestive) heart failure; E87.2 Acidosis; R78.81 Bacteremia; I27.20 Pulmonary hypertension, unspecified; F17.210 Nicotine dependence, cigarettes, uncomplicated; D50.9 Iron deficiency anemia, unspecified; I13.2 Hypertensive heart and chronic kidney disease with heart failure and with stage 5 chronic kidney disease, or end stage renal disease; N18.6 End stage renal disease; N25.81 Secondary hyperparathyroidism of renal origin; E78.00 Pure hypercholesterolemia, unspecified; Z86.73 Personal history of transient ischemic attack (TIA), and cerebral infarction without residual deficits; Z86.79 Personal history of other diseases of the circulatory system; D63.1 Anemia in chronic kidney disease; E55.9 Vitamin D deficiency, unspecified; E87.6 Hypokalemia; R11.2 Nausea with vomiting, unspecified; Z99.2 Dependence on renal dialysis
CPT/HCPCS: 36415; 36430; 36556; 36600; 71010; 74176; 76937; 77001; 80048; 80053; 80069; 80074; 81001; 82306; 82728; 82805; 83010; 83540; 83550; 83605; 83615; 83735; 83880; 83970; 84100; 84484; 85025; 85027; 85044; 85610; 85730; 86403; 86850; 86900; 86901; 86920; 87040; 87077; 87186; 87205; 87641; 90935; 93005; 94002; 94003; 94150; 94640; 94664; 96374; 96375; C1752; J1200; J1580; J1644; J1756; J1940; J3370; J7030; J7040; J7613; P9016; P9047; Q4081

== ENCOUNTER 2017-08-09 11:55 | Inpatient (IN) | payer OTHER, MEDICARE ==
[2017-08-09] VITALS (11 sets, daily range): BP systolic 155–176; BP diastolic 71–88; PULSE 70–78; RESP 24–31; TEMP 97.9–98.9; O2SAT 86–99
[~2017-08-09] VITALS: Ht 175.3 cm; Wt 81.0 kg
[~2017-08-09 11:55] MED LIST changes: +CALC.25 PO; +CARV12.5 PO; -CARV6.25 PO; +CHOL1000 PO; -LOPE-1 PO
--- NOTE | 2017-08-09 11:59 | PD ---
HPI Chief Complaint: respiratory distress Time Seen by Provider: 11:58 Travel History International Travel<30 days: No Contact w/Intl Traveler<30days: No Traveled to known affect area: No History of Present Illness HPI 82-year-old male with end-stage renal disease, peritoneal dialysis dependent into the emergency room from the dialysis center after he started getting short of breath. Patient was just getting his peritoneal dialysis started and as he had to lay down flat he started getting very short of breath. EMS was called and patient was transferred. Oxygen saturation was 93% on 6 L of oxygen via nasal cannula. Patient will also complaining of some dull chest ache that was nonradiating and in the center of the chest. I incidentally saw this patient 2 weeks ago for acute renal failure and he was admitted to the ICU for emergent dialysis. He was discharged with over a week ago. Patient is awake and able to answer questions appropriately. The final canoe inspector Dr. Harrington arrive shortly after patient's arrival in the room to see the patient. EMS gave him IV 60 mg of Lasix. [facility] Past Medical History Narrative Medical list of his past medical, surgical, social and family history is reviewed from the nursing note. Hx Anticoagulant Therapy: Yes AAA: Yes (DECEMBER 2016) Blood Disorders: No Cancer: No Cardiovascular Problems: Yes (CHF ) High Cholesterol: Yes Congestive Heart Failure: Yes Cerebrovascular Accident: Yes (AAA) Diabetes: No Diminished Hearing: No Endocrine: No Genitourinary: No Hepatitis: No Hiatal Hernia: No Hypertension: Yes (THIS VISIT 202/107 IN [facility]) Immune Disorder: No Musculoskeletal: No Neurologic: No Psychiatric: No Reproductive: No Respiratory: No Thyroid Disease: No Past Surgical History Abdominal Surgery: Yes (HERNIA) AICD: No Arteriovenous Shunt: No Cardiac Surgery: Yes (carotid endartarectomy unk which side) Ear Surgery: No Endocrine Surgery: No Eye Surgery: Yes (holes surgically placed into eyes to relieve pressure) Genitourinary Surgery: No Gynecologic Surgery: No Insulin Pump: No Joint Replacement: No Neurologic Surgery: Yes (CRANIAL SURGERY TWICE x 2 due to infection from injury ) Oral Surgery: Yes (dentures) Pacemaker: No Thoracic Surgery: No Other Surgery: Yes (cranial surgery x 2 due to infection from injury ) Social History Alcohol Use: Yes (SOCIALLY) Tobacco Use: No (1/2 PPD) Substance Use: No Allergies-Medications (Allergen,Severity, Reaction): Coded Allergies: ezetimibe (Verified Allergy, Mild, STRANGE FEELING IN ABDOMEN, 08/09/17) Comments List of his allergies reviewed from the nursing note. Reported Meds & Prescriptions Reported Meds & Active Scripts Active Gnp Vitamin D3 Extra Stre (Cholecalciferol) 1,000 Unit Tab 2,000 Units PO DAILY Coreg (Carvedilol) 12.5 Mg Tab 25 Mg PO Q12HR Miralax Powder (Polyethylene Glycol 3350 Powder) 17 Gm Powd 17 Gm PO DAILY Mix and dissolve one measuring cap-ful (17 grams) in water or juice. Plavix (Clopidogrel Bisulfate) 75 Mg Tab 75 Mg PO DAILY Reported Ventolin Hfa 18 GM Inh (Albuterol Sulfate) 90 Mcg/Act Aer 2 Puff INH Q12HR NEB PRN Senokot S (Sennosides-Docusate Sodium) 8.6-50 Mg Tab 1 Tab PO DAILY Furosemide 20 Mg Tab 20 Mg PO DAILY Zolpidem (Zolpidem Tartrate) 5 Mg Tab 5 Mg PO HS PRN Norvasc (Amlodipine Besylate) 10 Mg Tab 10 Mg PO DAILY Lipitor (Atorvastatin Calcium) 20 Mg Tab 20 Mg PO DAILY Narrative Medication List of his home medications reviewed from the nursing note. Review of Systems Except as stated in HPI: all other systems reviewed are Neg Cardiovascular: Positive: Chest Pain or Discomfort Respiratory: Positive: Shortness of Breath Physical Exam Narrative GENERAL: Awake, alert, elderly, moderate distress SKIN: Focused skin assessment warm/dry. HEAD: Atraumatic. Normocephalic. EYES: Pupils equal and round. No scleral icterus. No injection or drainage. ENT: No nasal bleeding or discharge. Mucous membranes pink and moist. NECK: Trachea midline. No JVD. CARDIOVASCULAR: Regular rate and rhythm. No murmur appreciated. RESPIRATORY: Tachypnea with some accessory use of muscles. By basilar coarse crackles GASTROINTESTINAL: Abdomen soft, non-tender, nondistended. Hepatic and splenic margins not palpable. MUSCULOSKELETAL: No obvious deformities. No clubbing. No cyanosis. No edema. NEUROLOGICAL: Awake and alert. No obvious cranial nerve deficits. Motor grossly within normal limits. Normal speech. PSYCHIATRIC: Appropriate mood and affect; insight and judgment normal. Data Data Last Documented VS Vital Signs Date Time Temp Pulse Resp B/P (MAP) Pulse Ox O2 Delivery O2 Flow Rate FiO2 08/09/17 12:20 73 30 99 Nasal Cannula 6.00 08/09/17 12:20 98.6 155/71 (99) Orders Orders Complete Blood Count With Diff (08/09/17 12:06) Basic Metabolic Panel (Bmp) (08/09/17 12:06) Prothrombin Time / Inr (Pt) (08/09/17 12:06) Troponin I (08/09/17 12:06) Arterial Blood Gas (Abg) (08/09/17 12:06) Iv Access Insert/Monitor (08/09/17 12:06) Electrocardiogram (08/09/17 12:06) Ecg Monitoring (08/09/17 12:06) Oximetry (08/09/17 12:06) Oxygen Administration (08/09/17 12:06) Chest, Single Ap (08/09/17 12:06) Sodium Chloride 0.9% Flush (Ns Flush) (08/09/17 12:15) Invasive Rad Dept Consult (08/09/17 ) NPO (08/09/17 12:13) Blood Flow Rate (08/09/17 12:13) Dialysate Flow Rate (08/09/17 12:13) Dialyzer (08/09/17 12:13) Concentrate (08/09/17 12:13) Acid Concentrate (08/09/17 12:13) Length Of Dialysis (08/09/17 12:13) Frequency Of Dialysis (08/09/17 12:13) Dialysis Obtain (08/09/17 12:13) Needle Size (08/09/17 12:13) Dialysis Schedule (08/09/17 12:13) Resp Oxygen Arben C Titrat 1-4 L (08/09/17 ) Dialysis Weight (08/09/17 12:13) ^ Obtain As Needed (08/09/17 12:13) Sodium Chlor 0.9% 1000 Ml Inj (Ns 1000 M (08/09/17 12:13) Heparin Inj (Heparin Inj) (08/09/17 12:15) Sodium Chlor 0.9% 1000 Ml Inj (Ns 1000 M (08/09/17 12:13) Sodium Chlor 0.9% 1000 Ml Inj (Ns 1000 M (08/09/17 12:13) Mannitol Inj (Mannitol Inj) (08/09/17 12:15) Albumin 25% Inj (Albumin 25% Inj) (08/09/17 12:15) Sodium Chloride 0.9% Flush (Ns Flush) (08/09/17 12:15) Heparin Inj (Heparin Inj) (08/09/17 12:15) Gentamicin (Dialysis) Inj (Gentamicin (D (08/09/17 12:15) Ondansetron Inj (Zofran Inj) (08/09/17 12:15) Acetaminophen (Tylenol) (08/09/17 12:15) Diphenhydramine (Benadryl) (08/09/17 12:15) Nitroglycerin Sl (Nitrostat Sl) (08/09/17 12:15) Clonidine (Catapres) (08/09/17 12:15) Epoetin Chad Inj (Epogen Inj) (08/09/17 12:15) Gelatin 12 Mm/7 Mm Top (Gelfoam 12 Mm/7 (08/09/17 12:15) Fentanyl Inj (Fentanyl Inj) (08/09/17 13:15) Midazolam Inj (Versed Inj) (08/09/17 13:15) Admit Order (Ed Use Only) (08/09/17 13:34) Labs Laboratory Tests Test 08/09/17 12:10 08/09/17 12:15 White Blood Count 8.0 TH/MM3 Red Blood Count 2.94 MIL/MM3 Hemoglobin 9.1 GM/DL Hematocrit 27.8 % Mean Corpuscular Volume 94.3 FL Mean Corpuscular Hemoglobin 31.0 PG Mean Corpuscular Hemoglobin Concent 32.8 % Red Cell Distribution Width 18.2 % Platelet Count 263 TH/MM3 Mean Platelet Volume 7.6 FL Neutrophils (%) (Auto) 76.0 % Lymphocytes (%) (Auto) 6.7 % Monocytes (%) (Auto) 11.6 % Eosinophils (%) (Auto) 4.8 % Basophils (%) (Auto) 0.9 % Neutrophils # (Auto) 6.1 TH/MM3 Lymphocytes # (Auto) 0.5 TH/MM3 Monocytes # (Auto) 0.9 TH/MM3 Eosinophils # (Auto) 0.4 TH/MM3 Basophils # (Auto) 0.1 TH/MM3 CBC Comment DIFF FINAL Differential Comment Prothrombin Time 11.4 SEC Prothromb Time International Ratio 1.0 RATIO Blood Urea Nitrogen 51 MG/DL Creatinine 6.68 MG/DL Random Glucose 115 MG/DL Calcium Level 8.2 MG/DL Sodium Level 137 MEQ/L Potassium Level 4.2 MEQ/L Chloride Level 100 MEQ/L Carbon Dioxide Level 28.7 MEQ/L Anion Gap 8 MEQ/L Estimat Glomerular Filtration Rate 8 ML/MIN Troponin I 0.07 NG/ML Blood Gas Puncture Site LT RADIAL Blood Gas Patient Temperature 98.6 Blood Gas HCO3 28 mmol/L Blood Gas Base Excess 3.5 mmol/L Blood Gas Oxygen Saturation 92 % Arterial Blood pH 7.41 Arterial Blood Partial Pressure CO2 44 mmHg Arterial Blood Partial Pressure O2 78 mmHG Arterial Blood Oxygen Content 11.4 Vol % Arterial Blood Carboxyhemoglobin 3.4 % Arterial Blood Methemoglobin 0.6 % Blood Gas Hemoglobin 8.7 G/DL Oxygen Delivery Device NASAL CANNULA Blood Gas Liter Flow 6 L/M MDM Medical Decision Making Medical Screen Exam Complete: Yes Emergency Medical Condition: Yes Medical Record Reviewed: Yes Interpretation(s) Twelve-lead EKG was reviewed by me. Normal sinus rhythm, normal axis, lateral ST depression and T-wave inversion. These are seen in the old EKG as well. Heart rate of 75 bpm. Differential Diagnosis Pulmonary edema, pleural effusion, pneumonia Narrative Course 2:43 PM blood test was ordered. [employer] wanted the patient to get immediate hemodialysis by putting a permacath. However interventional radiology were unable to put the catheter given the fact that patient is on Plavix. After discussing with the final canoe inspector PA I was told that they would be okay with a Vas-Cath for now. Patient has been taken to IR for Vas-Cath placement. I discussed the case with Dr. Ocampo who will admit the patient in ICU. Patient appears to be hemodynamically stable for now. Critical Care Narrative Aggregate critical care time was 45 minutes. Time to perform other separately billable procedures was not included in the critical care time. My time did not include minutes spent treating any other patients simultaneously or on activities that did not directly contribute to the patient's treatment. The services I provided to this patient were to treat and/or prevent clinically significant deterioration that could result in: End-stage renal disease, respiratory distress, emergent hemodialysis I provided critical care services requiring my management, as noted below: Chart data review, documentation time, medication orders and management, vital sign assessments/reviewing monitor data, ordering and reviewing lab tests, ordering and interpreting/reviewing x-rays and diagnostic studies, care of the patient and discussion of the patient with the admitting physicians. Procedures EKG Prior to Arrival: Yes Physician Communication Physician Communication Dr. Ocampo, Dr. Harrington Diagnosis Primary Impression: Respiratory distress Additional Impression: ESRD (end stage renal disease) Admitting Information Admitting Physician Requests: Admit Helena Donovan MD Aug 09, 2017 11:59
[2017-08-09] MEDS ORDERED: SODIUM CHLOR 0.9% 1000 ML INJ 1,000 ML IV PRN (12:13)
[2017-08-09] MEDS ORDERED: SODIUM CHLOR 0.9% 1000 ML INJ 1,000 ML OTHER PRN ×2 (12:13)
[2017-08-09] MEDS ORDERED: HEPARIN SODIUM - IV 10,000 UNITS/10 ML VIAL IV FLUSH PRN (12:15)
[2017-08-09] MEDS ORDERED: SODIUM CHLORIDE 0.9% FLUSH 10 ML FLUSH IVF PRN (12:15)
[2017-08-09] MEDS ORDERED: GELATIN 12 MM/7 MM FOAM TOP PRN (12:15)
[2017-08-09] MEDS ORDERED: MANNITOL 12.5 GM/50 ML VIAL IV PRN (12:15)
[2017-08-09] MEDS ORDERED: SODIUM CHLORIDE 0.9% FLUSH 10 ML FLUSH IV FLUSH PRN ×2 (12:15→16:00)
[2017-08-09] MEDS ORDERED: diphenhydrAMINE HCL 25 MG CAP PO PRN (12:15)
[2017-08-09] MEDS ORDERED: cloNIDine HCL 0.1 MG TAB PO PRN (12:15)
[2017-08-09] MEDS ORDERED: ACETAMINOPHEN 325 MG TAB PO PRN (12:15)
[2017-08-09] MEDS ORDERED: NITROGLYCERIN 0.4 MG SL 25 TABS/BTL SL PRN (12:15)
[2017-08-09] MEDS ORDERED: ONDANSETRON HCL 4 MG/2 ML VIAL IV PUSH PRN (12:15)
[2017-08-09 12:25] LABS: BLOOD GAS BASE EXCESS 3.5 mmol/L (-2-2); BLOOD GAS CARBOXYHEMOGLOBIN 3.4 % (0-4); BLOOD GAS HCO3 28 mmol/L (22-26); BLOOD GAS METHEMOGLOBIN 0.6 % (0-2); BLOOD GAS O2 HGB SATURATION 92 % (90-100); BLOOD GAS OXYGEN CONTENT 11.4 Vol % (12.0-20.0); BLOOD GAS PCO2 44 mmHg (38-42); BLOOD GAS PO2 78 mmHG (61-120); BLOOD GAS TOTAL HGB 8.7 G/DL (12.0-16.0); CRITICAL VALUE NO; DRAW SITE LT RADIAL; LITER FLOW 6 L/M; NUMBER OF ARTERIAL PUNCTURES 1; OXYGEN DEVICE NASAL CANNULA; STAT YES; TEMP CORR TO 98.6; ULNAR PULSE PRESENT
[2017-08-09 12:37] LABS: AUTOMATED NEUTROPHIL # 6.1 TH/MM3 (1.8-7.7); BASOPHIL # 0.1 TH/MM3 (0-0.2); BASOPHIL % 0.9 % (0.0-2.0); EOSINOPHIL # 0.4 TH/MM3 (0-0.4); EOSINOPHIL % 4.8 % (0.0-4.0); HEMATOCRIT 27.8 % (39.0-51.0); HEMO FLAGS DIFF FINAL; LYMPH % 6.7 % (9.0-44.0); LYMPHOCYTE # 0.5 TH/MM3 (1.0-4.8); MEAN CELL VOLUME 94.3 FL (80.0-100.0); MEAN CORPUSCULAR HGB CONC 32.8 % (32.0-36.0); MONO % 11.6 % (0.0-8.0); PLATELET COUNT 263 TH/MM3 (150-450); RED BLOOD COUNT 2.94 MIL/MM3 (4.50-5.90); RED CELL DISTRIBUTION WIDTH 18.2 % (11.6-17.2)
[2017-08-09] MEDS ORDERED: VENTAER INH (12:41)
[2017-08-09] MEDS ORDERED: SENN1TAB17 PO (12:41)
[2017-08-09] MEDS ORDERED: FURO20TA PO (12:41)
[2017-08-09] MEDS ORDERED: ZOLP5TAB3 PO (12:41)
[2017-08-09 12:44] LABS: PROTHROMBIN TIME - PATIENT 11.4 SEC (9.8-11.6)
--- NOTE | 2017-08-09 12:52 | RADRPT ---
EXAM DATE/TIME: 08/09/2017 11:28 [facility] COMPARISON: CHEST SINGLE AP, July 28, 2017, 21:14. INDICATIONS : Short of breath today MEDICAL HISTORY : Congestive heart failure. Aneurysm, abdominal. SURGICAL HISTORY : Abdominal aortic aneurysm repair. Carotid endarterectomy. hernia repair, dialysis catheter ENCOUNTER: Initial ACUITY: 1 day PAIN SCORE: Non-responsive. LOCATION: Bilateral chest FINDINGS: A small right pleural effusion is noted. Bibasilar patchiness is noted consistent with atelectasis an d/or infiltrates. Clinical correlation is recommended. The heart is stable. CONCLUSION: 1. Bibasilar patchiness consistent with atelectasis assess for infiltrates. Clinical correlation is r ecommended. 2. Small right pleural effusion. Jose Bird MD on August 09, 2017 at 12:49 Board Certified Radiologist. This report was verified electronically.
[2017-08-09 12:57] LABS: BICARBONATE 28.7 MEQ/L (21.0-32.0); POTASSIUM 4.2 MEQ/L (3.5-5.1)
[2017-08-09] MEDS ORDERED: MIDAZOLAM HCL 2 MG/2 ML VIAL IV PUSH ONE (13:15)
[2017-08-09] MEDS ORDERED: ceFAZolin 2 GM PREMIX 50 ML IV SCH (14:00)
[2017-08-09] MEDS ORDERED: VANCOMYCIN INJ 1,000 MG in SODIUM CHLOR 0.9% 250 ML INJ 250 ML IV SCH (14:00)
[2017-08-09] MEDS ORDERED: SENNOSIDES 8.6 MG TAB PO PRN (14:30)
[2017-08-09] MEDS ORDERED: LACTULOSE SYRUP 20 GM/30 ML CUP PO PRN (14:30)
[2017-08-09] MEDS ORDERED: BISACODYL 10 MG SUPP RECTAL PRN (14:30)
[2017-08-09] MEDS ORDERED: CHLORHEXIDINE GLUCONATE 2 % 1 PACK (2 CLOTHS) TOP PRN (14:30)
[2017-08-09] MEDS ORDERED: MAGNESIUM HYDROXIDE SUSP 30 ML CUP PO PRN (14:30)
[2017-08-09] MEDS ORDERED: RESP: ALBUTEROL 2.5 MG/IPRATROPIUM 0.5 MG NEB (PRN) INH (14:30)
[2017-08-09] MEDS ORDERED: MISCELLANEOUS NURSING INFORMATION XX SCH (14:30)
[2017-08-09] MEDS ORDERED: HEPARIN SODIUM - SQ 10,000 UNITS/ML VIAL SQ SCH (14:30)
[2017-08-09] MEDS ORDERED: DEXTROSE 50% IN WATER 50 ML VIAL(D50) IV PUSH PRN (14:45)
[2017-08-09] MEDS ORDERED: GLUCAGON 1 MG/ML VIAL OTHER PRN (14:45)
[2017-08-09] MEDS ORDERED: MIDAZOLAM HCL 2 MG/2 ML VIAL ONE (14:59)
[2017-08-09] MEDS: INSULIN NovoLIN REGULAR SUPPLEMENTAL SCALE SQ SCH ×3 (15:00→23:00)
[2017-08-09] MEDS ORDERED: LIDOCAINE 1%/EPINEPHrine 1:100,000 SOLN 20 ML VIAL ONE (15:17)
--- NOTE | 2017-08-09 15:30 | MH ---
cc: SHARON PARDO M.D. DATE OF ADMISSION: 08/09/2017 DATE OF : 1935 HISTORY OF PRESENT ILLNESS The patient is an 82-year-old male with a past medical history of chronic kidney disease stage V, cardiomyopathy with an EF of 25-30%, peripheral arterial disease, hypertension, who went to get his peritoneal dialysis today and at the center he became short of breath and weak. The patient was subsequently transferred to the ER for further evaluation and management. His laboratory data showed a creatinine of 6.68 and potassium 4.2. His blood pressure in the ER was 157/76 and saturation of 95% on 6 liter oxygen. ABG was performed which showed a pH of 7.41, CO2 44, PAO2 78, bicarb 28 and saturation of 92%. Chest x-ray in the ED showed bibasilar patchiness consistent with atelectasis and small right pleural effusion. The nephrology service was notified and recommended a Perma-Cath placement; however, the patient was on Plavix and it could not be placed. He is scheduled to undergo Vas-Cath placement by interventional radiology. The patient denies any chest pain, shortness of breath, however, he reports edema of his feet bilaterally. He denies any nausea, vomiting or abdominal pain. No history of cough or constitutional symptoms. PAST MEDICAL HISTORY 1. Cardiomyopathy with EF of 25-30%. 2. Peripheral arterial disease. 3. Hypertension. 4. Chronic kidney disease, stage V. 5. Dyslipidemia. PAST SURGICAL HISTORY 1. Previous left carotid endarterectomy. 2. Previous open thoracic aortic aneurysm repair in December 2016. 3. Previous inguinal hernia repair. FAMILY HISTORY Hypertension runs in the family. SOCIAL HISTORY Active smoker where he smokes half a pack per day, and has been a smoker for 70 years. Occasional drinker. ALLERGIES EZETIMIBE. MEDICATIONS Reported medications include: 1. Ventolin. 2. Plavix. 3. Lipitor. 4. Coreg. 5. Norvasc. 6. Ambien. 7. Lasix. 8. Senokot. REVIEW OF SYSTEMS As per HPI. The rest of the review of systems is unremarkable. PHYSICAL EXAMINATION GENERAL: An 82-year-old male lying in bed in no acute respiratory distress. VITAL SIGNS: Temperature 98.6, pulse 78, blood pressure 157/76, saturation 95%. HEENT: Atraumatic, normocephalic. Pupils equal, round and reactive to light and accommodation. Extraocular muscles intact. Conjunctiva pink. Non-icteric sclera. Oral mucosa within normal. NECK: Supple. No JVD, adenopathy or thyromegaly. Trachea in the midline. CARDIOVASCULAR: Regular rate and rhythm. Normal S1, S2. No murmurs, rubs or gallops noted. PULMONARY: Bilateral air entry. No crackles or wheezing. ABDOMEN: Soft, nontender, no distention. Positive bowel sounds. EXTREMITIES: No cyanosis, clubbing or edema. NEUROLOGIC: No focal sensory deficit. LABORATORY DATA WBC 8, hemoglobin 9.1, hematocrit 27.8, platelet count 263. Sodium 137, potassium 4.2, chloride 100, CO2 28, BUN 51, creatinine 6.68, glucose 115. Troponin 0.07. INR 1, PT 11.4. RADIOGRAPHIC STUDIES A chest x-ray showed bibasilar patchiness consistent with atelectasis, and small right pleural effusion. IMPRESSION 1. Respiratory insufficiency. 2. Chronic kidney disease, stage V, on peritoneal dialysis. 3. Hypertension. 4. Cardiomyopathy with EF of 25-30%. 5. Hypertension. 6. Hyperlipidemia. 7. Peripheral vascular disease. 8. Active tobacco use. 9. Anemia of chronic disease. RECOMMENDATIONS 1. Monitor neuro status closely and avoid any sedatives. 2. Wean down oxygen as tolerated and maintain sats above 92%. 3. Bronchodilators in the form of DuoNeb q.4h. plus q.2h. p.r.n. for shortness of breath. 4. Incentive spirometry q.1h. while awake. 5. Noninvasive positive pressure ventilation p.r.n. for respiratory distress. 6. Monitor heart rate and blood pressure closely and maintain MAP greater than 65 mmHg. Continue with Norvasc 10 mg daily and Lipitor 20 mg p.o. q.h.s. His last echocardiogram a few months ago showed EF of 25-30%. 7. Monitor renal function, I's and O's, and avoid nephrotoxins. Patient to undergo Vas-Cath placement for initiation of hemodialysis. Dr. Harrington from the nephrology service was notified by ED. 8. Keep n.p.o. for now. 9. Monitor for signs of infection which include fever and WBC. Panculture if spikes a fever. 10. Monitor CBC. 11. Sliding scale insulin with Accu-Cheks for glycemic control. 12. No indications for GI prophylaxis. 13. DVT prophylaxis with SCDs. Will hold off on chemical anticoagulation prophylaxis as the patient will undergo Vas-Cath placement and also will need Perma-Cath placement prior to discharge. 14. Further recommendations will be based on the hospital course. MD EDINSON Dillon/RADHA /2:38 PM /3:14 PM
--- NOTE | 2017-08-09 15:53 | PD.RAD ---
Post Procedure Progress Note Pre Procedure Diagnosis: (1) Acute renal failure superimposed on stage 5 chronic kidney disease, not on chronic dialysis Post Procedure Diagnosis: (1) Acute renal failure superimposed on stage 5 chronic kidney disease, not on chronic dialysis Procedure Date: Aug 09, 2017 Supervising Radiologist: Pierre Michel JR Proceduralist/Assist: Nicki Guerra, RT(R)(), Hernandez Hewitt, RT(R) Anesthesia: Conscious Sedation Plan of Activity Patient to Unit: ROPU Patient Condition: Good See PACS Report for procedural detail/treatment Central Venous Access Device Procedure 1 Right Internal Jugular Hemodialysis Catheter Tunneled Placement dual lumen Lithuanian: 15 Findings: Catheter in good position and functions well. OK to use. Plan remove sutures in 2-3 weeks Jr. Anand,Pierre Montero MD Aug 09, 2017 15:53
[2017-08-09] MEDS ORDERED: HEPARIN SODIUM - IV 2,000 UNITS/2 ML VIAL IV FLUSH PRN (16:00)
--- NOTE | 2017-08-09 16:25 | RADRPT ---
EXAM DATE/TIME: 08/09/2017 15:01 [facility] COMPARISON: No previous studies available for comparison. INDICATIONS : Patient with a history of renal disease, needs dialysis. MEDICAL HISTORY : ESRD HTN Dyslipidemia SURGICAL HISTORY : AAA Left carotid endarterectomy Inguinal hernia repair Cranial surgery ENCOUNTER: Initial ACUITY: 1 day PAIN SCORE: 0/10 FLUORO TIME: 0.3 minutes IMAGE SERIES: 1 SEDATION TIME: 30 minutes ACCESS: Right internal jugular vein SEDATION: 1.) 1 mg midazolam (Versed) IV 2.) 50 mcg fentanyl (Sublimaze) IV Prophylactic antibiotics were administered with appropriate pre-procedure timing. Vancomycin within 2 hours of procedure, Ancef (or alternative) within 1 hour of procedure. DEVICE: 1. 14 Cuban dual lumen 23 cm Bruce II Plus catheter PROCEDURE : 1. Ultrasound-guided venipuncture. 2. PermaCath placement. 3. Conscious sedation with continuous EKG and oximetry monitoring. The risks, benefits and alternatives to the procedure were explained and verbal and written consent w as obtained. The site was prepped in sterile fashion. Full sterile technique was used, including ca p, mask, sterile gloves and gown and a large sterile sheet. Hand hygiene and 2% chlorhexidine and/or betadine/alcohol prep was utilized per protocol for cutaneous antisepsis. Sterile gel and sterile p robe cover were utilized for ultrasound guidance. The skin and subcutaneous tissues were infiltrated with local anesthetic solution. With ultrasound and fluoroscopic guidance a dermatotomy was created over the prescribed vein. A micr opuncture set was used to access the targeted vein and serial dilatation was performed to accept the prescribed length catheter. A subcutaneous tunnel was created in a retrograde fashion the catheter w as pulled through the tunnel. The catheter was flushed and assembled and locked with heparin. The c atheter was sutured in place. Conscious sedation was performed with the prescribed dosages and duration as above in the presence of an independent trained radiology nurse to assist in the monitoring of the patient. EKG and oximetry remained stable throughout the procedure. The patient tolerated the procedure well and there were n o complications. The patient was sent to post anesthesia recovery in stable condition. CONCLUSION: Uncomplicated PermaCath placement as above. Pierre Michel Jr., MD on August 09, 2017 at 16:23 Board Certified Radiologist. This report was verified electronically.
--- NOTE | 2017-08-09 16:33 | PD.CONS ---
HPI Service Nephrology Consult Requested By Reason for Consult ESRD on dialysis Primary Care Physician Unknown History of Present Illness This is an 82 y/o male with ESRD who was at the PD clinic undergoing clinic training when he became short of breath. He was recently admitted for respiratory distress and we started hemodialysis last admission. A PD catheter was placed last Tuesday, he had HD, and was discharged. Yesterday the PD training was unremarkable. Today he felt more short of breath and was referred for evaluation. He was seen in the ER at noon. He is currently in C hypoxic on 6 liters oxygen. A vascath was placed as he is on Plavix and IR was unable to place a permcath. We were consulted for dialysis management. His lungs are mostly clear, he has dependent edema. (Roxi Romano) Review of Systems Constitutional: COMPLAINS OF: Fatigue, Change in appetite Respiratory: COMPLAINS OF: Shortness of breath Cardiovascular: COMPLAINS OF: Dyspnea on Exertion, Lower Extremity Edema, DENIES: Chest pain Gastrointestinal: DENIES: Abdominal pain (Roxi Romano) Past Family Social History Allergies: Coded Allergies: ezetimibe (Verified Allergy, Mild, STRANGE FEELING IN ABDOMEN, 08/09/17) Past Medical History ESRD Anemia Hypertension Hyperlipidemia AAA Tobacco abuse. Secondary Hyperparathyroidism Past Surgical History CEA, left AAA repair PD catheter vascath with removal Reported Medications Gnp Vitamin D3 Extra Stre (Cholecalciferol) 1,000 Unit Tab 2,000 Units PO DAILY Coreg (Carvedilol) 12.5 Mg Tab 25 Mg PO Q12HR Miralax Powder (Polyethylene Glycol 3350 Powder) 17 Gm Powd 17 Gm PO DAILY Mix and dissolve one measuring cap-ful (17 grams) in water or juice. Plavix (Clopidogrel Bisulfate) 75 Mg Tab 75 Mg PO DAILY Reported Ventolin Hfa 18 GM Inh (Albuterol Sulfate) 90 Mcg/Act Aer 2 Puff INH Q12HR NEB PRN Senokot S (Sennosides-Docusate Sodium) 8.6-50 Mg Tab 1 Tab PO DAILY Furosemide 20 Mg Tab 20 Mg PO DAILY Zolpidem (Zolpidem Tartrate) 5 Mg Tab 5 Mg PO HS PRN Norvasc (Amlodipine Besylate) 10 Mg Tab 10 Mg PO DAILY Lipitor (Atorvastatin Calcium) 20 Mg Tab 20 Mg PO DAILY Active Ordered Medications Current Medications Medications (Trade) Dose Ordered Sig/Thuy Route Start Time Stop Time Status Last Admin (NS Flush) 2 ml UNSCH PRN IVF 08/09/17 12:15 Sodium Chloride 1,000 ml @ 0 mls/hr Q0M PRN OTHER 08/09/17 12:13 (Heparin Inj) 8,000 units UNSCH PRN IV FLUSH 08/09/17 12:15 Sodium Chloride 1,000 ml @ 200 mls/hr Q5H PRN IV 08/09/17 12:13 Sodium Chloride 1,000 ml @ 0 mls/hr Q0M PRN OTHER 08/09/17 12:13 (Mannitol Inj) 12.5 gm UNSCH PRN IV 08/09/17 12:15 Albumin Human 100 ml @ 60 mls/hr UNSCH PRN IV 08/09/17 12:15 (NS Flush) 5 ml UNSCH PRN IV FLUSH 08/09/17 12:15 (Heparin Inj) UNSCH PRN .XX 08/09/17 12:15 (Gentamicin (Dialysis) Inj) 20 mg UNSCH PRN OTHER 08/09/17 12:15 (Zofran Inj) 4 mg UNSCH PRN IV PUSH 08/09/17 12:15 (Tylenol) 650 mg UNSCH PRN PO 08/09/17 12:15 (Benadryl) 25 mg UNSCH PRN PO 08/09/17 12:15 (Nitrostat Sl) 0.4 mg UNSCH PRN SL 08/09/17 12:15 (Catapres) 0.1 mg UNSCH PRN PO 08/09/17 12:15 (Epogen Inj) 10,000 units UNSCH PRN IV PUSH 08/09/17 12:15 (Gelfoam 12 Mm/7 Mm Top) 1 foam UNSCH PRN TOP 08/09/17 12:15 Vancomycin HCl 1000 mg/Sodium Chloride 250 ml @ 250 mls/hr REAL ESTATE CLOSING COORDINATOR IV 08/09/17 14:00 08/13/17 13:59 08/09/17 14:21 Cefazolin Sodium/ Dextrose 50 ml @ 100 mls/hr REAL ESTATE CLOSING COORDINATOR IV 08/09/17 14:00 08/13/17 13:59 08/09/17 15:19 (Duoneb Neb) 1 ampule Q4HR NEB INH 08/09/17 16:00 (Duoneb Neb) 1 ampule Q2HR NEB PRN INH 08/09/17 14:30 Miscellaneous Information 1 Q361D XX 08/09/17 14:30 (Chlorhexidine 2% Cloth) 3 pack Taper DAILY@04 TOP 08/10/17 04:00 08/06/18 03:59 (Chlorhexidine 2% Cloth) 3 pack UNSCH PRN TOP 08/09/17 14:30 (Jo Ann-Colace) 1 tab BID PO 08/09/17 21:00 (Milk Of Magnesia Liq) 30 ml Q12H PRN PO 08/09/17 14:30 (Senokot) 17.2 mg Q12H PRN PO 08/09/17 14:30 (Dulcolax Supp) 10 mg DAILY PRN RECTAL 08/09/17 14:30 (Lactulose Liq) 30 ml DAILY PRN PO 08/09/17 14:30 (Norvasc) 10 mg DAILY PO 08/10/17 09:00 (Lipitor) 20 mg DAILY PO 08/10/17 09:00 (D50w (Vial) Inj) 50 ml UNSCH PRN IV PUSH 08/09/17 14:45 (Glucagon Inj) 1 mg UNSCH PRN OTHER 08/09/17 14:45 (NovoLIN R SUPPLEMENTAL SCALE) 1 Q4H SQ 08/09/17 15:00 (NS Flush) UNSCH PRN IV FLUSH 08/09/17 16:00 (Heparin Inj) UNSCH PRN IV FLUSH 08/09/17 16:00 Family History Non contributory Social History Lives with roommate Former smoker + ETOH full code (Roxi Romano) Physical Exam Vital Signs Vital Signs Date Time Temp Pulse Resp B/P (MAP) Pulse Ox O2 Delivery O2 Flow Rate FiO2 08/09/17 14:45 08/09/17 14:18 78 24 157/76 (103) 95 Nasal Cannula 6.00 08/09/17 12:20 73 30 99 Nasal Cannula 6.00 08/09/17 12:20 98.6 72 30 155/71 (99) 97 Nasal Cannula 6.00 08/09/17 12:20 99 Nasal Cannula 6.00 08/09/17 12:20 73 30 98 Nasal Cannula 6.00 08/09/17 12:12 98.6 73 30 98 Physical Exam Elderly male sitting up in bed Awake, follows commands, neurologically intact Tachypneic, clear in all cantu without wheezing S1/S2, RRR. No murmurs Abdomen soft, round, PD catheter in place 2+ edema to lower extremities Pulses strong DP, PT Laboratory Laboratory Tests Test 08/09/17 12:10 08/09/17 12:15 White Blood Count 8.0 Red Blood Count 2.94 Hemoglobin 9.1 Hematocrit 27.8 Mean Corpuscular Volume 94.3 Mean Corpuscular Hemoglobin 31.0 Mean Corpuscular Hemoglobin Concent 32.8 Red Cell Distribution Width 18.2 Platelet Count 263 Mean Platelet Volume 7.6 Neutrophils (%) (Auto) 76.0 Lymphocytes (%) (Auto) 6.7 Monocytes (%) (Auto) 11.6 Eosinophils (%) (Auto) 4.8 Basophils (%) (Auto) 0.9 Neutrophils # (Auto) 6.1 Lymphocytes # (Auto) 0.5 Monocytes # (Auto) 0.9 Eosinophils # (Auto) 0.4 Basophils # (Auto) 0.1 CBC Comment DIFF FINAL Differential Comment Prothrombin Time 11.4 Prothromb Time International Ratio 1.0 Blood Urea Nitrogen 51 Creatinine 6.68 Random Glucose 115 Calcium Level 8.2 Sodium Level 137 Potassium Level 4.2 Chloride Level 100 Carbon Dioxide Level 28.7 Anion Gap 8 Estimat Glomerular Filtration Rate 8 Troponin I 0.07 Blood Gas Puncture Site LT RADIAL Blood Gas Patient Temperature 98.6 Blood Gas HCO3 28 Blood Gas Base Excess 3.5 Blood Gas Oxygen Saturation 92 Arterial Blood pH 7.41 Arterial Blood Partial Pressure CO2 44 Arterial Blood Partial Pressure O2 78 Arterial Blood Oxygen Content 11.4 Arterial Blood Carboxyhemoglobin 3.4 Arterial Blood Methemoglobin 0.6 Blood Gas Hemoglobin 8.7 Oxygen Delivery Device NASAL CANNULA Blood Gas Liter Flow 6 (Roxi Romano) Result Diagram: 08/09/17 1210 08/09/17 1210 Imaging Last 72 hours Impressions Chest X-Ray 08/09/17 1206 Signed Impressions: Service Date/Time: Wednesday, August 09, 2017 11:28 - CONCLUSION: 1. Bibasilar patchiness consistent with atelectasis assess for infiltrates. Clinical correlation is recommended. 2. Small right pleural effusion. Jose Bird MD (Roxi Romano) Assessment and Plan Problem List: (1) ESRD (end stage renal disease) ICD Codes: N18.6 - End stage renal disease Plan: We will hemodialyze today as he is symptomatic This admission we will most likely exchange vascath for a Permcath, transition to PD slowly (he was urgent start) Monitor electrolytes intermittently Avoid IVF, renally dose when necessary (2) Shortness of breath ICD Codes: R06.02 - Shortness of breath Plan: Oxygen as needed, fluid removal as tolerated with dialysis chest xray showing pleural effusion, possible infiltrate Given vancomycin and zosyn (3) Anemia ICD Codes: D64.9 - Anemia, unspecified Plan: Epogen has been ordered with dialysis (4) Hypertension ICD Codes: I10 - Essential (primary) hypertension Plan: Resume home medications (Roxi Romano) Assessment and Plan patient was seen and examined. Agree with above. He likely will not tolerate "urgent start" PD. Hemodialysis for 2 weeks, and then transition to PD. (Bobby Harrington MD) Roxi Romano Aug 09, 2017 16:33 Bobby Harrington MD Aug 10, 2017 10:27
[2017-08-09] MEDS: HEPARIN SODIUM - IV 10,000 UNITS/10 ML VIAL PRN (17:49)
[2017-08-09] MEDS: GENTAMICIN SULFATE (DIALYSIS USE ONLY) 20 MG/2 ML VIAL OTHER PRN (17:49)
[2017-08-09] MEDS: EPOETIN ALFA 10,000 UNITS/ML VIAL IV PUSH PRN (17:50)
[2017-08-09] MEDS: RESP: ALBUTEROL 2.5 MG/IPRATROPIUM 0.5 MG NEB (SCH) INH ×3 (18:14→23:10)
[2017-08-09] MEDS: ALBUMIN 25% INJ 100 ML IV PRN (18:34)
[2017-08-09] MEDS: DOCUSATE SODIUM 50 MG/SENNA 8.6 MG TAB PO SCH (20:47)
[2017-08-10] VITALS (16 sets, daily range): BP systolic 151–158; BP diastolic 72–83; PULSE 72–92; RESP 18–31; TEMP 97.3–99.5; O2SAT 91–99
[2017-08-10] MEDS: INSULIN NovoLIN REGULAR SUPPLEMENTAL SCALE SQ SCH ×6 (03:00→23:00)
[2017-08-10] MEDS: RESP: ALBUTEROL 2.5 MG/IPRATROPIUM 0.5 MG NEB (SCH) INH ×6 (03:30→23:53)
[2017-08-10] MEDS: CHLORHEXIDINE GLUCONATE 2 % 1 PACK (2 CLOTHS) TOP SCH ×2 (04:00→23:44)
[2017-08-10 05:52] LABS: AUTOMATED NEUTROPHIL # 5.7 TH/MM3 (1.8-7.7); BASOPHIL # 0.1 TH/MM3 (0-0.2); EOSINOPHIL # 0.4 TH/MM3 (0-0.4); EOSINOPHIL % 4.5 % (0.0-4.0); HEMATOCRIT 28.3 % (39.0-51.0); HEMO FLAGS DIFF FINAL; LYMPH % 9.6 % (9.0-44.0); LYMPHOCYTE # 0.8 TH/MM3 (1.0-4.8); MEAN CELL VOLUME 95.2 FL (80.0-100.0); MEAN CORPUSCULAR HEMOGLOBIN 31.3 PG (27.0-34.0); MEAN CORPUSCULAR HGB CONC 32.8 % (32.0-36.0); MONO % 12.6 % (0.0-8.0); NEUT % 72.3 % (16.0-70.0); PLATELET COUNT 246 TH/MM3 (150-450); RED BLOOD COUNT 2.98 MIL/MM3 (4.50-5.90); RED CELL DISTRIBUTION WIDTH 18.3 % (11.6-17.2); WHITE BLOOD COUNT 7.9 TH/MM3 (4.0-11.0)
[2017-08-10 06:17] LABS: BICARBONATE 27.2 MEQ/L (21.0-32.0); POTASSIUM 3.9 MEQ/L (3.5-5.1)
--- NOTE | 2017-08-10 08:27 | HHI.CCPN ---
Subjective Remarks/Hospital Course Patient is an 82-year-old male with a past medical history of chronic kidney disease stage V, cardiomyopathy with an EF of 25-30%, peripheral arterial disease, hypertension, who went to get his peritoneal dialysis today and at the center he became short of breath and weak. The patient was subsequently transferred to the ER for further evaluation and management. His laboratory data showed a creatinine of 6.68 and potassium 4.2. His blood pressure in the ER was 157/76 and saturation of 95% on 6 liter oxygen. ABG was performed which showed a pH of 7.41, CO2 44, PAO2 78, bicarb 28 and saturation of 92%. Chest x-ray in the ED showed bibasilar patchiness consistent with atelectasis and small right pleural effusion. The nephrology service was notified and recommended a Perma-Cath placement; however, the patient was on Plavix and it could not be placed. He is scheduled to undergo Permacath placement by interventional radiology. The patient denies any chest pain, shortness of breath, however, he reports edema of his feet bilaterally. He denies any nausea, vomiting or abdominal pain. No history of cough or constitutional symptoms. 08/10 Patient is on 6L oxygen with good sats. s/p HD yesterday with removal 2.5L. Afebrile. Objective Vital Signs Date Time Temp Pulse Resp B/P (MAP) Pulse Ox O2 Delivery O2 Flow Rate FiO2 08/10/17 06:00 83 08/10/17 04:00 98.1 31 153/75 (101) 91 08/10/17 01:43 30 08/09/17 14:18 Nasal Cannula 6.00 Intake and Output 08/10/17 08/10/17 08/11/17 08:00 16:00 00:00 Intake Total 540 ml Output Total 400 ml Balance 140 ml Result Diagram: 08/10/17 0504 08/10/17 0504 Other Results Laboratory Tests Test 08/09/17 12:10 08/09/17 12:15 08/09/17 16:25 08/10/17 05:04 White Blood Count 8.0 TH/MM3 7.9 TH/MM3 Red Blood Count 2.94 MIL/MM3 2.98 MIL/MM3 Hemoglobin 9.1 GM/DL 9.3 GM/DL Hematocrit 27.8 % 28.3 % Mean Corpuscular Volume 94.3 FL 95.2 FL Mean Corpuscular Hemoglobin 31.0 PG 31.3 PG Mean Corpuscular Hemoglobin Concent 32.8 % 32.8 % Red Cell Distribution Width 18.2 % 18.3 % Platelet Count 263 TH/MM3 246 TH/MM3 Mean Platelet Volume 7.6 FL 7.2 FL Neutrophils (%) (Auto) 76.0 % 72.3 % Lymphocytes (%) (Auto) 6.7 % 9.6 % Monocytes (%) (Auto) 11.6 % 12.6 % Eosinophils (%) (Auto) 4.8 % 4.5 % Basophils (%) (Auto) 0.9 % 1.0 % Neutrophils # (Auto) 6.1 TH/MM3 5.7 TH/MM3 Lymphocytes # (Auto) 0.5 TH/MM3 0.8 TH/MM3 Monocytes # (Auto) 0.9 TH/MM3 1.0 TH/MM3 Eosinophils # (Auto) 0.4 TH/MM3 0.4 TH/MM3 Basophils # (Auto) 0.1 TH/MM3 0.1 TH/MM3 CBC Comment DIFF FINAL DIFF FINAL Differential Comment Prothrombin Time 11.4 SEC Prothromb Time International Ratio 1.0 RATIO Blood Urea Nitrogen 51 MG/DL 35 MG/DL Creatinine 6.68 MG/DL 5.13 MG/DL Random Glucose 115 MG/DL 96 MG/DL Calcium Level 8.2 MG/DL 8.3 MG/DL Sodium Level 137 MEQ/L 137 MEQ/L Potassium Level 4.2 MEQ/L 3.9 MEQ/L Chloride Level 100 MEQ/L 101 MEQ/L Carbon Dioxide Level 28.7 MEQ/L 27.2 MEQ/L Anion Gap 8 MEQ/L 9 MEQ/L Estimat Glomerular Filtration Rate 8 ML/MIN 11 ML/MIN Troponin I 0.07 NG/ML Blood Gas Puncture Site LT RADIAL Blood Gas Patient Temperature 98.6 Blood Gas HCO3 28 mmol/L Blood Gas Base Excess 3.5 mmol/L Blood Gas Oxygen Saturation 92 % Arterial Blood pH 7.41 Arterial Blood Partial Pressure CO2 44 mmHg Arterial Blood Partial Pressure O2 78 mmHG Arterial Blood Oxygen Content 11.4 Vol % Arterial Blood Carboxyhemoglobin 3.4 % Arterial Blood Methemoglobin 0.6 % Blood Gas Hemoglobin 8.7 G/DL Oxygen Delivery Device NASAL CANNULA Blood Gas Liter Flow 6 L/M Nasal Screen MRSA (PCR) MRSA NOT DETECTED Phosphorus Level 4.0 MG/DL Imaging Last Impressions Chest X-Ray 08/09/17 1206 Signed Impressions: Service Date/Time: Wednesday, August 09, 2017 11:28 - CONCLUSION: 1. Bibasilar patchiness consistent with atelectasis assess for infiltrates. Clinical correlation is recommended. 2. Small right pleural effusion. Jose Bird MD Catheter Placement X-Ray 08/09/17 0000 Signed Impressions: Service Date/Time: Wednesday, August 09, 2017 15:01 - CONCLUSION: Uncomplicated PermaCath placement as above. Pierre Michel Jr., MD Objective Remarks GENERAL: Patient is 82 yo lying in bed in no acute resp distress SKIN: Warm and dry. HEAD: Normocephalic. EYES: No scleral icterus. No injection or drainage. NECK: Supple, trachea midline. No JVD or lymphadenopathy. CARDIOVASCULAR: Regular rate and rhythm without murmurs, gallops, or rubs. RESPIRATORY: Breath sounds equal bilaterally. No accessory muscle use. GASTROINTESTINAL: Abdomen soft, non-tender, nondistended. MUSCULOSKELETAL: No cyanosis, or edema. Neuro: Awake and alert A/P Assessment and Plan 1. Respiratory insufficiency. 2. Chronic kidney disease, stage V 3. Hypertension. 4. Cardiomyopathy with EF of 25-30%. 5. Hypertension. 6. Hyperlipidemia. 7. Peripheral vascular disease. 8. Active tobacco use. 9. Anemia of chronic disease. Plan Neuro: Monitor neuro status closely and avoid any sedatives. Pulm: Wean down oxygen as tolerated and maintain sats above 92%. Bronchodilators, Incentive spirometry q.1h. while awake. BIPAP p.r.n. for respiratory distress. CV: Monitor HR and BP and maintain MAP> 65 mmHg. Start Coreg 6.25mg BID, on Lipitor 20 mg p.o. q.h.s. His last echo showed EF of 25-30%. : Monitor renal function, I's and O's, and avoid nephrotoxins. s/p PermCath placement 08/09. s/p HD yesterday with removal 2.5L Renal ; Dr. Harrington. GI: On PO diet Heme: Monitor CBC. Endo: SSI with Accu-Cheks for glycemic control. No indications for GI prophylaxis. DVT prophylaxis with SCDs. Lines: Right subclavian PermCath placed 08/09 Level 2 Ella Ocampo MD Aug 10, 2017 08:27
[2017-08-10] MEDS: CALCITRIOL 0.25 MCG CAP PO SCH (08:42)
[2017-08-10] MEDS: ATORVASTATIN 20 MG TAB PO SCH (08:43)
[2017-08-10] MEDS: DOCUSATE SODIUM 50 MG/SENNA 8.6 MG TAB PO SCH ×2 (08:43→21:00)
[2017-08-10] MEDS ORDERED: CARVEDILOL 6.25 MG TAB PO ONE (09:00)
--- NOTE | 2017-08-10 10:50 | EKG ---
Date Performed: 08/09/2017 Time Performed: 12:08:37 PTAGE: 82 years EKG: Sinus rhythm ST DEVIATION AND MODERATE T-WAVE ABNORMALITY, CONSIDER LATERAL ISCHEMIA ABNORMAL ECG PREVIOUS TRACING : 07/25/2017 15.26 DOCTOR: Ayo Muñoz Interpretating Date/Time 08/10/2017 10:49:13
[2017-08-10] MEDS: VITAMIN B CMPLX/VITC/FOLIC AC CAP PO SCH (11:00)
--- NOTE | 2017-08-10 12:29 | HHI.NPPN ---
Subjective Complaints: Shortness of Breath General Problems: Anemia Renal Failure: Chronic, End Stage Renal Disease Interval History Permcath placed, he was dialyzed with 2.5 liter UF yesterday. To be dialyzed again today. Breathing somewhat better. (Roxi Romano) Review of Systems General Constitutional: Fatigue (Roxi Romano) Respiratory Lungs: SOB (Roxi Romano) Objective Data Data Vital Signs Date Time Temp Pulse Resp B/P (MAP) Pulse Ox O2 Delivery O2 Flow Rate FiO2 08/10/17 10:00 77 08/10/17 08:34 98 Simple Mask 8.00 08/10/17 08:00 97.3 79 26 158/72 (100) 97 08/10/17 08:00 79 08/10/17 06:00 83 08/10/17 04:00 98.1 72 31 153/75 (101) 91 08/10/17 04:00 72 08/10/17 02:00 84 08/10/17 01:43 94 30 08/10/17 01:00 94 30 08/10/17 00:00 97.7 75 20 156/83 (107) 97 08/10/17 00:00 75 08/09/17 23:10 93 45 08/09/17 22:00 78 08/09/17 20:00 76 08/09/17 20:00 98.9 76 31 158/74 (102) 91 08/09/17 18:00 70 08/09/17 18:00 70 31 155/73 (100) 99 08/09/17 17:00 73 164/81 (108) 92 08/09/17 16:37 97.9 71 28 176/88 (117) 86 08/09/17 16:00 76 08/09/17 14:45 08/09/17 14:18 78 24 157/76 (103) 95 Nasal Cannula 6.00 (Roxi Romano) -: 08/10/17 0504 08/10/17 0504 Imaging Last 72 hours Impressions Chest X-Ray 08/09/17 1206 Signed Impressions: Service Date/Time: Wednesday, August 09, 2017 11:28 - CONCLUSION: 1. Bibasilar patchiness consistent with atelectasis assess for infiltrates. Clinical correlation is recommended. 2. Small right pleural effusion. Jose Bird MD Catheter Placement X-Ray 08/09/17 0000 Signed Impressions: Service Date/Time: Wednesday, August 09, 2017 15:01 - CONCLUSION: Uncomplicated PermaCath placement as above. Pierre Michel Jr., MD Tubes & Lines: Perma-Cath, Tenckhoff Catheter (Roxi Romano B. PUNCH PRESS OPERATOR) Physical Exam General Appearance: Well Developed, No Acute Distress, Comfortable (Juan AntonioRoxi B. PUNCH PRESS OPERATOR) Throat Throat Exam: Oral Mucosa [place] & Moist (Juan AntonioRoxi B. PUNCH PRESS OPERATOR) Neck Neck Exam: Neck Supple (Juan AntonioRoxi B. P[employer]CH PRESS OPERATOR) Pulmonary Resp Exam: Breath Sounds Equal, Decreased Bases, Diminished Breath Sounds Resp Remarks faint bibasilar crackles (Juan AntonioRoxi B. PUNCH PRESS OPERATOR) Cardiology CV Exam: Regular, Good Perfusion (Juan AntonioRoxi B. PUNCH PRESS OPERATOR) Gastrointestinal/Abdomen GI Exam: Soft, Non-Tender, Bowel Sounds Present (Kieran Romanoon B. PUNCH PRESS OPERATOR) Musculoskeletal MS Exam: Joints Intact, Normal Tone, Good Strength (Juan AntonioRoxi B. PUNCH PRESS OPERATOR) Integumentary Skin Exam: Clear, Warm, Dry, Intact (Kieran Romanoon B. PUNCH PRESS OPERATOR) Extremeties Extremities Exam: No Edema, Pedal Pulses Palpable (Juan AntonioRoxi B. PUNCH PRESS OPERATOR) Neurologic Neuro Exam: Alert, Awake, Oriented, Speech Clear, Moving All Extremities (Kieran Romanoon B. PUNCH PRESS OPERATOR) Psychiatric Psych Exam: Appropriate Responses (Juan AntonioRoxi B. PUNCH PRESS OPERATOR) Assessment/Plan Discussed Condition With: Patient Assessment Summary: Anemia of CKD, CHF, Hypertension, End Stage Renal Disease Problem List: (1) ESRD (end stage renal disease) ICD Codes: N18.6 - End stage renal disease Plan: Permcath placed 08/09 HD yesterday, 2.5 Liter UF HD again today; plan is to discharge on hemodialysis, convert to PD in upcoming weeks as he cannot tolerate urgent start PD Discharge possible in AM; his first outpatient HD on Tuesday Monitor electrolytes intermittently Avoid IVF, renally dose when necessary (2) Shortness of breath ICD Codes: R06.02 - Shortness of breath Plan: Use Oxygen as needed, ween as tolerated Fluid removal as tolerated with dialysis Chest xray showing pleural effusion, possible infiltrate Given vancomycin and Ancef Noted EF 25-30% (3) Anemia ICD Codes: D64.9 - Anemia, unspecified Plan: Epogen with dialysis (4) Hypertension ICD Codes: I10 - Essential (primary) hypertension Plan: Continue home medications (Roxi Romano) Plan patient was seen and examined. Dialysis again, monitor oxygenation. May need home oxygen. (Bobby Harrington MD) Roxi Romano Aug 10, 2017 12:29 Bobby Harrington MD Aug 11, 2017 07:12
[2017-08-10] MEDS: GENTAMICIN SULFATE (DIALYSIS USE ONLY) 20 MG/2 ML VIAL OTHER PRN (13:35)
[2017-08-10] MEDS: HEPARIN SODIUM - IV 10,000 UNITS/10 ML VIAL PRN (13:35)
[2017-08-10] MEDS: ALBUMIN 25% INJ 100 ML IV PRN (13:36)
[2017-08-11] VITALS (18 sets, daily range): BP systolic 129–175; BP diastolic 62–88; PULSE 58–86; RESP 13–27; TEMP 97.9–99; O2SAT 89–98
[2017-08-11] MEDS: INSULIN NovoLIN REGULAR SUPPLEMENTAL SCALE SQ SCH ×5 (03:00→23:00)
[2017-08-11] MEDS: RESP: ALBUTEROL 2.5 MG/IPRATROPIUM 0.5 MG NEB (SCH) INH ×6 (04:12→23:38)
[2017-08-11 05:24] LABS: AUTOMATED NEUTROPHIL # 4.6 TH/MM3 (1.8-7.7); BASOPHIL # 0.1 TH/MM3 (0-0.2); BASOPHIL % 0.8 % (0.0-2.0); EOSINOPHIL # 0.4 TH/MM3 (0-0.4); EOSINOPHIL % 5.9 % (0.0-4.0); HEMATOCRIT 27.3 % (39.0-51.0); HEMO FLAGS DIFF FINAL; LYMPH % 14.3 % (9.0-44.0); MEAN CELL VOLUME 95.2 FL (80.0-100.0); MEAN CORPUSCULAR HEMOGLOBIN 32.2 PG (27.0-34.0); MEAN CORPUSCULAR HGB CONC 33.8 % (32.0-36.0); MONO % 13.9 % (0.0-8.0); NEUT % 65.1 % (16.0-70.0); PLATELET COUNT 239 TH/MM3 (150-450); RED BLOOD COUNT 2.87 MIL/MM3 (4.50-5.90); RED CELL DISTRIBUTION WIDTH 18.4 % (11.6-17.2)
[2017-08-11 05:45] LABS: BICARBONATE 30.2 MEQ/L (21.0-32.0); POTASSIUM 3.6 MEQ/L (3.5-5.1)
--- NOTE | 2017-08-11 08:08 | HHI.CCPN ---
Subjective Remarks/Hospital Course Patient is an 82-year-old male with a past medical history of chronic kidney disease stage V, cardiomyopathy with an EF of 25-30%, peripheral arterial disease, hypertension, who went to get his peritoneal dialysis today and at the center he became short of breath and weak. The patient was subsequently transferred to the ER for further evaluation and management. His laboratory data showed a creatinine of 6.68 and potassium 4.2. His blood pressure in the ER was 157/76 and saturation of 95% on 6 liter oxygen. ABG was performed which showed a pH of 7.41, CO2 44, PAO2 78, bicarb 28 and saturation of 92%. Chest x-ray in the ED showed bibasilar patchiness consistent with atelectasis and small right pleural effusion. The nephrology service was notified and recommended a Perma-Cath placement; however, the patient was on Plavix and it could not be placed. He is scheduled to undergo Permacath placement by interventional radiology. The patient denies any chest pain, shortness of breath, however, he reports edema of his feet bilaterally. He denies any nausea, vomiting or abdominal pain. No history of cough or constitutional symptoms. 08/10 Patient is on 6L oxygen with good sats. s/p HD yesterday with removal 2.5L. Afebrile. 08/11 No events overnight. On 3L oxygen with good sats. Hypertensive. Objective Vital Signs Date Time Temp Pulse Resp B/P (MAP) Pulse Ox O2 Delivery O2 Flow Rate FiO2 08/11/17 07:48 93 Nasal Cannula 3.00 08/11/17 06:00 78 08/11/17 04:00 98.9 23 172/73 (106) 08/10/17 01:43 30 Intake and Output 08/11/17 08/11/17 08/12/17 08:00 16:00 00:00 Intake Total 240 ml Output Total 300 ml Balance -60 ml Result Diagram: 08/11/17 0451 08/11/17 0451 Other Results Laboratory Tests Test 08/11/17 04:51 White Blood Count 7.0 TH/MM3 Red Blood Count 2.87 MIL/MM3 Hemoglobin 9.2 GM/DL Hematocrit 27.3 % Mean Corpuscular Volume 95.2 FL Mean Corpuscular Hemoglobin 32.2 PG Mean Corpuscular Hemoglobin Concent 33.8 % Red Cell Distribution Width 18.4 % Platelet Count 239 TH/MM3 Mean Platelet Volume 7.9 FL Neutrophils (%) (Auto) 65.1 % Lymphocytes (%) (Auto) 14.3 % Monocytes (%) (Auto) 13.9 % Eosinophils (%) (Auto) 5.9 % Basophils (%) (Auto) 0.8 % Neutrophils # (Auto) 4.6 TH/MM3 Lymphocytes # (Auto) 1.0 TH/MM3 Monocytes # (Auto) 1.0 TH/MM3 Eosinophils # (Auto) 0.4 TH/MM3 Basophils # (Auto) 0.1 TH/MM3 CBC Comment DIFF FINAL Differential Comment Blood Urea Nitrogen 29 MG/DL Creatinine 4.31 MG/DL Random Glucose 96 MG/DL Calcium Level 8.6 MG/DL Sodium Level 140 MEQ/L Potassium Level 3.6 MEQ/L Chloride Level 102 MEQ/L Carbon Dioxide Level 30.2 MEQ/L Anion Gap 8 MEQ/L Estimat Glomerular Filtration Rate 13 ML/MIN Imaging Last Impressions Chest X-Ray 08/09/17 1206 Signed Impressions: Service Date/Time: Wednesday, August 09, 2017 11:28 - CONCLUSION: 1. Bibasilar patchiness consistent with atelectasis assess for infiltrates. Clinical correlation is recommended. 2. Small right pleural effusion. Jose Bird MD Catheter Placement X-Ray 08/09/17 0000 Signed Impressions: Service Date/Time: Wednesday, August 09, 2017 15:01 - CONCLUSION: Uncomplicated PermaCath placement as above. Pierre Michel Jr., MD Objective Remarks GENERAL: Patient is 82 yo lying in bed in no acute resp distress SKIN: Warm and dry. HEAD: Normocephalic. EYES: No scleral icterus. No injection or drainage. NECK: Supple, trachea midline. No JVD or lymphadenopathy. CARDIOVASCULAR: Regular rate and rhythm without murmurs, gallops, or rubs. RESPIRATORY: Breath sounds equal bilaterally. No accessory muscle use. GASTROINTESTINAL: Abdomen soft, non-tender, nondistended. MUSCULOSKELETAL: No cyanosis, or edema. Neuro: Awake and alert A/P Assessment and Plan 1. Respiratory insufficiency. 2. Chronic kidney disease, stage V 3. Hypertension. 4. Cardiomyopathy with EF of 25-30%. 5. Hypertension. 6. Hyperlipidemia. 7. Peripheral vascular disease. 8. Active tobacco use. 9. Anemia of chronic disease. Plan Neuro: Monitor neuro status closely and avoid any sedatives. Pulm: Wean down oxygen as tolerated and maintain sats above 92%. Bronchodilators, Incentive spirometry q.1h. while awake. BIPAP p.r.n. for respiratory distress. CV: Monitor HR and BP and maintain MAP> 65 mmHg. Increase Coreg 12.5mg BID, add Hydralazine 50mg Q8, on Lipitor 20 mg p.o. q.h.s. His last echo showed EF of 25-30%. : Monitor renal function, I's and O's, and avoid nephrotoxins. s/p PermCath placement 08/09. s/p HD yesterday with removal 2.5L Renal ; Dr. Harrington. GI: On PO diet Heme: Monitor CBC. Endo: SSI with Accu-Cheks for glycemic control. No indications for GI prophylaxis. DVT prophylaxis with SCDs. Lines: Right subclavian PermCath placed 08/09 Will sign off and transfer care to [facility] Level 2 Ella Ocampo MD Aug 11, 2017 08:08
[2017-08-11] MEDS: hydrALAZINE HCL 50 MG TAB PO SCH ×2 (10:09→17:00)
[2017-08-11] MEDS: DOCUSATE SODIUM 50 MG/SENNA 8.6 MG TAB PO SCH ×2 (10:09→20:34)
[2017-08-11] MEDS: ATORVASTATIN 20 MG TAB PO SCH (10:09)
[2017-08-11] MEDS: CARVEDILOL 12.5 MG TAB PO SCH ×3 (10:09→20:35)
[2017-08-11] MEDS: VITAMIN B CMPLX/VITC/FOLIC AC CAP PO SCH (10:09)
[2017-08-11] MEDS: CALCITRIOL 0.25 MCG CAP PO SCH (10:09)
--- NOTE | 2017-08-11 13:36 | HHI.NPPN ---
Subjective Complaints: Shortness of Breath General Problems: Anemia Renal Failure: Chronic, End Stage Renal Disease Interval History More comfortable today. On 3 liters of O2 by NC. Review of Systems General Constitutional: Fatigue Respiratory Lungs: SOB Objective Data Data Vital Signs Date Time Temp Pulse Resp B/P (MAP) Pulse Ox O2 Delivery O2 Flow Rate FiO2 08/11/17 11:00 75 26 129/62 (84) 94 08/11/17 10:01 78 22 175/88 (117) 93 08/11/17 09:00 79 27 149/69 (95) 97 08/11/17 08:28 98.6 86 24 157/72 (100) 93 08/11/17 07:48 93 Nasal Cannula 3.00 08/11/17 07:00 77 23 167/79 (108) 94 08/11/17 06:00 78 08/11/17 04:00 98.9 77 23 172/73 (106) 89 08/11/17 04:00 77 08/11/17 02:00 76 08/11/17 00:00 99.0 58 13 166/77 (106) 98 08/11/17 00:00 79 08/10/17 22:00 92 08/10/17 20:00 99.5 80 18 155/72 (99) 96 08/10/17 20:00 80 08/10/17 19:38 95 Nasal Cannula 2.00 08/10/17 18:00 75 08/10/17 16:00 80 08/10/17 16:00 98.6 80 154/77 (102) 93 08/10/17 14:00 75 -: 08/11/17 0451 08/11/17 0451 Tubes & Lines: Perma-Cath, Tenckhoff Catheter Physical Exam General Appearance: Well Developed, No Acute Distress, Comfortable Throat Throat Exam: Oral Mucosa [place] & Moist Neck Neck Exam: Neck Supple Pulmonary Resp Exam: Breath Sounds Equal, Decreased Bases, Diminished Breath Sounds Cardiology CV Exam: Regular, Good Perfusion Gastrointestinal/Abdomen GI Exam: Soft, Non-Tender, Bowel Sounds Present Musculoskeletal MS Exam: Joints Intact, Normal Tone, Good Strength Integumentary Skin Exam: Clear, Warm, Dry, Intact Extremeties Extremities Exam: No Edema, Pedal Pulses Palpable Neurologic Neuro Exam: Alert, Awake, Oriented, Speech Clear, Moving All Extremities Psychiatric Psych Exam: Appropriate Responses Assessment/Plan Discussed Condition With: Patient Assessment Summary: Anemia of CKD, CHF, Hypertension, End Stage Renal Disease Problem List: (1) ESRD (end stage renal disease) ICD Codes: N18.6 - End stage renal disease Plan: Permcath placed 08/09 Dialyzed on and . Dialysis again tomorrow. Plan is to discharge on hemodialysis, convert to PD in upcoming weeks as he cannot tolerate urgent start PD Monitor electrolytes intermittently Avoid IVF, renally dose when necessary Outpatient dialysis arrangements have been made at [facility] on [facility]. Can be discharged after dialysis tomorrow. May need home O2? (2) Shortness of breath ICD Codes: R06.02 - Shortness of breath Plan: Use Oxygen as needed, ween as tolerated Fluid removal as tolerated with dialysis Chest xray showing pleural effusion, possible infiltrate Given vancomycin and Ancef Noted EF 25-30% (3) Anemia ICD Codes: D64.9 - Anemia, unspecified Plan: Epogen with dialysis (4) Hypertension ICD Codes: I10 - Essential (primary) hypertension Plan: Continue home medications Bobby Harrington MD Aug 11, 2017 13:36
[2017-08-12] VITALS (17 sets, daily range): BP systolic 140–148; BP diastolic 82–84; PULSE 64–76; RESP 18–22; TEMP 97.1; O2SAT 94–98
[2017-08-12] MEDS: hydrALAZINE HCL 50 MG TAB PO SCH ×2 (01:38→08:58)
[2017-08-12] MEDS: RESP: ALBUTEROL 2.5 MG/IPRATROPIUM 0.5 MG NEB (SCH) INH ×3 (02:55→13:10)
[2017-08-12] MEDS: INSULIN NovoLIN REGULAR SUPPLEMENTAL SCALE SQ SCH ×3 (03:00→11:00)
[2017-08-12] MEDS: CHLORHEXIDINE GLUCONATE 2 % 1 PACK (2 CLOTHS) TOP SCH (04:00)
[2017-08-12 05:56] LABS: AUTOMATED NEUTROPHIL # 5.4 TH/MM3 (1.8-7.7); BASOPHIL # 0.1 TH/MM3 (0-0.2); EOSINOPHIL # 0.6 TH/MM3 (0-0.4); EOSINOPHIL % 7.2 % (0.0-4.0); HEMATOCRIT 25.7 % (39.0-51.0); HEMO FLAGS DIFF FINAL; LYMPH % 15.2 % (9.0-44.0); LYMPHOCYTE # 1.3 TH/MM3 (1.0-4.8); MEAN CELL VOLUME 94.9 FL (80.0-100.0); MEAN CORPUSCULAR HEMOGLOBIN 31.2 PG (27.0-34.0); MEAN CORPUSCULAR HGB CONC 32.9 % (32.0-36.0); MONO % 13.2 % (0.0-8.0); NEUT % 63.4 % (16.0-70.0); PLATELET COUNT 248 TH/MM3 (150-450); RED CELL DISTRIBUTION WIDTH 17.9 % (11.6-17.2); WHITE BLOOD COUNT 8.5 TH/MM3 (4.0-11.0)
[2017-08-12 06:26] LABS: BICARBONATE 29.3 MEQ/L (21.0-32.0); POTASSIUM 3.8 MEQ/L (3.5-5.1)
[2017-08-12] MEDS: CARVEDILOL 12.5 MG TAB PO SCH (08:58)
[2017-08-12] MEDS: DOCUSATE SODIUM 50 MG/SENNA 8.6 MG TAB PO SCH (08:58)
[2017-08-12] MEDS: ATORVASTATIN 20 MG TAB PO SCH (08:58)
[2017-08-12] MEDS: VITAMIN B CMPLX/VITC/FOLIC AC CAP PO SCH (08:59)
[2017-08-12] MEDS: CALCITRIOL 0.25 MCG CAP PO SCH (08:59)
--- NOTE | 2017-08-12 13:10 | HHI.NPPN ---
Subjective Complaints: Shortness of Breath General Problems: Anemia Renal Failure: Chronic, End Stage Renal Disease Interval History patient was seen and examined. To have HD today Review of Systems General Constitutional: Fatigue Respiratory Lungs: SOB Objective Data Data Vital Signs Date Time Temp Pulse Resp B/P (MAP) Pulse Ox O2 Delivery O2 Flow Rate FiO2 08/12/17 11:41 64 08/12/17 10:00 68 08/12/17 09:00 70 08/12/17 08:15 98 Nasal Cannula 2.00 08/12/17 08:00 68 08/12/17 07:30 97.1 68 18 148/84 (105) 96 08/12/17 07:00 67 08/12/17 05:00 71 08/12/17 04:00 72 08/12/17 03:00 76 22 140/82 (101) 94 08/12/17 03:00 68 08/12/17 02:00 66 08/12/17 01:00 70 08/12/17 00:00 72 08/11/17 23:00 72 08/11/17 23:00 69 20 142/88 (106) 94 08/11/17 22:00 76 08/11/17 21:00 78 08/11/17 20:15 91 21 08/11/17 20:00 74 08/11/17 20:00 97.9 74 16 154/79 (104) 95 08/11/17 19:00 74 08/11/17 16:00 71 08/11/17 16:00 98.9 71 22 139/67 (91) 98 -: 08/12/17 0424 08/12/17 0424 Tubes & Lines: Perma-Cath, Tenckhoff Catheter Physical Exam General Appearance: Well Developed, No Acute Distress, Comfortable Appearance Remarks frail, elderly. Throat Throat Exam: Oral Mucosa [place] & Moist Neck Neck Exam: Neck Supple Pulmonary Resp Exam: Breath Sounds Equal, Decreased Bases, Diminished Breath Sounds Cardiology CV Exam: Regular, Good Perfusion Gastrointestinal/Abdomen GI Exam: Soft, Non-Tender, Bowel Sounds Present Musculoskeletal MS Exam: Joints Intact, Normal Tone, Good Strength Integumentary Skin Exam: Clear, Warm, Dry, Intact Extremeties Extremities Exam: No Edema, Pedal Pulses Palpable Neurologic Neuro Exam: Alert, Awake, Oriented, Speech Clear, Moving All Extremities Psychiatric Psych Exam: Appropriate Responses Assessment/Plan Discussed Condition With: Patient Assessment Summary: Anemia of CKD, CHF, Hypertension, End Stage Renal Disease Problem List: (1) ESRD (end stage renal disease) ICD Codes: N18.6 - End stage renal disease Plan: Permcath placed 08/09 Dialyzed on and . Dialysis again today. Plan is to discharge on hemodialysis, convert to PD in upcoming weeks as he cannot tolerate urgent start PD Monitor electrolytes intermittently Avoid IVF, renally dose when necessary Outpatient dialysis arrangements have been made at [facility] on [facility]. He can be discharged from renal standpoint after dialysis. May need home O2? (2) Shortness of breath ICD Codes: R06.02 - Shortness of breath Plan: Use Oxygen as needed, ween as tolerated Fluid removal as tolerated with dialysis EF is 25-30% (3) Anemia ICD Codes: D64.9 - Anemia, unspecified Plan: Epogen with dialysis (4) Hypertension ICD Codes: I10 - Essential (primary) hypertension Plan: Continue home medications Bobby Harrington MD Aug 12, 2017 13:10
[2017-08-12] MEDS ORDERED: HYDR-3800 PO (14:38)
[2017-08-12] MEDS ORDERED: CARV12.5 PO (14:38)
--- NOTE | 2017-08-12 14:40 | HHI.DCPOC ---
Discharge Care Plan Diagnosis: (1) ESRD (end stage renal disease) (2) CHF (congestive heart failure) (3) Shortness of breath Additional Problems Proceed with your dialysis sessions as scheduled after discharge. Follow-up with cardiology in the clinic to see if you need an implanted cardiac defibrillator. Goals to Promote Your Health * To prevent worsening of your condition and complications * To maintain your health at the optimal level Directions to Meet Your Goals Take your medications as prescribed Follow your dietary instruction Follow activity as directed Keep your appointments as scheduled Take your immunizations and boosters as scheduled If your symptoms worsen call your PCP, if no PCP go to Urgent Care Center or Emergency Room Smoking is Dangerous to Your Health. Avoid second hand smoke Call the 24-hour hour crisis hotline for domestic abuse at Barrington Lopes MD Aug 12, 2017 14:40
--- NOTE | 2017-08-12 14:42 | HHI.DS ---
Discharge Summary Admission Date Aug 09, 2017 at 13:38 Discharge Date: Aug 12, 2017 Admitting Diagnosis respiratory distress, renal failure, ESRD (1) Pulmonary edema ICD Code: J81.1 - Chronic pulmonary edema (2) ESRD (end stage renal disease) ICD Code: N18.6 - End stage renal disease Procedures dialysis x 3 Brief History - From Admission The patient is an 82-year-old male with a past medical history of chronic kidney disease stage V, cardiomyopathy with an EF of 25-30%, peripheral arterial disease, hypertension, who went to get his peritoneal dialysis today and at the center he became short of breath and weak. The patient was subsequently transferred to the ER for further evaluation and management. His laboratory data showed a creatinine of 6.68 and potassium 4.2. His blood pressure in the ER was 157/76 and saturation of 95% on 6 liter oxygen. ABG was performed which showed a pH of 7.41, CO2 44, PAO2 78, bicarb 28 and saturation of 92%. Chest x-ray in the ED showed bibasilar patchiness consistent with atelectasis and small right pleural effusion. The nephrology service was notified and recommended a Perma-Cath placement; however, the patient was on Plavix and it could not be placed. He is scheduled to undergo Vas-Cath placement by interventional radiology. The patient denies any chest pain, shortness of breath, however, he reports edema of his feet bilaterally. He denies any nausea, vomiting or abdominal pain. No history of cough or constitutional symptoms. CBC/BMP: 08/12/17 0424 08/12/17 0424 Significant Findings Laboratory Tests Test 08/09/17 16:25 08/10/17 05:04 08/11/17 04:51 08/12/17 04:24 Red Blood Count 2.98 MIL/MM3 (4.50-5.90) 2.87 MIL/MM3 (4.50-5.90) 2.70 MIL/MM3 (4.50-5.90) Hemoglobin 9.3 GM/DL (13.0-17.0) 9.2 GM/DL (13.0-17.0) 8.4 GM/DL (13.0-17.0) Hematocrit 28.3 % (39.0-51.0) 27.3 % (39.0-51.0) 25.7 % (39.0-51.0) Red Cell Distribution Width 18.3 % (11.6-17.2) 18.4 % (11.6-17.2) 17.9 % (11.6-17.2) Neutrophils (%) (Auto) 72.3 % (16.0-70.0) Monocytes (%) (Auto) 12.6 % (0.0-8.0) 13.9 % (0.0-8.0) 13.2 % (0.0-8.0) Eosinophils (%) (Auto) 4.5 % (0.0-4.0) 5.9 % (0.0-4.0) 7.2 % (0.0-4.0) Lymphocytes # (Auto) 0.8 TH/MM3 (1.0-4.8) Monocytes # (Auto) 1.0 TH/MM3 (0-0.9) 1.0 TH/MM3 (0-0.9) 1.1 TH/MM3 (0-0.9) Blood Urea Nitrogen 35 MG/DL (7-18) 29 MG/DL (7-18) 41 MG/DL (7-18) Creatinine 5.13 MG/DL (0.60-1.30) 4.31 MG/DL (0.60-1.30) 5.49 MG/DL (0.60-1.30) Calcium Level 8.3 MG/DL (8.5-10.1) 8.1 MG/DL (8.5-10.1) Estimat Glomerular Filtration Rate 11 ML/MIN (>89) 13 ML/MIN (>89) 10 ML/MIN (>89) Eosinophils # (Auto) 0.6 TH/MM3 (0-0.4) Imaging Last Impressions Chest X-Ray 08/09/17 1206 Signed Impressions: Service Date/Time: Wednesday, August 09, 2017 11:28 - CONCLUSION: 1. Bibasilar patchiness consistent with atelectasis assess for infiltrates. Clinical correlation is recommended. 2. Small right pleural effusion. Jose Bird MD Catheter Placement X-Ray 08/09/17 0000 Signed Impressions: Service Date/Time: Wednesday, August 09, 2017 15:01 - CONCLUSION: Uncomplicated PermaCath placement as above. Pierre Michel Jr., MD PE at Discharge clear lungs BL except for slightly diminished BS in right base Hospital Course Patient was initially admitted to the intensive care unit for respiratory distress where he was managed with duo nebs and BiPAP as needed. He was eventually transitioned to nasal cannula and was transferred to the medical floor. He had a Perma-Cath placed and Nephrology dialyzed the patient successfully via 3 sessions. Patient had been transitioned to room air and tolerated a home oxygen walk test well without warranting supplemental oxygen, his dyspnea on exertion had also completely resolved and did not have any signs or symptoms suggestive of having a pulmonary embolism. He did have a short beat run suggestive of ventricular tachycardia in which case he was asymptomatic , this was discussed with cardiology who recommended that the patient follow-up as an outpatient given that he has a low ejection fraction but no ICD in place. Patient has met maximal benefit from hospitalization and is clinically stable for discharge. Pt Condition on Discharge: Stable Discharge Disposition: Discharge Home Discharge Time: > 30 minutes Discharge Instructions DIET: Follow Instructions for: Heart Healthy Diet, Renal Failure Diet Activities you can perform: Regular-No Restrictions Follow up Referrals: Cardiology - 10 Days Nephrology PCP Follow-up - 1 Week New Medications: Carvedilol (Coreg) 12.5 Mg Tab 12.5 MG PO Q12HR for Blood Pressure Management, #60 TAB Hydralazine HCl (Hydralazine HCl) 50 Mg Tablet 50 MG PO Q8H for Blood Pressure Management, #90 TAB Continued Medications: Albuterol 18 GM Inh (Ventolin Hfa 18 GM Inh) 90 Mcg/Act Aer 2 PUFF INH Q12HR NEB PRN for SHORTNESS OF BREATH, INHALER 0 Refills Amlodipine (Norvasc) 10 Mg Tab 10 MG PO DAILY for Blood Pressure Management, #30 TAB 0 Refills Atorvastatin (Lipitor) 20 Mg Tab 20 MG PO DAILY for Cholesterol Management, #30 TAB 0 Refills Cholecalciferol (Gnp Vitamin D3 Extra Stre) 1,000 Unit Tab 2000 UNITS PO DAILY for vitamin, #31 TAB Clopidogrel (Plavix) 75 Mg Tab 75 MG PO DAILY for Prevent Blood Clot, #30 TAB 3 Refills Furosemide (Furosemide) 20 Mg Tab 20 MG PO DAILY, TAB 0 Refills Polyethylene Glycol 3350 Powder (Miralax Powder) 17 Gm Powd 17 GM PO DAILY for Constipation, #1 CAN 0 Refills Mix and dissolve one measuring cap-ful (17 grams) in water or juice. Sennosides-Docusate Sodium (Senokot S) 8.6-50 Mg Tab 1 TAB PO DAILY for Constipation, TAB 0 Refills Zolpidem (Zolpidem) 5 Mg Tab 5 MG PO HS PRN for INSOMNIA, TAB 0 Refills Discontinued Medications: Carvedilol (Coreg) 12.5 Mg Tab 25 MG PO Q12HR for bp, #62 TAB Barrington Lopes MD Aug 12, 2017 14:42
[2017-08-12] MEDS: EPOETIN ALFA 10,000 UNITS/ML VIAL IV PUSH PRN (16:46)
[2017-08-12] MEDS: GENTAMICIN SULFATE (DIALYSIS USE ONLY) 20 MG/2 ML VIAL OTHER PRN (16:47)
== END 2017-08-12 18:07 | disposition home or self-care (01) | DRG 205 ==
LOC: NEPC 11:55 → NEDA 13:38 → HIMN 16:19 → HCIS 08-11 18:55
PROVIDERS: ADMIT Hospitalist; ATTEND Hospitalist
PROC: 5A09357 Assistance with Respiratory Ventilation, Less than 24 Consecutive Hours, Continuous Positive Airway Pressure (ICD-10-PCS; principal; 2017-08-09)
PROC: 5A1D70Z Performance of Urinary Filtration, Intermittent, Less than 6 Hours Per Day (ICD-10-PCS; 2017-08-09)
PROC: B543ZZA Ultrasonography of Right Jugular Veins, Guidance (ICD-10-PCS; 2017-08-09)
PROC: 05HM33Z Insertion of Infusion Device into Right Internal Jugular Vein, Percutaneous Approach (ICD-10-PCS; 2017-08-09)
DX: R09.02 Hypoxemia (principal); N18.6 End stage renal disease; I13.2 Hypertensive heart and chronic kidney disease with heart failure and with stage 5 chronic kidney disease, or end stage renal disease; J81.1 Chronic pulmonary edema; N25.81 Secondary hyperparathyroidism of renal origin; I42.9 Cardiomyopathy, unspecified; N18.5 Chronic kidney disease, stage 5; R06.89 Other abnormalities of breathing; Z99.2 Dependence on renal dialysis; I50.9 Heart failure, unspecified; E78.5 Hyperlipidemia, unspecified; I73.9 Peripheral vascular disease, unspecified; D63.1 Anemia in chronic kidney disease; F17.210 Nicotine dependence, cigarettes, uncomplicated
CPT/HCPCS: 36558; 36600; 71010; 76937; 77001; 80048; 82805; 82948; 84100; 84484; 85025; 85610; 87641; 90935; 93005; 94002; 94003; 94150; 94620; 94640; 94664; 96374; 96375; 99152; 99153; C1750; C1769; J0690; J1580; J1644; J2250; J3010; J3370; J7050; P9047; Q4081

== ENCOUNTER 2017-08-15 20:34 | Inpatient (IN) | payer OTHER, MEDICARE ==
[2017-08-15] VITALS (8 sets, daily range): BP systolic 160–174; BP diastolic 75–94; PULSE 79–94; RESP 16–27; O2SAT 94–98
[~2017-08-15] VITALS: Ht 175.3 cm; Wt 78.6 kg
[~2017-08-15 20:34] MED LIST changes: -CALC.25 PO; +FURO20TA PO; +HYDR-3800 PO; +SENN1TAB17 PO; +VENTAER INH; +ZOLP5TAB3 PO
[2017-08-15] MEDS ORDERED: methylPREDNISolone SOD SUCC 125 MG/2 ML VIAL IV PUSH ONE (20:45)
[2017-08-15] MEDS ORDERED: SODIUM CHLORIDE 0.9% FLUSH 10 ML FLUSH IVF PRN (20:45)
[2017-08-15 21:31] LABS: AUTOMATED NEUTROPHIL # 4.5 TH/MM3 (1.8-7.7); BASOPHIL # 0.1 TH/MM3 (0-0.2); BASOPHIL % 1.1 % (0.0-2.0); EOSINOPHIL # 0.4 TH/MM3 (0-0.4); EOSINOPHIL % 6.2 % (0.0-4.0); HEMATOCRIT 30.2 % (39.0-51.0); HEMO FLAGS DIFF FINAL; LYMPH % 8.7 % (9.0-44.0); LYMPHOCYTE # 0.5 TH/MM3 (1.0-4.8); MEAN CORPUSCULAR HEMOGLOBIN 30.8 PG (27.0-34.0); MEAN CORPUSCULAR HGB CONC 32.4 % (32.0-36.0); MONO % 12.1 % (0.0-8.0); NEUT % 71.9 % (16.0-70.0); PLATELET COUNT 318 TH/MM3 (150-450); RED BLOOD COUNT 3.18 MIL/MM3 (4.50-5.90); RED CELL DISTRIBUTION WIDTH 17.5 % (11.6-17.2); WHITE BLOOD COUNT 6.2 TH/MM3 (4.0-11.0)
--- NOTE | 2017-08-15 21:31 | PD ---
HPI Chief Complaint: Respiratory Distress Time Seen by Provider: 20:40 Travel History International Travel<30 days: No Contact w/Intl Traveler<30days: No Traveled to known affect area: No History of Present Illness HPI 82-year-old male complains of shortness of breath. Patient has history of COPD and end-stage renal disease on dialysis. Patient states that he is on both peritoneal and hemodialysis. Patient just finished hemodialysis this evening and started having shortness of breath. EMS was called. Patient was given Lasix 80 mg IV [address] the way to the ED. Patient was given BiPAP underway JVD. Patient states that he is feeling better with the treatment. Patient denies any chest pain. Patient denies abdominal pain. Patient denies any cough or congestion fever chills. PFSH Past Medical History Hx Anticoagulant Therapy: Yes AAA: Yes (DECEMBER 2016) Arthritis: Yes Asthma: No Blood Disorders: No Cancer: No Cardiovascular Problems: Yes (CHF, AAA ) High Cholesterol: Yes Chest Pain: No Congestive Heart Failure: Yes COPD: No Cerebrovascular Accident: Yes (AAA) Diabetes: No Diminished Hearing: No Endocrine: No Genitourinary: No Hepatitis: No Hiatal Hernia: No Hypertension: Yes (THIS VISIT 202/107 IN [facility]) Immune Disorder: No Insomnia: Yes Medical other: Yes (inguinal hernia) Musculoskeletal: No Neurologic: No Psychiatric: No Reproductive: No Respiratory: No Migraines: No Seizures: Yes (Seizure today during dialysis) Thyroid Disease: No Past Surgical History Abdominal Aneurysm Repair: Yes Abdominal Surgery: Yes (HERNIA, PERITONEAL DIALYSIS PORT PLACED LLQ) AICD: No Arteriovenous Shunt: No Cardiac Surgery: Yes (carotid endartarectomy L side) Ear Surgery: No Endocrine Surgery: No Eye Surgery: Yes (holes surgically placed into eyes to relieve pressure) Genitourinary Surgery: No Gynecologic Surgery: No Insulin Pump: No Joint Replacement: No Neurologic Surgery: Yes (CRANIAL SURGERY TWICE x 2 due to infection from injury ) Oral Surgery: Yes (DENTAL EXTRACTIONS) Pacemaker: No Thoracic Surgery: No Other Surgery: Yes (cranial surgery x 2 due to infection from injury ) Social History Alcohol Use: Yes (SOCIALLY) Tobacco Use: Yes (1/2 PPD) Substance Use: No Allergies-Medications (Allergen,Severity, Reaction): Coded Allergies: ezetimibe (Verified Allergy, Mild, STRANGE FEELING IN ABDOMEN, 11/27/17) Reported Meds & Prescriptions Reported Meds & Active Scripts Active Hydralazine HCl 50 Mg Tablet 50 Mg PO Q8H Coreg (Carvedilol) 12.5 Mg Tab 12.5 Mg PO Q12HR Gnp Vitamin D3 Extra Stre (Cholecalciferol) 1,000 Unit Tab 2,000 Units PO DAILY Miralax Powder (Polyethylene Glycol 3350 Powder) 17 Gm Powd 17 Gm PO DAILY Mix and dissolve one measuring cap-ful (17 grams) in water or juice. Plavix (Clopidogrel Bisulfate) 75 Mg Tab 75 Mg PO DAILY Reported Ventolin Hfa 18 GM Inh (Albuterol Sulfate) 90 Mcg/Act Aer 2 Puff INH Q12HR NEB PRN Senokot S (Sennosides-Docusate Sodium) 8.6-50 Mg Tab 1 Tab PO DAILY Furosemide 20 Mg Tab 20 Mg PO DAILY Zolpidem (Zolpidem Tartrate) 5 Mg Tab 5 Mg PO HS PRN Norvasc (Amlodipine Besylate) 10 Mg Tab 10 Mg PO DAILY Lipitor (Atorvastatin Calcium) 20 Mg Tab 20 Mg PO DAILY Review of Systems General / Constitutional: No: Fever Eyes: No: Visual changes HENT: No: Headaches Cardiovascular: No: Chest Pain or Discomfort Respiratory: Positive: Shortness of Breath Gastrointestinal: No: Abdominal Pain Genitourinary: No: Dysuria Musculoskeletal: No: Pain Skin: No Rash Neurologic: No: Weakness Psychiatric: No: Depression Endocrine: No: Polydipsia Hematologic/Lymphatic: No: Easy Bruising Physical Exam Narrative GENERAL: Well-nourished, well-developed patient. SKIN: Focused skin assessment warm/dry. HEAD: Normocephalic. EYES: No scleral icterus. No injection or drainage. NECK: Supple, trachea midline. No JVD or lymphadenopathy. CARDIOVASCULAR: Regular rate and rhythm without murmurs, gallops, or rubs. RESPIRATORY: Patient had decreased breath sounds bilaterally. Few rhonchi at the bases. GASTROINTESTINAL: Abdomen soft, non-tender, nondistended. MUSCULOSKELETAL: No cyanosis, or edema. BACK: Nontender without obvious deformity. No CVA tenderness. Neurologic exam normal. Data Data Last Documented VS Vital Signs Date Time Temp Pulse Resp B/P (MAP) Pulse Ox O2 Delivery O2 Flow Rate FiO2 08/15/17 22:30 79 25 160/82 (108) 95 BiPAP 40 Orders Orders Complete Blood Count With Diff (08/15/17 20:40) Comprehensive Metabolic Panel (08/15/17 20:40) Magnesium (Mg) (08/15/17 20:40) Blood Culture (08/15/17 20:40) Iv Access Insert/Monitor (08/15/17 20:40) Electrocardiogram (08/15/17 20:40) Ecg Monitoring (08/15/17 20:40) Oximetry (08/15/17 20:40) Oxygen Administration (08/15/17 20:40) Chest, Single Ap (08/15/17 20:40) Sodium Chloride 0.9% Flush (Ns Flush) (08/15/17 20:45) Methylprednisolone So Succ Inj (Solumedr (08/15/17 20:45) Albuterol-Ipratropium Neb (Duoneb Neb) (08/15/17 20:45) Resp Bipap / Cpap Non Invas Vt (08/15/17 20:40) Arterial Blood Gas (Abg) (08/15/17 21:47) Labs Laboratory Tests Test 08/15/17 20:52 08/15/17 21:47 White Blood Count 6.2 TH/MM3 Red Blood Count 3.18 MIL/MM3 Hemoglobin 9.8 GM/DL Hematocrit 30.2 % Mean Corpuscular Volume 95.0 FL Mean Corpuscular Hemoglobin 30.8 PG Mean Corpuscular Hemoglobin Concent 32.4 % Red Cell Distribution Width 17.5 % Platelet Count 318 TH/MM3 Mean Platelet Volume 7.7 FL Neutrophils (%) (Auto) 71.9 % Lymphocytes (%) (Auto) 8.7 % Monocytes (%) (Auto) 12.1 % Eosinophils (%) (Auto) 6.2 % Basophils (%) (Auto) 1.1 % Neutrophils # (Auto) 4.5 TH/MM3 Lymphocytes # (Auto) 0.5 TH/MM3 Monocytes # (Auto) 0.8 TH/MM3 Eosinophils # (Auto) 0.4 TH/MM3 Basophils # (Auto) 0.1 TH/MM3 CBC Comment DIFF FINAL Differential Comment Blood Urea Nitrogen 21 MG/DL Creatinine 3.12 MG/DL Random Glucose 95 MG/DL Total Protein 7.1 GM/DL Albumin 3.5 GM/DL Calcium Level 8.1 MG/DL Magnesium Level 1.8 MG/DL Alkaline Phosphatase 103 U/L Aspartate Amino Transf (AST/SGOT) 32 U/L Alanine Aminotransferase (ALT/SGPT) 13 U/L Total Bilirubin 0.4 MG/DL Sodium Level 139 MEQ/L Potassium Level 3.9 MEQ/L Chloride Level 103 MEQ/L Carbon Dioxide Level 30.3 MEQ/L Anion Gap 6 MEQ/L Estimat Glomerular Filtration Rate 19 ML/MIN Blood Gas Puncture Site RT RADIAL Blood Gas Patient Temperature 37.0 Blood Gas HCO3 28 mmol/L Blood Gas Base Excess 4.0 mmol/L Blood Gas Oxygen Saturation 89 % Arterial Blood pH 7.42 Arterial Blood Partial Pressure CO2 44 mmHg Arterial Blood Partial Pressure O2 61 mmHG Arterial Blood Oxygen Content 11.0 Vol % Arterial Blood Carboxyhemoglobin 2.0 % Arterial Blood Methemoglobin 0.3 % Blood Gas Hemoglobin 8.7 G/DL Oxygen Delivery Device BiPAP Blood Gas Ventilator Setting [id number]/[id number] Blood Gas Inspired Oxygen 40 % [facility] Medical Decision Making Medical Screen Exam Complete: Yes Emergency Medical Condition: Yes Interpretation(s) 22:48 PM. Chest x-ray showed persistent right basilar consolidation and effusion. CBC WBC 6.2. Hemoglobin 9 point hematocrit 30.2. 71 neutrophil. GFR 19. ABG on BiPAP 12/5, 40%, pH 7.42. PCO2 44. PO2 61.. Differential Diagnosis Differential diagnosis including acute exacerbation COPD, fluid overload, bronchitis, pneumonia, PE, pneumothorax. Narrative Course 82-year-old male with shortness of breath. History of COPD. History of end- stage renal disease on dialysis. Patient just finished hemodialysis this evening and started having shortness of breath. Patient was given Lasix 80 mg IV by EMS. Patient given albuterol Atrovent unit dose treatment 2 in the ED. Solu-Medrol 125 mg IV. BiPAP given. Diagnosis Primary Impression: COPD with acute exacerbation Admitting Information Admitting Physician Requests: Admit Parth Spence MD Aug 15, 2017 21:31
[2017-08-15] MEDS: RESP: ALBUTEROL 2.5 MG/IPRATROPIUM 0.5 MG NEB (SCH) INH (21:33)
[2017-08-15 21:54] LABS: ALT (GPT) 13 U/L (12-78); ANION GAP 6 MEQ/L (5-15); AST (GOT) 32 U/L (15-37); BICARBONATE 30.3 MEQ/L (21.0-32.0); BLOOD UREA NITROGEN 21 MG/DL (7-18); CHLORIDE 103 MEQ/L (98-107); GLOMERULAR FILTRATION RATE 19 ML/MIN (>89); MAGNESIUM 1.8 MG/DL (1.5-2.5); POTASSIUM 3.9 MEQ/L (3.5-5.1); SODIUM (NA) 139 MEQ/L (136-145)
[2017-08-15 21:58] LABS: BLOOD GAS HCO3 28 mmol/L (22-26); BLOOD GAS METHEMOGLOBIN 0.3 % (0-2); BLOOD GAS O2 HGB SATURATION 89 % (90-100); BLOOD GAS PCO2 44 mmHg (38-42); BLOOD GAS PO2 61 mmHG (61-120); BLOOD GAS TOTAL HGB 8.7 G/DL (12.0-16.0)
[2017-08-15 21:59] LABS: CRITICAL VALUE YES; DRAW SITE RT RADIAL; FIO2 40 %; NUMBER OF ARTERIAL PUNCTURES 2; OXYGEN DEVICE BiPAP; STAT YES; ULNAR PULSE PRESENT; VENT SETTINGS IPAP12/EPAP5
[2017-08-15 22:00] LABS: ALKALINE PHOSPHATASE 103 U/L (45-117); TOTAL BILIRUBIN ADULT 0.4 MG/DL (0.2-1.0)
--- NOTE | 2017-08-15 22:17 | RADRPT ---
EXAM DATE/TIME: 08/15/2017 20:57 [facility] COMPARISON: CHEST SINGLE AP, August 09, 2017, 11:28. INDICATIONS : Shortness of breath today. MEDICAL HISTORY : Congestive heart failure. Aneurysm, abdominal. SURGICAL HISTORY : Abdominal aortic aneurysm repair. Carotid endarterectomy. Hernia repair. dialysis catheter ENCOUNTER: Initial ACUITY: 1 day PAIN SCORE: 0/10 LOCATION: Bilateral chest FINDINGS: A single view of the chest demonstrates persistent right basilar consolidation/effusion. Improving ae ration in the left base. Interval placement of a right IJ dialysis type catheter with the tip project ing over the central venous system.. CONCLUSION: 1. Interval placement of a tunneled right IJ dialysis type catheter with the tip projecting over the central venous system. 2. Persistent right basilar consolidation/effusion. 3. Improving aeration in the left lung base. Zak Cole MD on August 15, 2017 at 22:13 Board Certified Radiologist. This report was verified electronically.
[2017-08-16] VITALS (23 sets, daily range): BP systolic 141–161; BP diastolic 65–89; PULSE 71–86; RESP 16–22; TEMP 97.4–98.4; O2SAT 94–98
[2017-08-16] MEDS ORDERED: RESP: ALBUTEROL 2.5 MG/3 ML NEB (PRN) INH
[2017-08-16] MEDS: RESP: ALBUTEROL 2.5 MG/IPRATROPIUM 0.5 MG NEB (SCH) INH ×3 (00:04→07:28)
[2017-08-16] MEDS: HEPARIN SODIUM - SQ 10,000 UNITS/ML VIAL SQ SCH ×3 (01:08→16:02)
[2017-08-16] MEDS ORDERED: ZOLPIDEM TARTRATE 5 MG TAB PO PRN (02:45)
[2017-08-16] MEDS: methylPREDNISolone SOD SUCC 125 MG/2 ML VIAL IV PUSH SCH ×3 (03:02→16:02)
--- NOTE | 2017-08-16 03:24 | HHI.HP ---
HPI Service [facility] Primary Care Physician Unknown Admission Diagnosis acute exacerbation COPD Diagnoses: Travel History International Travel<30 Days: No Contact w/Intl Traveler <30 Da: No Traveled to Known Affected Are: No History of Present Illness 82-year-old male with a past medical history significant for COPD, end-stage renal disease on dialysis, CHF with an EF of 25-30% (last echo on 03/22/17), AAA status post repair and hypertension presents via EMS from dialysis for increasing shortness of breath. The patient reports he was just completing dialysis when he became acutely short of breath, similar to a week ago when he was admitted to the ICU on BiPAP for this same symptoms. Patient denies cough or fever/chills. He was given IV Lasix by EMS and was started on BiPAP on his arrival to the emergency department. He states he is feeling much better now. ABG on BiPAP in the ED 7.42//. Chest x-ray showed persistent right basilar consolidation/effusion, improved from previous study one week ago. Review of Systems Denies fever or chills Denies blurry vision, otorrhea, rhinorrhea Denies sore throat and cough No chest pain, palpitations, Positive shortness of breath No abdominal pain Denies constipation/diarrhea/nausea/vomiting Denies muscle pain/weakness No rashes Past Family Social History Past Medical History CHF with an EF of 25-30% AAA status post repair Peripheral arterial disease Hypertension COPD CKD, stage V Hyperlipidemia Past Surgical History Left CEA Open thoracic aortic aneurysm repair in December 2016 Inguinal hernia repair Reported Medications Reported Meds & Active Scripts Active Hydralazine HCl 50 Mg Tablet 50 Mg PO Q8H Coreg (Carvedilol) 12.5 Mg Tab 12.5 Mg PO Q12HR Gnp Vitamin D3 Extra Stre (Cholecalciferol) 1,000 Unit Tab 2,000 Units PO DAILY Miralax Powder (Polyethylene Glycol 3350 Powder) 17 Gm Powd 17 Gm PO DAILY Mix and dissolve one measuring cap-ful (17 grams) in water or juice. Plavix (Clopidogrel Bisulfate) 75 Mg Tab 75 Mg PO DAILY Reported Ventolin Hfa 18 GM Inh (Albuterol Sulfate) 90 Mcg/Act Aer 2 Puff INH Q12HR NEB PRN Senokot S (Sennosides-Docusate Sodium) 8.6-50 Mg Tab 1 Tab PO DAILY Furosemide 20 Mg Tab 20 Mg PO DAILY Zolpidem (Zolpidem Tartrate) 5 Mg Tab 5 Mg PO HS PRN Norvasc (Amlodipine Besylate) 10 Mg Tab 10 Mg PO DAILY Lipitor (Atorvastatin Calcium) 20 Mg Tab 20 Mg PO DAILY Allergies: Coded Allergies: ezetimibe (Verified Allergy, Mild, STRANGE FEELING IN ABDOMEN, 08/15/17) Family History Family history of hypertension Social History Quit smoking last week. Has a [id number] history of tobacco. Denies alcohol , illicit drugs Physical Exam Vital Signs Vital Signs Date Time Temp Pulse Resp B/P (MAP) Pulse Ox O2 Delivery O2 Flow Rate FiO2 08/16/17 01:45 98 12.00 08/16/17 00:06 95 40 08/15/17 22:30 79 25 160/82 (108) 95 BiPAP 40 08/15/17 22:00 165/80 (108) BiPAP 40 08/15/17 21:31 94 BiPAP 40 08/15/17 21:31 94 40 08/15/17 21:31 94 BiPAP 40 08/15/17 21:30 80 27 167/78 (107) 94 BiPAP 40 08/15/17 21:05 79 16 162/75 (104) 94 BiPAP 30 08/15/17 20:49 24 97 BiPAP 30 08/15/17 20:48 97 BiPAP 30 08/15/17 20:44 10 98 BiPAP 30 08/15/17 20:40 98 BiPAP 30 08/15/17 20:40 98 30 08/15/17 20:37 94 24 174/94 (120) 94 Physical Exam GENERAL: male sitting up in bed SKIN: No rashes, ecchymoses or lesions. Cool and dry. HEAD: Atraumatic. Normocephalic. No temporal or scalp tenderness. EYES: Pupils equal round and reactive. Extraocular motions intact. No scleral icterus. No injection or drainage. ENT: Nose without bleeding, purulent drainage or septal hematoma. Throat without erythema, tonsillar hypertrophy or exudate. Uvula midline. Airway patent. NECK: Trachea midline. No JVD or lymphadenopathy. Supple, nontender, no meningeal signs. CARDIOVASCULAR: Regular rate and rhythm without murmurs, gallops, or rubs. CHEST: Dialysis catheter in place in right chest without signs of infection RESPIRATORY: Decreased sounds in the bilateral bases. No wheezes/rales/rhonchi GASTROINTESTINAL: Abdomen soft, non-tender, nondistended. No hepato-splenomegaly , or palpable masses. No guarding. PD catheter in place, without signs of infection. No surrounding erythema or drainage. MUSCULOSKELETAL: Extremities without clubbing, cyanosis, or edema. No joint tenderness, effusion, or edema noted. No calf tenderness. Negative Homans sign bilaterally. NEUROLOGICAL: Awake and alert. Cranial nerves II through XII intact. Motor and sensory grossly within normal limits. Normal speech. Laboratory Laboratory Tests Test 08/15/17 20:52 08/15/17 21:47 White Blood Count 6.2 Red Blood Count 3.18 Hemoglobin 9.8 Hematocrit 30.2 Mean Corpuscular Volume 95.0 Mean Corpuscular Hemoglobin 30.8 Mean Corpuscular Hemoglobin Concent 32.4 Red Cell Distribution Width 17.5 Platelet Count 318 Mean Platelet Volume 7.7 Neutrophils (%) (Auto) 71.9 Lymphocytes (%) (Auto) 8.7 Monocytes (%) (Auto) 12.1 Eosinophils (%) (Auto) 6.2 Basophils (%) (Auto) 1.1 Neutrophils # (Auto) 4.5 Lymphocytes # (Auto) 0.5 Monocytes # (Auto) 0.8 Eosinophils # (Auto) 0.4 Basophils # (Auto) 0.1 CBC Comment DIFF FINAL Differential Comment Blood Urea Nitrogen 21 Creatinine 3.12 Random Glucose 95 Total Protein 7.1 Albumin 3.5 Calcium Level 8.1 Magnesium Level 1.8 Alkaline Phosphatase 103 Aspartate Amino Transf (AST/SGOT) 32 Alanine Aminotransferase (ALT/SGPT) 13 Total Bilirubin 0.4 Sodium Level 139 Potassium Level 3.9 Chloride Level 103 Carbon Dioxide Level 30.3 Anion Gap 6 Estimat Glomerular Filtration Rate 19 Blood Gas Puncture Site RT RADIAL Blood Gas Patient Temperature 37.0 Blood Gas HCO3 28 Blood Gas Base Excess 4.0 Blood Gas Oxygen Saturation 89 Arterial Blood pH 7.42 Arterial Blood Partial Pressure CO2 44 Arterial Blood Partial Pressure O2 61 Arterial Blood Oxygen Content 11.0 Arterial Blood Carboxyhemoglobin 2.0 Arterial Blood Methemoglobin 0.3 Blood Gas Hemoglobin 8.7 Oxygen Delivery Device BiPAP Blood Gas Ventilator Setting IPAP12/EPAP5 Blood Gas Inspired Oxygen 40 Date/Time Source Procedure Growth Status 08/15/17 20:57 Blood Peripheral Aerobic Blood Culture Pending Received 08/15/17 20:57 Blood Peripheral Anaerobic Blood Culture Pending Received Result Diagram: 08/15/17205108/15/172051 Caprini VTE Risk Assessment Caprini VTE Risk Assessment: Mod/High Risk (score >= 2) Caprini Risk Assessment Model Point Value = 1 Point Value = 2 Point Value = 3 Point Value = 5 Age 41-60 Minor surgery BMI > 25 kg/m2 Swollen legs Varicose veins or History of unexplained or recurrent spontaneous Oral contraceptives or hormone replacement Sepsis (< 1 month) Serious lung disease, including pneumonia (< 1 month) Abnormal pulmonary function Acute myocardial infarction Congestive heart failure (< 1 month) History of inflammatory bowel disease Medical patient at bed rest Age 61-74 Arthroscopic surgery Major open surgery (> 45 min) Laparoscopic surgery (> 45 min) Malignancy Confined to bed (> 72 hours) Immobilizing plaster cast Central venous access Age >= 75 History of VTE Family history of VTE Factor V Leiden Prothrombin [id number] Lupus anticoagulant Anticardiolipin antibodies Elevated serum homocysteine Heparin-induced thrombocytopenia Other congenital or acquired thrombophilia Stroke (< 1 month) Elective arthroplasty Hip, pelvis, or leg fracture Acute spinal cord injury (< 1 month) Prophylaxis Regimen Total Risk Factor Score Risk Level Prophylaxis Regimen 0-1 Low Early ambulation 2 Moderate Order ONE of the following: *Sequential Compression Device (SCD) *Heparin 5000 units SQ BID 3-4 Higher Order ONE of the following medications: *Heparin 5000 units SQ TID *Enoxaparin/Lovenox 40 mg SQ daily (WT < 150 kg, CrCl > 30 mL/min) *Enoxaparin/Lovenox 30 mg SQ daily (WT < 150 kg, CrCl > 10-29 mL/min) *Enoxaparin/Lovenox 30 mg SQ BID (WT < 150 kg, CrCl > 30 mL/min) AND/OR *Sequential Compression Device (SCD) 5 or more Highest Order ONE of the following medications: *Heparin 5000 units SQ TID (Preferred with Epidurals) *Enoxaparin/Lovenox 40 mg SQ daily (WT < 150 kg, CrCl > 30 mL/min) *Enoxaparin/Lovenox 30 mg SQ daily (WT < 150 kg, CrCl > 10-29 mL/min) *Enoxaparin/Lovenox 30 mg SQ BID (WT < 150 kg, CrCl > 30 mL/min) AND *Sequential Compression Device (SCD) Assessment and Plan Assessment and Plan 82-year-old male with a past medical history significant for CHF, end-stage renal disease on dialysis, COPD, hypertension, hyperlipidemia admitted for acute respiratory failure secondary to COPD exacerbation. 1. COPD exacerbation/respiratory failure Chest x-ray significant for persistent right basilar consolidation/effusion, improved from previous imaging 1 week ago, reviewed by me ABG significant for hypoxemia with PO2 of 89% on BiPAP, PCO2 44 Continue BiPAP, wean as tolerated DuoNeb's IV steroids Patient does not require home oxygen 2. ESRD on dialysis Patient currently undergoing hemodialysis Tuesday Nephrology consulted, appreciate recommendations Patient had a PD catheter placed on 08/05/17, plan is to transition to PD dialysis 3. CHF Continue home medications Patient will need outpatient cardiology follow-up as he does not have an AICD and has an EF of 25-30% 4. Hypertension/hyperlipidemia Continue home medication FEN: Diabetic diet Electrolytes: Monitor and replete when necessary Heparin Case discussed with ER physician at length Physician Certification 2 Midnight Certification Type: Admission for Inpatient Services Order for Inpatient Services The services are ordered in accordance with Medicare regulations or non- Medicare payer requirements, as applicable. In the case of services not specified as inpatient-only, they are appropriately provided as inpatient services in accordance with the 2-midnight benchmark. Estimated LOS (days): 2 2 days is the estimated time the patient will need to remain in the hospital, assuming treatment plan goals are met and no additional complications. Post-Hospital Plan: Not yet determined Kierra Garay MD Aug 16, 2017 03:24
[2017-08-16] MEDS: hydrALAZINE HCL 50 MG TAB PO SCH ×3 (06:05→21:31)
[2017-08-16 06:43] LABS: AUTOMATED NEUTROPHIL # 3.6 TH/MM3 (1.8-7.7); BASOPHIL % 0.8 % (0.0-2.0); EOSINOPHIL % 0.1 % (0.0-4.0); HEMATOCRIT 28.2 % (39.0-51.0); HEMO FLAGS DIFF FINAL; LYMPH % 5.9 % (9.0-44.0); LYMPHOCYTE # 0.2 TH/MM3 (1.0-4.8); MEAN CELL VOLUME 95.1 FL (80.0-100.0); MEAN CORPUSCULAR HEMOGLOBIN 31.3 PG (27.0-34.0); MEAN CORPUSCULAR HGB CONC 32.9 % (32.0-36.0); MONO % 1.9 % (0.0-8.0); NEUT % 91.3 % (16.0-70.0); PLATELET COUNT 291 TH/MM3 (150-450); RED BLOOD COUNT 2.97 MIL/MM3 (4.50-5.90); RED CELL DISTRIBUTION WIDTH 17.6 % (11.6-17.2)
[2017-08-16 07:27] LABS: BICARBONATE 28.3 MEQ/L (21.0-32.0); POTASSIUM 3.9 MEQ/L (3.5-5.1)
[2017-08-16] MEDS ORDERED: NITROGLYCERIN 0.4 MG SL 25 TABS/BTL SL PRN (08:45)
[2017-08-16] MEDS ORDERED: HEPARIN SODIUM - IV 10,000 UNITS/10 ML VIAL PRN (08:45)
[2017-08-16] MEDS ORDERED: GENTAMICIN SULFATE (DIALYSIS USE ONLY) 20 MG/2 ML VIAL OTHER PRN (08:45)
[2017-08-16] MEDS ORDERED: ACETAMINOPHEN 325 MG TAB PO PRN (08:45)
[2017-08-16] MEDS ORDERED: cloNIDine HCL 0.1 MG TAB PO PRN (08:45)
[2017-08-16] MEDS ORDERED: SODIUM CHLOR 0.9% 1000 ML INJ 1,000 ML OTHER PRN ×2 (08:45)
[2017-08-16] MEDS ORDERED: ONDANSETRON HCL 4 MG/2 ML VIAL IV PUSH PRN (08:45)
[2017-08-16] MEDS ORDERED: ALBUMIN 25% INJ 100 ML IV PRN (08:45)
[2017-08-16] MEDS ORDERED: GELATIN 12 MM/7 MM FOAM TOP PRN (08:45)
[2017-08-16] MEDS ORDERED: SODIUM CHLOR 0.9% 1000 ML INJ 1,000 ML IV PRN (08:45)
[2017-08-16] MEDS ORDERED: diphenhydrAMINE HCL 25 MG CAP PO PRN (08:45)
[2017-08-16] MEDS ORDERED: HEPARIN SODIUM - IV 10,000 UNITS/10 ML VIAL IV FLUSH PRN (08:45)
[2017-08-16] MEDS ORDERED: SODIUM CHLORIDE 0.9% FLUSH 10 ML FLUSH IV FLUSH PRN ×2 (08:45)
[2017-08-16] MEDS ORDERED: EPOETIN ALFA 10,000 UNITS/ML VIAL IV PUSH PRN (08:45)
[2017-08-16] MEDS ORDERED: MANNITOL 12.5 GM/50 ML VIAL IV PRN (08:45)
[2017-08-16] MEDS: SODIUM CHLORIDE 0.9% FLUSH 10 ML FLUSH IV FLUSH SCH ×2 (08:55→21:30)
[2017-08-16] MEDS: CLOPIDOGREL 75 MG TAB PO SCH (08:55)
[2017-08-16] MEDS: FUROSEMIDE 20 MG TAB PO SCH (08:55)
[2017-08-16] MEDS: CARVEDILOL 12.5 MG TAB PO SCH ×2 (08:56→21:30)
[2017-08-16] MEDS: ATORVASTATIN 20 MG TAB PO SCH (08:56)
[2017-08-16] MEDS ORDERED: DOCUSATE SODIUM 50 MG/SENNA 8.6 MG TAB PO SCH (09:00)
--- NOTE | 2017-08-16 10:43 | PD.CONS ---
HPI Service Nephrology Consult Requested By Reason for Consult ESRD on dialysis Primary Care Physician Unknown History of Present Illness This is an 82 y/o male patient with ESRD who was recently started on dialysis. He has been admitted multiple times recently for shortness of breath. PMH of AAA repair, CEA, CHF (EF 25-30%), and anemia. He was previously converted to PD but was unable to tolerate the training due to shortness of breath. We admitted him last week and decided to convert back to HD while we delayed training or PD. He was at his first outpatient HD yesterday, had full treatment (3 hours), only had 1 liter removed and per the staff, felt short of breath and required oxygen and EMS transport to the hospital. He is not on oxygen at home, he was hypoxic on arrival. We were consulted to assist with management. (Roxi Romano) Review of Systems Constitutional: COMPLAINS OF: Fatigue Respiratory: COMPLAINS OF: Shortness of breath Cardiovascular: COMPLAINS OF: Dyspnea on Exertion, DENIES: Chest pain, Lower Extremity Edema (Roxi Romano) Past Family Social History Allergies: Coded Allergies: ezetimibe (Verified Allergy, Mild, STRANGE FEELING IN ABDOMEN, 08/15/17) Past Medical History ESRD Anemia Hypertension Hyperlipidemia AAA Tobacco abuse. Secondary Hyperparathyroidism Past Surgical History CEA, left AAA repair PD catheter placement vascath with removal Reported Medications Hydralazine HCl 50 Mg Tablet 50 Mg PO Q8H Coreg (Carvedilol) 12.5 Mg Tab 12.5 Mg PO Q12HR Gnp Vitamin D3 Extra Stre (Cholecalciferol) 1,000 Unit Tab 2,000 Units PO DAILY Miralax Powder (Polyethylene Glycol 3350 Powder) 17 Gm Powd 17 Gm PO DAILY Mix and dissolve one measuring cap-ful (17 grams) in water or juice. Plavix (Clopidogrel Bisulfate) 75 Mg Tab 75 Mg PO DAILY Ventolin Hfa 18 GM Inh (Albuterol Sulfate) 90 Mcg/Act Aer 2 Puff INH Q12HR NEB PRN Senokot S (Sennosides-Docusate Sodium) 8.6-50 Mg Tab 1 Tab PO DAILY Furosemide 20 Mg Tab 20 Mg PO DAILY Zolpidem (Zolpidem Tartrate) 5 Mg Tab 5 Mg PO HS PRN Norvasc (Amlodipine Besylate) 10 Mg Tab 10 Mg PO DAILY Lipitor (Atorvastatin Calcium) 20 Mg Tab 20 Mg PO DAILY Active Ordered Medications Current Medications Medications (Trade) Dose Ordered Sig/Thuy Route Start Time Stop Time Status Last Admin (NS Flush) 2 ml BID IV FLUSH 08/16/17 09:00 08/16/17 08:55 (NS Flush) 2 ml UNSCH PRN IV FLUSH 08/16/17 00:00 (Duoneb Neb) 1 ampule Q4HR NEB INH 08/16/17 00:00 08/16/17 07:28 (Albuterol Neb) 2.5 mg Q2HR NEB PRN INH 08/16/17 00:00 (SoluMEDROL INJ) 40 mg Q6H IV PUSH 08/16/17 03:00 08/16/17 08:56 (Heparin Inj) 5,000 units Q8H SQ 08/16/17 00:00 08/16/17 08:54 (Norvasc) 10 mg DAILY PO 08/16/17 09:00 08/16/17 08:56 (Lipitor) 20 mg DAILY PO 08/16/17 09:00 08/16/17 08:56 (Coreg) 12.5 mg Q12HR PO 08/16/17 09:00 08/16/17 08:56 (Plavix) 75 mg DAILY PO 08/16/17 09:00 08/16/17 08:55 (Lasix) 20 mg DAILY PO 08/16/17 09:00 08/16/17 08:55 (Apresoline) 50 mg Q8H PO 08/16/17 06:00 08/16/17 06:05 (Jo Ann-Colace) 1 tab DAILY PO 08/16/17 09:00 08/16/17 08:55 (Ambien) 5 mg HS PRN PO 08/16/17 02:45 (Pneumovax-23 Inj) 25 mcg ONCE ONCE IM 08/17/17 10:00 08/17/17 10:01 Sodium Chloride 1,000 ml @ 0 mls/hr Q0M PRN OTHER 08/16/17 08:45 (Heparin Inj) 8,000 units UNSCH PRN IV FLUSH 08/16/17 08:45 Sodium Chloride 1,000 ml @ 200 mls/hr Q5H PRN IV 08/16/17 08:45 Sodium Chloride 1,000 ml @ 0 mls/hr Q0M PRN OTHER 08/16/17 08:45 (Mannitol Inj) 12.5 gm UNSCH PRN IV 08/16/17 08:45 Albumin Human 100 ml @ 60 mls/hr UNSCH PRN IV 08/16/17 08:45 (NS Flush) 5 ml UNSCH PRN IV FLUSH 08/16/17 08:45 (Heparin Inj) UNSCH PRN .XX 08/16/17 08:45 (Gentamicin (Dialysis) Inj) 20 mg UNSCH PRN OTHER 08/16/17 08:45 (Zofran Inj) 4 mg UNSCH PRN IV PUSH 08/16/17 08:45 (Tylenol) 650 mg UNSCH PRN PO 08/16/17 08:45 (Benadryl) 25 mg UNSCH PRN PO 08/16/17 08:45 (Nitrostat Sl) 0.4 mg UNSCH PRN SL 08/16/17 08:45 (Catapres) 0.1 mg UNSCH PRN PO 08/16/17 08:45 (Epogen Inj) 10,000 units UNSCH PRN IV PUSH 08/16/17 08:45 (Gelfoam 12 Mm/7 Mm Top) 1 foam UNSCH PRN TOP 08/16/17 08:45 Family History Non contributory Social History Lives with roommate Former smoker + ETOH full code He drives, is independent (Roxi Romano) Physical Exam Vital Signs Vital Signs Date Time Temp Pulse Resp B/P (MAP) Pulse Ox O2 Delivery O2 Flow Rate FiO2 08/16/17 07:30 80 08/16/17 07:28 96 Nasal Cannula 3.00 08/16/17 05:00 98.0 75 20 151/82 (105) 97 08/16/17 04:07 98 40 08/16/17 04:00 86 08/16/17 02:00 98.2 85 22 161/89 (113) 98 08/16/17 02:00 85 08/16/17 01:47 97 40 08/16/17 01:45 98 12.00 08/16/17 00:06 95 40 08/15/17 22:30 79 25 160/82 (108) 95 BiPAP 40 08/15/17 22:00 165/80 (108) BiPAP 40 08/15/17 21:31 94 BiPAP 40 08/15/17 21:31 94 40 08/15/17 21:31 94 BiPAP 40 08/15/17 21:30 80 27 167/78 (107) 94 BiPAP 40 08/15/17 21:05 79 16 162/75 (104) 94 BiPAP 30 08/15/17 20:49 24 97 BiPAP 30 08/15/17 20:48 97 BiPAP 30 08/15/17 20:44 10 98 BiPAP 30 08/15/17 20:40 98 BiPAP 30 08/15/17 20:40 98 30 08/15/17 20:37 94 24 174/94 (120) 94 Physical Exam Elderly male sitting up in bed on oxygen Awake, follows commands, neurologically intact Lungs clear in upper cantu, decreased in bases, no wheezing S1/S2, RRR. No murmurs Abdomen soft, round, PD catheter in place Pedal edema noted ; Pulses strong DP, PT Permcath on right Laboratory Laboratory Tests Test 08/15/17 20:52 08/15/17 21:47 08/16/17 05:34 White Blood Count 6.2 4.0 Red Blood Count 3.18 2.97 Hemoglobin 9.8 9.3 Hematocrit 30.2 28.2 Mean Corpuscular Volume 95.0 95.1 Mean Corpuscular Hemoglobin 30.8 31.3 Mean Corpuscular Hemoglobin Concent 32.4 32.9 Red Cell Distribution Width 17.5 17.6 Platelet Count 318 291 Mean Platelet Volume 7.7 7.7 Neutrophils (%) (Auto) 71.9 91.3 Lymphocytes (%) (Auto) 8.7 5.9 Monocytes (%) (Auto) 12.1 1.9 Eosinophils (%) (Auto) 6.2 0.1 Basophils (%) (Auto) 1.1 0.8 Neutrophils # (Auto) 4.5 3.6 Lymphocytes # (Auto) 0.5 0.2 Monocytes # (Auto) 0.8 0.1 Eosinophils # (Auto) 0.4 0.0 Basophils # (Auto) 0.1 0.0 CBC Comment DIFF FINAL DIFF FINAL Differential Comment Blood Urea Nitrogen 21 28 Creatinine 3.12 3.79 Random Glucose 95 136 Total Protein 7.1 Albumin 3.5 Calcium Level 8.1 8.2 Magnesium Level 1.8 Alkaline Phosphatase 103 Aspartate Amino Transf (AST/SGOT) 32 Alanine Aminotransferase (ALT/SGPT) 13 Total Bilirubin 0.4 Sodium Level 139 140 Potassium Level 3.9 3.9 Chloride Level 103 102 Carbon Dioxide Level 30.3 28.3 Anion Gap 6 10 Estimat Glomerular Filtration Rate 19 15 Blood Gas Puncture Site RT RADIAL Blood Gas Patient Temperature 37.0 Blood Gas HCO3 28 Blood Gas Base Excess 4.0 Blood Gas Oxygen Saturation 89 Arterial Blood pH 7.42 Arterial Blood Partial Pressure CO2 44 Arterial Blood Partial Pressure O2 61 Arterial Blood Oxygen Content 11.0 Arterial Blood Carboxyhemoglobin 2.0 Arterial Blood Methemoglobin 0.3 Blood Gas Hemoglobin 8.7 Oxygen Delivery Device BiPAP Blood Gas Ventilator Setting IPAP12/EPAP5 Blood Gas Inspired Oxygen 40 Date/Time Source Procedure Growth Status 08/15/17 20:57 Blood Peripheral Aerobic Blood Culture Pending Received 08/15/17 20:57 Blood Peripheral Anaerobic Blood Culture Pending Received (Roxi Romano) Result Diagram: 08/16/17 0534 08/16/17 0534 Imaging Last 72 hours Impressions Chest X-Ray 08/15/172039 Signed Impressions: Service Date/Time: Tuesday, August 15, 2017 20:57 - CONCLUSION: 1. Interval placement of a tunneled right IJ dialysis type catheter with the tip projecting over the central venous system. 2. Persistent right basilar consolidation/effusion. 3. Improving aeration in the left lung base. Zak Cole MD (Roxi Romano) Assessment and Plan Problem List: (1) ESRD (end stage renal disease) ICD Codes: N18.6 - End stage renal disease Plan: He has been on HD, dialyzed yesterday 1 liter UF Currently using Permcath for HD Intermittently monitor electrolytes Avoid IVF He may need additional dialysis treatment today. (2) Shortness of breath ICD Codes: R06.02 - Shortness of breath Plan: He was hypoxic on arrival, may need home oxygen Follow fluid status, UF as tolerated. (3) Anemia ICD Codes: D64.9 - Anemia, unspecified Plan: Epogen with dialysis Follow hemoglobin. (4) Hypertension ICD Codes: I10 - Essential (primary) hypertension Plan: Continue present medications (5) CHF (congestive heart failure) ICD Codes: I50.9 - Heart failure, unspecified Plan: EF 25-30%, see above He is on Lasix daily. (Roxi Romano) Assessment and Plan patient was seen and examined. Agree with above assessment and plan. Dialyzed yesterday, admitted with difficulty breathing, was hypoxic. CXR revealed persistent right basilar effusion/consolidation. No fever, no leukocytosis. Recommend home oxygen. (Bobby Harrington MD) Roxi Romano Aug 16, 2017 10:43 Bobby Harrington MD Aug 16, 2017 11:03
[2017-08-16] MEDS ORDERED: DOCUSATE SODIUM 50 MG/SENNA 8.6 MG TAB PO PRN (12:00)
--- NOTE | 2017-08-16 12:13 | HHI.PR ---
Subjective Remarks Follow-up respiratory failure/hypoxemia/COPD exacerbation 08/16/17-patient seen and examined, currently on 3 L nasal cannula and reports some improvement of shortness of breath. Overnight patient was on BiPAP. Objective Vitals Vital Signs Date Time Temp Pulse Resp B/P (MAP) Pulse Ox O2 Delivery O2 Flow Rate FiO2 08/16/17 08:00 97.4 80 20 141/65 (90) 95 08/16/17 07:30 80 08/16/17 07:28 96 Nasal Cannula 3.00 08/16/17 05:00 98.0 75 20 151/82 (105) 97 08/16/17 04:07 98 40 08/16/17 04:00 86 08/16/17 02:00 98.2 85 22 161/89 (113) 98 08/16/17 02:00 85 08/16/17 01:47 97 40 08/16/17 01:45 98 12.00 08/16/17 00:06 95 40 08/15/17 22:30 79 25 160/82 (108) 95 BiPAP 40 08/15/17 22:00 165/80 (108) BiPAP 40 08/15/17 21:31 94 BiPAP 40 08/15/17 21:31 94 40 08/15/17 21:31 94 BiPAP 40 08/15/17 21:30 80 27 167/78 (107) 94 BiPAP 40 08/15/17 21:05 79 16 162/75 (104) 94 BiPAP 30 08/15/17 20:49 24 97 BiPAP 30 08/15/17 20:48 97 BiPAP 30 08/15/17 20:44 10 98 BiPAP 30 08/15/17 20:40 98 BiPAP 30 08/15/17 20:40 98 30 08/15/17 20:37 94 24 174/94 (120) 94 I/O 08/15/17 08/15/17 08/15/17 08/16/17 08/16/17 08/16/17 07:00 15:00 23:00 07:00 15:00 23:00 Intake Total 240 ml Output Total 0 ml Balance 240 ml Intake Oral 240 ml Output Urine Total 0 ml # Bowel Movements 0 Result Diagram: 08/16/1734 08/16/1734 Imaging Last Impressions Chest X-Ray 08/15/172039 Signed Impressions: Service Date/Time: Tuesday, August 15, 2017 20:57 - CONCLUSION: 1. Interval placement of a tunneled right IJ dialysis type catheter with the tip projecting over the central venous system. 2. Persistent right basilar consolidation/effusion. 3. Improving aeration in the left lung base. Zak Cole MD Objective Remarks GENERAL: NAD SKIN: Warm and dry. HEAD: Normocephalic. EYES: No scleral icterus. No injection or drainage. NECK: Supple, trachea midline. No JVD or lymphadenopathy. CARDIOVASCULAR: Regular rate and rhythm without murmurs, gallops, or rubs. RESPIRATORY: Breath sounds decrease bilaterally. No accessory muscle use. GASTROINTESTINAL: Abdomen soft, non-tender, nondistended. MUSCULOSKELETAL: No cyanosis, or edema. BACK: Nontender without obvious deformity. No CVA tenderness. A/P Problem List: (1) COPD with respiratory failure, acute ICD Code: J96.00 - Acute respiratory failure, unspecified whether with hypoxia or hypercapnia; J44.9 - Chronic obstructive pulmonary disease, unspecified (2) Respiratory failure with hypoxia ICD Code: J96.91 - Respiratory failure, unspecified with hypoxia (3) Anemia in CKD (chronic kidney disease) ICD Code: N18.9 - Chronic kidney disease, unspecified; D63.1 - Anemia in chronic kidney disease (4) ESRD (end stage renal disease) on dialysis ICD Code: N18.6 - End stage renal disease; Z99.2 - Dependence on renal dialysis (5) COPD with acute exacerbation ICD Code: J44.1 - Chronic obstructive pulmonary disease with (acute) exacerbation Status: Acute Assessment and Plan 82-year-old man with COPD with respiratory failure Respiratory failure with hypoxia Currently on 3 L nasal cannula BiPAP when necessary DuoNeb scheduled and when necessary, long-acting beta agonist Change Solu-Medrol to 20 mg daily at hour and add Symbicort Respiratory walk test prior to discharge ESRD on dialysis Appreciate input from nephrology and continue with plan HD Tuesday Patient had a PD catheter placed on 08/05/17, plan is to transition to PD dialysis Chronic systolic CHF Continue with Lasix, beta kartik Patient will need outpatient cardiology follow-up as he does not have an AICD and has an EF of 25-30% Hypertension/hyperlipidemia Continue home medication Norvasc 10 mg daily, Coreg 12.5 mg twice a day, hydralazine 50 mg every 8H Lipitor 20 mg daily History of CAD Continue Plavix History of anemia of chronic kidney disease H&H stable DVT prophylaxis Heparin Casa Doshi MD Aug 16, 2017 12:13
[2017-08-16] MEDS: RESP: ALBUTEROL 2.5 MG/IPRATROPIUM 0.5 MG NEB (SCH) NEB ×2 (14:00→21:35)
--- NOTE | 2017-08-16 17:54 | EKG ---
Date Performed: 08/15/2017 Time Performed: 20:50:26 PTAGE: 82 years EKG: Sinus rhythm POSSIBLE LEFT ATRIAL ENLARGEMENT POSSIBLE LEFT VENTRICULAR HYPERTROPHY NONSPECIFIC ST & T-WAVE ABNOR MALITY Since previous tracing, no significant change noted ABNORMAL ECG PREVIOUS TRACING : 08/09/2017 12.08 DOCTOR: Gabby Segovia Interpretating Date/Time 08/16/2017 17:53:09
[2017-08-16] MEDS: BUDESONIDE-FORMOTEROL 160/4.5 MCG INHALER INH SCH (21:30)
[2017-08-17] VITALS (12 sets, daily range): BP systolic 145–147; BP diastolic 81–92; PULSE 70–84; RESP 14–16; TEMP 97.6–98.7; O2SAT 93–95
[2017-08-17] MEDS: HEPARIN SODIUM - SQ 10,000 UNITS/ML VIAL SQ SCH ×3 (00:26→18:30)
[2017-08-17] MEDS: methylPREDNISolone SOD SUCC 125 MG/2 ML VIAL IV PUSH SCH ×2 (00:26→10:36)
[2017-08-17 05:48] LABS: AUTOMATED NEUTROPHIL # 11.7 TH/MM3 (1.8-7.7); BASOPHIL % 0.1 % (0.0-2.0); HEMATOCRIT 25.4 % (39.0-51.0); HEMO FLAGS DIFF FINAL; LYMPH % 3.4 % (9.0-44.0); LYMPHOCYTE # 0.4 TH/MM3 (1.0-4.8); MEAN CELL VOLUME 94.8 FL (80.0-100.0); MEAN CORPUSCULAR HEMOGLOBIN 31.6 PG (27.0-34.0); MEAN CORPUSCULAR HGB CONC 33.4 % (32.0-36.0); MONO % 3.4 % (0.0-8.0); NEUT % 93.1 % (16.0-70.0); PLATELET COUNT 287 TH/MM3 (150-450); RED BLOOD COUNT 2.68 MIL/MM3 (4.50-5.90); RED CELL DISTRIBUTION WIDTH 17.2 % (11.6-17.2); WHITE BLOOD COUNT 12.6 TH/MM3 (4.0-11.0)
[2017-08-17 06:21] LABS: BICARBONATE 25.4 MEQ/L (21.0-32.0); POTASSIUM 3.9 MEQ/L (3.5-5.1)
[2017-08-17] MEDS: hydrALAZINE HCL 50 MG TAB PO SCH ×2 (06:22→18:30)
[2017-08-17] MEDS: RESP: ALBUTEROL 2.5 MG/IPRATROPIUM 0.5 MG NEB (SCH) NEB ×2 (07:43→14:00)
[2017-08-17] MEDS ORDERED: PNEUMOCOCCAL POLYVALENT INJ 25 MCG/0.5 ML SYR IM ONE (10:00)
--- NOTE | 2017-08-17 10:13 | HHI.NPPN ---
Subjective Complaints: Shortness of Breath General Problems: Anemia Renal Failure: Chronic, End Stage Renal Disease Interval History Sitting up breathing comfortably. Oxygen saturations 96% on RA. Due for dialysis today. Questions answered. (Roxi Romano) Objective Data Data Vital Signs Date Time Temp Pulse Resp B/P (MAP) Pulse Ox O2 Delivery O2 Flow Rate FiO2 08/17/17 08:17 95 Room Air 08/17/17 08:16 98.6 74 14 145/90 (108) 95 08/17/17 08:12 78 08/17/17 07:45 93 08/17/17 06:00 82 08/17/17 05:00 73 08/17/17 04:00 98.6 77 16 146/88 (107) 94 08/17/17 04:00 94 Room Air 08/17/17 04:00 77 08/17/17 03:00 75 08/17/17 02:00 74 08/17/17 01:00 70 08/17/17 00:00 97.6 75 16 147/81 (103) 95 08/17/17 00:00 74 08/17/17 00:00 95 Room Air 08/16/17 23:00 74 08/16/17 22:00 82 08/16/17 21:36 97 08/16/17 21:00 80 08/16/17 20:00 98.4 83 16 150/87 (108) 94 08/16/17 20:00 82 08/16/17 20:00 94 Room Air 08/16/17 19:00 82 08/16/17 18:32 78 08/16/17 17:16 78 08/16/17 16:09 96 Room Air 08/16/17 16:09 97.6 78 20 141/75 (97) 96 08/16/17 16:09 78 08/16/17 14:09 75 08/16/17 13:16 80 08/16/17 12:48 71 08/16/17 11:27 97.5 79 20 141/75 (97) 97 08/16/17 11:27 97 Nasal Cannula 3.00 08/16/17 11:27 77 (Roxi Romano) -: 08/17/17 0509 08/17/17 0509 Imaging Last 72 hours Impressions Chest X-Ray 08/15/172039 Signed Impressions: Service Date/Time: Tuesday, August 15, 2017 20:57 - CONCLUSION: 1. Interval placement of a tunneled right IJ dialysis type catheter with the tip projecting over the central venous system. 2. Persistent right basilar consolidation/effusion. 3. Improving aeration in the left lung base. Zak Cole MD Tubes & Lines: Perma-Cath, Tenckhoff Catheter (Roxi Romano. ELECTRIC ARC WELDER) Physical Exam General Appearance: Well Developed, No Acute Distress, Comfortable (Roxi Romano B. ELECTRIC ARC WELDER) Eyes Eye Exam: Pupils Equal (Kieran Romanoon B. ELECTRIC ARC WELDER) Throat Throat Exam: Oral Mucosa Phelan & Moist (Kieran Romanoon B. ELECTRIC ARC WELDER) Neck Neck Exam: Neck Supple (Juan AntonioRoxi B. ELECTRIC ARC WELDER) Pulmonary Resp Exam: Clear Bilaterally, Breath Sounds Equal (Kieran Romanoon B. ELECTRIC ARC WELDER) Cardiology CV Exam: Regular, Normal Sinus Rhythm (Roxi Romano B. ELECTRIC ARC WELDER) Gastrointestinal/Abdomen GI Exam: Soft, Non-Tender, Bowel Sounds Present, Positive Bowel Movement GI Remarks PD catheter, site asymptomatic. (Kieran Romanoon B. ELECTRIC ARC WELDER) Musculoskeletal MS Exam: Normal Gait, Normal Tone, Good Strength (Kieran Romanoon B. ELECTRIC ARC WELDER) Integumentary Skin Exam: Warm, Dry, Intact (Kieran Romanoon B. ELECTRIC ARC WELDER) Extremeties Extremities Exam: No Edema, Pedal Pulses Palpable (Kieran Romanoon B. ELECTRIC ARC WELDER) Neurologic Neuro Exam: Alert, Awake, Oriented, Speech Clear, Moving All Extremities (Roxi Romano B. ELECTRIC ARC WELDER) Psychiatric Psych Exam: Appropriate Responses (Roxi Romano B. ELECTRIC ARC WELDER) Assessment/Plan Discussed Condition With: Patient Assessment Summary: Anemia of CKD, CHF, Hypertension, End Stage Renal Disease Problem List: (1) ESRD (end stage renal disease) ICD Codes: N18.6 - End stage renal disease Plan: On HD MWF, he is due today Currently using Permcath for HD. Has existing outpatient HD arrangements if discharged. He will begin PD training next week Intermittently monitor electrolytes Avoid IVF; renally dose medications when appropriate (2) Shortness of breath ICD Codes: R06.02 - Shortness of breath Plan: Due today for a walk test, may need home oxygen He has a hx of COPD, former smoking, CHF (3) Anemia ICD Codes: D64.9 - Anemia, unspecified Plan: Epogen with dialysis Follow hemoglobin. (4) Hypertension ICD Codes: I10 - Essential (primary) hypertension Plan: Continue present medications (5) CHF (congestive heart failure) ICD Codes: I50.9 - Heart failure, unspecified Plan: Monitor fluid status, UF as needed/tolerated EF 25-30% He is on Lasix daily. He still makes urine. (Roxi Romano) Problem List: (1) ESRD (end stage renal disease) ICD Codes: N18.6 - End stage renal disease Plan: On HD MWF, he is due today Currently using Permcath for HD. Has existing outpatient HD arrangements if discharged. He will begin PD training next week Intermittently monitor electrolytes Avoid IVF; renally dose medications when appropriate (2) Shortness of breath ICD Codes: R06.02 - Shortness of breath Plan: Due today for a walk test, may need home oxygen He has a hx of COPD, former smoking, CHF (3) Anemia ICD Codes: D64.9 - Anemia, unspecified Plan: Epogen with dialysis Follow hemoglobin. (4) Hypertension ICD Codes: I10 - Essential (primary) hypertension Plan: Continue present medications (5) CHF (congestive heart failure) ICD Codes: I50.9 - Heart failure, unspecified Plan: Monitor fluid status, UF as needed/tolerated EF 25-30% He is on Lasix daily. He still makes urine. Plan patient was seen and examined. Dialysis today. Possible discharge today after dialysis. It is unclear if he qualifies for home oxygen. Consider prescription for Xanax. (Bobby Harrington MD) Roxi Romano Aug 17, 2017 10:12 Bobby Harrington MD Aug 17, 2017 10:56
[2017-08-17] MEDS: SODIUM CHLORIDE 0.9% FLUSH 10 ML FLUSH IV FLUSH SCH (10:36)
--- NOTE | 2017-08-17 12:44 | HHI.PR ---
Subjective Remarks Follow-up respiratory failure/hypoxemia/COPD exacerbation 08/16/17-patient seen and examined, currently on 3 L nasal cannula and reports some improvement of shortness of breath. Overnight patient was on BiPAP. 08/17/17-patient seen and examined, currently satting at 96% on room air and denies any shortness of breath. Patient states, he becomes short of breath with desaturation of oxygen when panicking .Awaiting for dialysis. Objective Vitals Vital Signs Date Time Temp Pulse Resp B/P (MAP) Pulse Ox O2 Delivery O2 Flow Rate FiO2 08/17/17 08:17 95 Room Air 08/17/17 08:16 98.6 74 14 145/90 (108) 95 08/17/17 08:12 78 08/17/17 07:45 93 08/17/17 06:00 82 08/17/17 05:00 73 08/17/17 04:00 98.6 77 16 146/88 (107) 94 08/17/17 04:00 94 Room Air 08/17/17 04:00 77 08/17/17 03:00 75 08/17/17 02:00 74 08/17/17 01:00 70 08/17/17 00:00 97.6 75 16 147/81 (103) 95 08/17/17 00:00 74 08/17/17 00:00 95 Room Air 08/16/17 23:00 74 08/16/17 22:00 82 08/16/17 21:36 97 08/16/17 21:00 80 08/16/17 20:00 98.4 83 16 150/87 (108) 94 08/16/17 20:00 82 08/16/17 20:00 94 Room Air 08/16/17 19:00 82 08/16/17 18:32 78 08/16/17 17:16 78 08/16/17 16:09 96 Room Air 08/16/17 16:09 97.6 78 20 141/75 (97) 96 08/16/17 16:09 78 08/16/17 14:09 75 08/16/17 13:16 80 08/16/17 12:48 71 I/O 08/16/17 08/16/17 08/16/17 08/17/17 08/17/17 08/17/17 07:00 15:00 23:00 07:00 15:00 23:00 Intake Total 240 ml 680 ml 600 ml Output Total 0 ml 450 ml Balance 240 ml 230 ml 600 ml Intake Oral 240 ml 680 ml 600 ml Output Urine Total 0 ml 450 ml # Voids 1 # Bowel Movements 0 1 0 Result Diagram: 08/17/17 0509 08/17/17 0509 Imaging Last Impressions Chest X-Ray 08/15/172039 Signed Impressions: Service Date/Time: Tuesday, August 15, 2017 20:57 - CONCLUSION: 1. Interval placement of a tunneled right IJ dialysis type catheter with the tip projecting over the central venous system. 2. Persistent right basilar consolidation/effusion. 3. Improving aeration in the left lung base. Zak Cole MD Objective Remarks GENERAL: NAD SKIN: Warm and dry. HEAD: Normocephalic. EYES: No scleral icterus. No injection or drainage. NECK: Supple, trachea midline. No JVD or lymphadenopathy. CARDIOVASCULAR: Regular rate and rhythm without murmurs, gallops, or rubs. RESPIRATORY: Breath sounds decrease bilaterally. No accessory muscle use. GASTROINTESTINAL: Abdomen soft, non-tender, nondistended. MUSCULOSKELETAL: No cyanosis, or edema. BACK: Nontender without obvious deformity. No CVA tenderness. Procedures none A/P Problem List: (1) COPD with respiratory failure, acute ICD Code: J96.00 - Acute respiratory failure, unspecified whether with hypoxia or hypercapnia; J44.9 - Chronic obstructive pulmonary disease, unspecified Status: Resolved (2) Respiratory failure with hypoxia ICD Code: J96.91 - Respiratory failure, unspecified with hypoxia Status: Resolved (3) Anemia in CKD (chronic kidney disease) ICD Code: N18.9 - Chronic kidney disease, unspecified; D63.1 - Anemia in chronic kidney disease (4) ESRD (end stage renal disease) on dialysis ICD Code: N18.6 - End stage renal disease; Z99.2 - Dependence on renal dialysis (5) COPD with acute exacerbation ICD Code: J44.1 - Chronic obstructive pulmonary disease with (acute) exacerbation Status: Resolved Assessment and Plan 82-year-old man with COPD with respiratory failure-Resolved Respiratory failure with hypoxia-Resolved Currently on 96% RA BiPAP when necessary DuoNeb scheduled and when necessary, long-acting beta agonist d/c Solu-Medrol 20 mg daily at hour and continue Symbicort ESRD on dialysis Appreciate input from nephrology and continue with plan HD Tuesday Patient had a PD catheter placed on 08/05/17, plan is to transition to PD dialysis Chronic systolic CHF Continue with Lasix, beta kartik Patient will need outpatient cardiology follow-up as he does not have an AICD and has an EF of 25-30% Hypertension/hyperlipidemia Continue home medication Norvasc 10 mg daily, Coreg 12.5 mg twice a day, hydralazine 50 mg every 8H Lipitor 20 mg daily History of CAD Continue Plavix History of anemia of chronic kidney disease H&H stable DVT prophylaxis Heparin Discharge Planning Discharge patient to home Condition on discharge: Improved Regular Diet as tolerated [facility] [place] activity Rx written:None Follow-up with primary care physician in 1 week Nephrology for Hemodialysis Problem Qualifiers (1) Respiratory failure with hypoxia: Qualified Codes: J96.01 - Acute respiratory failure with hypoxia Casa Doshi MD Aug 17, 2017 12:44
[2017-08-17] MEDS: CARVEDILOL 12.5 MG TAB PO SCH (18:30)
[2017-08-17] MEDS: ATORVASTATIN 20 MG TAB PO SCH (18:30)
[2017-08-17] MEDS: CLOPIDOGREL 75 MG TAB PO SCH (18:31)
[2017-08-17] MEDS: FUROSEMIDE 20 MG TAB PO SCH (18:36)
[2017-08-17] MEDS: BUDESONIDE-FORMOTEROL 160/4.5 MCG INHALER INH SCH (18:36)
[2017-08-18] MEDS ORDERED: predniSONE 20 MG TAB PO SCH (09:00)
== END 2017-08-17 19:03 | disposition home or self-care (01) | DRG 189 ==
LOC: NEPC 20:34 → NEDA 23:37 → HCIS 08-16 01:50
PROVIDERS: ADMIT Hospitalist; ATTEND Hospitalist
PROC: 5A09357 Assistance with Respiratory Ventilation, Less than 24 Consecutive Hours, Continuous Positive Airway Pressure (ICD-10-PCS; principal; 2017-08-15)
PROC: 5A1D70Z Performance of Urinary Filtration, Intermittent, Less than 6 Hours Per Day (ICD-10-PCS; 2017-08-17)
DX: J96.01 Acute respiratory failure with hypoxia (principal); I13.2 Hypertensive heart and chronic kidney disease with heart failure and with stage 5 chronic kidney disease, or end stage renal disease; N25.81 Secondary hyperparathyroidism of renal origin; J44.1 Chronic obstructive pulmonary disease with (acute) exacerbation; N18.6 End stage renal disease; I50.22 Chronic systolic (congestive) heart failure; I73.9 Peripheral vascular disease, unspecified; F17.210 Nicotine dependence, cigarettes, uncomplicated; M19.90 Unspecified osteoarthritis, unspecified site; E78.5 Hyperlipidemia, unspecified; I25.10 Atherosclerotic heart disease of native coronary artery without angina pectoris; D63.1 Anemia in chronic kidney disease; Z99.2 Dependence on renal dialysis; Z86.73 Personal history of transient ischemic attack (TIA), and cerebral infarction without residual deficits; Z23 Encounter for immunization
CPT/HCPCS: 36600; 71010; 80048; 80053; 82805; 83735; 83970; 85025; 87040; 90732; 93005; 94002; 94003; 94620; 94640; 94664; 96374; J1580; J1644; J2930; Q4081

== ENCOUNTER 2017-09-10 11:47 | Inpatient (IN) | payer OTHER, MEDICARE ==
[2017-09-10] VITALS (10 sets, daily range): BP systolic 121–156; BP diastolic 63–77; PULSE 58–68; RESP 18–21; TEMP 97.8–98.3; O2SAT 95–100
[~2017-09-10] VITALS: Ht 175.3 cm; Wt 77.8 kg
[2017-09-10 12:23] LABS: AUTOMATED NEUTROPHIL # 3.2 TH/MM3 (1.8-7.7); EOSINOPHIL # 0.3 TH/MM3 (0-0.4); EOSINOPHIL % 6.3 % (0.0-4.0); HEMATOCRIT 27.6 % (39.0-51.0); HEMOGLOBIN 9.2 GM/DL (13.0-17.0); LYMPH % 11.9 % (9.0-44.0); LYMPHOCYTE # 0.6 TH/MM3 (1.0-4.8); MEAN CELL VOLUME 96.6 FL (80.0-100.0); MEAN CORPUSCULAR HEMOGLOBIN 32.3 PG (27.0-34.0); MEAN CORPUSCULAR HGB CONC 33.5 % (32.0-36.0); MEAN PLATELET VOLUME 7.3 FL (7.0-11.0); MONOCYTE # 0.7 TH/MM3 (0-0.9); NEUT % 66.8 % (16.0-70.0); PLATELET COUNT 242 TH/MM3 (150-450); RED BLOOD COUNT 2.85 MIL/MM3 (4.50-5.90); RED CELL DISTRIBUTION WIDTH 16.5 % (11.6-17.2); WHITE BLOOD COUNT 4.8 TH/MM3 (4.0-11.0)
[2017-09-10 12:42] LABS: ALBUMIN 2.9 GM/DL (3.4-5.0); ALT (GPT) 20 U/L (12-78); AST (GOT) 20 U/L (15-37); BICARBONATE 28.3 MEQ/L (21.0-32.0); BLOOD UREA NITROGEN 17 MG/DL (7-18); CALCIUM 7.7 MG/DL (8.5-10.1); CHLORIDE 105 MEQ/L (98-107); CREATININE 2.59 MG/DL (0.60-1.30); GLOMERULAR FILTRATION RATE 24 ML/MIN (>89); GLUCOSE,RANDOM 102 MG/DL (74-106); SODIUM (NA) 140 MEQ/L (136-145)
[2017-09-10 12:46] LABS: ALKALINE PHOSPHATASE 90 U/L (45-117); TOTAL BILIRUBIN ADULT 0.3 MG/DL (0.2-1.0); TROPONIN I 0.06 NG/ML (0.02-0.05)
--- NOTE | 2017-09-10 12:59 | RADRPT ---
EXAM DATE/TIME: 09/10/2017 12:19 [facility] COMPARISON: CHEST SINGLE AP, August 15, 2017, 20:57. INDICATIONS : Lightheaded with general weakness. MEDICAL HISTORY : Congestive heart failure. Aneurysm, abdominal. SURGICAL HISTORY : Abdominal aortic aneurysm repair. Carotid endarterectomy. Hernia repair. di alysis catheter ENCOUNTER: Initial ACUITY: 1 day PAIN SCORE: 0/10 LOCATION: Bilateral chest FINDINGS: Dialysis catheter right atrium. Blunting right posterior lung sulcus. Left lung clear. Compensated cardiomegaly CONCLUSION: Improved from 08/15/17. Persistent blunting right costophrenic sulcus. No failure Jaron Boss MD FACR on September 10, 2017 at 12:56 Board Certified Radiologist. This report was verified electronically.
--- NOTE | 2017-09-10 13:29 | PD ---
HPI Chief Complaint: General Weakness Time Seen by Provider: 11:54 Travel History International Travel<30 days: No Contact w/Intl Traveler<30days: No Traveled to known affect area: No History of Present Illness HPI 82-year-old male patient presents emergency department via EMS for evaluation after his friend called 911 because he appeared to be more tired than his usual baseline. His friend told EMS that he was falling asleep and his recliner and his feet are more swollen than usual. Patient was receiving peritoneal dialysis is morning at approximately 2 AM when he started having muscle cramps associated. They slowed down the dialysis and the patient decided to leave in the middle of treatment. The last time he had dialysis before this morning was last Tuesday. He denies any chest pain, shortness breath, fever, chills, malaise, abdominal pain, nausea, vomiting, diarrhea. Patient states that it is happened before when he is having dialysis that his muscles started cramping because they remove the water too quickly. Patient states he had a AAA that was not ruptured and they tried to patch when they inadvertently damaged his kidneys by anoxic injury during the surgery. Patient developed CHF and fluid overload shortly after that and has needed dialysis ever since. Patient's feet and lower extremities are noted to have 1+ pitting edema at this time. Patient' s lungs are clear to auscultation with no accessory muscle use. PFSH Past Medical History Hx Anticoagulant Therapy: Yes AAA: Yes (DECEMBER 2016) Arthritis: Yes Asthma: No Blood Disorders: No Cancer: No Cardiovascular Problems: Yes (CHF) High Cholesterol: Yes Chest Pain: No Congestive Heart Failure: Yes COPD: No Cerebrovascular Accident: Yes (AAA) Diabetes: No Diminished Hearing: No Endocrine: No Genitourinary: No Hepatitis: No Hiatal Hernia: No Hypertension: Yes (THIS VISIT IN [facility]) Immune Disorder: No Insomnia: Yes Medical other: Yes (inguinal hernia) Musculoskeletal: No Neurologic: No Psychiatric: No Reproductive: No Respiratory: No Migraines: No Seizures: Yes (Seizure today during dialysis) Thyroid Disease: No Tetanus Vaccination: < 5 Years Influenza Vaccination: Yes ?: Not Past Surgical History Abdominal Aneurysm Repair: Yes Abdominal Surgery: Yes (HERNIA, PERITONEAL DIALYSIS PORT PLACED LLQ) AICD: No Arteriovenous Shunt: No Cardiac Surgery: Yes (carotid endartarectomy L side) Ear Surgery: No Endocrine Surgery: No Eye Surgery: Yes (holes surgically placed into eyes to relieve pressure) Genitourinary Surgery: No Gynecologic Surgery: No Insulin Pump: No Joint Replacement: No Neurologic Surgery: Yes (CRANIAL SURGERY TWICE x 2 due to infection from injury ) Oral Surgery: Yes (DENTAL EXTRACTIONS) Pacemaker: No Thoracic Surgery: No Other Surgery: Yes (cranial surgery x 2 due to infection from injury ) Social History Alcohol Use: Yes (SOCIALLY) Tobacco Use: No Substance Use: No Allergies-Medications (Allergen,Severity, Reaction): Coded Allergies: ezetimibe (Verified Allergy, Mild, STRANGE FEELING IN ABDOMEN, 08/15/17) Reported Meds & Prescriptions Reported Meds & Active Scripts Active Hydralazine HCl 50 Mg Tablet 50 Mg PO Q8H Coreg (Carvedilol) 12.5 Mg Tab 12.5 Mg PO Q12HR Gnp Vitamin D3 Extra Stre (Cholecalciferol) 1,000 Unit Tab 2,000 Units PO DAILY Miralax Powder (Polyethylene Glycol 3350 Powder) 17 Gm Powd 17 Gm PO DAILY Mix and dissolve one measuring cap-ful (17 grams) in water or juice. Plavix (Clopidogrel Bisulfate) 75 Mg Tab 75 Mg PO DAILY Reported Ventolin Hfa 18 GM Inh (Albuterol Sulfate) 90 Mcg/Act Aer 2 Puff INH Q12HR NEB PRN Senokot S (Sennosides-Docusate Sodium) 8.6-50 Mg Tab 1 Tab PO DAILY Furosemide 20 Mg Tab 20 Mg PO DAILY Zolpidem (Zolpidem Tartrate) 5 Mg Tab 5 Mg PO HS PRN Norvasc (Amlodipine Besylate) 10 Mg Tab 10 Mg PO DAILY Lipitor (Atorvastatin Calcium) 20 Mg Tab 20 Mg PO DAILY Review of Systems Except as stated in HPI: all other systems reviewed are Neg Musculoskeletal: Positive: Edema Physical Exam Narrative GENERAL: Well-developed, well-nourished elderly 82-year-old male patient in no acute distress. Non-toxic appearing. SKIN: Focused skin assessment warm/dry. Right-sided chest dialysis access. No S/ S of infection. HEAD: Atraumatic. Normocephalic. EYES: Pupils equal and round. No scleral icterus. No injection or drainage. ENT: No nasal bleeding or discharge. Mucous membranes pink and moist. NECK: Trachea midline. No JVD. CARDIOVASCULAR: Regular rate and rhythm. No murmur appreciated. RESPIRATORY: No accessory muscle use. Clear to auscultation. Breath sounds equal bilaterally. GASTROINTESTINAL: Abdomen soft, non-tender, nondistended. Hepatic and splenic margins not palpable. Peritoneal dialysis port. MUSCULOSKELETAL: Bilateral lower extremity 1+ pitting edema. No obvious deformities. No clubbing. No cyanosis. NEUROLOGICAL: Awake and alert. No obvious cranial nerve deficits. Motor grossly within normal limits. Normal speech. PSYCHIATRIC: Appropriate mood and affect; insight and judgment normal. Data Data Last Documented VS Vital Signs Date Time Temp Pulse Resp B/P (MAP) Pulse Ox O2 Delivery O2 Flow Rate FiO2 09/10/17 14:00 67 18 156/71 (99) 95 Nasal Cannula 2.00 09/10/17 12:03 98.3 Orders Orders Complete Blood Count With Diff (09/10/17 12:07) Comprehensive Metabolic Panel (09/10/17 12:07) B-Type Natriuretic Peptide (09/10/17 12:07) Magnesium (Mg) (09/10/17 12:07) Ckmb (Isoenzyme) Profile (09/10/17 12:07) Troponin I (09/10/17 12:07) Urinalysis - C+S If Indicated (09/10/17 12:07) Iv Access Insert/Monitor (09/10/17 12:07) Electrocardiogram (09/10/17 12:07) Ecg Monitoring (09/10/17 12:07) Oximetry (09/10/17 12:07) Oxygen Administration (09/10/17 12:07) Chest, Single Ap (09/10/17 12:07) Admit Order (Ed Use Only) (09/10/17 14:52) Labs Laboratory Tests Test 09/10/17 12:10 White Blood Count 4.8 TH/MM3 Red Blood Count 2.85 MIL/MM3 Hemoglobin 9.2 GM/DL Hematocrit 27.6 % Mean Corpuscular Volume 96.6 FL Mean Corpuscular Hemoglobin 32.3 PG Mean Corpuscular Hemoglobin Concent 33.5 % Red Cell Distribution Width 16.5 % Platelet Count 242 TH/MM3 Mean Platelet Volume 7.3 FL Neutrophils (%) (Auto) 66.8 % Lymphocytes (%) (Auto) 11.9 % Monocytes (%) (Auto) 14.0 % Eosinophils (%) (Auto) 6.3 % Basophils (%) (Auto) 1.0 % Neutrophils # (Auto) 3.2 TH/MM3 Lymphocytes # (Auto) 0.6 TH/MM3 Monocytes # (Auto) 0.7 TH/MM3 Eosinophils # (Auto) 0.3 TH/MM3 Basophils # (Auto) 0.0 TH/MM3 CBC Comment DIFF FINAL Differential Comment Blood Urea Nitrogen 17 MG/DL Creatinine 2.59 MG/DL Random Glucose 102 MG/DL Total Protein 6.0 GM/DL Albumin 2.9 GM/DL Calcium Level 7.7 MG/DL Magnesium Level 2.0 MG/DL Alkaline Phosphatase 90 U/L Aspartate Amino Transf (AST/SGOT) 20 U/L Alanine Aminotransferase (ALT/SGPT) 20 U/L Total Bilirubin 0.3 MG/DL Sodium Level 140 MEQ/L Potassium Level 3.9 MEQ/L Chloride Level 105 MEQ/L Carbon Dioxide Level 28.3 MEQ/L Anion Gap 7 MEQ/L Estimat Glomerular Filtration Rate 24 ML/MIN Total Creatine Kinase 92 U/L Troponin I 0.06 NG/ML B-Type Natriuretic Peptide 2228 PG/ML MDM Medical Decision Making Medical Screen Exam Complete: Yes Emergency Medical Condition: Yes Interpretation(s) Afebrile, no tachycardia, normotensive Differential Diagnosis Differential diagnoses include but not limited to fluid overload, CHF, pulmonary edema, electrolyte abnormality, renal insufficiency, edema, PVD, dialysis noncompliance Narrative Course Patient placed on monitor and IV obtained. Blood work sent to the lab. CBC, CMP, BNP, magnesium, troponin, CK-MB, UA ordered and pending. EKG ordered and interpreted. EKG shows sinus rhythm with heart rate 66. Automated EKG interpretation read first-degree AV block with IL interval 211. However when read physically by myself and my attending, Dr. Patricia it appeared to be normal sinus rhythm. Chest x-ray shows an improvement from that to 07/04/17 chest x- ray. Persistent blunting of the right costophrenic sulcus. No failure. CBC shows anemia with hemoglobin 9.2 which when reviewed with the patient's previous medical record is his baseline. CMP shows hypoalbuminemia at 2.9, low calcium of 7.7 and creatinine 2.59 and GFR 24. BNP is elevated at 2228 Due to the patient being noncompliant with his dialysis regimen and leaving in the middle of treatment this morning. The patient needs to be admitted to the hospital for fluid overload secondary to noncompliance with dialysis. Hepas paged for admission. Dr Alfredo accepts admission. Patient will be admitted to the hospital. Diagnosis Primary Impression: CHF (congestive heart failure) Qualified Codes: I50.9 - Heart failure, unspecified Additional Impressions: ESRD (end stage renal disease) on dialysis Edema Qualified Codes: R60.9 - Edema, unspecified Admitting Information Admitting Physician Requests: it Maryanne Colón Sep 10, 2017 13:29
--- NOTE | 2017-09-10 13:50 | PD ---
Data Data Last Documented VS Vital Signs Date Time Temp Pulse Resp B/P (MAP) Pulse Ox O2 Delivery O2 Flow Rate FiO2 09/10/17 14:00 67 18 156/71 (99) 95 Nasal Cannula 2.00 09/10/17 12:03 98.3 Orders Orders Complete Blood Count With Diff (09/10/17 12:07) Comprehensive Metabolic Panel (09/10/17 12:07) B-Type Natriuretic Peptide (09/10/17 12:07) Magnesium (Mg) (09/10/17 12:07) Ckmb (Isoenzyme) Profile (09/10/17 12:07) Troponin I (09/10/17 12:07) Urinalysis - C+S If Indicated (09/10/17 12:07) Iv Access Insert/Monitor (09/10/17 12:07) Electrocardiogram (09/10/17 12:07) Ecg Monitoring (09/10/17 12:07) Oximetry (09/10/17 12:07) Oxygen Administration (09/10/17 12:07) Chest, Single Ap (09/10/17 12:07) Admit Order (Ed Use Only) (09/10/17 14:52) Labs Laboratory Tests Test 09/10/17 12:10 White Blood Count 4.8 TH/MM3 Red Blood Count 2.85 MIL/MM3 Hemoglobin 9.2 GM/DL Hematocrit 27.6 % Mean Corpuscular Volume 96.6 FL Mean Corpuscular Hemoglobin 32.3 PG Mean Corpuscular Hemoglobin Concent 33.5 % Red Cell Distribution Width 16.5 % Platelet Count 242 TH/MM3 Mean Platelet Volume 7.3 FL Neutrophils (%) (Auto) 66.8 % Lymphocytes (%) (Auto) 11.9 % Monocytes (%) (Auto) 14.0 % Eosinophils (%) (Auto) 6.3 % Basophils (%) (Auto) 1.0 % Neutrophils # (Auto) 3.2 TH/MM3 Lymphocytes # (Auto) 0.6 TH/MM3 Monocytes # (Auto) 0.7 TH/MM3 Eosinophils # (Auto) 0.3 TH/MM3 Basophils # (Auto) 0.0 TH/MM3 CBC Comment DIFF FINAL Differential Comment Blood Urea Nitrogen 17 MG/DL Creatinine 2.59 MG/DL Random Glucose 102 MG/DL Total Protein 6.0 GM/DL Albumin 2.9 GM/DL Calcium Level 7.7 MG/DL Magnesium Level 2.0 MG/DL Alkaline Phosphatase 90 U/L Aspartate Amino Transf (AST/SGOT) 20 U/L Alanine Aminotransferase (ALT/SGPT) 20 U/L Total Bilirubin 0.3 MG/DL Sodium Level 140 MEQ/L Potassium Level 3.9 MEQ/L Chloride Level 105 MEQ/L Carbon Dioxide Level 28.3 MEQ/L Anion Gap 7 MEQ/L Estimat Glomerular Filtration Rate 24 ML/MIN Total Creatine Kinase 92 U/L Troponin I 0.06 NG/ML B-Type Natriuretic Peptide 2228 PG/ML MDM Supervised Visit with ISABELLA: Yes Narrative Course I, Dr. Patricia, have reviewed the advance practice practitioner's documentation and am in agreement, met with the patient face to face, made the diagnosis, and the medical decision making was done by me. *My assessment and Findings: Patient 82-year-old male presents emergency department for generalized weakness and swelling of his legs. Patient does do peritoneal dialysis Tuesday, last full dialysis was Tuesday, he states last night about 2 AM when he went in for his normal dialysis session healing did a few minutes of dialysis because it wasn't working because it wanting enough no fluid. Patient states he's tried to do peritoneal dialysis at home but there was a problem with the catheter. Denies fever denies abdominal pain endorses like swelling. Patient does have significant swelling of his lower extremities from the knees down. Neurologically intact, no chest pain abdominal pain, peritoneal dialysis catheter clean dry and intact. He does have pleural effusion at the right base stable from August 15, 2017. My impression is the patient is fluid positive, he does not know his dialysis doctor so we cannot discussed with over the phone. We have attempted to reach [facility] unsuccessfully twice. Last 24 hours Impressions Chest X-Ray 09/10/17 1207 Signed Impressions: Service Date/Time: Sunday, September 10, 2017 12:19 - CONCLUSION: Improved from 08/15/17. Persistent blunting right costophrenic sulcus. No failure Jaron Boss MD FACR Condition: Stable Jose Patricia MD Sep 10, 2017 13:50
[2017-09-10] MEDS ORDERED: oxyCODONE/ACETAMINOPHEN 5 MG/325 MG TAB PO PRN (15:15)
[2017-09-10] MEDS ORDERED: SENNOSIDES 8.6 MG TAB PO PRN (15:15)
[2017-09-10] MEDS ORDERED: MAGNESIUM HYDROXIDE SUSP 30 ML CUP PO PRN (15:15)
[2017-09-10] MEDS ORDERED: METOCLOPRAMIDE HCL 10 MG/2 ML VIAL IV PUSH PRN (15:15)
[2017-09-10] MEDS ORDERED: ACETAMINOPHEN 325 MG TAB PO PRN ×3 (15:15→18:30)
[2017-09-10] MEDS ORDERED: ALBUTEROL SULFATE 90 MCG/ACT HFA 8 GM INHALER INH PRN (15:15)
[2017-09-10] MEDS ORDERED: LACTULOSE SYRUP 20 GM/30 ML CUP PO PRN (15:15)
[2017-09-10] MEDS ORDERED: oxyCODONE/ACETAMINOPHEN 10 MG/325 MG TAB PO PRN (15:15)
[2017-09-10] MEDS ORDERED: BISACODYL 10 MG SUPP RECTAL PRN (15:15)
[2017-09-10] MEDS ORDERED: ONDANSETRON HCL 4 MG/2 ML VIAL IVP PRN (15:15)
[2017-09-10] MEDS ORDERED: SODIUM CHLORIDE 0.9% FLUSH 10 ML FLUSH IV FLUSH PRN ×2 (15:15→18:30)
[2017-09-10] MEDS ORDERED: cloNIDine HCL 0.1 MG TAB PO PRN ×2 (15:15→18:30)
[2017-09-10] MEDS ORDERED: NALOXONE HCL 0.4 MG/ML AMP IV PUSH PRN (15:15)
--- NOTE | 2017-09-10 15:27 | HHI.HP ---
[facility] Service [facility] Primary Care Physician Non-Staff Admission Diagnosis CHF, EDEMA, ELEVATED TROP Diagnoses: (1) ESRD (end stage renal disease) on dialysis Diagnosis: Principal (2) Anemia in CKD (chronic kidney disease) Diagnosis: Secondary (3) Hypertension Diagnosis: Secondary (4) ESRD (end stage renal disease) Diagnosis: Principal (5) CHF (congestive heart failure) Diagnosis: Principal (6) Shortness of breath Diagnosis: Principal (7) Pulmonary edema Diagnosis: Principal Chief Complaint: Generalized weakness and fluid overload Travel History International Travel<30 Days: No Contact w/Intl Traveler <30 Da: No Traveled to Known Affected Are: No History of Present Illness Patient is an 82-year-old gentleman, Who presented to the emergency department today via EMS from home for evaluation. Patient states he's been more tired than his usual. He has a friend that noted that he's been more tired than usual. That is been falling asleep more and his feet are more swollen than usual. Patient has been receiving hemodialysis I believe Tuesday. Started having some cramps. But then patient decided to leave in the middle of treatment. Last dialysis was Tuesday. Has not been very compliant with his dialysis. Denies any chest pain has some shortness of breath denies any fever or chills denies any abdominal pain or nausea vomiting or diarrhea does have some malaise. Patient states he's had issues with the cramping before when he has been having dialysis in his muscles started cramping. He had a AAA repair and then had issues with his kidneys. After the surgery. Patient then developed CHF and fluid overload and then has been on dialysis since then. Has edema in +1-2 in bilateral lower extremities. No accessory muscle use Patient has what sounds like noncompliance with his dialysis and has not fluid restricting himself at all Will be admitted for consultation with nephrology and probable need for hemodialysis here Review of Systems ROS Limitations: Poor Historian Constitutional: COMPLAINS OF: Fatigue, Weight gain, DENIES: Diaphoretic episodes, Fever, Weight loss, Chills, Dizziness, Change in appetite Endocrine: DENIES: Heat/cold intolerance, Polydipsia, Polyuria, Polyphagia Eyes: DENIES: Blurred vision, Diplopia, Eye inflammation, Eye pain, Vision loss , Photosensitivity Ears, nose, mouth, throat: DENIES: Tinnitus, Hearing loss, Vertigo, Nasal discharge, Oral lesions, Throat pain Respiratory: COMPLAINS OF: Shortness of breath, DENIES: Apneas, Cough, Snoring , Wheezing, Hemoptysis, Sputum production Cardiovascular: COMPLAINS OF: Dyspnea on Exertion, Lower Extremity Edema, DENIES: Chest pain, Palpitations, Syncope, PND Gastrointestinal: DENIES: Abdominal pain, Black stools, Bloody stools, Constipation, Diarrhea Musculoskeletal: DENIES: Joint pain, Muscle aches, Stiffness, Joint Swelling, Back pain Integumentary: DENIES: Abnormal pigmentation, Nail changes, Pruritus Hematologic/lymphatic: DENIES: Bruising, Lymphadenopathy Immunologic/allergic: DENIES: Eczema, Urticaria Neurologic: DENIES: Abnormal gait, Headache, Localized weakness, Paresthesias, Seizures, Speech Problems Psychiatric: DENIES: Anxiety, Confusion, Mood changes, Depression, Hallucinations, Agitation Except as stated in HPI: all other systems reviewed are Neg Past Family Social History Past Medical History End-stage renal disease on hemodialysis to be switched to peritoneal dialysis in the future Abdominal aortic aneurysm repair in December 2016 with issues with her kidneys after procedure Osteoarthritis congestive heart failure Hyperlipidemia History of cerebrovascular accident possibly Hypertension Noncompliance Insomnia Possible seizures Past Surgical History Abdominal aortic aneurysm repair Hernia repair Peritoneal dialysis port Right-sided chest dialysis access Left carotid endarterectomy Glaucoma surgery on bilateral eyes Cranial surgery twice due to infection from injury Dental extractions Reported Medications Reported Meds & Active Scripts Active Hydralazine HCl 50 Mg Tablet 50 Mg PO Q8H Coreg (Carvedilol) 12.5 Mg Tab 12.5 Mg PO Q12HR Gnp Vitamin D3 Extra Stre (Cholecalciferol) 1,000 Unit Tab 2,000 Units PO DAILY Miralax Powder (Polyethylene Glycol 3350 Powder) 17 Gm Powd 17 Gm PO DAILY Mix and dissolve one measuring cap-ful (17 grams) in water or juice. Plavix (Clopidogrel Bisulfate) 75 Mg Tab 75 Mg PO DAILY Reported Ventolin Hfa 18 GM Inh (Albuterol Sulfate) 90 Mcg/Act Aer 2 Puff INH Q12HR NEB PRN Senokot S (Sennosides-Docusate Sodium) 8.6-50 Mg Tab 1 Tab PO DAILY Furosemide 20 Mg Tab 20 Mg PO DAILY Zolpidem (Zolpidem Tartrate) 5 Mg Tab 5 Mg PO HS PRN Norvasc (Amlodipine Besylate) 10 Mg Tab 10 Mg PO DAILY Lipitor (Atorvastatin Calcium) 20 Mg Tab 20 Mg PO DAILY Allergies: Coded Allergies: ezetimibe (Verified Allergy, Mild, STRANGE FEELING IN ABDOMEN, 08/15/17) Active Ordered Medications Current Medications Albuterol Sulfate (Proair Hfa Inh) 2 puff Q12H PRN INH SHORTNESS OF BREATH; Start 09/10/17 at 15:15 Amlodipine Besylate (Norvasc) 10 mg DAILY PO ; Start 09/11/17 at 09:00 Atorvastatin Calcium (Lipitor) 20 mg DAILY PO ; Start 09/11/17 at 09:00 Carvedilol (Coreg) 12.5 mg Q12HR PO ; Start 09/10/17 at 21:00; Status UNV Cholecalciferol (Vitamin D3) 2,000 units DAILY PO ; Start 09/11/17 at 09:00; Status UNV Clopidogrel Bisulfate (Plavix) 75 mg DAILY PO ; Start 09/11/17 at 09:00; Status UNV Furosemide (Lasix) 20 mg DAILY PO ; Start 09/11/17 at 09:00; Status UNV Hydralazine HCl (Apresoline) 50 mg Q8H PO ; Start 09/10/17 at 15:15; Status UNV Polyethylene Glycol (Miralax) 17 gm DAILY PO ; Start 09/11/17 at 09:00; Status UNV Senna/Docusate Sodium (Jo Ann-Colace) 1 tab DAILY PO ; Start 09/11/17 at 09:00; Status UNV Family History Hypertension Social History Drinks alcohol socially Denies any tobacco or illicits Physical Exam Vital Signs Vital Signs Date Time Temp Pulse Resp B/P (MAP) Pulse Ox O2 Delivery O2 Flow Rate FiO2 09/10/17 14:00 67 18 156/71 (99) 95 Nasal Cannula 2.00 09/10/17 12:13 96 Nasal Cannula 2.00 09/10/17 12:13 96 Nasal Cannula 2.00 09/10/17 12:03 64 18 96 Room Air 09/10/17 12:03 98.3 64 18 121/77 (92) 96 Nasal Cannula 2.00 09/10/17 11:57 98.3 66 18 121/77 (92) 95 Physical Exam GENERAL: This is a well-nourished, well-developed patient, in no apparent distress. SKIN: No rashes, ecchymoses or lesions. Cool and dry. HEAD: Atraumatic. Normocephalic. No temporal or scalp tenderness. EYES: Pupils equal round and reactive. Extraocular motions intact. No scleral icterus. No injection or drainage. ENT: Nose without bleeding, purulent drainage or septal hematoma. Throat without erythema, tonsillar hypertrophy or exudate. Uvula midline. Airway patent. NECK: Trachea midline. No JVD or lymphadenopathy. Supple, nontender, no meningeal signs. CARDIOVASCULAR: Regular rate and rhythm without murmurs, gallops, or rubs. RESPIRATORY: Clear to auscultation. Breath sounds equal bilaterally. No wheezes , rales, or rhonchi. GASTROINTESTINAL: Abdomen soft, non-tender, nondistended. No hepato-splenomegaly , or palpable masses. No guarding. MUSCULOSKELETAL: Extremities without clubbing, cyanosis, +1-2 lower extremity edema bilaterally no joint tenderness, effusion, or edema noted. No calf tenderness. Negative Homans sign bilaterally. NEUROLOGICAL: Awake and alert. Cranial nerves II through XII intact. Motor and sensory grossly within normal limits. Five out of 5 muscle strength in all muscle groups. Normal speech. Right-sided hemodialysis access on right-sided chest Peritoneal dialysis catheter in place Laboratory Laboratory Tests Test 09/10/17 12:10 White Blood Count 4.8 Red Blood Count 2.85 Hemoglobin 9.2 Hematocrit 27.6 Mean Corpuscular Volume 96.6 Mean Corpuscular Hemoglobin 32.3 Mean Corpuscular Hemoglobin Concent 33.5 Red Cell Distribution Width 16.5 Platelet Count 242 Mean Platelet Volume 7.3 Neutrophils (%) (Auto) 66.8 Lymphocytes (%) (Auto) 11.9 Monocytes (%) (Auto) 14.0 Eosinophils (%) (Auto) 6.3 Basophils (%) (Auto) 1.0 Neutrophils # (Auto) 3.2 Lymphocytes # (Auto) 0.6 Monocytes # (Auto) 0.7 Eosinophils # (Auto) 0.3 Basophils # (Auto) 0.0 CBC Comment DIFF FINAL Differential Comment Blood Urea Nitrogen 17 Creatinine 2.59 Random Glucose 102 Total Protein 6.0 Albumin 2.9 Calcium Level 7.7 Magnesium Level 2.0 Alkaline Phosphatase 90 Aspartate Amino Transf (AST/SGOT) 20 Alanine Aminotransferase (ALT/SGPT) 20 Total Bilirubin 0.3 Sodium Level 140 Potassium Level 3.9 Chloride Level 105 Carbon Dioxide Level 28.3 Anion Gap 7 Estimat Glomerular Filtration Rate 24 Total Creatine Kinase 92 Troponin I 0.06 B-Type Natriuretic Peptide 2228 Result Diagram: 09/10/17 1210 09/10/17 1210 Imaging Last Impressions Chest X-Ray 09/10/17 1207 Signed Impressions: Service Date/Time: Sunday, September 10, 2017 12:19 - CONCLUSION: Improved from 08/15/17. Persistent blunting right costophrenic sulcus. No failure Jaron Boss MD FACR Caphollis VTE Risk Assessment Rick VTE Risk Assessment: Mod/High Risk (score >= 2) Caprini Risk Assessment Model Point Value = 1 Point Value = 2 Point Value = 3 Point Value = 5 Age 41-60 Minor surgery BMI > 25 kg/m2 Swollen legs Varicose veins or History of unexplained or recurrent spontaneous Oral contraceptives or hormone replacement Sepsis (< 1 month) Serious lung disease, including pneumonia (< 1 month) Abnormal pulmonary function Acute myocardial infarction Congestive heart failure (< 1 month) History of inflammatory bowel disease Medical patient at bed rest Age 61-74 Arthroscopic surgery Major open surgery (> 45 min) Laparoscopic surgery (> 45 min) Malignancy Confined to bed (> 72 hours) Immobilizing plaster cast Central venous access Age >= 75 History of VTE Family history of VTE Factor V Leiden Prothrombin [id number] Lupus anticoagulant Anticardiolipin antibodies Elevated serum homocysteine Heparin-induced thrombocytopenia Other congenital or acquired thrombophilia Stroke (< 1 month) Elective arthroplasty Hip, pelvis, or leg fracture Acute spinal cord injury (< 1 month) Prophylaxis Regimen Total Risk Factor Score Risk Level Prophylaxis Regimen 0-1 Low Early ambulation 2 Moderate Order ONE of the following: *Sequential Compression Device (SCD) *Heparin 5000 units SQ BID 3-4 Higher Order ONE of the following medications: *Heparin 5000 units SQ TID *Enoxaparin/Lovenox 40 mg SQ daily (WT < 150 kg, CrCl > 30 mL/min) *Enoxaparin/Lovenox 30 mg SQ daily (WT < 150 kg, CrCl > 10-29 mL/min) *Enoxaparin/Lovenox 30 mg SQ BID (WT < 150 kg, CrCl > 30 mL/min) AND/OR *Sequential Compression Device (SCD) 5 or more Highest Order ONE of the following medications: *Heparin 5000 units SQ TID (Preferred with Epidurals) *Enoxaparin/Lovenox 40 mg SQ daily (WT < 150 kg, CrCl > 30 mL/min) *Enoxaparin/Lovenox 30 mg SQ daily (WT < 150 kg, CrCl > 10-29 mL/min) *Enoxaparin/Lovenox 30 mg SQ BID (WT < 150 kg, CrCl > 30 mL/min) AND *Sequential Compression Device (SCD) Assessment and Plan Assessment and Plan End-stage renal disease on hemodialysis supposed to go Tuesday and Tuesday has not gone to dialysis since Tuesday has a tendency to leave early from dialysis Will need consult with nephrology and will need to be dialyzed. Patient does not understand fluid restriction. Continue on Lasix Fluid restrict Nutrition for education about dialysis diet Hypertension resume home medications Elevated troponin suspect secondary to his cardiomyopathy and chronic hemodialysis we'll trend Hyperlipidemia continue on Lipitor Home medications for chronic constipation Insomnia continue on his Ambien Albuterol inhaler as needed for shortness of breath Continue on Plavix for his coronary artery disease and history of cardiomyopathy Discussed with patient and RN and ER Code Status Full code Discussed Condition With Discussed with patient, RN, and ER physician Physician Certification 2 Midnight Certification Type: Admission for Inpatient Services Order for Inpatient Services The services are ordered in accordance with Medicare regulations or non- Medicare payer requirements, as applicable. In the case of services not specified as inpatient-only, they are appropriately provided as inpatient services in accordance with the 2-midnight benchmark. Estimated LOS (days): 2 2 days is the estimated time the patient will need to remain in the hospital, assuming treatment plan goals are met and no additional complications. Post-Hospital Plan: Not yet determined Jaron Alfredo DO Sep 10, 2017 15:27
[2017-09-10] MEDS ORDERED: MORPHINE SULFATE 2 MG/ML INJ IV PUSH PRN ×2 (16:00)
--- NOTE | 2017-09-10 16:36 | EKG ---
Date Performed: 09/10/2017 Time Performed: 15:35:33 PTAGE: 82 years EKG: Sinus rhythm POSSIBLE LEFT ATRIAL ENLARGEMENT MODERATE INTRAVENTRICULAR CONDUCTION DELAY NONSPECIFIC ST & T-WAVE ABNORMALITY ABNORMAL ECG PREVIOUS TRACING : 09/10/2017 11.55 Compared to prior tracing no significant change DOCTOR: Yasmine Marrufo Interpretating Date/Time 09/10/2017 16:34:20
--- NOTE | 2017-09-10 16:46 | EKG ---
Date Performed: 09/10/2017 Time Performed: 11:55:53 PTAGE: 82 years EKG: Sinus rhythm WITH FIRST DEGREE AV BLOCK LEFT VENTRICULAR HYPERTROPHY DIFFUSE ST-T CHANGES PREVIOUS TRACING : 08/15/2017 20.50 Compared to prior tracing no significant change DOCTOR: Yasmine Marrufo Interpretating Date/Time 09/10/2017 16:44:49
[2017-09-10] MEDS: hydrALAZINE HCL 50 MG TAB PO SCH (17:31)
[2017-09-10] MEDS: HEPARIN SODIUM - SQ 10,000 UNITS/ML VIAL SQ SCH (17:32)
[2017-09-10 18:13] LABS: TROPONIN I 0.05 NG/ML (0.02-0.05)
[2017-09-10] MEDS ORDERED: SODIUM CHLOR 0.9% 1000 ML INJ 1,000 ML OTHER PRN ×2 (18:19)
[2017-09-10] MEDS ORDERED: SODIUM CHLOR 0.9% 1000 ML INJ 1,000 ML IV PRN (18:19)
[2017-09-10] MEDS ORDERED: ONDANSETRON HCL 4 MG/2 ML VIAL IV PUSH PRN (18:30)
[2017-09-10] MEDS ORDERED: ALBUMIN 25% INJ 100 ML IV PRN (18:30)
[2017-09-10] MEDS ORDERED: diphenhydrAMINE HCL 25 MG CAP PO PRN (18:30)
[2017-09-10] MEDS ORDERED: MANNITOL 12.5 GM/50 ML VIAL IV PRN (18:30)
[2017-09-10] MEDS ORDERED: NITROGLYCERIN 0.4 MG SL 25 TABS/BTL SL PRN (18:30)
[2017-09-10] MEDS ORDERED: GELATIN 12 MM/7 MM FOAM TOP PRN (18:30)
[2017-09-10] MEDS ORDERED: HEPARIN SODIUM - IV 10,000 UNITS/10 ML VIAL IV FLUSH PRN (18:30)
--- NOTE | 2017-09-10 19:10 | MB ---
cc: MIRI MOY MD DATE OF CONSULTATION 09/10/17 REASON FOR CONSULTATION End-stage renal disease on hemodialysis, was admitted with worsening shortness of breath. HISTORY OF PRESENT ILLNESS This is an 82-year-old male with past medical history of ischemic heart disease, congestive heart failure, hypertension, hyperlipidemia, osteoarthritis, history of abdominal aortic aneurysm repair, end-stage renal disease on hemodialysis who came to the hospital with worsening shortness of breath. The patient has been following with Dr. Harrington and he had the PD catheter done two or three weeks ago and the patient was supposed to start ____ and he started but he is still on hemodialysis. He went yesterday for his regular hemodialysis. According to the patient, he was cramping too much so they were not able to remove much fluid and he aborted his dialysis sooner because of severe cramping and, according to him, they did not remove much fluid because of the cramping. The patient has this bad cramping and does not tolerate too much fluid removal. He has been taking diuretics at home, but he is not restricting the fluid too much. He has increasing swelling of the legs and has mild cough which is mainly dry. There is no chest pain. No palpitation. No history of fever. No nausea or vomiting. PAST MEDICAL HISTORY 1. Hypertension, 2. Ischemic heart disease, 3. Congestive heart failure, 4. History of abdominal aortic aneurysm repair, 5. History of CVA 6. Seizure disorder, 7. End-stage renal disease on hemodialysis, 8. Osteoarthritis. PAST SURGICAL HISTORY 1. PermCath placement 2. Placement of PD catheter 3. Abdominal aortic aneurysm repair, 4. Hernia repair, 5. Left carotid endarterectomy, 6. Glaucoma surgery 7. surgery for some kind of infection. REVIEW OF SYSTEMS There is no history of fever. He has this worsening shortness of breath mainly on exertion. There is no history of nausea or vomiting. He does not have any chest pain, has cough which is mainly dry. There is no history of abdominal pain. No diarrhea. He has increased swelling of his legs and has cramping during dialysis. The cramping is much better now. SOCIAL HISTORY The patient has no history of smoking or alcoholism. FAMILY HISTORY Noncontributory. ALLERGIES EZETIMIDE MEDICATIONS Currently, 1. Jo Ann-Colace 1 tablet b.i.d. 2. Amlodipine 10 mg once a day. 3. Lipitor 20 mg daily 4. Vitamin D3 2000 units once a day. 5. Plavix 75 mg daily. 6. Lasix 20 mg p.o. daily. 7. MiraLax 17 grams p.o. daily. 8. Heparin 5000 units q. 12-hour. 9. Coreg 12.5 mg q.12 h. 10. Hydralazine 50 mg q. 8-hour 11. Clonidine as needed. 12. Zofran as needed. 13. Tylenol and morphine as needed. PHYSICAL EXAMINATION GENERAL: The patient is awake, alert. He is not in acute distress. Currently he is on 2 liters nasal cannula. HEENT: Pupils are mid constricted. Nonicteric sclerae, conjunctivae pale. NECK: Supple. JVD is elevated. LUNGS: The patient has bilateral decreased air entry with basilar rales and scattered wheezing. HEART: S1, S2 regular rhythm. ABDOMEN: Distended, soft, lax. The PD catheter is in place. There is no tenderness. EXTREMITIES: He has bilateral 2+ edema LABORATORY DATA WBC count is 4.8, hemoglobin 9.2, platelet count 242, neutrophils 66.8%. Sodium 140, potassium 3.9, chloride 105, bicarb 28.3, BUN 17, creatinine 2.5, AST, ALT normal. Trop I 0.06, BNP is 2228, total protein is 6.0, albumin 2.9, INR is 1.0. Urinalysis not done now but previously had some proteinuria. IMAGING STUDIES The patient had chest x-ray done which shows that he has some blunting of the right costophrenic sulcus, no gross failure. ASSESSMENT/PLAN 1. Fluid overload status. 2. End-stage renal disease on hemodialysis. 3. History of congestive heart failure 4. Hypertension 5. Anemia. The patient has hemodialysis on Tuesday and was not able to complete the treatment because of severe cramping. He has edema and fluid overload. He needs to be more compliant with his fluid and salt intake. I will increase his Lasix and give him IV Lasix and arrange for his hemodialysis tomorrow and try to remove more fluid during dialysis. He has still not started on peritoneal dialysis, so we will continue the Hemo at present and Epogen with the dialysis and follow the hemoglobin. Dr. Harrington will follow the patient from Tuesday. Thank you for the consultation. MD ISADORA Quinteros/ /6:01 PM /6:32 PM
[2017-09-10] MEDS ORDERED: ZOLPIDEM TARTRATE 5 MG TAB PO PRN (21:00)
[2017-09-10] MEDS: CARVEDILOL 12.5 MG TAB PO SCH (21:52)
[2017-09-10] MEDS: SODIUM CHLORIDE 0.9% FLUSH 10 ML FLUSH IV FLUSH SCH (21:52)
[2017-09-10] MEDS: DOCUSATE SODIUM 50 MG/SENNA 8.6 MG TAB PO SCH (21:52)
[2017-09-11] VITALS (12 sets, daily range): BP systolic 124–147; BP diastolic 60–73; PULSE 58–69; RESP 14–18; TEMP 97.4–98.6; O2SAT 91–97
[2017-09-11] MEDS: hydrALAZINE HCL 50 MG TAB PO SCH ×3 (00:50→15:45)
[2017-09-11 02:30] LABS: AUTOMATED NEUTROPHIL # 3.4 TH/MM3 (1.8-7.7); BASOPHIL # 0.1 TH/MM3 (0-0.2); BASOPHIL % 1.2 % (0.0-2.0); EOSINOPHIL # 0.4 TH/MM3 (0-0.4); EOSINOPHIL % 7.5 % (0.0-4.0); HEMATOCRIT 28.7 % (39.0-51.0); HEMOGLOBIN 9.3 GM/DL (13.0-17.0); LYMPH % 16.2 % (9.0-44.0); LYMPHOCYTE # 0.9 TH/MM3 (1.0-4.8); MEAN CELL VOLUME 97.7 FL (80.0-100.0); MEAN CORPUSCULAR HEMOGLOBIN 31.7 PG (27.0-34.0); MEAN CORPUSCULAR HGB CONC 32.4 % (32.0-36.0); MEAN PLATELET VOLUME 7.4 FL (7.0-11.0); MONO % 14.7 % (0.0-8.0); MONOCYTE # 0.8 TH/MM3 (0-0.9); NEUT % 60.4 % (16.0-70.0); PLATELET COUNT 249 TH/MM3 (150-450); RED BLOOD COUNT 2.94 MIL/MM3 (4.50-5.90); RED CELL DISTRIBUTION WIDTH 16.7 % (11.6-17.2); WHITE BLOOD COUNT 5.6 TH/MM3 (4.0-11.0)
[2017-09-11 03:04] LABS: ALBUMIN 2.9 GM/DL (3.4-5.0); AST (GOT) 18 U/L (15-37); BLOOD UREA NITROGEN 21 MG/DL (7-18); CALCIUM 8.2 MG/DL (8.5-10.1); CHLORIDE 104 MEQ/L (98-107); CREATININE 3.37 MG/DL (0.60-1.30); GLOMERULAR FILTRATION RATE 18 ML/MIN (>89); GLUCOSE,RANDOM 80 MG/DL (74-106); MAGNESIUM 2.2 MG/DL (1.5-2.5); SODIUM (NA) 140 MEQ/L (136-145)
[2017-09-11 03:14] LABS: ALKALINE PHOSPHATASE 94 U/L (45-117); ALT (GPT) 20 U/L (12-78); FREE T4 0.98 NG/DL (0.76-1.46); TOTAL BILIRUBIN ADULT 0.4 MG/DL (0.2-1.0); TROPONIN I 0.06 NG/ML (0.02-0.05)
[2017-09-11] MEDS: HEPARIN SODIUM - SQ 10,000 UNITS/ML VIAL SQ SCH ×2 (04:19→15:46)
[2017-09-11] MEDS ORDERED: FUROSEMIDE 20 MG TAB PO SCH (09:00)
[2017-09-11] MEDS: FUROSEMIDE 40 MG/4 ML VIAL IV PUSH SCH ×3 (09:00→17:58)
[2017-09-11] MEDS: POLYETHYLENE GLYCOL 17 GM PKG PO SCH (09:00)
[2017-09-11] MEDS ORDERED: DOCUSATE SODIUM 50 MG/SENNA 8.6 MG TAB PO SCH (09:00)
[2017-09-11] MEDS ORDERED: OXYGENDME NAS.CANULA (09:37)
[2017-09-11] MEDS ORDERED: ECASA81 PO (09:38)
[2017-09-11] MEDS ORDERED: ISOS30TA3 PO (09:38)
--- NOTE | 2017-09-11 09:38 | HHI.DCPOC ---
Discharge Care Plan Diagnosis: (1) CHF (congestive heart failure) (2) ESRD (end stage renal disease) on dialysis Your Health Problems Are: Difficulty with ADL Exercise Tolerance Goals to Promote Your Health * To prevent worsening of your condition and complications * To maintain your health at the optimal level Directions to Meet Your Goals Take your medications as prescribed Follow your dietary instruction Follow activity as directed Keep your appointments as scheduled Take your immunizations and boosters as scheduled If your symptoms worsen call your PCP, if no PCP go to Urgent Care Center or Emergency Room Smoking is Dangerous to Your Health. Avoid second hand smoke Call the 24-hour hour crisis hotline for domestic abuse at Harpreet Nichols MD Sep 11, 2017 09:38
--- NOTE | 2017-09-11 09:39 | HHI.FF ---
Face to Face Verification Diagnosis: (1) ESRD (end stage renal disease) on dialysis Home Health Nursing Order: Medical education Signs/symptoms of disease process CHF education Medication education-adverse effect Nursing assessment with vital signs I have seen patient Jose Fonseca Sr Donnie on 09/11/17. My clinical findings support the need for the requested home health care services because: Patient has SOB I certify that my clinical findings support that this patient is homebound because: Need for psychosocial assistance Harpreet Nichols MD Sep 11, 2017 09:39
--- NOTE | 2017-09-11 09:47 | HHI.PR ---
Subjective Remarks F/U fluid overload. Feels better on 2 l NC ambulated with PT. diuresing on IV Lasix. He wants to go home awaiting hemodialysis today. Admits to noncompliance with fluid and dietary restrictions. He also does not know his medicines. Discussed with RN Objective Vitals Vital Signs Date Time Temp Pulse Resp B/P (MAP) Pulse Ox O2 Delivery O2 Flow Rate FiO2 09/11/17 08:00 97.5 67 14 147/73 (97) 94 09/11/17 04:11 58 09/11/17 04:00 97.8 62 17 141/67 (91) 96 09/11/17 00:09 66 09/11/17 00:00 Nasal Cannula 3.00 09/11/17 00:00 98.0 67 17 135/67 (89) 96 09/10/17 20:07 67 09/10/17 20:00 Nasal Cannula 3.00 09/10/17 20:00 97.8 68 20 132/63 (86) 98 09/10/17 19:31 100 Nasal Cannula 2.00 09/10/17 18:06 97.8 64 21 144/69 (94) 100 09/10/17 18:04 09/10/17 18:00 58 18 150/67 (94) 96 Nasal Cannula 2.00 09/10/17 16:00 65 18 155/75 (101) 96 Nasal Cannula 2.00 09/10/17 14:00 67 18 156/71 (99) 95 Nasal Cannula 2.00 09/10/17 12:13 96 Nasal Cannula 2.00 09/10/17 12:13 96 Nasal Cannula 2.00 09/10/17 12:03 64 18 96 Room Air 09/10/17 12:03 98.3 64 18 121/77 (92) 96 Nasal Cannula 2.00 09/10/17 11:57 98.3 66 18 121/77 (92) 95 I/O 09/10/17 09/10/17 09/10/17 09/11/17 09/11/17 09/11/17 07:00 15:00 23:00 07:00 15:00 23:00 Intake Total 0 ml Output Total 0 ml Balance 0 ml Intake Oral 0 ml Output Urine Total 0 ml # Voids 0 # Bowel Movements 0 Result Diagram: 12/24/17 0212 12/24/17 0212 Imaging Last Impressions Chest X-Ray 09/10/17 1207 Signed Impressions: Service Date/Time: Sunday, September 10, 2017 12:19 - CONCLUSION: Improved from 08/15/17. Persistent blunting right costophrenic sulcus. No failure Jaron Boss MD FACR Objective Remarks GENERAL: This is a well-nourished, well-developed patient, in no apparent distress. SKIN: No rashes, ecchymoses or lesions. Cool and dry. CARDIOVASCULAR: Regular rate and rhythm without murmurs, gallops, or rubs. RESPIRATORY: Clear to auscultation. Breath sounds equal bilaterally. No wheezes , rales, or rhonchi. GASTROINTESTINAL: Abdomen soft, non-tender, nondistended. No guarding. PD catheter in place MUSCULOSKELETAL: Extremities without clubbing, cyanosis, +1-2 lower extremity edema bilaterally no joint tenderness, effusion, or edema noted. No calf tenderness. Negative Homans sign bilaterally. NEUROLOGICAL: Awake and alert. Cranial nerves II through XII intact. Motor and sensory grossly within normal limits. Five out of 5 muscle strength in all muscle groups. Normal speech. Procedures none A/P Problem List: (1) ESRD (end stage renal disease) on dialysis ICD Code: N18.6 - End stage renal disease; Z99.2 - Dependence on renal dialysis (2) Anemia in CKD (chronic kidney disease) ICD Code: N18.9 - Chronic kidney disease, unspecified; D63.1 - Anemia in chronic kidney disease (3) Hypertension ICD Code: I10 - Essential (primary) hypertension (4) ESRD (end stage renal disease) ICD Code: N18.6 - End stage renal disease (5) CHF (congestive heart failure) ICD Code: I50.9 - Heart failure, unspecified (6) Shortness of breath ICD Code: R06.02 - Shortness of breath (7) Pulmonary edema ICD Code: J81.1 - Chronic pulmonary edema Assessment and Plan Fluid overload in a patient with history of noncompliance, cardiomyopathy EF of 20% and End-stage renal disease on hemodialysis Tuesday, Tuesday and Tuesday. Clinically improving on IV Lasix. He wants to go home after hemodialysis today. Reinforced compliance with fluid fluid and salt restriction. Discharge home with home care nurse. Hypertension resume home medications. Stable Elevated troponin suspect secondary to his cardiomyopathy and chronic hemodialysis. Denies chest pain. EKG with sinus rhythm with no significant change from previous. History of CAD continue Plavix and Coreg. Restart aspirin and nitrates. Consider CARLOS inhibitor if okay with nephrology Hyperlipidemia continue on Lipitor Insomnia continue on his Ambien DVT prophylaxis with SCD and subcutaneous heparin Discharge Planning Discharge patient to home with home care visiting nurse Condition on discharge: Improved Regular Diet as tolerated Ad Carmel activity Rx written: Aspirin, Imdur and possibly oxygen pending walk test Follow-up with primary care physician, cardiology and nephrology Problem Qualifiers (1) CHF (congestive heart failure): Qualified Codes: I50.9 - Heart failure, unspecified Harpreet Nichols MD Sep 11, 2017 09:47
[2017-09-11 11:32] LABS: HEMOGLOBIN A1C 4.6 % (4.3-6.0)
--- NOTE | 2017-09-11 12:12 | HHI.NPPN ---
Subjective History of Present Illness 82-year-old male with past medical history of ischemic heart disease, congestive heart failure, hypertension, hyperlipidemia, osteoarthritis, history of abdominal aortic aneurysm repair, end-stage renal disease on hemodialysis who came to the hospital with worsening shortness of breath. The patient has been following with Dr. Harrington and he had the PD catheter done two or three weeks ago. Additional Remarks Patient seen during HD, with nasal cannula, and mild SOB, no chest pain. Review of Systems Respiratory Lungs: SOB, Cough Cardiovascular Cardiac: MOE Objective Data Data Vital Signs Date Time Temp Pulse Resp B/P (MAP) Pulse Ox O2 Delivery O2 Flow Rate FiO2 09/11/17 08:00 97.5 67 14 147/73 (97) 94 09/11/17 04:11 58 09/11/17 04:00 97.8 62 17 141/67 (91) 96 09/11/17 00:09 66 09/11/17 00:00 Nasal Cannula 3.00 09/11/17 00:00 98.0 67 17 135/67 (89) 96 09/10/17 20:07 67 09/10/17 20:00 Nasal Cannula 3.00 09/10/17 20:00 97.8 68 20 132/63 (86) 98 09/10/17 19:31 100 Nasal Cannula 2.00 09/10/17 18:06 97.8 64 21 144/69 (94) 100 09/10/17 18:04 09/10/17 18:00 58 18 150/67 (94) 96 Nasal Cannula 2.00 09/10/17 16:00 65 18 155/75 (101) 96 Nasal Cannula 2.00 09/10/17 14:00 67 18 156/71 (99) 95 Nasal Cannula 2.00 09/10/17 12:13 96 Nasal Cannula 2.00 09/10/17 12:13 96 Nasal Cannula 2.00 -: 09/11/172 09/11/172 Physical Exam General Appearance: No Acute Distress, Comfortable Eyes Eye Exam: Pupils Equal Throat Throat Exam: Oral Mucosa [place] & Moist Neck Neck Exam: Neck Supple Pulmonary Resp Exam: Breath Sounds Equal, No Distress, Crackles, Rhonchi, Decreased Bases Cardiology CV Exam: Regular, Normal Sinus Rhythm Gastrointestinal/Abdomen GI Exam: Soft, Non-Tender, Bowel Sounds Present, Non-Distended (with PD Catheter.) Extremeties Extremities Exam: Moderate Edema, Pitting Edema Neurologic Neuro Exam: Alert, Awake, Oriented Psychiatric Psych Exam: Appropriate Responses Assessment/Plan Assessment Summary: Anemia of CKD, Fluid/Volume Overload, Hypertension, End Stage Renal Disease Problem List: (1) HTN (hypertension) ICD Codes: I10 - Essential (primary) hypertension Status: Acute (2) Respiratory failure with hypoxia ICD Codes: J96.91 - Respiratory failure, unspecified with hypoxia Status: Resolved (3) Shortness of breath ICD Codes: R06.02 - Shortness of breath (4) Anemia in CKD (chronic kidney disease) ICD Codes: N18.9 - Chronic kidney disease, unspecified; D63.1 - Anemia in chronic kidney disease (5) Edema ICD Codes: R60.9 - Edema, unspecified Status: Acute (6) CHF (congestive heart failure) ICD Codes: I50.9 - Heart failure, unspecified (7) ESRD (end stage renal disease) on dialysis ICD Codes: N18.6 - End stage renal disease; Z99.2 - Dependence on renal dialysis Plan Patient is now on HD. BP is stable, he is refusing more fluid removal due to fear of cramping. We are trying 2.5 liters. Patient to start PD once complete training. Need fluid and salt restriction. Epogen with HD. Dr. Harrington will follow from AM. Problem Qualifiers (1) Edema: Qualified Codes: R60.9 - Edema, unspecified (2) CHF (congestive heart failure): Qualified Codes: I50.9 - Heart failure, unspecified Janette Hector MD Sep 11, 2017 12:12
[2017-09-11] MEDS: HEPARIN SODIUM - IV 10,000 UNITS/10 ML VIAL PRN (13:00)
[2017-09-11] MEDS: GENTAMICIN SULFATE (DIALYSIS USE ONLY) 20 MG/2 ML VIAL OTHER PRN (13:00)
[2017-09-11] MEDS: EPOETIN ALFA 10,000 UNITS/ML VIAL IV PUSH PRN (13:00)
[2017-09-11] MEDS: CARVEDILOL 12.5 MG TAB PO SCH ×2 (15:44→20:56)
[2017-09-11] MEDS: SODIUM CHLORIDE 0.9% FLUSH 10 ML FLUSH IV FLUSH SCH ×2 (15:44→20:56)
[2017-09-11] MEDS: ASPIRIN EC 81 MG TABEC PO SCH (15:45)
[2017-09-11] MEDS: DOCUSATE SODIUM 50 MG/SENNA 8.6 MG TAB PO SCH ×2 (15:45→20:56)
[2017-09-11] MEDS: ATORVASTATIN 20 MG TAB PO SCH (15:45)
[2017-09-11] MEDS: CLOPIDOGREL 75 MG TAB PO SCH (15:46)
[2017-09-11] MEDS: CHOLECALCIFEROL (VIT D3) 1000 UNIT TAB PO SCH (15:46)
[2017-09-12] VITALS (14 sets, daily range): BP systolic 128–153; BP diastolic 60–69; PULSE 50–92; RESP 16–20; TEMP 97.4–98.5; O2SAT 92–97
[2017-09-12] MEDS: hydrALAZINE HCL 50 MG TAB PO SCH ×4 (00:05→23:10)
[2017-09-12] MEDS: ISOSORBIDE MONONITRATE 30 MG TAB PO SCH (05:25)
[2017-09-12] MEDS: HEPARIN SODIUM - SQ 10,000 UNITS/ML VIAL SQ SCH ×2 (05:26→16:15)
[2017-09-12] MEDS: DOCUSATE SODIUM 50 MG/SENNA 8.6 MG TAB PO SCH ×2 (09:00→20:20)
[2017-09-12] MEDS: POLYETHYLENE GLYCOL 17 GM PKG PO SCH (09:00)
[2017-09-12] MEDS: FUROSEMIDE 40 MG/4 ML VIAL IV PUSH SCH (09:17)
[2017-09-12] MEDS: CARVEDILOL 12.5 MG TAB PO SCH ×2 (09:18→20:20)
[2017-09-12] MEDS: ASPIRIN EC 81 MG TABEC PO SCH (09:18)
[2017-09-12] MEDS: CHOLECALCIFEROL (VIT D3) 1000 UNIT TAB PO SCH (09:18)
[2017-09-12] MEDS: ATORVASTATIN 20 MG TAB PO SCH (09:18)
[2017-09-12] MEDS: CLOPIDOGREL 75 MG TAB PO SCH (09:18)
[2017-09-12] MEDS: SODIUM CHLORIDE 0.9% FLUSH 10 ML FLUSH IV FLUSH SCH ×2 (09:19→20:20)
--- NOTE | 2017-09-12 10:55 | HHI.NPPN ---
Subjective History of Present Illness 82-year-old male with past medical history of ischemic heart disease, congestive heart failure, hypertension, hyperlipidemia, osteoarthritis, history of abdominal aortic aneurysm repair, end-stage renal disease on hemodialysis who came to the hospital with worsening shortness of breath. The patient has been following with Dr. Harrington and he had the PD catheter done two or three weeks ago. Interval History Has no shortness of breath. On Room air. Was dialyzed yesterday. Review of Systems General Constitutional: Fatigue Respiratory Lungs: SOB, Cough Cardiovascular Cardiac: MOE Objective Data Data Vital Signs Date Time Temp Pulse Resp B/P (MAP) Pulse Ox O2 Delivery O2 Flow Rate FiO2 09/12/17 08:20 97.9 92 20 153/68 (96) 92 09/12/17 04:00 98.4 66 18 128/61 (83) 92 09/12/17 03:55 60 09/12/17 00:07 Nasal Cannula 3.00 09/12/17 00:05 68 09/12/17 00:00 98.5 71 18 129/60 (83) 96 09/11/17 20:09 68 09/11/17 20:00 98.6 66 18 124/60 (81) 97 09/11/17 20:00 Nasal Cannula 3.00 09/11/17 19:51 91 09/11/17 16:00 97.7 63 16 130/68 (88) 95 09/11/17 15:45 63 09/11/17 14:45 97.4 69 14 143/67 (92) 93 -: 09/11/17 0212 09/11/17 0212 Physical Exam General Appearance: No Acute Distress, Comfortable Eyes Eye Exam: Pupils Equal Throat Throat Exam: Oral Mucosa [place] & Moist Neck Neck Exam: Neck Supple Pulmonary Resp Exam: Breath Sounds Equal, No Distress, Crackles, Rhonchi, Decreased Bases Cardiology CV Exam: Regular, Normal Sinus Rhythm Gastrointestinal/Abdomen GI Exam: Soft, Non-Tender, Bowel Sounds Present, Non-Distended (with PD Catheter.) Extremeties Extremities Exam: Moderate Edema, Pitting Edema Neurologic Neuro Exam: Alert, Awake, Oriented Psychiatric Psych Exam: Appropriate Responses Assessment/Plan Assessment Summary: Anemia of CKD, Fluid/Volume Overload, Hypertension, End Stage Renal Disease Problem List: (1) ESRD (end stage renal disease) on dialysis ICD Codes: N18.6 - End stage renal disease; Z99.2 - Dependence on renal dialysis Plan: We will dialyze him tomorrow before discharge. He has PD catheter in place. In the process of training, progress has been suboptimal. Complains of cramping during HD treatments, also has an element of anxiety attacks. (2) HTN (hypertension) ICD Codes: I10 - Essential (primary) hypertension Status: Acute (3) Respiratory failure with hypoxia ICD Codes: J96.91 - Respiratory failure, unspecified with hypoxia Status: Resolved Plan: Improved. (4) Anemia in CKD (chronic kidney disease) ICD Codes: N18.9 - Chronic kidney disease, unspecified; D63.1 - Anemia in chronic kidney disease Plan: Epogen with dialysis. (5) Edema ICD Codes: R60.9 - Edema, unspecified Status: Acute (6) CHF (congestive heart failure) ICD Codes: I50.9 - Heart failure, unspecified Problem Qualifiers (1) Edema: Qualified Codes: R60.9 - Edema, unspecified (2) CHF (congestive heart failure): Qualified Codes: I50.9 - Heart failure, unspecified Bobby Harrington MD Sep 12, 2017 10:55
--- NOTE | 2017-09-12 15:25 | HHI.PR ---
Subjective Remarks Follow-up fluid overload. Tolerated hemodialysis yesterday but did not develop cramping. Nephrology discharge patient after dialysis tomorrow. Discussed with RN Objective Vitals Vital Signs Date Time Temp Pulse Resp B/P (MAP) Pulse Ox O2 Delivery O2 Flow Rate FiO2 09/12/17 12:03 98.2 65 20 136/65 (88) 96 09/12/17 08:20 97.9 92 20 153/68 (96) 92 09/12/17 04:00 98.4 66 18 128/61 (83) 92 09/12/17 03:55 60 09/12/17 00:07 Nasal Cannula 3.00 09/12/17 00:05 68 09/12/17 00:00 98.5 71 18 129/60 (83) 96 09/11/17 20:09 68 09/11/17 20:00 98.6 66 18 124/60 (81) 97 09/11/17 20:00 Nasal Cannula 3.00 09/11/17 19:51 91 09/11/17 16:00 97.7 63 16 130/68 (88) 95 09/11/17 15:45 63 I/O 09/11/17 09/11/17 09/11/17 09/12/17 09/12/17 09/12/17 07:00 15:00 23:00 07:00 15:00 23:00 Intake Total 0 ml 222 ml Output Total 0 ml 2500 ml Balance 0 ml -2500 ml 222 ml Intake Oral 0 ml 222 ml Output Urine Total 0 ml Hemodialysis 2500 ml # Voids 0 2 # Bowel Movements 0 Result Diagram: 09/11/17 0212 09/11/17 0212 Imaging Last Impressions Chest X-Ray 09/10/17 1207 Signed Impressions: Service Date/Time: Sunday, September 10, 2017 12:19 - CONCLUSION: Improved from 08/15/17. Persistent blunting right costophrenic sulcus. No failure Jaron Boss MD FACR Objective Remarks GENERAL: This is a well-nourished, well-developed patient, in no apparent distress. SKIN: No rashes, ecchymoses or lesions. Cool and dry. CARDIOVASCULAR: Regular rate and rhythm without murmurs, gallops, or rubs. RESPIRATORY: Clear to auscultation. Breath sounds equal bilaterally. No wheezes , rales, or rhonchi. GASTROINTESTINAL: Abdomen soft, non-tender, nondistended. No guarding. PD catheter in place MUSCULOSKELETAL: Extremities without clubbing, cyanosis, +1-2 lower extremity edema bilaterally no joint tenderness, effusion, or edema noted. No calf tenderness. Negative Homans sign bilaterally. NEUROLOGICAL: Awake and alert. Cranial nerves II through XII intact. Motor and sensory grossly within normal limits. Five out of 5 muscle strength in all muscle groups. Normal speech. Procedures none A/P Problem List: (1) ESRD (end stage renal disease) on dialysis ICD Code: N18.6 - End stage renal disease; Z99.2 - Dependence on renal dialysis (2) Anemia in CKD (chronic kidney disease) ICD Code: N18.9 - Chronic kidney disease, unspecified; D63.1 - Anemia in chronic kidney disease (3) Hypertension ICD Code: I10 - Essential (primary) hypertension (4) ESRD (end stage renal disease) ICD Code: N18.6 - End stage renal disease (5) CHF (congestive heart failure) ICD Code: I50.9 - Heart failure, unspecified (6) Shortness of breath ICD Code: R06.02 - Shortness of breath (7) Pulmonary edema ICD Code: J81.1 - Chronic pulmonary edema Assessment and Plan Fluid overload in a patient with history of noncompliance, cardiomyopathy EF of 20% and End-stage renal disease on hemodialysis Tuesday, Tuesday and Tuesday. Clinically improving on hemodialysis. Switch to by mouth Lasix. Reinforced compliance with fluid fluid and salt restriction. Discharge home with home care nurse. Hypertension resume home medications. Stable Elevated troponin suspect secondary to his cardiomyopathy and chronic hemodialysis. Denies chest pain. EKG with sinus rhythm with no significant change from previous. History of CAD continue Plavix and Coreg. Restart aspirin and nitrates. Consider CARLOS inhibitor if okay with nephrology Hyperlipidemia continue on Lipitor Insomnia continue on his Ambien DVT prophylaxis with SCD and subcutaneous heparin Discharge Planning Discharge patient to home with home care visiting nurse Condition on discharge: Improved Regular Diet as tolerated [place] activity Rx written: Aspirin and Imdur Follow-up with primary care physician, cardiology and nephrology Problem Qualifiers (1) CHF (congestive heart failure): Qualified Codes: I50.9 - Heart failure, unspecified Harpreet Nichols MD Sep 12, 2017 15:25
[2017-09-13 03:42] VITALS: BP 125/58; PULSE 69; RESP 16; TEMP 98.1; O2SAT 96
[2017-09-13 03:47] VITALS: PULSE 64
[2017-09-13] MEDS: HEPARIN SODIUM - SQ 10,000 UNITS/ML VIAL SQ SCH ×2 (04:24→16:32)
[2017-09-13] MEDS: ISOSORBIDE MONONITRATE 30 MG TAB PO SCH (06:04)
[2017-09-13 08:00] VITALS: BP 133/59; PULSE 61; PULSE 64; RESP 18; TEMP 97.9; O2SAT 94
[2017-09-13] MEDS: ATORVASTATIN 20 MG TAB PO SCH (08:26)
[2017-09-13] MEDS: ASPIRIN EC 81 MG TABEC PO SCH (08:26)
[2017-09-13] MEDS: CHOLECALCIFEROL (VIT D3) 1000 UNIT TAB PO SCH (08:26)
[2017-09-13] MEDS: CARVEDILOL 12.5 MG TAB PO SCH (08:26)
[2017-09-13] MEDS: hydrALAZINE HCL 50 MG TAB PO SCH ×2 (08:27→16:31)
[2017-09-13] MEDS: CLOPIDOGREL 75 MG TAB PO SCH (08:27)
[2017-09-13] MEDS: POLYETHYLENE GLYCOL 17 GM PKG PO SCH (08:27)
[2017-09-13] MEDS: DOCUSATE SODIUM 50 MG/SENNA 8.6 MG TAB PO SCH (08:27)
[2017-09-13] MEDS: SODIUM CHLORIDE 0.9% FLUSH 10 ML FLUSH IV FLUSH SCH (08:30)
[2017-09-13] MEDS ORDERED: FUROSEMIDE 20 MG TAB PO SCH (09:00)
--- NOTE | 2017-09-13 11:08 | HHI.NPPN ---
Subjective History of Present Illness 82-year-old male with past medical history of ischemic heart disease, congestive heart failure, hypertension, hyperlipidemia, osteoarthritis, history of abdominal aortic aneurysm repair, end-stage renal disease on hemodialysis who came to the hospital with worsening shortness of breath. The patient has been following with Dr. Harrington and he had the PD catheter done two or three weeks ago. Interval History patient was seen and examined. If there are plans to discharge him, we will dialyze him today. He can be discharged after dialysis. Review of Systems General Constitutional: Fatigue Respiratory Lungs: SOB, Cough Cardiovascular Cardiac: MOE Objective Data Data Vital Signs Date Time Temp Pulse Resp B/P (MAP) Pulse Ox O2 Delivery O2 Flow Rate FiO2 09/13/17 08:00 97.9 64 18 133/59 (83) 94 09/13/17 04:00 Room Air 09/13/17 03:47 64 09/13/17 03:42 98.1 69 16 125/58 (80) 96 09/13/17 00:00 Room Air 09/12/17 23:54 68 09/12/17 23:33 97.4 67 16 138/65 (89) 96 09/12/17 20:00 Room Air 09/12/17 19:50 98.0 74 17 145/69 (94) 97 09/12/17 19:45 70 09/12/17 16:03 97.9 63 20 130/63 (85) 97 09/12/17 16:00 62 09/12/17 12:03 98.2 65 20 136/65 (88) 96 09/12/17 12:00 50 -: 09/11/17 0212 09/11/17 0212 Physical Exam General Appearance: No Acute Distress, Comfortable Eyes Eye Exam: Pupils Equal Throat Throat Exam: Oral Mucosa [place] & Moist Neck Neck Exam: Neck Supple Pulmonary Resp Exam: Breath Sounds Equal, No Distress, Crackles, Rhonchi, Decreased Bases Cardiology CV Exam: Regular, Normal Sinus Rhythm Gastrointestinal/Abdomen GI Exam: Soft, Non-Tender, Bowel Sounds Present, Non-Distended (with PD Catheter.) Extremeties Extremities Exam: Moderate Edema, Pitting Edema Neurologic Neuro Exam: Alert, Awake, Oriented Psychiatric Psych Exam: Appropriate Responses Assessment/Plan Assessment Summary: Anemia of CKD, Fluid/Volume Overload, Hypertension, End Stage Renal Disease Problem List: (1) ESRD (end stage renal disease) on dialysis ICD Codes: N18.6 - End stage renal disease; Z99.2 - Dependence on renal dialysis Plan: We will dialyze him today before discharge. He has PD catheter in place. In the process of training, progress has been suboptimal. Complains of cramping during HD treatments, also has an element of anxiety attacks. (2) HTN (hypertension) ICD Codes: I10 - Essential (primary) hypertension Status: Acute (3) Respiratory failure with hypoxia ICD Codes: J96.91 - Respiratory failure, unspecified with hypoxia Status: Resolved Plan: Improved. (4) Anemia in CKD (chronic kidney disease) ICD Codes: N18.9 - Chronic kidney disease, unspecified; D63.1 - Anemia in chronic kidney disease Plan: Epogen with dialysis. (5) Edema ICD Codes: R60.9 - Edema, unspecified Status: Acute (6) CHF (congestive heart failure) ICD Codes: I50.9 - Heart failure, unspecified Problem Qualifiers (1) Edema: Qualified Codes: R60.9 - Edema, unspecified (2) CHF (congestive heart failure): Qualified Codes: I50.9 - Heart failure, unspecified Bobby Harrington MD Sep 13, 2017 11:08
[2017-09-13 11:53] VITALS: BP 133/62; PULSE 69; RESP 18; TEMP 98.1; O2SAT 98
[2017-09-13 12:00] VITALS: BP 133/62; PULSE 59; PULSE 69; RESP 18; TEMP 98.1; O2SAT 98
[2017-09-13 12:55] LABS: BICARBONATE 30.7 MEQ/L (21.0-32.0); CALCIUM 8.2 MG/DL (8.5-10.1); CREATININE 4.56 MG/DL (0.60-1.30)
--- NOTE | 2017-09-13 13:50 | HHI.DS ---
Discharge Summary Admission Date Sep 10, 2017 at 14:55 Discharge Date: Sep 13, 2017 Admitting Diagnosis CHF, EDEMA, ELEVATED TROP (1) ESRD (end stage renal disease) on dialysis ICD Code: N18.6 - End stage renal disease; Z99.2 - Dependence on renal dialysis (2) Anemia in CKD (chronic kidney disease) ICD Code: N18.9 - Chronic kidney disease, unspecified; D63.1 - Anemia in chronic kidney disease (3) Hypertension ICD Code: I10 - Essential (primary) hypertension (4) ESRD (end stage renal disease) ICD Code: N18.6 - End stage renal disease (5) CHF (congestive heart failure) ICD Code: I50.9 - Heart failure, unspecified (6) Shortness of breath ICD Code: R06.02 - Shortness of breath (7) Pulmonary edema ICD Code: J81.1 - Chronic pulmonary edema Procedures none Brief History - From Admission Patient is an 82-year-old gentleman, Who presented to the emergency department today via EMS from home for evaluation. Patient states he's been more tired than his usual. He has a friend that noted that he's been more tired than usual. That is been falling asleep more and his feet are more swollen than usual. Patient has been receiving hemodialysis I believe Tuesday. Started having some cramps. But then patient decided to leave in the middle of treatment. Last dialysis was Tuesday. Has not been very compliant with his dialysis. Denies any chest pain has some shortness of breath denies any fever or chills denies any abdominal pain or nausea vomiting or diarrhea does have some malaise. Patient states he's had issues with the cramping before when he has been having dialysis in his muscles started cramping. He had a AAA repair and then had issues with his kidneys. After the surgery. Patient then developed CHF and fluid overload and then has been on dialysis since then. Has edema in +1-2 in bilateral lower extremities. No accessory muscle use Patient has what sounds like noncompliance with his dialysis and has not fluid restricting himself at all Will be admitted for consultation with nephrology and probable need for hemodialysis here CBC/BMP: 09/11/17 0212 09/13/17 1211 Significant Findings Laboratory Tests Test 09/10/17 17:05 09/11/17 02:12 09/13/17 12:11 Red Blood Count 2.94 MIL/MM3 (4.50-5.90) Hemoglobin 9.3 GM/DL (13.0-17.0) Hematocrit 28.7 % (39.0-51.0) Monocytes (%) (Auto) 14.7 % (0.0-8.0) Eosinophils (%) (Auto) 7.5 % (0.0-4.0) Lymphocytes # (Auto) 0.9 TH/MM3 (1.0-4.8) Blood Urea Nitrogen 21 MG/DL (7-18) 29 MG/DL (7-18) Creatinine 3.37 MG/DL (0.60-1.30) 4.56 MG/DL (0.60-1.30) Total Protein 6.0 GM/DL (6.4-8.2) Albumin 2.9 GM/DL (3.4-5.0) Calcium Level 8.2 MG/DL (8.5-10.1) 8.2 MG/DL (8.5-10.1) Phosphorus Level 5.0 MG/DL (2.5-4.9) Estimat Glomerular Filtration Rate 18 ML/MIN (>89) 12 ML/MIN (>89) Troponin I 0.06 NG/ML (0.02-0.05) Random Glucose 109 MG/DL (74-106) Imaging Last Impressions Chest X-Ray 09/10/17 1207 Signed Impressions: Service Date/Time: Sunday, September 10, 2017 12:19 - CONCLUSION: Improved from 08/15/17. Persistent blunting right costophrenic sulcus. No failure Jaron Boss MD FACR PE at Discharge GENERAL: This is a well-nourished, well-developed patient, in no apparent distress. SKIN: No rashes, ecchymoses or lesions. Cool and dry. CARDIOVASCULAR: Regular rate and rhythm without murmurs, gallops, or rubs. RESPIRATORY: Clear to auscultation. Breath sounds equal bilaterally. No wheezes , rales, or rhonchi. GASTROINTESTINAL: Abdomen soft, non-tender, nondistended. No guarding. PD catheter in place MUSCULOSKELETAL: Extremities without clubbing, cyanosis, +1-2 lower extremity edema bilaterally no joint tenderness, effusion, or edema noted. No calf tenderness. Negative Homans sign bilaterally. NEUROLOGICAL: Awake and alert. Cranial nerves II through XII intact. Motor and sensory grossly within normal limits. Five out of 5 muscle strength in all muscle groups. Normal speech. Pt update on day of discharge Denies cp/sob. Afebrile. Pt Condition on Discharge: Stable Discharge Disposition: Disch w/ Home Health Serv Discharge Time: > 30 minutes Discharge Instructions DIET: Follow Instructions for: Renal Failure Diet Activities you can perform: Regular-No Restrictions Activities to Avoid: Strenuous Activity Follow up Referrals: Cardiology - 1 Week Nephrology - 1 Week PCP Follow-up - 2-3 Days New Medications: Oxygen (O2) (Oxygen (O2)) Device LITER NICOLÁS.CANULA CONTINUOUS for Prevent Hypoxemia, #2 Oxygen Concentrator Portable Gaseous 2 L/min via Nasal Canula Continuous For [address] (Aspirin DR) 81 Mg Tabdr 81 MG PO DAILY for Prevent Blood Clot, #30 TAB Isosorbide Mononitrate ER (Isosorbide Mononitrate ER) 30 Mg Nolan 30 MG PO DAILY@07 for Blood Pressure Management, #30 TAB Continued Medications: Albuterol 18 GM Inh (Ventolin Hfa 18 GM Inh) 90 Mcg/Act Aer 2 PUFF INH Q12HR NEB PRN for SHORTNESS OF BREATH, INHALER 0 Refills Amlodipine (Norvasc) 10 Mg Tab 10 MG PO DAILY for Blood Pressure Management, #30 TAB 0 Refills Atorvastatin (Lipitor) 20 Mg Tab 20 MG PO DAILY for Cholesterol Management, #30 TAB 0 Refills Carvedilol (Coreg) 12.5 Mg Tab 12.5 MG PO Q12HR for Blood Pressure Management, #60 TAB Cholecalciferol (Gnp Vitamin D3 Extra Stre) 1,000 Unit Tab 2000 UNITS PO DAILY for vitamin, #31 TAB Clopidogrel (Plavix) 75 Mg Tab 75 MG PO DAILY for Prevent Blood Clot, #30 TAB 3 Refills Furosemide (Furosemide) 20 Mg Tab 20 MG PO DAILY, TAB 0 Refills Hydralazine HCl (Hydralazine HCl) 50 Mg Tablet 50 MG PO Q8H for Blood Pressure Management, #90 TAB Polyethylene Glycol 3350 Powder (Miralax Powder) 17 Gm Powd 17 GM PO DAILY for Constipation, #1 CAN 0 Refills Mix and dissolve one measuring cap-ful (17 grams) in water or juice. Sennosides-Docusate Sodium (Senokot S) 8.6-50 Mg Tab 1 TAB PO DAILY for Constipation, TAB 0 Refills Zolpidem (Zolpidem) 5 Mg Tab 5 MG PO HS PRN for INSOMNIA, TAB 0 Refills Lalo Gross MD Sep 13, 2017 13:50
[2017-09-13] MEDS: HEPARIN SODIUM - IV 10,000 UNITS/10 ML VIAL PRN (15:05)
[2017-09-13] MEDS: EPOETIN ALFA 10,000 UNITS/ML VIAL IV PUSH PRN (15:06)
[2017-09-13] MEDS: GENTAMICIN SULFATE (DIALYSIS USE ONLY) 20 MG/2 ML VIAL OTHER PRN (15:06)
[2017-09-13 16:00] VITALS: BP 154/75; PULSE 68; RESP 16; TEMP 97.7; O2SAT 92
== END 2017-09-13 18:18 | disposition home health service (06) | DRG 291 ==
LOC: NEPC 11:47 → NEDA 14:55 → N04B 17:45
PROVIDERS: ADMIT Hospitalist; ATTEND Hospitalist
PROC: 5A1D70Z Performance of Urinary Filtration, Intermittent, Less than 6 Hours Per Day (ICD-10-PCS; principal; 2017-09-11)
PROC: 5A1D70Z Performance of Urinary Filtration, Intermittent, Less than 6 Hours Per Day (ICD-10-PCS; 2017-09-13)
DX: I13.2 Hypertensive heart and chronic kidney disease with heart failure and with stage 5 chronic kidney disease, or end stage renal disease (principal); I50.9 Heart failure, unspecified; N18.6 End stage renal disease; J96.91 Respiratory failure, unspecified with hypoxia; I42.9 Cardiomyopathy, unspecified; D63.1 Anemia in chronic kidney disease; Z91.15 Patient's noncompliance with renal dialysis; Z91.19 Patient's noncompliance with other medical treatment and regimen; Z99.2 Dependence on renal dialysis; I25.10 Atherosclerotic heart disease of native coronary artery without angina pectoris; Z79.02 Long term (current) use of antithrombotics/antiplatelets; E78.5 Hyperlipidemia, unspecified; R74.8 Abnormal levels of other serum enzymes; K59.09 Other constipation; F41.9 Anxiety disorder, unspecified; G47.00 Insomnia, unspecified; M19.90 Unspecified osteoarthritis, unspecified site; Z86.73 Personal history of transient ischemic attack (TIA), and cerebral infarction without residual deficits
CPT/HCPCS: 71010; 80048; 80053; 82550; 83036; 83735; 83880; 84100; 84439; 84443; 84484; 85025; 90935; 93005; 94620; 96374; 96375; 99285; J1580; J1644; J1940; J7030; Q4081